=== PATIENT | male | born 1990 ===

== ENCOUNTER 2021-07-13 11:13 | Emergency (ER) | payer OTHER, SELFPAY ==
[2021-07-13 11:35] VITALS: BP 134/78; PULSE 79; RESP 18; TEMP 36.6; O2SAT 97; BMI 24.3
[2021-07-13] MEDS: Acetaminophen 325 MG TABLET 650 MG PO (11:44)
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
== END 2021-07-13 12:33 | disposition home or self-care (01) ==
PROVIDERS: Emergency Provider Emergency Medicine; PCP Internal Medicine
DX: S29.012A Strain of muscle and tendon of back wall of thorax, initial encounter (principal); S16.1XXA Strain of muscle, fascia and tendon at neck level, initial encounter; M54.2 Cervicalgia; V43.52XA Car driver injured in collision with other type car in traffic accident, initial encounter; Y93.9 Activity, unspecified; Y92.410 Unspecified street and highway as the place of occurrence of the external cause; Y99.9 Unspecified external cause status; Z79.899 Other long term (current) drug therapy
CPT/HCPCS: 99284

== ENCOUNTER 2024-04-10 16:25 | Outpatient (REF) | payer MEDICAID, SELFPAY ==
[2024-04-10 18:10] LABS: Alanine Aminotransferase 9 U/L (0-40); Albumin Level 3.9 g/dL (3.5-5.0); Alkaline Phosphatase 68 U/L (39-117); Aspartate Amino Transferase 15 U/L (5-37); Bilirubin Direct < 0.2 mg/dL (0.0-0.5); Bilirubin Total 0.2 mg/dL (0.0-1.0); Total Protein 7.5 g/dL (6.5-8.0)
[2024-04-11 07:29] LABS: HBS Num1 67.95 mIU/mL (0-7.99); HBc Num1 0.11 S/CO (0.00-0.79); HIV Num 1 0.07 S/CO (0.00-0.99); Hepatitis B Core Antibody Nonreactive (Nonreactive); ~HepC Num1 0.14 S/CO (0.00-0.79); ~Hepatitis B Surface Antibody REACTIVE (Nonreactive); ~Hepatitis C Antibody Nonreactive (Nonreactive)
[2024-04-11 07:30] LABS: HBsAGNum1 0.25 S/CO (0.00-0.99); HIV AB/AG Nonreactive (Nonreactive); Hepatitis B Surface Antigen Negative (Negative)
[2024-04-11 07:31] LABS: Hepatitis A Antibody IgG Nonreactive (Nonreactive); ~Hepatitis A Antibody IgG 0.33 S/CO (0.00-0.99)
[2024-04-11 12:38] LABS: RPR Rapid Plasma Reagin NON-REACTIVE (NON-REACTIVE)
== END 2024-04-10 16:26 | disposition home or self-care (01) ==
LOC: HO.HHCL 16:25
PROVIDERS: Visit Provider Emergency Medicine
DX: F11.20 Opioid dependence, uncomplicated (principal)
CPT/HCPCS: 36415; 80076; 86592; 86704; 86706; 86708; 86803; 87340; 87389

== ENCOUNTER 2024-06-16 18:01 | Inpatient (IN) | payer MEDICAID, OTHER, SELFPAY ==
[2024-06-16 19:08] VITALS: BP 106/65; PULSE 83; RESP 16; TEMP 36.9; O2SAT 95; BMI 23.2
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
--- NOTE | 2024-06-16 19:12 | ECG_ITS ---
Test Reason : MED CLEARANCE Blood Pressure : / mmHG Vent. Rate : 055 BPM Atrial Rate : 055 BPM P-R Int : 158 ms QRS Dur : 100 ms QT Int : 408 ms P-R-T Axes : 039 074 050 degrees QTc Int : 390 ms Sinus bradycardia with sinus arrhythmia Otherwise normal ECG When compared with ECG of 17-APR-2012 23:46, Vent. rate has decreased BY 54 BPM QT has shortened Referred By: Mary Resendiz Electronically Signed By:ROMA MARKS
--- NOTE | 2024-06-16 19:26 | PC.NURSE ---
client had heroin in pocket did forthcoming relinquish upon search.
[2024-06-16] MEDS: Nicotine 21 MG PATCH.TD24 TRANSDERMA (20:04)
[2024-06-16] MEDS: Albuterol Sulfate 90 MCG 8 GM INHALER 4 PUFF INHALE (20:05)
--- NOTE | 2024-06-16 20:41 | MHC.CARE ---
Manager Database Administration attempted to meet with patient-not clinically appropriate at this time due to under the influence of substances. Will need follow-up
[2024-06-16 21:02] LABS: Amphetamine Screen Urine Not Detected (Not Detect); Barbiturates, Urine Not Detected (Not Detect); Benzodiazepines Screen Urine POSITIVE (Not Detect); Buprenorphine Scr Not Detected (Not Detect); Cannabinoid Screen Urine POSITIVE (Not Detect); Cocaine Screen Urine POSITIVE (Not Detect); Fentanyl, urine POSITIVE (Not Detect); Methadone Screen, Urine Not Detected (Not Detect); Opiate Screen Urine POSITIVE (Not Detect); Oxycodone Screen Urine Not Detected (Not Detect); Phencyclidine Screen Urine Not Detected (Not Detect)
[2024-06-16 21:02] LABS: MANUAL DIFF FLAG NO
[2024-06-16 21:03] LABS: Basophils Percent Auto 0.5 % (0-2); Eosinophils Absolute Auto 0.5 X10*3/uL (0.0-0.4); Eosinophils Percent Auto 6.3 % (0-4); Hematocrit 37.9 % (42.0-52.0); Hemoglobin 13.4 g/dl (14.0-18.0); Imm Gran Abs Auto 0.01 X10*3/uL (0.00-0.03); Imm Gran Pct Auto 0.1 % (0.0-0.4); Lymphocytes Absolute Auto 2.2 X10*3/uL (1.2-4.9); Lymphocytes Percent Auto 27.2 % (20-40); Mean Corpuscular HGB Conc 35.4 g/dl (31.0-36.0); Mean Corpuscular Hemoglobin 32.4 pg (27.0-33.0); Mean Corpuscular Volume 91.8 fL (80.0-98.0); Mean Platelet Volume 9.8 fL (9.4-12.4); Monocytes Absolute Auto 0.6 X10*3/uL (0.1-1.2); Monocytes Percent Auto 7.4 % (2-11); Neutrophils Absolute Auto 4.6 x10*3/uL (2.0-8.3); Neutrophils Percent Auto 58.5 % (45-73); Platelet Count 214 X10*3/uL (160-400); Red Blood Count 4.13 X10*6/uL (4.60-5.80); Red Cell Distribution Width 13.5 % (11.0-16.0); White Blood Count 7.9 X10*3/uL (4.8-10.8)
[2024-06-16 21:26] LABS: Acetaminophen LAB < 3 mcg/mL (<30); Salicylate < 5.0 mg/dL (15-30)
[2024-06-16 21:27] LABS: Alanine Aminotransferase 9 U/L (0-40); Albumin Level 3.9 g/dL (3.5-5.0); Alkaline Phosphatase 63 U/L (39-117); Anion Gap 12 (12-20); Aspartate Amino Transferase 14 U/L (5-37); Bilirubin Direct < 0.2 mg/dL (0.0-0.5); Bilirubin Total 0.2 mg/dL (0.0-1.0); Blood Urea Nitrogen 14 mg/dL (9-16); Calcium 9.4 mg/dL (8.4-10.2); Carbon Dioxide 27 mmol/L (22-29); Chloride 105 mmol/L (96-108); Creatinine Clr Calc Pharmacy 92.4; Estimated Glomerular Filt Rate > 60; Ethanol < 10 mg/dL; Glucose Random 109 mg/dL (60-115); Magnesium 2.1 mg/dL (1.6-2.6); Potassium 4.2 mmol/L (3.3-5.1); Sodium 140 mmol/L (135-145); Total Protein 6.8 g/dL (6.5-8.0)
[2024-06-16 21:29] LABS: Valproate < 12.5 mcg/mL (50.0-100.0)
[2024-06-17 06:24] VITALS: RESP 16
--- NOTE | 2024-06-17 08:12 | PC.NURSE ---
Assumed care of patient at 0645, patient sitting at desk eating breakfast at this time, offers no complaints to this RN. Patient is calm and cooperative, help seeking. Reports SI without plan at this time. No apparent distress noted. Continue plan of care for CARE team dispo. This RN spoke with patient about home medications, patient reports taking depakote 500mg BID for epilepsy however he admits to taking the medication inconsistently which explains why his prescription is by 2 months. This was discussed with Dr. Lopez
[2024-06-17] MEDS: Divalproex Sodium 250 MG TABLET.DR PO ×2 (08:27→20:39)
[2024-06-17 08:34] VITALS: BP 101/73; PULSE 70; RESP 14; TEMP 36.4; O2SAT 98
[2024-06-17 11:15] VITALS: PULSE 74
[2024-06-17] MEDS: cloNIDine HCL 0.1 MG TABLET PO (11:35)
--- NOTE | 2024-06-17 13:50 | MHC.EDTECH ---
Patient am care done showered and linen change .
[2024-06-17] MEDS: LORazepam 1 MG TABLET 2 MG PO (14:15)
[2024-06-17 17:47] VITALS: BP 95/67; PULSE 54; RESP 16; TEMP 36.3; O2SAT 99
--- NOTE | 2024-06-17 19:03 | PC.NURSE ---
patient appears to remain at rest at present respirations are even and unlabored patient appears in no distress
[2024-06-17 23:20] VITALS: BMI 22.0
[2024-06-18] VITALS (8 sets, daily range): BP systolic 102–118; BP diastolic 70–78; PULSE 68–89; RESP 14–16; TEMP 36.6–36.9; O2SAT 98
[2024-06-18] MEDS: methADONE HCl 10 MG TABLET PO (01:22)
[2024-06-18] MEDS: LORazepam 1 MG TABLET 2 MG PO (01:23)
--- NOTE | 2024-06-18 01:33 | PC.ADMIT ---
Rogelio was admitted to M3 room 306-1 from [facility] on a CV for Depression and Suicidal ideation r/t ongoing substance abuse. Patient reports that he recently became homeless and is unable to see his daughter secondary to his substance abuse issues. He reports feeling depressed with suicidal ideation to overdose on heroin related to the afore mentioned concerns. Rogelio endorsed being part of a Suboxone clinic but stated that he doesn't take the Suboxone rather, the he sells it and then obtains Heroin. He stated that he uses 1.5 bundles of Heroin (intranasal) as well as an 1 pint of hard liquor, THC and Cocaine daily. Upon arrival to the unit the patient was noted to be in active opiate withdrawal and received 10 mg of Methadone, patient is on Ativan for ETOH withdrawal, received 2mg of Ativan and will be started on an Ativan taper. He is alert and oriented X's 4, future focused, displays help seeking behaviors, and is open to the experience.
[2024-06-18] MEDS: hydrOXYzine HCL 25 MG TABLET PO ×2 (02:32→22:38)
[2024-06-18] MEDS: traZODone HCL 50 MG TABLET PO (02:32)
[2024-06-18] MEDS: cloNIDine HCL 0.1 MG TABLET PO ×2 (03:43→22:38)
[2024-06-18] MEDS: LORazepam 1 MG TABLET PO ×5 (03:43→19:05)
[2024-06-18 07:48] LABS: Alanine Aminotransferase 13 U/L (0-40); Albumin Level 3.8 g/dL (3.5-5.0); Alkaline Phosphatase 47 U/L (39-117); Anion Gap 12 (12-20); Aspartate Amino Transferase 17 U/L (5-37); Bilirubin Total 0.6 mg/dL (0.0-1.0); Blood Urea Nitrogen 13 mg/dL (9-16); Calcium 9.3 mg/dL (8.4-10.2); Carbon Dioxide 24 mmol/L (22-29); Chloride 107 mmol/L (96-108); Cholesterol 175 mg/dL (<200); Creatinine Clr Calc Pharmacy 112.2; Estimated Glomerular Filt Rate > 60; Glucose Fasting 103 mg/dL (60-99); HDL Cholesterol 58 mg/dL (>40); LDL Cholesterol Calculated 87 mg/dL (<100); Potassium 3.7 mmol/L (3.3-5.1); Sodium 139 mmol/L (135-145); Total Protein 6.8 g/dL (6.5-8.0); Triglycerides 154 mg/dL (<150)
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
--- NOTE | 2024-06-18 11:08 | PHA.MEDREC ---
Addendum entered by Rhonda Quevedo RPh 06/18/24 12:21: Reviewed by [facility] Original Note: Pharmacy Consult ? Medication Reconciliation Pharmacy has completed the medication reconciliation. reviewed med rec done by nursing.
[2024-06-18] MEDS: methADONE HCl 20 MG/2 ML ORAL.CONC 10 MG PO (16:33)
[2024-06-18] MEDS: Divalproex Sodium 500 MG TABLET.DR 1000 MG PO (22:31)
[2024-06-19] VITALS: PULSE 76
[2024-06-19] MEDS: Acetaminophen 325 MG TABLET 650 MG PO ×2 (02:48→17:25)
[2024-06-19] MEDS: diazePAM 5 MG TABLET PO ×2 (02:49→20:51)
[2024-06-19 07:30] VITALS: BP 111/74; PULSE 85; RESP 16; TEMP 36.4; O2SAT 99
[2024-06-19 08:00] VITALS: PULSE 75
[2024-06-19] MEDS: methADONE HCl 20 MG/2 ML ORAL.CONC 30 MG PO (08:31)
[2024-06-19] MEDS: methADONE HCl 20 MG/2 ML ORAL.CONC 10 MG PO ×2 (10:35→17:24)
[2024-06-19] MEDS: Fluticasone/Vilanterol 100/25 BLST.W.DEV 1 PUFF INHALE (10:36)
[2024-06-19] MEDS: Dicyclomine HCl 10 MG CAPSULE PO ×2 (10:37→17:25)
[2024-06-19] MEDS: Ibuprofen 800 MG TABLET PO ×2 (10:37→20:49)
[2024-06-19] MEDS: hydrOXYzine HCL 25 MG TABLET PO ×2 (10:38→17:25)
--- NOTE | 2024-06-19 10:55 | HO.ADDICTPRO ---
Subjective Subjective Date of Service: 06/19/24 Reason For Visit: depression, SI Interim History: Patient admitted to unit with worsening depression and suicidal ideation Consult requested to address patients reported substance use When seen by this show card writer patient had received methadone 30mg. He was laying in bed, reporting chills, and body aches. Some improvement with methadone dose. Reports using approx 1.5 bundles of fentanyl daily Reports previously being engaged in treatment with [facility], but that was several months ago. RN called and verified that last dose was in January and was 40mg . During brief assessment, tearing of eyes noted. No diaphoresis noted. No restlessness. Review of Systems Constitutional: Reports as per HPI, Reports body ache(s), Reports chills and Reports malaise Mental Status Exam Mental Status Exam Level of Consciousness: Drowsy Patient Behavior: Appropriate Mood Description: Calm Diagnostics Vital Signs (24Hr): Vital Signs - 24 hr 06/18/24 16:28 06/18/24 20:00 06/18/24 22:38 Temperature 97.8 F Pulse Rate 89 76 Respiratory Rate 16 16 Blood Pressure 115/78 102/70 110/73 Pulse Oximetry 98 Oxygen Delivery Method Room Air 06/19/24 07:30 Temperature 97.6 F Pulse Rate 85 Respiratory Rate 16 Blood Pressure 111/74 Pulse Oximetry 99 Oxygen Delivery Method Room Air BMI result Body Mass Index 22.0 Labs 06/16/24 20:57 06/18/24 07:28 Labs: Laboratory Results - last 48 hr 06/18/24 07:28 Sodium 139 Potassium 3.7 Chloride 107 Carbon Dioxide 24 Anion Gap 12 BUN 13 Creatinine 0.78 Estim Creat Clear Calc 112.2 Estimated GFR > 60 Fasting Glucose 103 H Calcium 9.3 Total Bilirubin 0.6 AST 17 ALT 13 Alkaline Phosphatase 47 Total Protein 6.8 Albumin 3.8 Triglycerides 154 H Cholesterol 175 LDL Cholesterol, Calc 87 HDL Cholesterol 58 Medications Medications Current Medications Acetaminophen (Acetaminophen 325 Mg Tablet) 650 mg PO Q6H PRN PRN Reason: Headache/Pain Mild Scale (1-3) Last Admin: 06/19/24 02:48 Dose: 650 mg Al Hydroxide/Mg Hydroxide (Magnesium Hydrox/Alum Hydrox 30 Ml Oral.Susp) 30 ml PO Q6H PRN PRN Reason: Heartburn/Nausea Albuterol Sulfate (Albuterol Sulfate 90 Mcg 8 Gm Inhaler) 2 puff INHALE Q4H PRN PRN Reason: wheezing Clonidine HCl (Clonidine Hcl 0.1 Mg Tablet) 0.1 mg PO TID PRN; Protocol PRN Reason: opiate withdrawal Last Admin: 06/18/24 22:38 Dose: 0.1 mg Diazepam (Diazepam 5 Mg Tablet) 5 mg PO Q2H PRN PRN Reason: CIWA 8-11 Last Admin: 06/19/24 02:49 Dose: 5 mg Diazepam (Diazepam 5 Mg Tablet) 10 mg PO Q2H PRN PRN Reason: CIWA 12-15 Diazepam (Diazepam 5 Mg Tablet) 15 mg PO Q2H PRN PRN Reason: CIWA > 15; and call Dicyclomine HCl (Dicyclomine Hcl 10 Mg Capsule) 10 mg PO QIDACHS PRN PRN Reason: spasm Last Admin: 06/19/24 10:37 Dose: 10 mg Divalproex Sodium (Divalproex Sodium 500 Mg Tablet.Dr) 1,000 mg PO BEDTIME [facility] Last Admin: 06/18/24 22:31 Dose: 1,000 mg Fluticasone/Vilanterol (Fluticasone/Vilanterol 100/25 Blst.W.Dev) 1 puff INHALE RDAILY [facility] Last Admin: 06/19/24 10:36 Dose: 1 puff Hydroxyzine HCl (Hydroxyzine Hcl 25 Mg Tablet) 25 mg PO Q6H PRN PRN Reason: Anxiety Last Admin: 06/19/24 10:38 Dose: 25 mg Ibuprofen (Ibuprofen 800 Mg Tablet) 800 mg PO Q8H PRN PRN Reason: pain (pain scale 1-10) Last Admin: 06/19/24 10:37 Dose: 800 mg Loperamide HCl (Loperamide Hcl 2 Mg Capsule) 2 mg PO Q4H PRN PRN Reason: diarrhea Magnesium Hydroxide (Milk Of Magnesia 30 Ml Oral.Susp) 30 ml PO DAILY PRN PRN Reason: Constipation Methadone HCl (Methadone Hcl 20 Mg/2 Ml Oral.Conc) 30 mg PO DAILY [facility] Last Admin: 06/19/24 08:31 Dose: 30 mg Methadone HCl (Methadone Hcl 20 Mg/2 Ml Oral.Conc) 10 mg PO Q6H PRN PRN Reason: COWS 8 or greater Last Admin: 06/19/24 10:35 Dose: 10 mg Nicotine (Nicotine 21 Mg Patch.Td24) 21 mg TRANSDERMA DAILY PRN PRN Reason: Nicotine Cravings Nicotine Polacrilex (Nicotine Polacrilex 2 Mg Gum) 2 mg BUCCAL Q2H PRN PRN Reason: Nicotine Cravings Trazodone HCl (Trazodone Hcl 50 Mg Tablet) 50 mg PO BEDTIME MRX1 PRN PRN Reason: Insomnia Last Admin: 06/18/24 02:32 Dose: 50 mg Allergies Allergies Allergy/AdvReac Type Severity Reaction Status Date / Time No Known Allergies Allergy Verified 06/16/24 19:12 Assessment & Plan Assessment & Plan (1) Opioid use disorder: Status: Acute Code(s): F11.90 - Opioid use, unspecified, uncomplicated Assessment and Plan: at time of evaluation, attending had already seen and adjusted methadone dosing--please reconsult if needed methadone already reinitiated --30mg this AM +10mg PRN ordered and administered comfort meds silver recovery operator to follow up and complete AUDIT Total time managing care of this patient today __25__ minutes.
--- NOTE | 2024-06-19 11:21 | HO.PSYCHPN ---
Subjective Subjective Date of Service: 06/19/24 Reason For Visit: depression, SI Interim History: in bed, sleepy, in a while. does not rouse himself for interview despite request. per staff, not attending groups. alert and future-oriented. taking fluids but not eating. c/o opioid withdrawal. COWS 12. 19. 7 yesterday. CIWA 1, 1, 6. Mental Status Exam Mental Status Exam Narrative: sleeping in his bed on unit. rousable to repeated loud voice. declined interview. adequately dressed and groomed. not cooperative. no PMA/PMR. speech decr amount, loudness. nml rate, incr latency. thoughts linear and logical in minimal interaction. affect constricted, normo-intense, non-labile. mood not assessed. SI/HI/AVH not expressed. Diagnostics Vital Signs (24Hr): Vital Signs - 24 hr 06/18/24 16:28 06/18/24 20:00 06/18/24 22:38 Temperature 97.8 F Pulse Rate 89 76 Respiratory Rate 16 16 Blood Pressure 115/78 102/70 110/73 Pulse Oximetry 98 Oxygen Delivery Method Room Air 06/19/24 07:30 Temperature 97.6 F Pulse Rate 85 Respiratory Rate 16 Blood Pressure 111/74 Pulse Oximetry 99 Oxygen Delivery Method Room Air BMI result Body Mass Index 22.0 Labs 06/16/24 20:57 06/18/24 07:28 Labs: Laboratory Results - last 48 hr 06/18/24 07:28 Sodium 139 Potassium 3.7 Chloride 107 Carbon Dioxide 24 Anion Gap 12 BUN 13 Creatinine 0.78 Estim Creat Clear Calc 112.2 Estimated GFR > 60 Fasting Glucose 103 H Calcium 9.3 Total Bilirubin 0.6 AST 17 ALT 13 Alkaline Phosphatase 47 Total Protein 6.8 Albumin 3.8 Triglycerides 154 H Cholesterol 175 LDL Cholesterol, Calc 87 HDL Cholesterol 58 Medications Medications Current Medications Acetaminophen (Acetaminophen 325 Mg Tablet) 650 mg PO Q6H PRN PRN Reason: Headache/Pain Mild Scale (1-3) Last Admin: 06/19/24 02:48 Dose: 650 mg Al Hydroxide/Mg Hydroxide (Magnesium Hydrox/Alum Hydrox 30 Ml Oral.Susp) 30 ml PO Q6H PRN PRN Reason: Heartburn/Nausea Albuterol Sulfate (Albuterol Sulfate 90 Mcg 8 Gm Inhaler) 2 puff INHALE Q4H PRN PRN Reason: wheezing Clonidine HCl (Clonidine Hcl 0.1 Mg Tablet) 0.1 mg PO TID PRN; Protocol PRN Reason: opiate withdrawal Last Admin: 06/18/24 22:38 Dose: 0.1 mg Diazepam (Diazepam 5 Mg Tablet) 5 mg PO Q2H PRN PRN Reason: CIWA 8-11 Last Admin: 06/19/24 02:49 Dose: 5 mg Diazepam (Diazepam 5 Mg Tablet) 10 mg PO Q2H PRN PRN Reason: CIWA 12-15 Diazepam (Diazepam 5 Mg Tablet) 15 mg PO Q2H PRN PRN Reason: CIWA > 15; and call Dicyclomine HCl (Dicyclomine Hcl 10 Mg Capsule) 10 mg PO QIDACHS PRN PRN Reason: spasm Last Admin: 06/19/24 10:37 Dose: 10 mg Divalproex Sodium (Divalproex Sodium 500 Mg Tablet.Dr) 1,000 mg PO BEDTIME [facility] Last Admin: 06/18/24 22:31 Dose: 1,000 mg Fluticasone/Vilanterol (Fluticasone/Vilanterol 100/25 Blst.W.Dev) 1 puff INHALE RDAILY [facility] Last Admin: 06/19/24 10:36 Dose: 1 puff Hydroxyzine HCl (Hydroxyzine Hcl 25 Mg Tablet) 25 mg PO Q6H PRN PRN Reason: Anxiety Last Admin: 06/19/24 10:38 Dose: 25 mg Ibuprofen (Ibuprofen 800 Mg Tablet) 800 mg PO Q8H PRN PRN Reason: pain (pain scale 1-10) Last Admin: 06/19/24 10:37 Dose: 800 mg Loperamide HCl (Loperamide Hcl 2 Mg Capsule) 2 mg PO Q4H PRN PRN Reason: diarrhea Magnesium Hydroxide (Milk Of Magnesia 30 Ml Oral.Susp) 30 ml PO DAILY PRN PRN Reason: Constipation Methadone HCl (Methadone Hcl 20 Mg/2 Ml Oral.Conc) 10 mg PO Q6H PRN PRN Reason: COWS 8 or greater Last Admin: 06/19/24 10:35 Dose: 10 mg Nicotine (Nicotine 21 Mg Patch.Td24) 21 mg TRANSDERMA DAILY PRN PRN Reason: Nicotine Cravings Nicotine Polacrilex (Nicotine Polacrilex 2 Mg Gum) 2 mg BUCCAL Q2H PRN PRN Reason: Nicotine Cravings Trazodone HCl (Trazodone Hcl 50 Mg Tablet) 50 mg PO BEDTIME MRX1 PRN PRN Reason: Insomnia Last Admin: 06/18/24 02:32 Dose: 50 mg Allergies Allergies Allergy/AdvReac Type Severity Reaction Status Date / Time No Known Allergies Allergy Verified 06/16/24 19:12 Assessment & Plan Assessment & Plan (1) Suicidal ideation: Status: Acute Code(s): R45.851 - Suicidal ideations (2) Polysubstance (including opioids) dependence with physiol dependence: Status: Acute Code(s): F19.20 - Other psychoactive substance dependence, uncomplicated Plan 06/18: CIWA with valium for EtOH and question of benzo use, as well as reported Sz Hx. VPA 1000 mg QHS for Sz D/O Hx. comfort meds for opioid withdrawal. determine methadone dosing at clinic and reinstate. methadone 30 mg daily and per COWS for now. supportive care for cocaine withdrawal. 06/19: pt not in methadone program; DC scheduled methadone. otherwise continue current mgmt. attempt to engage when pt more wakeful and feeling better. Reason for continued inpatient stay Substantial Risk for: harm to self, inability to function and rapid decompensation Time Spent With Patient Time: Total time managing care of this patient today __25__ minutes.
--- NOTE | 2024-06-19 12:31 | MHC.CLN ---
NUTRITION CONSULT FOR REPORTED 15# WEIGHT LOSS. BMI=22, WITHIN NORMAL LIMITS. REVIEW OF WEIGHT HX SHOWS WEIGHT LOSS X 3 YEARS APPROX 14#. WEIGHT LOSS NOT SIGNIFICANT. PATIENT IS HOMELESS ADMITTED WITH ACTIVE SUBSTANCE ABUSE. PLEASE CONSULT RD IF PATIENT WITH POOR PO INTAKE X 3 DAYS. NO ADDITIONAL NUTRITION INTERVENTIONS AT THIS TIME.
[2024-06-19 16:00] VITALS: PULSE 85
[2024-06-19 17:20] VITALS: BP 121/77; PULSE 86
[2024-06-19] MEDS: cloNIDine HCL 0.1 MG TABLET PO ×2 (17:25→20:50)
[2024-06-19 20:00] VITALS: BP 101/62; PULSE 73; RESP 16; TEMP 36.4; O2SAT 97
[2024-06-19] MEDS: Divalproex Sodium 500 MG TABLET.DR 1000 MG PO (20:49)
[2024-06-19] MEDS: traZODone HCL 50 MG TABLET PO (20:50)
[2024-06-20] VITALS (7 sets, daily range): BP systolic 100–109; BP diastolic 56–65; PULSE 66–91; RESP 18; TEMP 36.7–36.9; O2SAT 98–100
[2024-06-20] MEDS: diazePAM 5 MG TABLET PO (08:40)
[2024-06-20] MEDS: hydrOXYzine HCL 25 MG TABLET PO ×2 (08:40→20:49)
[2024-06-20] MEDS: cloNIDine HCL 0.1 MG TABLET PO ×3 (08:41→22:19)
[2024-06-20] MEDS: Acetaminophen 325 MG TABLET 650 MG PO (08:41)
[2024-06-20] MEDS: Dicyclomine HCl 10 MG CAPSULE PO (08:41)
[2024-06-20] MEDS: methADONE HCl 20 MG/2 ML ORAL.CONC 50 MG PO (09:45)
[2024-06-20] MEDS: Fluticasone/Vilanterol 100/25 BLST.W.DEV 1 PUFF INHALE (09:46)
[2024-06-20] MEDS: Nicotine 21 MG PATCH.TD24 TRANSDERMA (12:33)
--- NOTE | 2024-06-20 14:45 | MHC.RECOVRN ---
Met with pt to follow up after receiving 50 mg methadone this morning. Pt laying in bed, asleep, wakes to voice, appears comfortable. Pt reports feeling weak, chills, no appetite. Pt interested in continuing methadone titration. Zully Mathew APRN, aware.
--- NOTE | 2024-06-20 15:18 | P.PNPSI_ITS ---
Subjective Subjective Date of Service: 06/20/24 Reason For Visit: depression, SI Interim History: sleepy, more awake today, however. comes to interview room to speak with MD. would like to continue methadone 50 and be referred to methadone clinic at discharge. agreeable to valium taper. mood getting a little better day by day. per staff, poor PO intake. scoring somewhat on CIWA (3, 9, 0, 2) and COWS (8, 9, 3). c/o aches, using PRNs. better PO intake eves. taking meds. slept 7 hours. Mental Status Exam Mental Status Exam Narrative: sleeping in his bed on unit. rousable to repeated loud voice. adequately dressed and groomed. cooperative. no PMA/PMR. speech decr amount, loudness. nml rate, latency. thoughts linear and logical. affect constricted, normo- intense, non-labile. mood a litle better. SI/HI/AVH. Diagnostics Vital Signs (24Hr): Vital Signs - 24 hr 06/19/24 17:20 06/19/24 20:00 06/20/24 07:52 Temperature 97.6 F 98.4 F Pulse Rate 86 73 85 Respiratory Rate 16 18 Blood Pressure 121/77 101/62 109/65 Pulse Oximetry 97 98 Oxygen Delivery Method Room Air Room Air 06/20/24 15:02 Temperature Pulse Rate 91 Respiratory Rate Blood Pressure 106/62 Pulse Oximetry 100 Oxygen Delivery Method Room Air BMI result Body Mass Index 22.0 Labs 06/16/24 20:57 06/18/24 07:28 Medications Medications Current Medications Acetaminophen (Acetaminophen 325 Mg Tablet) 650 mg PO Q6H PRN PRN Reason: Headache/Pain Mild Scale (1-3) Last Admin: 06/20/24 08:41 Dose: 650 mg Al Hydroxide/Mg Hydroxide (Magnesium Hydrox/Alum Hydrox 30 Ml Oral.Susp) 30 ml PO Q6H PRN PRN Reason: Heartburn/Nausea Albuterol Sulfate (Albuterol Sulfate 90 Mcg 8 Gm Inhaler) 2 puff INHALE Q4H PRN PRN Reason: wheezing Clonidine HCl (Clonidine Hcl 0.1 Mg Tablet) 0.1 mg PO TID PRN; Protocol PRN Reason: opiate withdrawal Last Admin: 06/20/24 15:04 Dose: 0.1 mg Diazepam (Diazepam 5 Mg Tablet) 5 mg PO DAILY [facility] Stop: 06/21/24 09:01 Dicyclomine HCl (Dicyclomine Hcl 10 Mg Capsule) 10 mg PO QIDACHS PRN PRN Reason: spasm Last Admin: 06/20/24 08:41 Dose: 10 mg Divalproex Sodium (Divalproex Sodium 500 Mg Tablet.Dr) 1,000 mg PO BEDTIME [facility] Last Admin: 06/19/24 20:49 Dose: 1,000 mg Fluticasone/Vilanterol (Fluticasone/Vilanterol 100/25 Blst.W.Dev) 1 puff INHALE RDAILY [facility] Last Admin: 06/20/24 09:46 Dose: 1 puff Hydroxyzine HCl (Hydroxyzine Hcl 25 Mg Tablet) 25 mg PO Q6H PRN PRN Reason: Anxiety Last Admin: 06/20/24 08:40 Dose: 25 mg Ibuprofen (Ibuprofen 800 Mg Tablet) 800 mg PO Q8H PRN PRN Reason: pain (pain scale 1-10) Last Admin: 06/19/24 20:49 Dose: 800 mg Loperamide HCl (Loperamide Hcl 2 Mg Capsule) 2 mg PO Q4H PRN PRN Reason: diarrhea Magnesium Hydroxide (Milk Of Magnesia 30 Ml Oral.Susp) 30 ml PO DAILY PRN PRN Reason: Constipation Methadone HCl (Methadone Hcl 20 Mg/2 Ml Oral.Conc) 50 mg PO DAILY [facility] Nicotine (Nicotine 21 Mg Patch.Td24) 21 mg TRANSDERMA DAILY PRN PRN Reason: Nicotine Cravings Last Admin: 06/20/24 12:33 Dose: 21 mg Nicotine Polacrilex (Nicotine Polacrilex 2 Mg Gum) 2 mg BUCCAL Q2H PRN PRN Reason: Nicotine Cravings Trazodone HCl (Trazodone Hcl 50 Mg Tablet) 50 mg PO BEDTIME MRX1 PRN PRN Reason: Insomnia Last Admin: 06/19/24 20:50 Dose: 50 mg Allergies Allergies Allergy/AdvReac Type Severity Reaction Status Date / Time No Known Allergies Allergy Verified 06/16/24 19:12 Assessment & Plan Assessment & Plan (1) Opioid use disorder: Status: Acute Code(s): F11.90 - Opioid use, unspecified, uncomplicated Assessment and Plan: * at time of evaluation, attending had already seen and adjusted methadone dosing--please reconsult if needed * methadone already reinitiated --30mg this AM +10mg PRN ordered and administered * comfort meds * salvage machine operator to follow up and complete AUDIT (2) Mood disorder: Status: Acute Code(s): F39 - Unspecified mood [affective] disorder Plan 06/18: CIWA with valium for EtOH and question of benzo use, as well as reported Sz Hx. VPA 1000 mg QHS for Sz D/O Hx. comfort meds for opioid withdrawal. determine methadone dosing at clinic and reinstate. methadone 30 mg daily and per COWS for now. supportive care for cocaine withdrawal. 06/19: pt not in methadone program; DC scheduled methadone. otherwise continue current mgmt. attempt to engage when pt more wakeful and feeling better. 06/20: start methadone 50 scheduled, wants program after discharge. [facility] no farhana, on VPA ER 500 BID only. DC SHEKHAR, give final dose valium tomorrow morning. PRN methadone for opioid withdrawal. Reason for continued inpatient stay Substantial Risk for: harm to self, inability to function and rapid decompensation Time Spent With Patient Time: Total time managing care of this patient today __35__ minutes.
--- NOTE | 2024-06-20 15:29 | PM.EVENT ---
Event Note Date of Service: 06/20/24 Event Note: Patient requesting methadone dose be decreased Received 50mg today (also received 50mg on 06/19) Plan: Hold methadone AM dose Provider will re-evaluate patient regarding ongoing plan Time Spent With Patient Time: Total time managing care of this patient today ____ minutes.
[2024-06-20] MEDS: Divalproex Sodium 500 MG TABLET.DR 1000 MG PO (20:49)
[2024-06-20] MEDS: traZODone HCL 50 MG TABLET PO ×2 (20:49→22:19)
[2024-06-21 06:13] LABS: Levetiracetam Keppra <2.0 mcg/mL (6.0-46.0)
[2024-06-21 07:42] VITALS: BP 98/56; PULSE 88; RESP 16; TEMP 36.6; O2SAT 100
[2024-06-21 08:00] VITALS: PULSE 88
[2024-06-21] MEDS: methADONE HCl 20 MG/2 ML ORAL.CONC 50 MG PO (08:15)
[2024-06-21] MEDS: diazePAM 5 MG TABLET PO (09:19)
[2024-06-21] MEDS: Fluticasone/Vilanterol 100/25 BLST.W.DEV 1 PUFF INHALE (09:20)
--- NOTE | 2024-06-21 12:41 | P.PNPSI_ITS ---
Subjective Subjective Date of Service: 06/21/24 Reason For Visit: depression, SI Interim History: calm, cooperative, loquacious, reflective. chooses to continue methadone 50 for now and address other aspects in his life and get himself to a stable and healthy place before trying to taper off of methadone again. discuss meds for depression, anxiety. reports trauma Hx, has been helped by clonidine. will add clonidine 0.2 mg at HS for nightmares and insomnia. will add zoloft 50 for dep/anx (pt was Rxed it in the past as well). referring for rehab. per staff, increased anxiety. more visible. pleasant. restless sleep. slept 8 hours. Mental Status Exam Mental Status Exam Narrative: up and about the unit. adequately dressed and groomed. cooperative. no PMA/PMR. speech incr amount, nml loudness. nml rate, decr latency. thoughts linear and logical. affect flexible, normo-intense, non-labile. mood depressed and anxious. no SI/HI/AVH expressed. Diagnostics Vital Signs (24Hr): Vital Signs - 24 hr 06/20/24 15:02 06/20/24 19:17 06/20/24 22:19 Temperature 98.1 F Pulse Rate 91 78 Respiratory Rate Blood Pressure 106/62 103/56 L 100/62 Pulse Oximetry 100 99 Oxygen Delivery Method Room Air Room Air 06/21/24 07:42 Temperature 97.9 F Pulse Rate 88 Respiratory Rate 16 Blood Pressure 98/56 L Pulse Oximetry 100 Oxygen Delivery Method Room Air BMI result Body Mass Index 22.0 Labs 06/16/24 20:57 06/18/24 07:28 Labs: Laboratory Results - last 48 hr 06/16/24 20:57 Levetiracetam <2.0 L Medications Medications Current Medications Acetaminophen (Acetaminophen 325 Mg Tablet) 650 mg PO Q6H PRN PRN Reason: Headache/Pain Mild Scale (1-3) Last Admin: 06/20/24 08:41 Dose: 650 mg Al Hydroxide/Mg Hydroxide (Magnesium Hydrox/Alum Hydrox 30 Ml Oral.Susp) 30 ml PO Q6H PRN PRN Reason: Heartburn/Nausea Albuterol Sulfate (Albuterol Sulfate 90 Mcg 8 Gm Inhaler) 2 puff INHALE Q4H PRN PRN Reason: wheezing Clonidine HCl (Clonidine Hcl 0.2 Mg Tablet) 0.2 mg PO BEDTIME AMADO; Protocol Divalproex Sodium (Divalproex Sodium 500 Mg Tablet.Dr) 1,000 mg PO BEDTIME [facility] Last Admin: 06/20/24 20:49 Dose: 1,000 mg Fluticasone/Vilanterol (Fluticasone/Vilanterol 100/25 Blst.W.Dev) 1 puff INHALE RDAILY [facility] Last Admin: 06/21/24 09:20 Dose: 1 puff Hydroxyzine HCl (Hydroxyzine Hcl 25 Mg Tablet) 25 mg PO Q6H PRN PRN Reason: Anxiety Last Admin: 06/20/24 20:49 Dose: 25 mg Ibuprofen (Ibuprofen 800 Mg Tablet) 800 mg PO Q8H PRN PRN Reason: pain (pain scale 1-10) Last Admin: 06/19/24 20:49 Dose: 800 mg Magnesium Hydroxide (Milk Of Magnesia 30 Ml Oral.Susp) 30 ml PO DAILY PRN PRN Reason: Constipation Methadone HCl (Methadone Hcl 20 Mg/2 Ml Oral.Conc) 50 mg PO DAILY [facility] Last Admin: 06/21/24 08:15 Dose: 50 mg Nicotine (Nicotine 21 Mg Patch.Td24) 21 mg TRANSDERMA DAILY PRN PRN Reason: Nicotine Cravings Last Admin: 06/20/24 12:33 Dose: 21 mg Nicotine Polacrilex (Nicotine Polacrilex 2 Mg Gum) 2 mg BUCCAL Q2H PRN PRN Reason: Nicotine Cravings Sertraline HCl (Sertraline Hcl 50 Mg Tablet) 50 mg PO DAILY [facility] Trazodone HCl (Trazodone Hcl 50 Mg Tablet) 50 mg PO BEDTIME MRX1 PRN PRN Reason: Insomnia Last Admin: 06/20/24 22:19 Dose: 50 mg Allergies Allergies Allergy/AdvReac Type Severity Reaction Status Date / Time No Known Allergies Allergy Verified 06/16/24 19:12 Assessment & Plan Assessment & Plan (1) Opioid use disorder: Status: Acute Code(s): F11.90 - Opioid use, unspecified, uncomplicated Assessment and Plan: * at time of evaluation, attending had already seen and adjusted methadone dosing--please reconsult if needed * methadone already reinitiated --30mg this AM +10mg PRN ordered and administered * comfort meds * rn recovery to follow up and complete AUDIT (2) Mood disorder: Status: Acute Code(s): F39 - Unspecified mood [affective] disorder Plan 06/18: CIWA with valium for EtOH and question of benzo use, as well as reported Sz Hx. VPA 1000 mg QHS for Sz D/O Hx. comfort meds for opioid withdrawal. determine methadone dosing at clinic and reinstate. methadone 30 mg daily and per COWS for now. supportive care for cocaine withdrawal. 06/19: pt not in methadone program; DC scheduled methadone. otherwise continue current mgmt. attempt to engage when pt more wakeful and feeling better. 06/20: start methadone 50 scheduled, wants program after discharge[facility] no keppra, on VPA ER 500 BID only. DC SHEKHAR, give final dose valium tomorrow morning. PRN methadone for opioid withdrawal. 06/21: scheduled methadone 50, no PRNS. COWS DCed. feeling well on present dose. start sertraline 50 for dep/anx, clonidine 0.2 QHS for nightmares/insomnia in PTSD. referral for rehab under way. Reason for continued inpatient stay Substantial Risk for: inability to function and rapid decompensation Time Spent With Patient Time: Total time managing care of this patient today _35___ minutes.
[2024-06-21] MEDS: Sertraline HCL 50 MG TABLET PO (12:52)
--- NOTE | 2024-06-21 15:19 | MHC.RECOVRN ---
AUDIT-C Brief Intervention Pt had positive screen for unhealthy alcohol use on admission, subsequently met with t/w to discuss alcohol use and recovery supports/options. Pt voices concern regarding alcohol use and is aware that drinking at unhealthy levels is known to increase risk of alcohol related health problems. Pt reports 1 pint of liquor daily for an unknown amount of time. Pt expresses how alcohol use has impacted health, including negative impact on overall mental health. Discussed risk reduction strategies including drinking below the recommended limit. Provided pt with written resources including information on inpatient and outpatient treatment, LAVERN, harm reduction, and recovery coaching. Pt plans to be placed in a [facility] program to continue TORI treatment. Pt provided with t/w contact information if questions or concerns arise. Denies other questions or concerns at this time.
[2024-06-21] MEDS: hydrOXYzine HCL 25 MG TABLET PO ×2 (15:48→21:27)
[2024-06-21 20:45] VITALS: BP 97/56; PULSE 73; RESP 16; TEMP 36.7; O2SAT 100
[2024-06-21 21:24] VITALS: BP 105/70; PULSE 78
[2024-06-21] MEDS: traZODone HCL 50 MG TABLET PO (21:27)
[2024-06-21] MEDS: cloNIDine HCL 0.2 MG TABLET PO (21:27)
[2024-06-22 07:00] VITALS: BMI 23.3
[2024-06-22 08:00] VITALS: BP 101/58; PULSE 66; RESP 16; TEMP 36.9; O2SAT 100
[2024-06-22] MEDS: methADONE HCl 20 MG/2 ML ORAL.CONC 50 MG PO (08:01)
[2024-06-22] MEDS: Sertraline HCL 50 MG TABLET PO (09:02)
[2024-06-22] MEDS: Fluticasone/Vilanterol 100/25 BLST.W.DEV 1 PUFF INHALE (09:02)
[2024-06-22 13:18] VITALS: BP 110/63; PULSE 74; RESP 16
[2024-06-22] MEDS: hydrOXYzine HCL 25 MG TABLET PO (13:22)
[2024-06-22] MEDS: Nicotine Polacrilex 2 MG GUM BUCCAL (13:26)
[2024-06-22] MEDS: QUEtiapine Fumarate 25 MG TABLET PO ×2 (14:12→20:56)
--- NOTE | 2024-06-22 14:12 | P.PNPSI_ITS ---
Subjective Subjective Date of Service: 06/22/24 Reason For Visit: depression, SI Interim History: insightful, realistic. would like to go to [facility] rather than [facility] so he can work and have freedom. doesn't believe he can be cooped up for a month. nightmares continue, agrees to increase HS clonidine to 0.3 mg. per staff, slept 8 hours. dep/anx 8. feeling overwhelmed by unit. Mental Status Exam Mental Status Exam Narrative: up and about the unit. adequately dressed and groomed. cooperative. no PMA/PMR. speech incr amount, nml loudness. nml rate, decr latency. thoughts linear and logical. affect flexible, normo-intense, non-labile. mood depressed and anxious. no SI/HI/AVH expressed. Diagnostics Vital Signs (24Hr): Vital Signs - 24 hr 06/21/24 20:45 06/21/24 21:24 06/22/24 08:00 Temperature 98.1 F 98.4 F Pulse Rate 73 78 66 Respiratory Rate 16 16 Blood Pressure 97/56 L 105/70 101/58 L Pulse Oximetry 100 100 Oxygen Delivery Method Room Air Room Air 06/22/24 13:18 Temperature Pulse Rate 74 Respiratory Rate 16 Blood Pressure 110/63 Pulse Oximetry Oxygen Delivery Method BMI result Body Mass Index 23.3 Labs 06/16/24 20:57 06/18/24 07:28 Labs: Laboratory Results - last 48 hr 06/16/24 20:57 Levetiracetam <2.0 L Medications Medications Current Medications Acetaminophen (Acetaminophen 325 Mg Tablet) 650 mg PO Q6H PRN PRN Reason: Headache/Pain Mild Scale (1-3) Last Admin: 06/20/24 08:41 Dose: 650 mg Al Hydroxide/Mg Hydroxide (Magnesium Hydrox/Alum Hydrox 30 Ml Oral.Susp) 30 ml PO Q6H PRN PRN Reason: Heartburn/Nausea Albuterol Sulfate (Albuterol Sulfate 90 Mcg 8 Gm Inhaler) 2 puff INHALE Q4H PRN PRN Reason: wheezing Clonidine HCl (Clonidine Hcl 0.1 Mg Tablet) 0.3 mg PO BEDTIME AMADO; Protocol Divalproex Sodium (Divalproex Sodium 500 Mg Tablet.Dr) 1,000 mg PO BEDTIME AMADO Last Admin: 06/21/24 21:28 Dose: Not Given Fluticasone/Vilanterol (Fluticasone/Vilanterol 100/25 Blst.W.Dev) 1 puff INHALE RDAILY [facility] Last Admin: 06/22/24 09:02 Dose: 1 puff Hydroxyzine HCl (Hydroxyzine Hcl 25 Mg Tablet) 25 mg PO Q6H PRN PRN Reason: Anxiety Last Admin: 06/22/24 13:22 Dose: 25 mg Ibuprofen (Ibuprofen 800 Mg Tablet) 800 mg PO Q8H PRN PRN Reason: pain (pain scale 1-10) Last Admin: 06/19/24 20:49 Dose: 800 mg Magnesium Hydroxide (Milk Of Magnesia 30 Ml Oral.Susp) 30 ml PO DAILY PRN PRN Reason: Constipation Methadone HCl (Methadone Hcl 20 Mg/2 Ml Oral.Conc) 50 mg PO DAILY [facility] Last Admin: 06/22/24 08:01 Dose: 50 mg Nicotine (Nicotine 21 Mg Patch.Td24) 21 mg TRANSDERMA DAILY PRN PRN Reason: Nicotine Cravings Last Admin: 06/20/24 12:33 Dose: 21 mg Nicotine Polacrilex (Nicotine Polacrilex 2 Mg Gum) 2 mg BUCCAL Q2H PRN PRN Reason: Nicotine Cravings Last Admin: 06/22/24 13:26 Dose: 2 mg Quetiapine Fumarate (Quetiapine Fumarate 25 Mg Tablet) 25 mg PO Q4H PRN PRN Reason: severe anxiety Sertraline HCl (Sertraline Hcl 50 Mg Tablet) 50 mg PO DAILY [facility] Last Admin: 06/22/24 09:02 Dose: 50 mg Trazodone HCl (Trazodone Hcl 50 Mg Tablet) 50 mg PO BEDTIME MRX1 PRN PRN Reason: Insomnia Last Admin: 06/21/24 21:27 Dose: 50 mg Allergies Allergies Allergy/AdvReac Type Severity Reaction Status Date / Time No Known Allergies Allergy Verified 06/16/24 19:12 Assessment & Plan Assessment & Plan (1) Opioid use disorder: Status: Acute Code(s): F11.90 - Opioid use, unspecified, uncomplicated Assessment and Plan: * at time of evaluation, attending had already seen and adjusted methadone dosing--please reconsult if needed * methadone already reinitiated --30mg this AM +10mg PRN ordered and administered * comfort meds * catalyst recovery operator to follow up and complete AUDIT (2) Mood disorder: Status: Acute Code(s): F39 - Unspecified mood [affective] disorder Plan 06/18: CIWA with valium for EtOH and question of benzo use, as well as reported Sz Hx. VPA 1000 mg QHS for Sz D/O Hx. comfort meds for opioid withdrawal. determine methadone dosing at clinic and reinstate. methadone 30 mg daily and per COWS for now. supportive care for cocaine withdrawal. 06/19: pt not in methadone program; DC scheduled methadone. otherwise continue current mgmt. attempt to engage when pt more wakeful and feeling better. 06/20: start methadone 50 scheduled, wants program after discharge. meds verified with [facility] pharmacy. no keppra, on VPA ER 500 BID only. DC CIEDENILSON, give final dose valium tomorrow morning. PRN methadone for opioid withdrawal. 06/21: scheduled methadone 50, no PRNS. COWS DCed. feeling well on present dose. start sertraline 50 for dep/anx, clonidine 0.2 QHS for nightmares/insomnia in PTSD. referral for rehab under way. 06/22: nightmares continue, increase HS clonidine to 0.3 mg. wants referrals to methadone clinic and [facility] (NOT rehab) at discharge. Reason for continued inpatient stay Substantial Risk for: inability to function and rapid decompensation Time Spent With Patient Time: Total time managing care of this patient today __25__ minutes.
[2024-06-22 20:00] VITALS: BP 114/73; PULSE 82; RESP 16; TEMP 37.1; O2SAT 98
[2024-06-22] MEDS: Ibuprofen 800 MG TABLET PO (20:56)
[2024-06-22] MEDS: Divalproex Sodium 500 MG TABLET.DR 1000 MG PO (20:56)
[2024-06-22] MEDS: cloNIDine HCL 0.1 MG TABLET 0.3 MG PO (20:56)
[2024-06-23 07:25] VITALS: BP 92/55; PULSE 64; RESP 12; TEMP 36.8; O2SAT 100
[2024-06-23] MEDS: methADONE HCl 20 MG/2 ML ORAL.CONC 50 MG PO (08:11)
[2024-06-23] MEDS: Fluticasone/Vilanterol 100/25 BLST.W.DEV 1 PUFF INHALE (08:31)
[2024-06-23] MEDS: Sertraline HCL 50 MG TABLET PO (08:31)
[2024-06-23] MEDS: methADONE HCl 20 MG/2 ML ORAL.CONC 5 MG PO (11:15)
--- NOTE | 2024-06-23 13:10 | HO.PSYCHPN ---
Subjective Subjective Date of Service: 06/23/24 Reason For Visit: depression, SI Interim History: slept better overnight. c/o some sweats and chills which he did not read at first as withdrawal Sx, but now he believes he is in some withdrawal from opioids and would like methadone dosing increased to 55 mg daily, which is agreed upon. otherwise feeling well, asking to discharge on wednesday. per staff, +anx/dep. up and out of his room more. triggered by nodding off peer. slept 8 hours. Mental Status Exam Mental Status Exam Narrative: up and about the unit. adequately dressed and groomed. cooperative. no PMA/PMR. speech incr amount, nml loudness. nml rate, decr latency. thoughts linear and logical. affect flexible, normo-intense, non-labile. mood improved. no SI/HI/AVH expressed. Diagnostics Vital Signs (24Hr): Vital Signs - 24 hr 06/22/24 13:18 06/22/24 20:00 06/23/24 07:25 Temperature 98.8 F 98.2 F Pulse Rate 74 82 64 Respiratory Rate 16 16 12 Blood Pressure 110/63 114/73 92/55 L Pulse Oximetry 98 100 Oxygen Delivery Method Room Air Room Air BMI result Body Mass Index 23.3 Labs 06/16/24 20:57 06/18/24 07:28 Medications Medications Current Medications Acetaminophen (Acetaminophen 325 Mg Tablet) 650 mg PO Q6H PRN PRN Reason: Headache/Pain Mild Scale (1-3) Last Admin: 06/20/24 08:41 Dose: 650 mg Al Hydroxide/Mg Hydroxide (Magnesium Hydrox/Alum Hydrox 30 Ml Oral.Susp) 30 ml PO Q6H PRN PRN Reason: Heartburn/Nausea Albuterol Sulfate (Albuterol Sulfate 90 Mcg 8 Gm Inhaler) 2 puff INHALE Q4H PRN PRN Reason: wheezing Clonidine HCl (Clonidine Hcl 0.1 Mg Tablet) 0.3 mg PO BEDTIME AMADO; Protocol Last Admin: 06/22/24 20:56 Dose: 0.3 mg Divalproex Sodium (Divalproex Sodium 500 Mg Tablet.Dr) 1,000 mg PO BEDTIME AMADO Last Admin: 06/22/24 20:56 Dose: 1,000 mg Fluticasone/Vilanterol (Fluticasone/Vilanterol 100/25 Blst.W.Dev) 1 puff INHALE RDAILY [facility] Last Admin: 06/23/24 08:31 Dose: 1 puff Hydroxyzine HCl (Hydroxyzine Hcl 25 Mg Tablet) 25 mg PO Q6H PRN PRN Reason: Anxiety Last Admin: 06/22/24 13:22 Dose: 25 mg Ibuprofen (Ibuprofen 800 Mg Tablet) 800 mg PO Q6H PRN PRN Reason: pain (pain scale 1-10) Magnesium Hydroxide (Milk Of Magnesia 30 Ml Oral.Susp) 30 ml PO DAILY PRN PRN Reason: Constipation Methadone HCl (Methadone Hcl 20 Mg/2 Ml Oral.Conc) 55 mg PO DAILY [facility] Nicotine (Nicotine 21 Mg Patch.Td24) 21 mg TRANSDERMA DAILY PRN PRN Reason: Nicotine Cravings Last Admin: 06/20/24 12:33 Dose: 21 mg Nicotine Polacrilex (Nicotine Polacrilex 2 Mg Gum) 2 mg BUCCAL Q2H PRN PRN Reason: Nicotine Cravings Last Admin: 06/22/24 13:26 Dose: 2 mg Quetiapine Fumarate (Quetiapine Fumarate 25 Mg Tablet) 25 mg PO Q4H PRN PRN Reason: severe anxiety Last Admin: 06/22/24 20:56 Dose: 25 mg Sertraline HCl (Sertraline Hcl 50 Mg Tablet) 50 mg PO DAILY [facility] Last Admin: 06/23/24 08:31 Dose: 50 mg Trazodone HCl (Trazodone Hcl 50 Mg Tablet) 50 mg PO BEDTIME MRX1 PRN PRN Reason: Insomnia Last Admin: 06/21/24 21:27 Dose: 50 mg Allergies Allergies Allergy/AdvReac Type Severity Reaction Status Date / Time No Known Allergies Allergy Verified 06/16/24 19:12 Assessment & Plan Assessment & Plan (1) Opioid use disorder: Status: Acute Code(s): F11.90 - Opioid use, unspecified, uncomplicated Assessment and Plan: at time of evaluation, attending had already seen and adjusted methadone dosing--please reconsult if needed methadone already reinitiated --30mg this AM +10mg PRN ordered and administered comfort meds schedule planning manager to follow up and complete AUDIT (2) Mood disorder: Status: Acute Code(s): F39 - Unspecified mood [affective] disorder Plan 06/18: CIWA with valium for EtOH and question of benzo use, as well as reported Sz Hx. VPA 1000 mg QHS for Sz D/O Hx. comfort meds for opioid withdrawal. determine methadone dosing at clinic and reinstate. methadone 30 mg daily and per COWS for now. supportive care for cocaine withdrawal. 06/19: pt not in methadone program; DC scheduled methadone. otherwise continue current mgmt. attempt to engage when pt more wakeful and feeling better. 06/20: start methadone 50 scheduled, wants program after discharge. meds verified with [facility] pharmacy. no keirmara, on VPA ER 500 BID only. GERHARD CORRIGAN, give final dose valium tomorrow morning. PRN methadone for opioid withdrawal. 06/21: scheduled methadone 50, no PRNS. COWS DCed. feeling well on present dose. start sertraline 50 for dep/anx, clonidine 0.2 QHS for nightmares/insomnia in PTSD. referral for rehab under way. 06/22: nightmares continue, increase HS clonidine to 0.3 mg. wants referrals to methadone clinic and [facility] (NOT rehab) at discharge. 06/23: slept well last night. c/o sweats, chills, believes he is in withdrawal. methadone dosing increased to 55 mg daily. planning for wednesday discharge. Reason for continued inpatient stay Substantial Risk for: inability to function and rapid decompensation Time Spent With Patient Time: Total time managing care of this patient today __25__ minutes.
[2024-06-23] MEDS: Acetaminophen 325 MG TABLET 650 MG PO (15:47)
[2024-06-23] MEDS: hydrOXYzine HCL 25 MG TABLET PO (15:52)
[2024-06-23] MEDS: Nicotine Polacrilex 2 MG GUM BUCCAL ×2 (15:52→18:35)
[2024-06-23] MEDS: QUEtiapine Fumarate 25 MG TABLET PO (18:38)
[2024-06-23 19:59] VITALS: BP 109/69
[2024-06-23] MEDS: cloNIDine HCL 0.1 MG TABLET 0.3 MG PO (19:59)
[2024-06-23 20:00] VITALS: BP 128/60; PULSE 60; RESP 17; TEMP 36.5; O2SAT 99
[2024-06-23] MEDS: Ibuprofen 800 MG TABLET PO (20:00)
[2024-06-23] MEDS: traZODone HCL 50 MG TABLET PO (20:00)
[2024-06-23] MEDS: Divalproex Sodium 500 MG TABLET.DR 1000 MG PO (20:00)
[2024-06-24 07:45] VITALS: BP 90/56; PULSE 73; RESP 14; TEMP 36.4; O2SAT 98
[2024-06-24] MEDS: methADONE HCl 20 MG/2 ML ORAL.CONC 55 MG PO (08:13)
--- NOTE | 2024-06-24 08:35 | HO.PSYCHPN ---
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- as example Medication Compliance: Yes Side effects from medications: No Attending Groups: Yes Review of Systems Acute medical concerns: No Medical Review of Systems: unchanged Mental Status Exam Mental Status Exam Patient Appearance: Well Grooomed and Appropriate Patient Orientation: Person, Place, Time and Situation Level of Consciousness: Awake and Appropriate Patient Behavior: Appropriate and Cooperative Mood Description: Calm and Anxious Affect Description: Appropriate Patient Cognition Impaired: No Ability to Follow Directions: Good Speech Pattern: Clear Hallucinations: None Delusions: Not Present Thought Content: positive for Intact and positive for Goal Oriented Judgement: Good Diagnostics Vital Signs (24Hr): Vital Signs - 24 hr 06/23/24 19:59 06/23/24 20:00 06/24/24 07:45 Temperature 97.7 F 97.6 F Pulse Rate 60 73 Respiratory Rate 17 14 Blood Pressure 109/69 128/60 90/56 L Pulse Oximetry 99 98 Oxygen Delivery Method Room Air Room Air BMI result Body Mass Index 23.3 Labs 06/16/24 20:57 06/18/24 07:28 Medications Medications Current Medications Acetaminophen (Acetaminophen 325 Mg Tablet) 650 mg PO Q6H PRN PRN Reason: Headache/Pain Mild Scale (1-3) Last Admin: 06/23/24 15:47 Dose: 650 mg Al Hydroxide/Mg Hydroxide (Magnesium Hydrox/Alum Hydrox 30 Ml Oral.Susp) 30 ml PO Q6H PRN PRN Reason: Heartburn/Nausea Albuterol Sulfate (Albuterol Sulfate 90 Mcg 8 Gm Inhaler) 2 puff INHALE Q4H PRN PRN Reason: wheezing Clonidine HCl (Clonidine Hcl 0.1 Mg Tablet) 0.3 mg PO BEDTIME AMADO; Protocol Last Admin: 06/23/24 19:59 Dose: 0.3 mg Divalproex Sodium (Divalproex Sodium 500 Mg Tablet.Dr) 1,000 mg PO BEDTIME AMADO Last Admin: 06/23/24 20:00 Dose: 1,000 mg Fluticasone/Vilanterol (Fluticasone/Vilanterol 100/25 Blst.W.Dev) 1 puff INHALE RDAILY [facility] Last Admin: 06/23/24 08:31 Dose: 1 puff Hydroxyzine HCl (Hydroxyzine Hcl 25 Mg Tablet) 25 mg PO Q6H PRN PRN Reason: Anxiety Last Admin: 06/23/24 15:52 Dose: 25 mg Ibuprofen (Ibuprofen 800 Mg Tablet) 800 mg PO Q6H PRN PRN Reason: pain (pain scale 1-10) Last Admin: 06/23/24 20:00 Dose: 800 mg Magnesium Hydroxide (Milk Of Magnesia 30 Ml Oral.Susp) 30 ml PO DAILY PRN PRN Reason: Constipation Methadone HCl (Methadone Hcl 20 Mg/2 Ml Oral.Conc) 55 mg PO DAILY [facility] Last Admin: 06/24/24 08:13 Dose: 55 mg Nicotine (Nicotine 21 Mg Patch.Td24) 21 mg TRANSDERMA DAILY PRN PRN Reason: Nicotine Cravings Last Admin: 06/20/24 12:33 Dose: 21 mg Nicotine Polacrilex (Nicotine Polacrilex 2 Mg Gum) 2 mg BUCCAL Q2H PRN PRN Reason: Nicotine Cravings Last Admin: 06/23/24 18:35 Dose: 2 mg Quetiapine Fumarate (Quetiapine Fumarate 25 Mg Tablet) 25 mg PO Q4H PRN PRN Reason: severe anxiety Last Admin: 06/23/24 18:38 Dose: 25 mg Sertraline HCl (Sertraline Hcl 50 Mg Tablet) 50 mg PO DAILY [facility] Last Admin: 06/23/24 08:31 Dose: 50 mg Trazodone HCl (Trazodone Hcl 50 Mg Tablet) 50 mg PO BEDTIME MRX1 PRN PRN Reason: Insomnia Last Admin: 06/23/24 20:00 Dose: 50 mg Allergies Allergies Allergy/AdvReac Type Severity Reaction Status Date / Time No Known Allergies Allergy Verified 06/16/24 19:12 Assessment & Plan Assessment & Plan (1) Opioid use disorder: Status: Acute Code(s): F11.90 - Opioid use, unspecified, uncomplicated Assessment and Plan: at time of evaluation, attending had already seen and adjusted methadone dosing--please reconsult if needed methadone already reinitiated --30mg this AM +10mg PRN ordered and administered comfort meds tafe lecturer to follow up and complete AUDIT (2) Mood disorder: Status: Acute Code(s): F39 - Unspecified mood [affective] disorder Plan 06/18: CIWA with valium for EtOH and question of benzo use, as well as reported Sz Hx. VPA 1000 mg QHS for Sz D/O Hx. comfort meds for opioid withdrawal. determine methadone dosing at clinic and reinstate. methadone 30 mg daily and per COWS for now. supportive care for cocaine withdrawal. 06/19: pt not in methadone program; DC scheduled methadone. otherwise continue current mgmt. attempt to engage when pt more wakeful and feeling better. 06/20: start methadone 50 scheduled, wants program after discharge. meds verified with [facility] pharmacy. no keppra, on VPA ER 500 BID only. DC SHEKHAR, give final dose valium tomorrow morning. PRN methadone for opioid withdrawal. 06/21: scheduled methadone 50, no PRNS. COWS DCed. feeling well on present dose. start sertraline 50 for dep/anx, clonidine 0.2 QHS for nightmares/insomnia in PTSD. referral for rehab under way. 06/22: nightmares continue, increase HS clonidine to 0.3 mg. wants referrals to methadone clinic and [facility] (NOT rehab) at discharge. 06/23: slept well last night. c/o sweats, chills, believes he is in withdrawal. methadone dosing increased to 55 mg daily. planning for wednesday discharge. 06/24 CTP no change future oriented Patient educated on: medication risk/benefits and other (out patient fu re antidep) Informed Consent: understands Reason for continued inpatient stay Substantial Risk for: rapid decompensation Time Spent With Patient Time: Total time managing care of this patient today ____ minutes.
[2024-06-24] MEDS: Fluticasone/Vilanterol 100/25 BLST.W.DEV 1 PUFF INHALE (09:02)
[2024-06-24] MEDS: Sertraline HCL 50 MG TABLET PO (09:02)
[2024-06-24] MEDS: Acetaminophen 325 MG TABLET 650 MG PO (09:38)
[2024-06-24] MEDS: hydrOXYzine HCL 25 MG TABLET PO (17:21)
[2024-06-24] MEDS: QUEtiapine Fumarate 25 MG TABLET PO (17:31)
[2024-06-24 21:00] VITALS: BP 104/60; PULSE 68; RESP 16; TEMP 36.4; O2SAT 99
[2024-06-24] MEDS: Divalproex Sodium 500 MG TABLET.DR 1000 MG PO (21:01)
[2024-06-24 21:02] VITALS: BP 104/60
[2024-06-24] MEDS: cloNIDine HCL 0.1 MG TABLET 0.3 MG PO (21:02)
[2024-06-24] MEDS: traZODone HCL 50 MG TABLET PO (21:02)
[2024-06-25 07:35] VITALS: BP 104/55; PULSE 66; RESP 14; TEMP 36.9; O2SAT 99
[2024-06-25] MEDS: methADONE HCl 20 MG/2 ML ORAL.CONC 55 MG PO (08:16)
[2024-06-25] MEDS: Fluticasone/Vilanterol 100/25 BLST.W.DEV 1 PUFF INHALE (08:56)
[2024-06-25] MEDS: Sertraline HCL 50 MG TABLET PO (08:57)
[2024-06-25] MEDS: Ibuprofen 800 MG TABLET PO (13:28)
[2024-06-25] MEDS: QUEtiapine Fumarate 25 MG TABLET PO (19:13)
[2024-06-25 20:00] VITALS: BP 125/84; PULSE 82; RESP 16; TEMP 36.9; O2SAT 99
--- NOTE | 2024-06-25 20:04 | HO.PSYCHPN ---
Subjective Subjective Date of Service: 06/25/24 Reason For Visit: depression, SI Subjective Notes: Conditional Voluntary Medical Problems Affecting Mental Status: No Interim History: 33 yo HM co hip pain, says been awhile- suggested fu with pcp and also to take ibuprofen anitinflamm for 5 days with meals tid- to see if inflamm decreases- not inpt psych problem. Reports again wants zoloft changed but needs to find out name of prior med he got at detox thinks his pcp knows- Denies current si. Future oriented. Medication Compliance: Yes Side effects from medications: No Attending Groups: Yes Review of Systems Acute medical concerns: No Medical Review of Systems: changed Review of Systems: co hip pain not new Mental Status Exam Mental Status Exam Patient Appearance: Well Grooomed and Appropriate Patient Orientation: Person, Place, Time and Situation Level of Consciousness: Awake and Appropriate Patient Behavior: Appropriate and Cooperative Mood Description: Calm and Anxious Affect Description: Appropriate Patient Cognition Impaired: No Ability to Follow Directions: Good Speech Pattern: Clear Hallucinations: None Delusions: Not Present Thought Content: positive for Intact and positive for Goal Oriented Judgement: Good Diagnostics Vital Signs (24Hr): Vital Signs - 24 hr 06/24/24 21:00 06/24/24 21:02 06/25/24 07:35 Temperature 97.6 F 98.5 F Pulse Rate 68 66 Respiratory Rate 16 14 Blood Pressure 104/60 104/60 104/55 L Pulse Oximetry 99 99 Oxygen Delivery Method Room Air Room Air BMI result Body Mass Index 23.3 Labs 06/16/24 20:57 06/18/24 07:28 Medications Medications Current Medications Acetaminophen (Acetaminophen 325 Mg Tablet) 650 mg PO Q6H PRN PRN Reason: Headache/Pain Mild Scale (1-3) Last Admin: 06/24/24 09:38 Dose: 650 mg Al Hydroxide/Mg Hydroxide (Magnesium Hydrox/Alum Hydrox 30 Ml Oral.Susp) 30 ml PO Q6H PRN PRN Reason: Heartburn/Nausea Albuterol Sulfate (Albuterol Sulfate 90 Mcg 8 Gm Inhaler) 2 puff INHALE Q4H PRN PRN Reason: wheezing Clonidine HCl (Clonidine Hcl 0.1 Mg Tablet) 0.3 mg PO BEDTIME AMADO; Protocol Last Admin: 06/24/24 21:02 Dose: 0.3 mg Divalproex Sodium (Divalproex Sodium 500 Mg Tablet.) 1,000 mg PO BEDTIME [facility] Last Admin: 06/24/24 21:01 Dose: 1,000 mg Fluticasone/Vilanterol (Fluticasone/Vilanterol 100/25 Blst.W.Dev) 1 puff INHALE RDAILY [facility] Last Admin: 06/25/24 08:56 Dose: 1 puff Hydroxyzine HCl (Hydroxyzine Hcl 25 Mg Tablet) 25 mg PO Q6H PRN PRN Reason: Anxiety Last Admin: 06/24/24 17:21 Dose: 25 mg Ibuprofen (Ibuprofen 800 Mg Tablet) 800 mg PO TIDWM [facility] Loperamide HCl (Loperamide Hcl 2 Mg Capsule) 2 mg PO Q6H PRN PRN Reason: loose stool Magnesium Hydroxide (Milk Of Magnesia 30 Ml Oral.Susp) 30 ml PO DAILY PRN PRN Reason: Constipation Methadone HCl (Methadone Hcl 20 Mg/2 Ml Oral.Conc) 55 mg PO DAILY@0800 [facility] Last Admin: 06/25/24 08:16 Dose: 55 mg Nicotine (Nicotine 21 Mg Patch.Td24) 21 mg TRANSDERMA DAILY PRN PRN Reason: Nicotine Cravings Last Admin: 06/20/24 12:33 Dose: 21 mg Nicotine Polacrilex (Nicotine Polacrilex 2 Mg Gum) 2 mg BUCCAL Q2H PRN PRN Reason: Nicotine Cravings Last Admin: 06/23/24 18:35 Dose: 2 mg Quetiapine Fumarate (Quetiapine Fumarate 25 Mg Tablet) 25 mg PO Q4H PRN PRN Reason: severe anxiety Last Admin: 06/25/24 19:13 Dose: 25 mg Sertraline HCl (Sertraline Hcl 50 Mg Tablet) 50 mg PO DAILY [facility] Last Admin: 06/25/24 08:57 Dose: 50 mg Trazodone HCl (Trazodone Hcl 50 Mg Tablet) 50 mg PO BEDTIME MRX1 PRN PRN Reason: Insomnia Last Admin: 06/24/24 21:02 Dose: 50 mg Allergies Allergies Allergy/AdvReac Type Severity Reaction Status Date / Time No Known Allergies Allergy Verified 06/16/24 19:12 Assessment & Plan Assessment & Plan (1) Opioid use disorder: Status: Acute Code(s): F11.90 - Opioid use, unspecified, uncomplicated Assessment and Plan: at time of evaluation, attending had already seen and adjusted methadone dosing--please reconsult if needed methadone already reinitiated --30mg this AM +10mg PRN ordered and administered comfort meds resource recovery engineer to follow up and complete AUDIT (2) Mood disorder: Status: Acute Code(s): F39 - Unspecified mood [affective] disorder Plan 06/18: CIWA with valium for EtOH and question of benzo use, as well as reported Sz Hx. VPA 1000 mg QHS for Sz D/O Hx. comfort meds for opioid withdrawal. determine methadone dosing at clinic and reinstate. methadone 30 mg daily and per COWS for now. supportive care for cocaine withdrawal. 06/19: pt not in methadone program; DC scheduled methadone. otherwise continue current mgmt. attempt to engage when pt more wakeful and feeling better. 06/20: start methadone 50 scheduled, wants program after discharge. meds verified with [facility] pharmacy. no keppra, on VPA ER 500 BID only. DC CIWA, give final dose valium tomorrow morning. PRN methadone for opioid withdrawal. 06/21: scheduled methadone 50, no PRNS. COWS DCed. feeling well on present dose. start sertraline 50 for dep/anx, clonidine 0.2 QHS for nightmares/insomnia in PTSD. referral for rehab under way. 06/22: nightmares continue, increase HS clonidine to 0.3 mg. wants referrals to methadone clinic and [facility] (NOT rehab) at discharge. 06/23: slept well last night. c/o sweats, chills, believes he is in withdrawal. methadone dosing increased to 55 mg daily. planning for wednesday discharge. 06/24 CTP no change future oriented... 06/25 pt discussing hip pain ( may have heard from peers re gabapentin) told him to see outpt provider and try anti-inflammotry consistently for short period- warned of risk of gi bleed with ssri - also wants to change ssri but not sure to what hopes to go [facility] at [facility] Patient educated on: medication risk/benefits and medical condition Informed Consent: understands Reason for continued inpatient stay Substantial Risk for: rapid decompensation Time Spent With Patient Time: Total time managing care of this patient today ____ minutes.
[2024-06-25] MEDS: Divalproex Sodium 500 MG TABLET.DR 1000 MG PO (20:22)
[2024-06-25 20:23] VITALS: BP 125/84
[2024-06-25] MEDS: cloNIDine HCL 0.1 MG TABLET 0.3 MG PO (20:23)
[2024-06-25] MEDS: traZODone HCL 50 MG TABLET PO (20:23)
[2024-06-26 07:50] VITALS: BP 100/61; PULSE 63; TEMP 36.9; O2SAT 100
[2024-06-26] MEDS: methADONE HCl 20 MG/2 ML ORAL.CONC 55 MG PO (08:07)
[2024-06-26] MEDS: Sertraline HCL 50 MG TABLET PO (09:12)
[2024-06-26] MEDS: Fluticasone/Vilanterol 100/25 BLST.W.DEV 1 PUFF INHALE (09:14)
[2024-06-26] MEDS: Ibuprofen 800 MG TABLET PO (09:27)
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
[2024-06-26] MEDS: Naloxone HCl Nasal TAKE HOME 4 MG SPRAY 8 MG NOSTRILALT (11:59)
== END 2024-06-26 12:00 | disposition home or self-care (01) | DRG 753 ==
LOC: HO.ED 21:36 → HO.PADLT16 06-17 19:06
PROVIDERS: Physician Assistant; Admitting Provider Psychiatry & Neurology Psychiatry; Emergency Provider Emergency Medicine; PCP Internal Medicine; Visit Provider Psychiatry & Neurology Psychiatry
DX: F39 Unspecified mood [affective] disorder (principal); R45.851 Suicidal ideations; R45.850 Homicidal ideations; F11.93 Opioid use, unspecified with withdrawal; G40.909 Epilepsy, unspecified, not intractable, without status epilepticus; F19.90 Other psychoactive substance use, unspecified, uncomplicated; J45.909 Unspecified asthma, uncomplicated; Z79.51 Long term (current) use of inhaled steroids; Z79.899 Other long term (current) drug therapy
CPT/HCPCS: 36415; 80048; 80053; 80061; 80076; 80143; 80164; 80177; 80179; 80307; 83735; 85025; 93005; 99285; S9485

== ENCOUNTER → 2024-06-17 18:42 | Outpatient (BNV) | payer MEDICAID, SELFPAY | PROVIDERS: Admitting Provider Psychiatry & Neurology Psychiatry; Emergency Provider Emergency Medicine; PCP Internal Medicine; Visit Provider Nurse Practitioner Psychiatric/Mental Health | DX: F11.90 Opioid use, unspecified, uncomplicated (principal) | CPT/HCPCS: 99231; 99499 ==

== ENCOUNTER → 2024-06-17 18:42 | Outpatient (BNV) | payer OTHER, SELFPAY | PROVIDERS: Admitting Provider Psychiatry & Neurology Psychiatry; Emergency Provider Emergency Medicine; PCP Internal Medicine; Visit Provider Psychiatry & Neurology Psychiatry | DX: F39 Unspecified mood [affective] disorder (principal); F11.90 Opioid use, unspecified, uncomplicated | CPT/HCPCS: 99231; 99232; 99233 ==

== ENCOUNTER 2024-11-09 18:47 | Inpatient (IN) | payer MEDICAID, OTHER, SELFPAY ==
--- NOTE | ~2024-11-09 | XR_ITS ---
EXAMINATION: XR HAND/WRIST, RIGHT CLINICAL INFORMATION: recent trauma to hand/wrist COMPARISON: None available. TECHNIQUE: Four views of the right hand and wrist. FINDINGS: Bone mineralization is normal. Joint spaces and alignment are preserved. No displaced fracture appreciated. XR/XR hand wrist RT IMPRESSION: No displaced fracture. Electronically signed by: Lizzy Ponce MD 11/13/2024 08:13 AM EST
--- NOTE | ~2024-11-09 | XR_ITS ---
EXAMINATION: XR HIP, LEFT CLINICAL INFORMATION: pain COMPARISON: None available. TECHNIQUE: Two views of the left hip. FINDINGS: No acute cortical disruption or malalignment. Subchondral cysts in the left femoral head/neck junction. No gross lytic or blastic lesions. No metallic or radiopaque foreign body. No subcutaneous emphysema. XR/XR hip LT min 2V IMPRESSION: No acute fracture or dislocation, left hip. Electronically signed by: Bandar Francois MD 11/16/2024 07:19 AM DENISE GORMAN
[2024-11-09 19:21] VITALS: BP 124/77; PULSE 97; RESP 20; TEMP 36.6; O2SAT 97; BMI 21.5
--- NOTE | 2024-11-09 19:22 | ED_ITS ---
HPI - Psych General Chief Complaint: Psychiatric Symptoms Stated Complaint: crisis eval Time Seen by Provider: 11/09/24 19:58 Source: patient Mode of arrival: ambulatory Limitations: no limitations History of Present Illness ED Provider: Ashley Ochoa PA-C HPI Narrative: Patient is a 34 year old assigned male at with a history of mood and opiate use disorders presenting to the emergency department today with suicidal ideation. Patient states that he has been going through a lot lately and lost his kids so he has been suicidal. Patient denies any dizziness, lightheadedness, abdominal pain, nausea, vomiting, fever, chills, blurry vision, double vision, loss of vision, chest pain, difficulty breathing, shortness of breath, back pain, night sweats, pain with urination, increased urinary frequency, increased urinary urgency, blood in his urine or stool, syncope or a near syncopal episode, recent trauma or falls, bowel incontinence, bladder incontinence, or any other complaints at this time. MD complaint: suicidal ideation and feels depressed Associated psychiatric symptoms: depression and suicidal ideation Related Data Home Medications ?Medication ?Instructions ?Recorded ?Confirmed albuterol sulfate 90 mcg/actuation 2 puff inhalation Q4H PRN wheezing 06/16/24 06/16/24 aerosol inhaler (Ventolin HFA) fluticasone 250 mcg-salmeterol 50 1 ea inhalation BID 06/16/24 06/16/24 mcg/dose blistr powdr for inhalation (Advair Diskus) Previous Rx's ?Medication ?Instructions ?Recorded clonidine HCl 0.3 mg tablet 0.3 mg PO BEDTIME 30 days #30 tabs 06/26/24 divalproex 500 mg tablet,delayed 1,000 mg (2 x 500 mg) PO BEDTIME 06/26/24 release 30 days #60 tabs methadone 10 mg/mL oral 55 mg (5.5 mL) PO DAILY@0800 #0 mL 06/26/24 concentrate (Methadose) sertraline 50 mg tablet 50 mg PO DAILY 30 days #30 tabs 06/26/24 trazodone 50 mg tablet 50 mg PO BEDTIME PRN Insomnia 30 06/26/24 days #30 tabs Allergies Allergy/AdvReac Type Severity Reaction Status Date / Time No Known Allergies Allergy Verified 11/09/24 19:22 Review of Systems 2 Constitutional: Constitutional: Reports no additional constitutional complaints, Denies chills, Denies fever(s) and Denies night sweats Eyes: Eyes: Reports no additional eye complaints, Denies blurry vision, Denies change in vision, Denies diplopia, Denies eye discharge, Denies loss of vision and Denies eye pain ENT: Denies dizziness Cardiovascular: Cardiovascular: Reports no additional cardiovascular complaints, Denies chest pain, Denies lightheadedness, Denies Loss of Consciousness and Denies dyspnea Respiratory: Respiratory: Reports no additional respiratory complaints and Denies dyspnea Gastrointestinal: Gastrointestinal: Reports no additional gastrointestinal complaints, Denies abdominal pain, Denies melena, Denies hematochezia, Denies change in bowel habits and Denies change in stool character Genitourinary: Genitourinary: Reports no additional male genitourinary complaints, Denies hematuria, Denies oliguria, Denies difficulty urinating, Denies dysuria, Denies urinary frequency, Denies urinary hesitancy, Denies urinary incontinence and Denies urinary urgency Musculoskeletal: Musculoskeletal: Reports no additional musculoskeletal complaints, Denies numbness and Denies tingling Neurologic: Denies dizziness, Denies loss of vision, Denies numbness and Denies tingling Psychiatric: Psychiatric: Reports no additional psychiatric complaints, Reports depression, Denies homicidal ideation and Reports suicidal ideation Endocrine: Endocrine: Reports no additional endocrine complaints Hematologic/Lymphatic: Hematologic/Lymphatic: Reports no additional hematologic/lymphatic complaints Allergic/Immunologic: Allergic/Immunologic: Reports no additional allergic/immunologic complaints PMFSH Past Medical History Attestation statement: The following information was validated with the patient. Source: old records reviewed and nursing notes reviewed Medical History Polysubstance (including opioids) dependence with physiol dependence Active substance abuse Epilepsy Asthma Social History Social History Household Members: None Housing: Homeless Do you presently have visiting nurse or other home services: No Alcohol intake: current Alcohol intake frequency: a few times a week Patient Tobacco Use Status: Never used Tobacco Substance Use Type: Crack/Cocaine, Marijuana and Opiates Do you have a plan to hurt others: No Plan service: No Sexual orientation: Straight/Heterosexual Physical Exam 2 Vital Signs: Vital Signs: Last Vital Signs Temp 97.9 F 11/09/24 19:21 Pulse 97 11/09/24 19:21 Resp 20 11/09/24 19:21 BP 124/77 11/09/24 19:21 Pulse Ox 97 11/09/24 19:21 O2 Del Method Room Air 11/09/24 19:21 BMI result Body Mass Index 21.5 Const: General: cooperative, no acute distress, alert and awake Nutritional Appearance: well nourished Orientation/consciousness: patient oriented x3 Limitations: no limitations HEENT: Head: Yes normal to inspection and Yes atraumatic Ears: hearing grossly normal bilaterally and external ears normal General nose exam: Normal external nose present, no nasal discharge noted and no epistaxis Face and sinus: Yes normal facial exam, No abrasion and No laceration Mouth: Normal oral and palatal mucosa present, no drooling and no muffled voice Eyes: General: appearance normal, both eyes and all related structures P eriorbital: periorbital findings normal Eyelids: Yes eyelids normal C onjunctivae: conjunctivae normal Pupils: Equal, round and reactive pupils present EOM: EOMs intact bilaterally Neck: Neck: Yes normal visual inspection, Yes full ROM and Yes no lymphadenopathy Chest: Chest palpation & inspection: normal inspection of the chest Resp: Effort & Inspection: normal respiratory effort and able to speak in complete sentences GI: Inspection: Yes normal to inspection Neuro: General: patient oriented x3, moves all extremities and CN's II-XI intact bilaterally Cranial nerves: Yes Equal, round and reactive pupils present Cognition (Neuro): normal cognition Extrem: General: Yes normal to inspection, Yes full ROM and Yes capillary refill normal Psych: Appearance: grossly normal Mental Status: mental status grossly normal Affect: normal affect Attitude: cooperative Thought process: N ormal thought process present Thought content: Normal thought content present Insight: Good insight present (Psych) Course Course Course Narrative: This is a rapid medical exam performed by Soila Simmons NP: Additional HPI, ROS, PE not included below will be deferred to primary provider. Patient is a 34- year old male with history of mood disorder, opioid use disorder presenting with complaint of depression, suicidal ideation. States he is currently experiencing homelessness and lost his kids, this is contributing to his depression. States he was walking across the bridge and thought about jumping off. Called [facility] and was told there was a bed for him there but he needed to come through the ED. Expressing that he wants help to be better for his 8-year-old son. Plan: med clearance, CARE eval Medical Decision Making Medical Decision Making [facility] Narrative: Patient is a 34 year old assigned male at with a history of mood and opiate use disorders presenting to the emergency department today with suicidal ideation. Patient's physical exam was unremarkable. Patient's blood work was unremarkable. I explained my physical exam findings as well as all test results to the patient. I answered all questions asked by the patient. Patient's disposition will be determined after CARE team evaluation. Differential Diagnosis Differential Diagnoses: The differential diagnosis associated with the presentation includes Suicidal ideation Depression Admission/Observation Consideration of admission/observation: Escalation of care including admission/observation considered Patient's disposition will be determined after CARE team evaluation. Lab Data [facility] Lab Attestation statement: I reviewed the patient's lab results. My interpretation of these results are in the [facility] Rationale portion of this note. 11/09/24 20:02 11/09/24 20:02 Discharge Plan Discharge Clinical Impression: Suicidal ideation, Depression Patient Disposition: Still a Patient Prescriptions: No Action fluticasone propion-salmeterol [Advair Diskus] 250-50 mcg/dose blister with device 1 ea inhalation BID albuterol sulfate [Ventolin HFA] 90 mcg/actuation HFA aerosol inhaler 2 puff inhalation Q4H PRN (Reason: wheezing) clonidine HCl 0.3 mg tablet 0.3 mg PO BEDTIME 30 Days Qty: 30 0RF divalproex 500 mg Tablet,Delayed Release (Dr/Ec) 1,000 mg PO BEDTIME 30 Days Qty: 60 0RF methadone [Methadose] 10 mg/mL Concentrate 55 mg PO DAILY@0800 Qty: 0 0RF Rx Instructions: Partial Fill upon patient request. sertraline 50 mg Tablet 50 mg PO DAILY 30 Days Qty: 30 0RF trazodone 50 mg Tablet 50 mg PO BEDTIME PRN (Reason: Insomnia) 30 Days Qty: 30 0RF Interventions: [place]-Suicide Risk Severity Scale Last Done: 11/09/24 19:24 Print Language: Maori
[2024-11-09 20:12] LABS: MANUAL DIFF FLAG NO
[2024-11-09 20:21] LABS: Basophils Absolute Auto 0.1 X10*3/uL (0.0-0.2); Basophils Percent Auto 0.5 % (0-2); Eosinophils Absolute Auto 0.3 X10*3/uL (0.0-0.4); Eosinophils Percent Auto 3.1 % (0-4); Hematocrit 42.3 % (42.0-52.0); Hemoglobin 14.6 g/dl (14.0-18.0); Imm Gran Abs Auto 0.03 X10*3/uL (0.00-0.03); Imm Gran Pct Auto 0.3 % (0.0-0.4); Lymphocytes Absolute Auto 3.4 X10*3/uL (1.2-4.9); Lymphocytes Percent Auto 35.6 % (20-40); Mean Corpuscular HGB Conc 34.5 g/dl (31.0-36.0); Mean Corpuscular Hemoglobin 32.5 pg (27.0-33.0); Mean Corpuscular Volume 94.2 fL (80.0-98.0); Mean Platelet Volume 10.1 fL (9.4-12.4); Monocytes Absolute Auto 0.8 X10*3/uL (0.1-1.2); Monocytes Percent Auto 8.2 % (2-11); Neutrophils Percent Auto 52.3 % (45-73); Platelet Count 251 X10*3/uL (160-400); Red Blood Count 4.49 X10*6/uL (4.60-5.80); White Blood Count 9.6 X10*3/uL (4.8-10.8)
[2024-11-09 20:23] LABS: Appearance Urine Clear; Color Urine Dark Yellow; Glucose Urine UA Negative (Negative); Leukocyte Esterase Urine Trace (Negative); Nitrite Urine Negative (Negative); Specific Gravity - Urine >= 1.030 (1.005-1.025); UMIC TRIGGER UACC YES; Urine Blood Negative (Negative); Urine Ketones Trace mg/dL (Negative); Urine Protein Trace mg/dL (Neg-Trace)
[2024-11-09 20:26] LABS: Bacteria Urine None Seen (None Seen); RBC Urine 0-2 /HPF (0-2); Squamous Epithelial Cell Urine 0-2 /HPF (0-2); WBC Urine 0-5 /HPF (0-5)
[2024-11-09 20:32] LABS: Amphetamine Screen Urine Not Detected (Not Detect); Barbiturates, Urine Not Detected (Not Detect); Benzodiazepines Screen Urine Not Detected (Not Detect); Buprenorphine Scr Not Detected (Not Detect); Cannabinoid Screen Urine POSITIVE (Not Detect); Cocaine Screen Urine POSITIVE (Not Detect); Fentanyl, urine POSITIVE (Not Detect); Methadone Screen, Urine Positive (Not Detect); Opiate Screen Urine Not Detected (Not Detect); Oxycodone Screen Urine Not Detected (Not Detect); Phencyclidine Screen Urine Not Detected (Not Detect)
[2024-11-09 20:33] LABS: Ethanol 66 mg/dL
[2024-11-09 20:34] LABS: Alanine Aminotransferase 12 U/L (0-40); Albumin Level 4.3 g/dL (3.5-5.0); Alkaline Phosphatase 64 U/L (39-117); Anion Gap 11 (12-20); Aspartate Amino Transferase 23 U/L (5-37); Bilirubin Total 0.2 mg/dL (0.0-1.0); Blood Urea Nitrogen 10 mg/dL (9-16); Calcium 9.4 mg/dL (8.4-10.2); Carbon Dioxide 29 mmol/L (22-29); Chloride 107 mmol/L (96-108); Creatinine Clr Calc Pharmacy 110.1; Estimated Glomerular Filt Rate > 60; Glucose Random 85 mg/dL (60-115); Potassium 3.8 mmol/L (3.3-5.1); Sodium 143 mmol/L (135-145); Total Protein 7.6 g/dL (6.5-8.0)
--- NOTE | 2024-11-09 20:41 | PC.NURSE ---
med rec completed - pt confirmed medications. He says he no longer takes trazodone but now takes mirtazepine instead. No longer taking clonidine. Confirms that he is still taking depakote.
--- NOTE | 2024-11-09 20:43 | PC.NURSE ---
methadone - pt states he takes 95mg daily. doses daily at [facility]
[2024-11-09 21:05] LABS: Influenza A PCR NEGATIVE (Negative); Influenza B PCR NEGATIVE (Negative); Resp Syncy Virus RNA Qual PCR NEGATIVE (Negative); SARS COV2 PCR INHOUSE NEGATIVE (Negative)
[2024-11-09] MEDS: Divalproex Sodium 500 MG TABLET.DR 1000 MG PO (22:30)
[2024-11-09 22:50] LABS: Valproate < 12.5 mcg/mL (50.0-100.0)
--- NOTE | 2024-11-09 23:08 | PC.NURSE ---
patient requests inhaler, notified charge
[2024-11-09] MEDS: Albuterol Sulfate 90 MCG 8 GM INHALER 2 PUFF INHALE (23:12)
--- NOTE | 2024-11-10 | ECG_ITS ---
Test Reason : check prolonged qtc Blood Pressure : */* mmHG Vent. Rate : 65 BPM Atrial Rate : 65 BPM P-R Int : 142 ms QRS Dur : 90 ms QT Int : 416 ms P-R-T Axes : 62 58 58 degrees QTcB Int : 432 ms Normal sinus rhythm with sinus arrhythmia Normal ECG When compared with ECG of 16-Jun-2024 21:14, No significant change was found Referred By: Ashley Ochoa Electronically Signed By: NIKKI MILLER
[2024-11-10] MEDS: hydrOXYzine HCL 50 MG TABLET PO ×2 (01:07→21:38)
[2024-11-10 06:14] VITALS: RESP 16
--- NOTE | 2024-11-10 07:35 | PC.NURSE ---
Assumed care of patient at 0645, patient appears to be in no apparent distress this am, up eating breakfast at this time, calm and cooperative, offering no complaints to this RN. Continue plan of care for IPLOC
--- NOTE | 2024-11-10 08:59 | HE.PHANOTE ---
METHADONE Pt last received 95mg on 11/09/24 @ 1108. Per JATIN Perkins, at [facility] ([phone])
[2024-11-10] MEDS: methADONE HCl 20 MG/2 ML ORAL.CONC 95 MG PO (09:48)
[2024-11-10] MEDS: Sertraline HCL 100 MG TABLET 200 MG PO (09:48)
[2024-11-10 12:05] VITALS: BP 128/62; PULSE 84; RESP 16; O2SAT 97
--- NOTE | 2024-11-10 13:26 | PC.NURSE ---
Pt comes to the nurses station to let this RN know that he feels like he is going through alcohol withdrawals. he previously stated that his alcohol intake is minimal but now admits that he drinks about a pint a day and is feeling anxious and unwell. CIWA score of 5. Pt is set to go upstairs to [facility], Dr. Johnson made aware via tiger text at [id number]
--- NOTE | 2024-11-10 13:53 | PHA.MEDREC ---
Addendum entered by Rhonda Quevedo RPh 11/10/24 14:06: Reviewed by [facility]. Original Note: Pharmacy Consult ? Medication Reconciliation Pharmacy has reviewed the medication reconciliation done by nursing.
[2024-11-10] MEDS: Thiamine HCL 100 MG TABLET PO (14:37)
[2024-11-10] MEDS: LORazepam 1 MG TABLET PO ×2 (14:38→21:46)
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
[2024-11-10 15:35] VITALS: BMI 22.0
[2024-11-10] MEDS: Nicotine 21 MG PATCH.TD24 TRANSDERMA (16:00)
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
[2024-11-10 20:00] VITALS: BP 110/60; PULSE 83; RESP 16; TEMP 36.2; O2SAT 97
[2024-11-10] MEDS: Divalproex Sodium 500 MG TABLET.DR 1000 MG PO (21:34)
[2024-11-10] MEDS: Mirtazapine 15 MG TABLET PO (21:38)
[2024-11-10] MEDS: Albuterol Sulfate 90 MCG 8 GM INHALER 2 PUFF INHALE (21:39)
[2024-11-10] MEDS: Acetaminophen 325 MG TABLET 650 MG PO (21:47)
[2024-11-10] MEDS: cloNIDine HCL 0.1 MG TABLET 0.05 MG PO (21:47)
--- NOTE | 2024-11-11 02:34 | PC.NURSE ---
no read/report on hand xray at this time
[2024-11-11 07:30] VITALS: BP 88/54; PULSE 68; RESP 16; TEMP 36.4; O2SAT 94
[2024-11-11 08:00] VITALS: BP 116/74
[2024-11-11] MEDS: Albuterol Sulfate 90 MCG 8 GM INHALER 2 PUFF INHALE (08:09)
[2024-11-11] MEDS: methADONE HCl 20 MG/2 ML ORAL.CONC 95 MG PO (08:10)
[2024-11-11] MEDS: Fluticasone/Vilanterol 100/25 BLST.W.DEV 1 PUFF INHALE (08:12)
[2024-11-11] MEDS: Sertraline HCL 100 MG TABLET 200 MG PO (08:12)
[2024-11-11] MEDS: Thiamine HCL 100 MG TABLET PO (08:12)
[2024-11-11] MEDS: Nicotine 21 MG PATCH.TD24 TRANSDERMA (08:12)
[2024-11-11 08:43] LABS: Estimated Average Glucose 105 mg/dL; Hemoglobin A1C 125.8413 umol/L; Hemoglobin A1c % 5.3 % (<6.0); Total Hemoglobin (HGBA1C) 3707.2799 umol/L
[2024-11-11 09:15] LABS: Cholesterol 134 mg/dL (<200); HDL Cholesterol 50 mg/dL (>40); LDL Cholesterol Calculated 65 mg/dL (<100); Triglycerides 98 mg/dL (<150)
[2024-11-11 09:29] LABS: Free T4 (Free Thyroxine) 0.96 ng/dL (0.71-1.85)
[2024-11-11 09:44] LABS: Folate 13.2 ng/mL (> or = 4.0); Vitamin B12 345 pg/mL (200-900)
[2024-11-11] MEDS: LORazepam 1 MG TABLET PO (12:11)
--- NOTE | 2024-11-11 16:07 | HO.PSYCHPN ---
Subjective Subjective Date of Service: 11/11/24 Reason For Visit: SI Subjective Notes: Conditional Voluntary Interim History: Pt reports nausea, sweating, abdominal cramps and loose stools. He also reports he has a seizure disorder but has not followed up with neurology due to his ongoing substance use. He reports he was on keppra 750mg po BID. he is also on depakote 1000mg po qhs. He reports feeling tired, wants treatment. No SI/HI. No overt psychosis or delusions. Review of Systems Constitutional: Reports no additional constitutional complaints, Denies chills, Denies fever(s) and Denies night sweats Eyes: Reports no additional eye complaints, Denies blurry vision, Denies change in vision, Denies diplopia, Denies eye discharge, Denies loss of vision and Denies eye pain Denies dizziness Cardiovascular: Reports no additional cardiovascular complaints, Denies chest pain, Denies lightheadedness, Denies Loss of Consciousness and Denies dyspnea Respiratory: Reports no additional respiratory complaints and Denies dyspnea Gastrointestinal: Reports no additional gastrointestinal complaints, Denies abdominal pain, Denies melena, Denies hematochezia, Denies change in bowel habits and Denies change in stool character Genitourinary: Reports no additional male genitourinary complaints, Denies hematuria, Denies oliguria, Denies difficulty urinating, Denies dysuria, Denies urinary frequency, Denies urinary hesitancy, Denies urinary incontinence and Denies urinary urgency Musculoskeletal: Reports no additional musculoskeletal complaints, Denies numbness and Denies tingling Denies dizziness, Denies loss of vision, Denies numbness and Denies tingling Psychiatric: Reports no additional psychiatric complaints, Reports depression, Denies homicidal ideation and Reports suicidal ideation Endocrine: Reports no additional endocrine complaints Hematologic/Lymphatic: Reports no additional hematologic/lymphatic complaints Allergic/Immunologic: Reports no additional allergic/immunologic complaints Mental Status Exam Mental Status Exam Narrative: Pt is alert and oriented; behavior is cooperative, friendly and calm; some shivering, which he attributes to alcohol withdrawal; dressed in casual attire; mood is described as OK; eye contact appropriate; Speech is normal rate, volume and not pressured; thought process is organized and goal directed; Thought content is on tx; denies SI/HI/VH/AH. MRE SI yesterday. Diagnostics Vital Signs (24Hr): Vital Signs - 24 hr 11/10/24 20:00 11/11/24 07:30 11/11/24 08:00 Temperature 97.1 F 97.6 F Pulse Rate 83 68 Respiratory Rate 16 16 Blood Pressure 110/60 88/54 L 116/74 Pulse Oximetry 97 94 Oxygen Delivery Method Room Air Room Air BMI result Body Mass Index 22.0 Labs 11/09/24 20:02 11/09/24 20:02 Labs: Laboratory Results - last 48 hr 11/09/24 11/09/24 11/11/24 20:02 22:30 08:01 WBC 9.6 RBC 4.49 L Hgb 14.6 Hct 42.3 MCV 94.2 MCH 32.5 MCHC 34.5 RDW 13.0 Plt Count 251 MPV 10.1 Immature Gran % (Auto) 0.3 Neut % (Auto) 52.3 Lymph % (Auto) 35.6 [place] % (Auto) 8.2 Eos % (Auto) 3.1 Baso % (Auto) 0.5 Lymph # (Auto) 3.4 [place] # (Auto) 0.8 Eos # (Auto) 0.3 Baso # (Auto) 0.1 Abs Immat Gran (auto) 0.03 Absolute Neuts (auto) 5.0 Absolute Nucleated RBC 0.000 Nucleated RBC % (auto) 0.0 Sodium 143 Potassium 3.8 Chloride 107 Carbon Dioxide 29 Anion Gap 11 L BUN 10 Creatinine 0.77 Estim Creat Clear Calc 110.1 Estimated GFR > 60 Random Glucose 85 Estimat Average Glucose 105 Hemoglobin A1c % 5.3 Calcium 9.4 Total Bilirubin 0.2 AST 23 ALT 12 Alkaline Phosphatase 64 Total Protein 7.6 Albumin 4.3 Triglycerides 98 Cholesterol 134 LDL Cholesterol, Calc 65 HDL Cholesterol 50 Vitamin B12 345 Folate 13.2 TSH 3.00 Free T4 0.96 Urine Color Dark Yellow Urine Appearance Clear Urine pH 6.0 Ur Specific [place] >= 1.030 H Urine Protein Trace Urine Glucose (UA) Negative Urine Ketones Trace Urine Blood Negative Urine Nitrite Negative Ur Leukocyte Esterase Trace H Urine RBC 0-2 Urine WBC 0-5 Ur Squamous Epith Cells 0-2 Urine Bacteria None Seen Hyaline Casts 3-5 Urine Opiates Screen Not Detected Ur Buprenorphine Scrn Not Detected Ur Oxycodone Screen Not Detected Urine Methadone Screen Positive H Urine Fentanyl Screen POSITIVE H Ur Barbiturates Screen Not Detected Valproic Acid < 12.5 L Ur Phencyclidine Scrn Not Detected Ur Amphetamines Screen Not Detected U Benzodiazepines Scrn Not Detected Urine Cocaine Screen POSITIVE H U Marijuana (THC) Screen POSITIVE H Ethyl Alcohol 66 Influenza Type A (PCR) NEGATIVE Influenza Type B (PCR) NEGATIVE RSV RNA Qual (PCR) NEGATIVE SARS-CoV-2 RNA (RT-PCR) NEGATIVE Medications Medications Current Medications Acetaminophen (Acetaminophen 325 Mg Tablet) 650 mg PO Q6H PRN PRN Reason: Headache/Pain Mild Scale (1-3) Last Admin: 11/10/24 21:47 Dose: 650 mg Al Hydroxide/Mg Hydroxide (Magnesium Hydrox/Alum Hydrox 30 Ml Oral.Susp) 30 ml PO Q6H PRN PRN Reason: Heartburn/Nausea Albuterol Sulfate (Albuterol Sulfate 90 Mcg 8 Gm Inhaler) 2 puff INHALE Q4H PRN PRN Reason: wheezing Last Admin: 11/11/24 08:09 Dose: 2 puff Clonidine HCl (Clonidine Hcl 0.1 Mg Tablet) 0.05 mg PO Q4H PRN; Protocol PRN Reason: opioid withdrawal Sx Last Admin: 11/10/24 21:47 Dose: 0.05 mg Divalproex Sodium (Divalproex Sodium 500 Mg Tablet.Dr) 1,000 mg PO BEDTIME AMADO Last Admin: 11/10/24 21:34 Dose: 1,000 mg Fluticasone/Vilanterol (Fluticasone/Vilanterol 100/25 Blst.W.Dev) 1 puff INHALE RDAILY [facility] Last Admin: 11/11/24 08:12 Dose: 1 puff Hydroxyzine HCl (Hydroxyzine Hcl 50 Mg Tablet) 50 mg PO TID PRN PRN Reason: anxiety Last Admin: 11/10/24 21:38 Dose: 50 mg Lorazepam (Lorazepam 1 Mg Tablet) 1 mg PO Q2H PRN PRN Reason: CIWA 8-11 Last Admin: 11/11/24 12:11 Dose: 1 mg Lorazepam (Lorazepam 1 Mg Tablet) 2 mg PO Q2H PRN PRN Reason: CIWA 12-15 Lorazepam (Lorazepam 1 Mg Tablet) 3 mg PO Q2H PRN PRN Reason: CIWA > 15, and call Magnesium Hydroxide (Milk Of Magnesia 30 Ml Oral.Susp) 30 ml PO DAILY PRN PRN Reason: Constipation Methadone HCl (Methadone Hcl 20 Mg/2 Ml Oral.Conc) 95 mg PO DAILY [facility] Last Admin: 11/11/24 08:10 Dose: 95 mg Mirtazapine (Mirtazapine 15 Mg Tablet) 15 mg PO BEDTIME [facility] Last Admin: 11/10/24 21:38 Dose: 15 mg Nicotine (Nicotine 21 Mg Patch.Td24) 21 mg TRANSDERMA DAILY [facility] Last Admin: 11/11/24 08:12 Dose: 21 mg Nicotine Polacrilex (Nicotine Polacrilex 2 Mg Gum) 4 mg BUCCAL Q2H PRN PRN Reason: Nicotine Cravings Sertraline HCl (Sertraline Hcl 100 Mg Tablet) 200 mg PO DAILY [facility] Last Admin: 11/11/24 08:12 Dose: 200 mg Thiamine HCl (Thiamine Hcl 100 Mg Tablet) 100 mg PO DAILY [facility] Last Admin: 11/11/24 08:12 Dose: 100 mg Trazodone HCl (Trazodone Hcl 50 Mg Tablet) 50 mg PO BEDTIME MRX1 PRN PRN Reason: Insomnia Allergies Allergies Allergy/AdvReac Type Severity Reaction Status Date / Time No Known Allergies Allergy Verified 11/09/24 19:22 Assessment & Plan Assessment & Plan (1) Mood disorder: Status: Acute Code(s): F39 - Unspecified mood [affective] disorder (2) Opioid use disorder: Status: Acute Code(s): F11.90 - Opioid use, unspecified, uncomplicated (3) Alcohol use disorder: Status: Acute Code(s): F10.90 - Alcohol use, unspecified, uncomplicated (4) Cocaine use disorder: Status: Acute Code(s): F14.10 - Cocaine abuse, uncomplicated (5) Homeless single person: Status: Acute Code(s): Z59.00 - Homelessness unspecified Plan 11/11 add loperamide for loose stools, pepcid for nausea, keppra 750mg po BID for seizures (needs to be connected with neurology on discharge). Reason for continued inpatient stay Substantial Risk for: inability to function Time Spent With Patient Time: Total time managing care of this patient today ____ minutes.
[2024-11-11] MEDS: LORazepam 1 MG TABLET 2 MG PO (17:09)
[2024-11-11] MEDS: Nicotine Polacrilex 2 MG GUM 4 MG BUCCAL (17:40)
[2024-11-11] MEDS: Baclofen 10 MG TABLET PO ×2 (17:50→20:26)
[2024-11-11] MEDS: Loperamide HCl 2 MG CAPSULE 4 MG PO (17:50)
[2024-11-11] MEDS: Famotidine 20 MG TABLET PO ×2 (17:50→20:26)
[2024-11-11] MEDS: levETIRAcetam 250 MG TABLET 750 MG PO ×2 (18:43→20:26)
[2024-11-11 20:21] VITALS: BP 112/69; PULSE 76; RESP 16; TEMP 36.8; O2SAT 97
[2024-11-11] MEDS: Divalproex Sodium 500 MG TABLET.DR 1000 MG PO (20:25)
[2024-11-11] MEDS: Cyproheptadine HCl 4 MG TABLET PO (20:25)
[2024-11-11] MEDS: Milk of Magnesia 30 ML ORAL.SUSP PO (20:38)
[2024-11-11] MEDS: traZODone HCL 50 MG TABLET PO (20:48)
[2024-11-12 08:00] VITALS: BP 100/65; PULSE 51; RESP 16; TEMP 36.4; O2SAT 99
[2024-11-12] MEDS: methADONE HCl 20 MG/2 ML ORAL.CONC 95 MG PO (08:24)
[2024-11-12] MEDS: Fluticasone/Vilanterol 100/25 BLST.W.DEV 1 PUFF INHALE (08:42)
[2024-11-12] MEDS: Sertraline HCL 100 MG TABLET 200 MG PO (08:43)
[2024-11-12] MEDS: Baclofen 10 MG TABLET PO ×2 (08:43→20:30)
[2024-11-12] MEDS: levETIRAcetam 250 MG TABLET 750 MG PO ×2 (08:43→20:30)
[2024-11-12] MEDS: Thiamine HCL 100 MG TABLET PO (08:43)
[2024-11-12] MEDS: Famotidine 20 MG TABLET PO ×2 (08:43→20:30)
[2024-11-12] MEDS: Nicotine 21 MG PATCH.TD24 TRANSDERMA (08:45)
[2024-11-12] MEDS: Albuterol Sulfate 90 MCG 8 GM INHALER 2 PUFF INHALE (08:49)
--- NOTE | 2024-11-12 08:50 | PC.NURSE ---
Nicotine patch not present. Patient stated he removed it after shower from site on the right abdomen.
--- NOTE | 2024-11-12 10:18 | MHC.RECOVRN ---
T/W met with pt. in 307 for addiction consult and AUDIT C. Pt was sleeping but easily aroused with voice. Pt did keep falling asleep during meeting so education was difficult. Pt reports he currently is receiving methadone 95mg/day from [facility] clinic. Pt reports this helps him with his opiate use but not with my cocoain use Pt reports prior to methadone he was using up to 5 bundles/day. He did not disclose cocaine use hx but did state that he did not know it was laced Pt also reports increased ETOH use over the last several months due to family stressors. He reports as of late he has been drinking 1pt/day. AUDIT-C Brief Intervention Pt had positive screen for unhealthy alcohol use on admission, subsequently met with t/w to discuss alcohol use and recovery supports/options. This gag writer met with patient to discuss current alcohol use and concerns related to increased risk of alcohol related problems.? Pt reports over the last few weeks he has been drinking approx 1 pt/day. Discussed how alcohol use has impacted health, including negative impact on family relationships Withdrawal History: Denies in r/t ETOH Treatment History: None reported in r/t ETOH Supports:?Pt feels most important supports have been taken from him. Discussed risk reduction strategies including drinking below the recommended limit. Provided pt with written resources including information on inpatient and outpatient treatment, [facility], harm reduction, and recovery coaching. Pt plans seek help for overall addiction. Not sure what that will look like yet. Due to pt's inability to stay awake during our meeting today, ACS will F/U with pt. over the next few days to provide further education/interventions/support. Pt provided with t/w contact information if questions or concerns arise. T/W reviewed harm reduction education in r/t cocaine use with pt. Denies other questions or concerns at this time.?
--- NOTE | 2024-11-12 10:23 | P.PNPSI_ITS ---
Subjective Subjective Date of Service: 11/12/24 Reason For Visit: SI Subjective Notes: Conditional Voluntary Interim History: Pt reports he had a good night sleep. He was still very somnolent at around 11am. He reports it has been several month with very poor sleep, he thinks he is catching up. He denies nausea, no muscle aches. Nighttime RN reported pt appeared somewhat confused, which was not his presentation earlier. At this time he presents somnolent but no overt confusion nor psychosis. continue to monitor. Review of Systems Constitutional: Reports no additional constitutional complaints, Denies chills, Denies fever(s) and Denies night sweats Eyes: Reports no additional eye complaints, Denies blurry vision, Denies change in vision, Denies diplopia, Denies eye discharge, Denies loss of vision and Denies eye pain Denies dizziness Cardiovascular: Reports no additional cardiovascular complaints, Denies chest pain, Denies lightheadedness, Denies Loss of Consciousness and Denies dyspnea Respiratory: Reports no additional respiratory complaints and Denies dyspnea Gastrointestinal: Reports no additional gastrointestinal complaints, Denies abdominal pain, Denies melena, Denies hematochezia, Denies change in bowel habits and Denies change in stool character Genitourinary: Reports no additional male genitourinary complaints, Denies hematuria, Denies oliguria, Denies difficulty urinating, Denies dysuria, Denies urinary frequency, Denies urinary hesitancy, Denies urinary incontinence and Denies urinary urgency Musculoskeletal: Reports no additional musculoskeletal complaints, Denies numbness and Denies tingling Denies dizziness, Denies loss of vision, Denies numbness and Denies tingling Psychiatric: Reports no additional psychiatric complaints, Reports depression, Denies homicidal ideation and Reports suicidal ideation Endocrine: Reports no additional endocrine complaints Hematologic/Lymphatic: Reports no additional hematologic/lymphatic complaints Allergic/Immunologic: Reports no additional allergic/immunologic complaints Mental Status Exam Mental Status Exam Narrative: Pt is alert and oriented; behavior is cooperative, friendly and calm; some shivering, which he attributes to alcohol withdrawal; dressed in casual attire; mood is described as OK; eye contact appropriate; Speech is normal rate, volume and not pressured; thought process is organized and goal directed; Thought content is on tx; denies SI/HI/VH/AH. MRE SI yesterday. Diagnostics Vital Signs (24Hr): Vital Signs - 24 hr 11/11/24 20:21 11/12/24 08:00 Temperature 98.2 F 97.5 F Pulse Rate 76 51 Respiratory Rate 16 16 Blood Pressure 112/69 100/65 Pulse Oximetry 97 99 Oxygen Delivery Method Room Air Room Air BMI result Body Mass Index 22.0 Labs 11/09/24 20:02 11/09/24 20:02 Labs: Laboratory Results - last 48 hr 11/11/24 08:01 Estimat Average Glucose 105 Hemoglobin A1c % 5.3 Triglycerides 98 Cholesterol 134 LDL Cholesterol, Calc 65 HDL Cholesterol 50 Vitamin B12 345 Folate 13.2 TSH 3.00 Free T4 0.96 Medications Medications Current Medications Acetaminophen (Acetaminophen 325 Mg Tablet) 650 mg PO Q6H PRN PRN Reason: Headache/Pain Mild Scale (1-3) Last Admin: 11/10/24 21:47 Dose: 650 mg Al Hydroxide/Mg Hydroxide (Magnesium Hydrox/Alum Hydrox 30 Ml Oral.Susp) 30 ml PO Q6H PRN PRN Reason: Heartburn/Nausea Albuterol Sulfate (Albuterol Sulfate 90 Mcg 8 Gm Inhaler) 2 puff INHALE Q4H PRN PRN Reason: wheezing Last Admin: 11/12/24 08:49 Dose: 2 puff Baclofen (Baclofen 10 Mg Tablet) 10 mg PO BID [facility] Last Admin: 11/12/24 08:43 Dose: 10 mg Clonidine HCl (Clonidine Hcl 0.1 Mg Tablet) 0.05 mg PO Q4H PRN; Protocol PRN Reason: opioid withdrawal Sx Last Admin: 11/10/24 21:47 Dose: 0.05 mg Cyproheptadine HCl (Cyproheptadine Hcl 4 Mg Tablet) 4 mg PO BEDTIME [facility] Last Admin: 11/11/24 20:25 Dose: 4 mg Divalproex Sodium (Divalproex Sodium 500 Mg Tablet.Dr) 1,000 mg PO BEDTIME [facility] Last Admin: 11/11/24 20:25 Dose: 1,000 mg Famotidine (Famotidine 20 Mg Tablet) 20 mg PO BID [facility] Last Admin: 11/12/24 08:43 Dose: 20 mg Fluticasone/Vilanterol (Fluticasone/Vilanterol 100/25 Blst.W.Dev) 1 puff INHALE RDAILY [facility] Last Admin: 11/12/24 08:42 Dose: 1 puff Hydroxyzine HCl (Hydroxyzine Hcl 50 Mg Tablet) 50 mg PO TID PRN PRN Reason: anxiety Last Admin: 11/10/24 21:38 Dose: 50 mg Levetiracetam (Levetiracetam 250 Mg Tablet) 750 mg PO BID [facility] Last Admin: 11/12/24 08:43 Dose: 750 mg Loperamide HCl (Loperamide Hcl 2 Mg Capsule) 2 mg PO Q4H PRN PRN Reason: Loose Stool Lorazepam (Lorazepam 1 Mg Tablet) 1 mg PO Q2H PRN PRN Reason: CIWA 8-11 Last Admin: 11/11/24 12:11 Dose: 1 mg Lorazepam (Lorazepam 1 Mg Tablet) 2 mg PO Q2H PRN PRN Reason: CIWA 12-15 Last Admin: 11/11/24 17:09 Dose: 2 mg Lorazepam (Lorazepam 1 Mg Tablet) 3 mg PO Q2H PRN PRN Reason: CIWA > 15, and call Magnesium Hydroxide (Milk Of Magnesia 30 Ml Oral.Susp) 30 ml PO DAILY PRN PRN Reason: Constipation Last Admin: 11/11/24 20:38 Dose: 30 ml Methadone HCl (Methadone Hcl 20 Mg/2 Ml Oral.Conc) 95 mg PO DAILY [facility] Last Admin: 11/12/24 08:24 Dose: 95 mg Nicotine (Nicotine 21 Mg Patch.Td24) 21 mg TRANSDERMA DAILY [facility] Last Admin: 11/12/24 08:45 Dose: 21 mg Nicotine Polacrilex (Nicotine Polacrilex 2 Mg Gum) 4 mg BUCCAL Q2H PRN PRN Reason: Nicotine Cravings Last Admin: 11/11/24 17:40 Dose: 4 mg Sertraline HCl (Sertraline Hcl 100 Mg Tablet) 200 mg PO DAILY [facility] Last Admin: 11/12/24 08:43 Dose: 200 mg Thiamine HCl (Thiamine Hcl 100 Mg Tablet) 100 mg PO DAILY [facility] Last Admin: 11/12/24 08:43 Dose: 100 mg Trazodone HCl (Trazodone Hcl 50 Mg Tablet) 50 mg PO BEDTIME MRX1 PRN PRN Reason: Insomnia Last Admin: 11/11/24 20:48 Dose: 50 mg Allergies Allergies Allergy/AdvReac Type Severity Reaction Status Date / Time No Known Allergies Allergy Verified 11/09/24 19:22 Assessment & Plan Assessment & Plan (1) Opioid use disorder: Status: Acute Code(s): F11.90 - Opioid use, unspecified, uncomplicated (2) Alcohol use disorder: Status: Acute Code(s): F10.90 - Alcohol use, unspecified, uncomplicated (3) Cocaine use disorder: Status: Acute Code(s): F14.10 - Cocaine abuse, uncomplicated (4) Homeless single person: Status: Acute Code(s): Z59.00 - Homelessness unspecified (5) Mood disorder: Status: Acute Code(s): F39 - Unspecified mood [affective] disorder Plan 11/11 pepcid for nausea, baclofen for muscleaches, loperamide for loose stools. kepra restarted 750mg po BID 11/12 continue tx. monitor confusion, and over sedation. Reason for continued inpatient stay Substantial Risk for: inability to function Time Spent With Patient Time: Total time managing care of this patient today ____ minutes.
[2024-11-12] MEDS: hydrOXYzine HCL 50 MG TABLET PO (17:59)
[2024-11-12] MEDS: Nicotine Polacrilex 2 MG GUM 4 MG BUCCAL (18:02)
[2024-11-12 19:46] VITALS: BP 109/60; PULSE 79; RESP 16; TEMP 36.8; O2SAT 99
[2024-11-12] MEDS: Divalproex Sodium 500 MG TABLET.DR 1000 MG PO (20:29)
[2024-11-12] MEDS: traZODone HCL 50 MG TABLET PO (20:41)
[2024-11-13] MEDS: hydrOXYzine HCL 50 MG TABLET PO ×2 (03:57→13:08)
[2024-11-13] MEDS: methADONE HCl 20 MG/2 ML ORAL.CONC 95 MG PO (08:21)
[2024-11-13] MEDS: Acetaminophen 325 MG TABLET 650 MG PO (08:41)
[2024-11-13] MEDS: Fluticasone/Vilanterol 100/25 BLST.W.DEV 1 PUFF INHALE (08:42)
[2024-11-13] MEDS: Sertraline HCL 100 MG TABLET 200 MG PO (08:42)
[2024-11-13] MEDS: Thiamine HCL 100 MG TABLET PO (08:42)
[2024-11-13] MEDS: Famotidine 20 MG TABLET PO ×2 (08:42→20:09)
[2024-11-13] MEDS: levETIRAcetam 250 MG TABLET 750 MG PO ×2 (08:42→20:08)
[2024-11-13] MEDS: Baclofen 10 MG TABLET PO ×2 (08:42→20:09)
[2024-11-13] MEDS: Nicotine 21 MG PATCH.TD24 TRANSDERMA (08:43)
--- NOTE | 2024-11-13 09:49 | MHC.RECOVRN ---
Met with pt to follow up and provide support. Pt laying in bed, asleep, wakes to voice. Pt reports he is doing better, able to eat a little bit more. Reports sleep is difficult, however, falls asleep during conversation. Pt reports he is just trying to rest. Encouraged pt to notify RN if ACS is needed. Pt denies questions or concerns at this time.
[2024-11-13 13:18] VITALS: BP 114/71; PULSE 86; RESP 18
[2024-11-13] MEDS: diazePAM 5 MG TABLET PO ×2 (13:30→20:09)
--- NOTE | 2024-11-13 16:00 | P.PNPSI_ITS ---
Subjective Subjective Date of Service: 11/13/24 Reason For Visit: SI Interim History: appears to be nodding off. c/o back pain, shakes, chills. believes he is in alcohol withdrawal. discussed how he might be in opioid withdrawal as well. interested in rehab. c/o feeling too sedated on trazodone, so DCed. asking to restart remeron, which was done. also expresses help from periactin, so that is ordered for pt as well. per staff, denies dep/anx. no SI/HI/AVH. vape pen found in room. sedated after visit from GF. c/o cold sweats, back pain, anxiety. asking for ativan - CIWA DCed yesterday. Mental Status Exam Mental Status Exam Narrative: Pt is nodding off and oriented; behavior is cooperative, friendly and calm; dressed in casual attire; mood is described as OK; eye contact appropriate; Speech is normal rate, volume and not pressured; thought process is organized and goal directed; Thought content is on tx; no SI/HI/AVH expressed. Diagnostics Vital Signs (24Hr): Vital Signs - 24 hr 11/12/24 19:46 11/13/24 13:18 Temperature 98.3 F Pulse Rate 79 86 Respiratory Rate 16 18 Blood Pressure 109/60 114/71 Pulse Oximetry 99 Oxygen Delivery Method Room Air BMI result Body Mass Index 22.0 Labs 11/09/24 20:02 11/09/24 20:02 Imaging Radiology Impressions: ITS Impressions Hand/Wrist X-Ray 11/10/24 15:45 IMPRESSION: No displaced fracture. Electronically signed by: Lizzy Ponce MD 11/13/2024 08:13 AM [facility] Medications Medications Current Medications Acetaminophen (Acetaminophen 325 Mg Tablet) 650 mg PO Q6H PRN PRN Reason: Headache/Pain Mild Scale (1-3) Last Admin: 11/13/24 08:41 Dose: 650 mg Al Hydroxide/Mg Hydroxide (Magnesium Hydrox/Alum Hydrox 30 Ml Oral.Susp) 30 ml PO Q6H PRN PRN Reason: Heartburn/Nausea Albuterol Sulfate (Albuterol Sulfate 90 Mcg 8 Gm Inhaler) 2 puff INHALE Q4H PRN PRN Reason: wheezing Last Admin: 11/12/24 08:49 Dose: 2 puff Baclofen (Baclofen 10 Mg Tablet) 10 mg PO BID [facility] Last Admin: 11/13/24 08:42 Dose: 10 mg Clonidine HCl (Clonidine Hcl 0.1 Mg Tablet) 0.05 mg PO Q4H PRN; Protocol PRN Reason: opioid withdrawal Sx Last Admin: 11/10/24 21:47 Dose: 0.05 mg Cyproheptadine HCl (Cyproheptadine Hcl 4 Mg Tablet) 4 mg PO BEDTIME PRN PRN Reason: insomnia Diazepam (Diazepam 5 Mg Tablet) 5 mg PO BID [facility] Stop: 11/14/24 09:01 Last Admin: 11/13/24 13:30 Dose: 5 mg Divalproex Sodium (Divalproex Sodium 500 Mg Tablet.Dr) 1,000 mg PO BEDTIME [facility] Last Admin: 11/12/24 20:29 Dose: 1,000 mg Famotidine (Famotidine 20 Mg Tablet) 20 mg PO BID [facility] Last Admin: 11/13/24 08:42 Dose: 20 mg Fluticasone/Vilanterol (Fluticasone/Vilanterol 100/25 Blst.W.Dev) 1 puff INHALE RDAILY [facility] Last Admin: 11/13/24 08:42 Dose: 1 puff Hydroxyzine HCl (Hydroxyzine Hcl 50 Mg Tablet) 50 mg PO TID PRN PRN Reason: anxiety Last Admin: 11/13/24 13:08 Dose: 50 mg Levetiracetam (Levetiracetam 250 Mg Tablet) 750 mg PO BID [facility] Last Admin: 11/13/24 08:42 Dose: 750 mg Loperamide HCl (Loperamide Hcl 2 Mg Capsule) 2 mg PO Q4H PRN PRN Reason: Loose Stool Magnesium Hydroxide (Milk Of Magnesia 30 Ml Oral.Susp) 30 ml PO DAILY PRN PRN Reason: Constipation Last Admin: 11/11/24 20:38 Dose: 30 ml Methadone HCl (Methadone Hcl 20 Mg/2 Ml Oral.Conc) 95 mg PO DAILY [facility] Last Admin: 11/13/24 08:21 Dose: 95 mg Mirtazapine (Mirtazapine 15 Mg Tablet) 15 mg PO BEDTIME [facility] Mirtazapine (Mirtazapine 15 Mg Tablet) 15 mg PO BEDTIME PRN PRN Reason: insomnia Nicotine (Nicotine 21 Mg Patch.Td24) 21 mg TRANSDERMA DAILY [facility] Last Admin: 11/13/24 08:43 Dose: 21 mg Nicotine Polacrilex (Nicotine Polacrilex 2 Mg Gum) 4 mg BUCCAL Q2H PRN PRN Reason: Nicotine Cravings Last Admin: 11/12/24 18:02 Dose: 4 mg Sertraline HCl (Sertraline Hcl 100 Mg Tablet) 200 mg PO DAILY [facility] Last Admin: 11/13/24 08:42 Dose: 200 mg Thiamine HCl (Thiamine Hcl 100 Mg Tablet) 100 mg PO DAILY [facility] Last Admin: 11/13/24 08:42 Dose: 100 mg Allergies Allergies Allergy/AdvReac Type Severity Reaction Status Date / Time No Known Allergies Allergy Verified 11/09/24 19:22 Assessment & Plan Assessment & Plan (1) Opioid use disorder: Status: Acute Code(s): F11.90 - Opioid use, unspecified, uncomplicated (2) Alcohol use disorder: Status: Acute Code(s): F10.90 - Alcohol use, unspecified, uncomplicated (3) Cocaine use disorder: Status: Acute Code(s): F14.10 - Cocaine abuse, uncomplicated (4) Homeless single person: Status: Acute Code(s): Z59.00 - Homelessness unspecified (5) Mood disorder: Status: Acute Code(s): F39 - Unspecified mood [affective] disorder Plan 11/11 pepcid for nausea, baclofen for muscleaches, loperamide for loose stools. kepra restarted 750mg po BID 11/12 continue tx. monitor confusion, and over sedation. 11/13: DC trazodone, pt complains he feels too sedated the morning after from it. restart remeron 15 with repeat. also add periactin PRN as pt had a dose the other night and found it helpful. c/o withdrawal Sx, valium 5 BID x 3 doses ordered. of note, pt hape vape pen in his room and was noted to be sedated after visit with GF. appeared to be nodding off today. supervised visits ordered. Reason for continued inpatient stay Substantial Risk for: inability to function and rapid decompensation Time Spent With Patient Time: Total time managing care of this patient today _25___ minutes.
[2024-11-13 19:50] VITALS: BP 107/76; PULSE 83; RESP 16; TEMP 36.9; O2SAT 98
[2024-11-13] MEDS: Milk of Magnesia 30 ML ORAL.SUSP PO (20:06)
[2024-11-13] MEDS: Mirtazapine 15 MG TABLET PO (20:08)
[2024-11-13] MEDS: Divalproex Sodium 500 MG TABLET.DR 1000 MG PO (20:09)
[2024-11-14 06:33] VITALS: BP 118/63
[2024-11-14] MEDS: cloNIDine HCL 0.1 MG TABLET 0.05 MG PO (06:33)
[2024-11-14] MEDS: Acetaminophen 325 MG TABLET 650 MG PO (06:34)
[2024-11-14] MEDS: hydrOXYzine HCL 50 MG TABLET PO ×2 (06:35→17:11)
[2024-11-14 08:00] VITALS: BP 105/55; PULSE 73; RESP 16; TEMP 36.5; O2SAT 97
[2024-11-14] MEDS: methADONE HCl 20 MG/2 ML ORAL.CONC 95 MG PO (08:14)
[2024-11-14] MEDS: Sertraline HCL 100 MG TABLET 200 MG PO (08:55)
[2024-11-14] MEDS: Famotidine 20 MG TABLET PO ×2 (08:56→20:19)
[2024-11-14] MEDS: levETIRAcetam 250 MG TABLET 750 MG PO ×2 (08:56→20:18)
[2024-11-14] MEDS: Baclofen 10 MG TABLET PO ×2 (08:56→20:19)
[2024-11-14] MEDS: diazePAM 5 MG TABLET PO ×2 (08:57→20:19)
[2024-11-14] MEDS: Thiamine HCL 100 MG TABLET PO (08:57)
[2024-11-14] MEDS: Nicotine 21 MG PATCH.TD24 TRANSDERMA (08:57)
[2024-11-14] MEDS: Fluticasone/Vilanterol 100/25 BLST.W.DEV 1 PUFF INHALE (09:06)
[2024-11-14] MEDS: Loperamide HCl 2 MG CAPSULE PO (15:45)
--- NOTE | 2024-11-14 17:24 | P.PNPSI_ITS ---
Subjective Subjective Date of Service: 11/14/24 Reason For Visit: SI Interim History: c/o panic attacks, withdrawal, insomnia. MD agrees to continue valium taper for another 24H and to increase HS remeron to 30 mg. pt also educated re availability of PRN sleep meds. per staff, taking meds. c/o cravings and urges to drink. had tylenol, atarax, clonidine PRNs this morning. c/o sleeping only 2 hours, but per staff appeared to have slept through the night. Mental Status Exam Mental Status Exam Narrative: more awake and alert today; behavior is cooperative, calm; dressed in casual attire; mood is described as anxious; eye contact appropriate; Speech is normal rate, volume and not pressured; thought process is organized and goal directed; Thought content is on potential seizure, panic attacks; no SI/HI/AVH expressed. Diagnostics Vital Signs (24Hr): Vital Signs - 24 hr 11/13/24 19:50 11/14/24 06:33 11/14/24 08:00 Temperature 98.5 F 97.7 F Pulse Rate 83 73 Respiratory Rate 16 16 Blood Pressure 107/76 118/63 105/55 L Pulse Oximetry 98 97 Oxygen Delivery Method Room Air Room Air BMI result Body Mass Index 22.0 Labs 11/09/24 20:02 11/09/24 20:02 Imaging Radiology Impressions: ITS Impressions Hand/Wrist X-Ray 11/10/24 15:45 IMPRESSION: No displaced fracture. Electronically signed by: Lizzy Ponce MD 11/13/2024 08:13 AM [facility] Medications Medications Current Medications Acetaminophen (Acetaminophen 325 Mg Tablet) 650 mg PO Q6H PRN PRN Reason: Headache/Pain Mild Scale (1-3) Last Admin: 11/14/24 06:34 Dose: 650 mg Al Hydroxide/Mg Hydroxide (Magnesium Hydrox/Alum Hydrox 30 Ml Oral.Susp) 30 ml PO Q6H PRN PRN Reason: Heartburn/Nausea Albuterol Sulfate (Albuterol Sulfate 90 Mcg 8 Gm Inhaler) 2 puff INHALE Q4H PRN PRN Reason: wheezing Last Admin: 11/12/24 08:49 Dose: 2 puff Baclofen (Baclofen 10 Mg Tablet) 10 mg PO BID [facility] Last Admin: 11/14/24 08:56 Dose: 10 mg Clonidine HCl (Clonidine Hcl 0.1 Mg Tablet) 0.05 mg PO Q4H PRN; Protocol PRN Reason: opioid withdrawal Sx Last Admin: 11/14/24 06:33 Dose: 0.05 mg Cyproheptadine HCl (Cyproheptadine Hcl 4 Mg Tablet) 4 mg PO BEDTIME PRN PRN Reason: insomnia Diazepam (Diazepam 5 Mg Tablet) 5 mg PO BID [facility] Stop: 11/15/24 09:01 Divalproex Sodium (Divalproex Sodium 500 Mg Tablet.Dr) 1,000 mg PO BEDTIME [facility] Last Admin: 11/13/24 20:09 Dose: 1,000 mg Famotidine (Famotidine 20 Mg Tablet) 20 mg PO BID [facility] Last Admin: 11/14/24 08:56 Dose: 20 mg Fluticasone/Vilanterol (Fluticasone/Vilanterol 100/25 Blst.W.Dev) 1 puff INHALE RDAILY [facility] Last Admin: 11/14/24 09:06 Dose: 1 puff Hydroxyzine HCl (Hydroxyzine Hcl 50 Mg Tablet) 50 mg PO TID PRN PRN Reason: anxiety Last Admin: 11/14/24 17:11 Dose: 50 mg Levetiracetam (Levetiracetam 250 Mg Tablet) 750 mg PO BID [facility] Last Admin: 11/14/24 08:56 Dose: 750 mg Loperamide HCl (Loperamide Hcl 2 Mg Capsule) 2 mg PO Q4H PRN PRN Reason: Loose Stool Last Admin: 11/14/24 15:45 Dose: 2 mg Magnesium Hydroxide (Milk Of Magnesia 30 Ml Oral.Susp) 30 ml PO DAILY PRN PRN Reason: Constipation Last Admin: 11/13/24 20:06 Dose: 30 ml Methadone HCl (Methadone Hcl 20 Mg/2 Ml Oral.Conc) 95 mg PO DAILY [facility] Last Admin: 11/14/24 08:14 Dose: 95 mg Mirtazapine (Mirtazapine 15 Mg Tablet) 15 mg PO BEDTIME PRN PRN Reason: insomnia Mirtazapine (Mirtazapine 30 Mg Tablet) 30 mg PO BEDTIME [facility] Nicotine (Nicotine 21 Mg Patch.Td24) 21 mg TRANSDERMA DAILY [facility] Last Admin: 11/14/24 08:57 Dose: 21 mg Nicotine Polacrilex (Nicotine Polacrilex 2 Mg Gum) 4 mg BUCCAL Q2H PRN PRN Reason: Nicotine Cravings Last Admin: 11/12/24 18:02 Dose: 4 mg Sertraline HCl (Sertraline Hcl 100 Mg Tablet) 200 mg PO DAILY [facility] Last Admin: 11/14/24 08:55 Dose: 200 mg Thiamine HCl (Thiamine Hcl 100 Mg Tablet) 100 mg PO DAILY [facility] Last Admin: 11/14/24 08:57 Dose: 100 mg Allergies Allergies Allergy/AdvReac Type Severity Reaction Status Date / Time No Known Allergies Allergy Verified 11/09/24 19:22 Assessment & Plan Assessment & Plan (1) Opioid use disorder: Status: Acute Code(s): F11.90 - Opioid use, unspecified, uncomplicated (2) Alcohol use disorder: Status: Acute Code(s): F10.90 - Alcohol use, unspecified, uncomplicated (3) Cocaine use disorder: Status: Acute Code(s): F14.10 - Cocaine abuse, uncomplicated (4) Homeless single person: Status: Acute Code(s): Z59.00 - Homelessness unspecified (5) Mood disorder: Status: Acute Code(s): F39 - Unspecified mood [affective] disorder Plan 11/11 pepcid for nausea, baclofen for muscleaches, loperamide for loose stools. kepra restarted 750mg po BID 11/12 continue tx. monitor confusion, and over sedation. 11/13: DC trazodone, pt complains he feels too sedated the morning after from it. restart remeron 15 with repeat. also add periactin PRN as pt had a dose the other night and found it helpful. c/o withdrawal Sx, valium 5 BID x 3 doses ordered. of note, pt hape vape pen in his room and was noted to be sedated after visit with GF. appeared to be nodding off today. supervised visits ordered. 11/14: c/o panic attacks, worried he's going to have a seizure, insomnia. educated re sleep PRNs. remeron increased to 30 QHS. valium taper extended 24H. otherwise continue current mgmt. Reason for continued inpatient stay Substantial Risk for: inability to function and rapid decompensation Time Spent With Patient Time: Total time managing care of this patient today __25__ minutes.
[2024-11-14 20:00] VITALS: BP 113/56; PULSE 69; RESP 16; TEMP 37.1; O2SAT 97
[2024-11-14] MEDS: Divalproex Sodium 500 MG TABLET.DR 1000 MG PO (20:18)
[2024-11-14] MEDS: Mirtazapine 30 MG TABLET PO (20:19)
[2024-11-15] MEDS: Mirtazapine 15 MG TABLET PO (00:26)
[2024-11-15] MEDS: Cyproheptadine HCl 4 MG TABLET PO ×2 (00:26→20:26)
[2024-11-15] MEDS: hydrOXYzine HCL 50 MG TABLET PO ×2 (00:27→16:16)
[2024-11-15 07:31] VITALS: BP 97/51; PULSE 77; RESP 14; TEMP 36.9; O2SAT 98
[2024-11-15] MEDS: methADONE HCl 20 MG/2 ML ORAL.CONC 95 MG PO (08:00)
[2024-11-15] MEDS: Fluticasone/Vilanterol 100/25 BLST.W.DEV 1 PUFF INHALE (08:32)
[2024-11-15] MEDS: Nicotine 21 MG PATCH.TD24 TRANSDERMA (08:32)
[2024-11-15] MEDS: Baclofen 10 MG TABLET PO ×2 (08:33→20:26)
[2024-11-15] MEDS: Thiamine HCL 100 MG TABLET PO (08:33)
[2024-11-15] MEDS: Famotidine 20 MG TABLET PO ×2 (08:33→20:26)
[2024-11-15] MEDS: levETIRAcetam 250 MG TABLET 750 MG PO ×2 (08:33→20:27)
[2024-11-15] MEDS: Sertraline HCL 100 MG TABLET 200 MG PO (08:33)
[2024-11-15] MEDS: diazePAM 5 MG TABLET PO (08:33)
[2024-11-15] MEDS: Loperamide HCl 2 MG CAPSULE PO (08:39)
[2024-11-15] MEDS: Throat Lozenge, Medicated LOZENGE 1 LOZENGE MUCOUS MEM ×3 (13:11→19:19)
[2024-11-15] MEDS: Acetaminophen 325 MG TABLET 650 MG PO (13:16)
[2024-11-15 13:33] LABS: COVID-19 Test Negative (Negative); IDNOW Serial# 58CA691E
--- NOTE | 2024-11-15 16:37 | HO.PSYCHPN ---
Subjective Subjective Date of Service: 11/15/24 Reason For Visit: SI Interim History: calm, cooperative. concerned about his Sx. still poor sleep, restless. worried about hip pain. agreeable to ibu, asking for xray. agreeable to increase remeron to 45 mg at HS and to schedule periactin. per staff, labile. taking meds. attending groups. slept 7 hours but was restless. Mental Status Exam Mental Status Exam Narrative: awake and alert; behavior is cooperative, calm; dressed in casual attire; mood is described as anxious; eye contact appropriate; Speech is normal rate, volume and not pressured; thought process is organized and goal directed; Thought content is on insomnia and hip pain; no SI/HI/AVH expressed. Diagnostics Vital Signs (24Hr): Vital Signs - 24 hr 11/14/24 20:00 11/15/24 07:31 Temperature 98.7 F 98.4 F Pulse Rate 69 77 Respiratory Rate 16 14 Blood Pressure 113/56 L 97/51 L Pulse Oximetry 97 98 Oxygen Delivery Method Room Air Room Air BMI result Body Mass Index 22.0 Labs 11/09/24 20:02 11/09/24 20:02 Labs: Laboratory Results - last 48 hr 11/15/24 13:05 COVID-19 (PATITO) Negative COVID-19 Clin Com See Note Imaging Radiology Impressions: ITS Impressions Hand/Wrist X-Ray 11/10/24 15:45 IMPRESSION: No displaced fracture. Electronically signed by: Lizzy Ponce MD 11/13/2024 08:13 AM [facility] Medications Medications Current Medications Acetaminophen (Acetaminophen 325 Mg Tablet) 650 mg PO Q6H PRN PRN Reason: Headache/Pain Mild Scale (1-3) Last Admin: 11/15/24 13:16 Dose: 650 mg Al Hydroxide/Mg Hydroxide (Magnesium Hydrox/Alum Hydrox 30 Ml Oral.Susp) 30 ml PO Q6H PRN PRN Reason: Heartburn/Nausea Albuterol Sulfate (Albuterol Sulfate 90 Mcg 8 Gm Inhaler) 2 puff INHALE Q4H PRN PRN Reason: wheezing Last Admin: 11/12/24 08:49 Dose: 2 puff Baclofen (Baclofen 10 Mg Tablet) 10 mg PO BID [facility] Last Admin: 11/15/24 08:33 Dose: 10 mg Benzocaine (Throat Lozenge, Medicated Lozenge) 1 lozenge MUCOUS MEM Q1H PRN PRN Reason: Sore Throat Last Admin: 11/15/24 16:14 Dose: 1 lozenge Clonidine HCl (Clonidine Hcl 0.1 Mg Tablet) 0.05 mg PO Q4H PRN; Protocol PRN Reason: opioid withdrawal Sx Last Admin: 11/14/24 06:33 Dose: 0.05 mg Cyproheptadine HCl (Cyproheptadine Hcl 4 Mg Tablet) 4 mg PO BEDTIME [facility] Divalproex Sodium (Divalproex Sodium 500 Mg Tablet.Dr) 1,000 mg PO BEDTIME [facility] Last Admin: 11/14/24 20:18 Dose: 1,000 mg Famotidine (Famotidine 20 Mg Tablet) 20 mg PO BID [facility] Last Admin: 11/15/24 08:33 Dose: 20 mg Fluticasone/Vilanterol (Fluticasone/Vilanterol 100/25 Blst.W.Dev) 1 puff INHALE RDAILY [facility] Last Admin: 11/15/24 08:32 Dose: 1 puff Hydroxyzine HCl (Hydroxyzine Hcl 50 Mg Tablet) 50 mg PO TID PRN PRN Reason: anxiety Last Admin: 11/15/24 16:16 Dose: 50 mg Ibuprofen (Ibuprofen 600 Mg Tablet) 600 mg PO Q6H PRN PRN Reason: hip pain Levetiracetam (Levetiracetam 250 Mg Tablet) 750 mg PO BID [facility] Last Admin: 11/15/24 08:33 Dose: 750 mg Loperamide HCl (Loperamide Hcl 2 Mg Capsule) 2 mg PO Q4H PRN PRN Reason: Loose Stool Last Admin: 11/15/24 08:39 Dose: 2 mg Magnesium Hydroxide (Milk Of Magnesia 30 Ml Oral.Susp) 30 ml PO DAILY PRN PRN Reason: Constipation Last Admin: 11/13/24 20:06 Dose: 30 ml Methadone HCl (Methadone Hcl 20 Mg/2 Ml Oral.Conc) 95 mg PO DAILY [facility] Last Admin: 11/15/24 08:00 Dose: 95 mg Mirtazapine (Mirtazapine 15 Mg Tablet) 45 mg PO BEDTIME [facility] Nicotine (Nicotine 21 Mg Patch.Td24) 21 mg TRANSDERMA DAILY [facility] Last Admin: 11/15/24 08:32 Dose: 21 mg Nicotine Polacrilex (Nicotine Polacrilex 2 Mg Gum) 4 mg BUCCAL Q2H PRN PRN Reason: Nicotine Cravings Last Admin: 11/12/24 18:02 Dose: 4 mg Sertraline HCl (Sertraline Hcl 100 Mg Tablet) 200 mg PO DAILY [facility] Last Admin: 11/15/24 08:33 Dose: 200 mg Thiamine HCl (Thiamine Hcl 100 Mg Tablet) 100 mg PO DAILY [facility] Last Admin: 11/15/24 08:33 Dose: 100 mg Allergies Allergies Allergy/AdvReac Type Severity Reaction Status Date / Time No Known Allergies Allergy Verified 11/09/24 19:22 Assessment & Plan Assessment & Plan (1) Opioid use disorder: Status: Acute Code(s): F11.90 - Opioid use, unspecified, uncomplicated (2) Alcohol use disorder: Status: Acute Code(s): F10.90 - Alcohol use, unspecified, uncomplicated (3) Cocaine use disorder: Status: Acute Code(s): F14.10 - Cocaine abuse, uncomplicated (4) Homeless single person: Status: Acute Code(s): Z59.00 - Homelessness unspecified (5) Mood disorder: Status: Acute Code(s): F39 - Unspecified mood [affective] disorder Plan 11/11 pepcid for nausea, baclofen for muscleaches, loperamide for loose stools. kepra restarted 750mg po BID 11/12 continue tx. monitor confusion, and over sedation. 11/13: DC trazodone, pt complains he feels too sedated the morning after from it. restart remeron 15 with repeat. also add periactin PRN as pt had a dose the other night and found it helpful. c/o withdrawal Sx, valium 5 BID x 3 doses ordered. of note, pt hape vape pen in his room and was noted to be sedated after visit with GF. appeared to be nodding off today. supervised visits ordered. 11/14: c/o panic attacks, worried he's going to have a seizure, insomnia. educated re sleep PRNs. remeron increased to 30 QHS. valium taper extended 24H. otherwise continue current mgmt. 11/15: concerned about sore throat, hip pain, insomnia. increase remeron to 45 mg QHS. schedule periactin. ibuprofen and hip xray for hip pain. otherwise continue current mgmt. Reason for continued inpatient stay Substantial Risk for: inability to function and rapid decompensation Time Spent With Patient Time: Total time managing care of this patient today __25__ minutes.
[2024-11-15 17:17] LABS: IDNOW Serial# 58CA691E; Strep A Nucleic Acid Negative (Negative)
--- NOTE | 2024-11-15 17:50 | PC.NURSE ---
At 1630 pt's SO arrived for visit. There is an order for supervised visits due to pt being found with contraband earlier in the week. Pt behaved as if this was not discussed with him prior to this time. Protocol for supervised visit s discussed with pt and , at his request, his significant other. They were informed that observer is required to have ability to visualize their hands during the visit. Pt was cooperative, SO was irritable but remained for her visit, arguing about the 30 minute limit and the supervision. Following the visit pt went to his room, slammed door, threw his mattress and was yelling pacing in room. You don't know what it's like to be locked up for a week without 30 fucking minutes alone with your girl , You don't know who you're messing with, I'm a yasmeenzy shira . This RN approached pt, invited him to talk, asked him how I could help, offered food, fluids, prn medication, alternate activity. He declined assistance. I exited the room and shortly after heard a loud noise - he had overturned his chair and thrown a cup. Again, he declined assist, denies intent to harm himself or others. I was informed on the next check that he had barricaded his door. I entered through the anti-barricade door and informed pt we would enter only q 15 min to do his check. Pt is currently eating dinner in his room.
[2024-11-15] MEDS: OLANZapine 5 MG TABLET PO (18:56)
[2024-11-15 20:00] VITALS: BP 110/72; PULSE 76; RESP 16; TEMP 36.5; O2SAT 99
[2024-11-15] MEDS: Mirtazapine 15 MG TABLET 45 MG PO (20:25)
[2024-11-15] MEDS: Divalproex Sodium 500 MG TABLET.DR 1000 MG PO (20:27)
[2024-11-16 07:00] VITALS: BMI 24.4
[2024-11-16 07:20] VITALS: BP 108/60; PULSE 68; RESP 14; TEMP 36.4; O2SAT 97
[2024-11-16] MEDS: methADONE HCl 20 MG/2 ML ORAL.CONC 95 MG PO (08:13)
[2024-11-16] MEDS: Baclofen 10 MG TABLET PO ×2 (08:43→20:00)
[2024-11-16] MEDS: Famotidine 20 MG TABLET PO ×2 (08:43→20:01)
[2024-11-16] MEDS: Sertraline HCL 100 MG TABLET 200 MG PO (08:43)
[2024-11-16] MEDS: Fluticasone/Vilanterol 100/25 BLST.W.DEV 1 PUFF INHALE (08:44)
[2024-11-16] MEDS: Thiamine HCL 100 MG TABLET PO (08:44)
[2024-11-16] MEDS: Nicotine 21 MG PATCH.TD24 TRANSDERMA (08:44)
[2024-11-16] MEDS: levETIRAcetam 250 MG TABLET 750 MG PO ×2 (08:44→19:59)
[2024-11-16] MEDS: Throat Lozenge, Medicated LOZENGE 1 LOZENGE MUCOUS MEM (11:57)
[2024-11-16] MEDS: Gabapentin 300 MG CAPSULE PO ×2 (15:10→20:00)
[2024-11-16] MEDS: Ibuprofen 600 MG TABLET PO (15:21)
[2024-11-16] MEDS: hydrOXYzine HCL 50 MG TABLET PO (15:22)
--- NOTE | 2024-11-16 15:50 | P.PNPSI_ITS ---
Subjective Subjective Date of Service: 11/16/24 Reason For Visit: SI Interim History: calm, cooperative. c/o poor appetite. slept reasonably well last night. c/o persistent hip pain, xray results reviewed. pt has had the pain for a year, will F/U with outpt providers. reports he continues to explore aftercare Tx options. asks for chava for pain, agrees to start 300 TID. per staff, angry affect. taking meds. upset re supervised visits, overturned chair in room and barricaded self in room briefly. asking about extending valium taper. intake at [facility] next wednesday. Mental Status Exam Mental Status Exam Narrative: awake and alert; behavior is cooperative, calm; dressed in casual attire; mood is described as anxious; eye contact appropriate; Speech is normal rate, volume and not pressured; thought process is organized and goal directed; Thought content is on hip pain; no SI/HI/AVH expressed. Diagnostics Vital Signs (24Hr): Vital Signs - 24 hr 11/15/24 20:00 11/16/24 07:20 Temperature 97.7 F 97.6 F Pulse Rate 76 68 Respiratory Rate 16 14 Blood Pressure 110/72 108/60 Pulse Oximetry 99 97 Oxygen Delivery Method Room Air Room Air BMI result Body Mass Index 24.4 Labs 11/09/24 20:02 11/09/24 20:02 Labs: Laboratory Results - last 48 hr 11/15/24 11/15/24 13:05 16:14 COVID-19 (PATITO) Negative COVID-19 Clin Com See Note S. pyogenes GrpA GABRIELE Negative Imaging Radiology Impressions: ITS Impressions Hand/Wrist X-Ray 11/10/24 15:45 IMPRESSION: No displaced fracture. Electronically signed by: Lizzy Ponce MD 11/13/2024 08:13 AM EST RP Hip X-Ray 11/15/24 19:55 IMPRESSION: No acute fracture or dislocation, left hip. Electronically signed by: Bandar Francois MD 11/16/2024 07:19 AM EST RP Medications Medications Current Medications Acetaminophen (Acetaminophen 325 Mg Tablet) 650 mg PO Q6H PRN PRN Reason: Headache/Pain Mild Scale (1-3) Last Admin: 11/15/24 13:16 Dose: 650 mg Al Hydroxide/Mg Hydroxide (Magnesium Hydrox/Alum Hydrox 30 Ml Oral.Susp) 30 ml PO Q6H PRN PRN Reason: Heartburn/Nausea Albuterol Sulfate (Albuterol Sulfate 90 Mcg 8 Gm Inhaler) 2 puff INHALE Q4H PRN PRN Reason: wheezing Last Admin: 11/12/24 08:49 Dose: 2 puff Baclofen (Baclofen 10 Mg Tablet) 10 mg PO BID [facility] Last Admin: 11/16/24 08:43 Dose: 10 mg Benzocaine (Throat Lozenge, Medicated Lozenge) 1 lozenge MUCOUS MEM Q1H PRN PRN Reason: Sore Throat Last Admin: 11/16/24 11:57 Dose: 1 lozenge Clonidine HCl (Clonidine Hcl 0.1 Mg Tablet) 0.05 mg PO Q4H PRN; Protocol PRN Reason: opioid withdrawal Sx Last Admin: 11/14/24 06:33 Dose: 0.05 mg Cyproheptadine HCl (Cyproheptadine Hcl 4 Mg Tablet) 4 mg PO BEDTIME [facility] Last Admin: 11/15/24 20:26 Dose: 4 mg Divalproex Sodium (Divalproex Sodium 500 Mg Tablet.Dr) 1,000 mg PO BEDTIME [facility] Last Admin: 11/15/24 20:27 Dose: 1,000 mg Famotidine (Famotidine 20 Mg Tablet) 20 mg PO BID [facility] Last Admin: 11/16/24 08:43 Dose: 20 mg Fluticasone/Vilanterol (Fluticasone/Vilanterol 100/25 Blst.W.Dev) 1 puff INHALE RDAILY [facility] Last Admin: 11/16/24 08:44 Dose: 1 puff Gabapentin (Gabapentin 300 Mg Capsule) 300 mg PO TID [facility] Last Admin: 11/16/24 15:10 Dose: 300 mg Hydroxyzine HCl (Hydroxyzine Hcl 50 Mg Tablet) 50 mg PO TID PRN PRN Reason: anxiety Last Admin: 11/16/24 15:22 Dose: 50 mg Ibuprofen (Ibuprofen 600 Mg Tablet) 600 mg PO Q6H PRN PRN Reason: hip pain Last Admin: 11/16/24 15:21 Dose: 600 mg Levetiracetam (Levetiracetam 250 Mg Tablet) 750 mg PO BID [facility] Last Admin: 11/16/24 08:44 Dose: 750 mg Loperamide HCl (Loperamide Hcl 2 Mg Capsule) 2 mg PO Q4H PRN PRN Reason: Loose Stool Last Admin: 11/15/24 08:39 Dose: 2 mg Magnesium Hydroxide (Milk Of Magnesia 30 Ml Oral.Susp) 30 ml PO DAILY PRN PRN Reason: Constipation Last Admin: 11/13/24 20:06 Dose: 30 ml Methadone HCl (Methadone Hcl 20 Mg/2 Ml Oral.Conc) 95 mg PO DAILY [facility] Last Admin: 11/16/24 08:13 Dose: 95 mg Mirtazapine (Mirtazapine 15 Mg Tablet) 45 mg PO BEDTIME [facility] Last Admin: 11/15/24 20:25 Dose: 45 mg Nicotine (Nicotine 21 Mg Patch.Td24) 21 mg TRANSDERMA DAILY [facility] Last Admin: 11/16/24 08:44 Dose: 21 mg Nicotine Polacrilex (Nicotine Polacrilex 2 Mg Gum) 4 mg BUCCAL Q2H PRN PRN Reason: Nicotine Cravings Last Admin: 11/12/24 18:02 Dose: 4 mg Olanzapine (Olanzapine 5 Mg Tablet) 5 mg PO Q4H PRN PRN Reason: agitation Last Admin: 11/15/24 18:56 Dose: 5 mg Sertraline HCl (Sertraline Hcl 100 Mg Tablet) 200 mg PO DAILY [facility] Last Admin: 11/16/24 08:43 Dose: 200 mg Thiamine HCl (Thiamine Hcl 100 Mg Tablet) 100 mg PO DAILY [facility] Last Admin: 11/16/24 08:44 Dose: 100 mg Allergies Allergies Allergy/AdvReac Type Severity Reaction Status Date / Time No Known Allergies Allergy Verified 11/09/24 19:22 Assessment & Plan Assessment & Plan (1) Opioid use disorder: Status: Acute Code(s): F11.90 - Opioid use, unspecified, uncomplicated (2) Alcohol use disorder: Status: Acute Code(s): F10.90 - Alcohol use, unspecified, uncomplicated (3) Cocaine use disorder: Status: Acute Code(s): F14.10 - Cocaine abuse, uncomplicated (4) Homeless single person: Status: Acute Code(s): Z59.00 - Homelessness unspecified (5) Mood disorder: Status: Acute Code(s): F39 - Unspecified mood [affective] disorder Plan 11/11 pepcid for nausea, baclofen for muscleaches, loperamide for loose stools. kepra restarted 750mg po BID 11/12 continue tx. monitor confusion, and over sedation. 11/13: DC trazodone, pt complains he feels too sedated the morning after from it. restart remeron 15 with repeat. also add periactin PRN as pt had a dose the other night and found it helpful. c/o withdrawal Sx, valium 5 BID x 3 doses ordered. of note, pt hape vape pen in his room and was noted to be sedated after visit with GF. appeared to be nodding off today. supervised visits ordered. 11/14: c/o panic attacks, worried he's going to have a seizure, insomnia. educated re sleep PRNs. remeron increased to 30 QHS. valium taper extended 24H. otherwise continue current mgmt. 11/15: concerned about sore throat, hip pain, insomnia. increase remeron to 45 mg QHS. schedule periactin. ibuprofen and hip xray for hip pain. otherwise continue current mgmt. 11/16: hip XR WNL. pt will F/U outpt re hip pain. asking for something for hip pain, specifically gabapentin. agrees to trial of 300 TID. pt c/o poor appetite, asking for ensure, which is also ordered. staff reporting sedation at times and excess energy at times; utox ordered. Reason for continued inpatient stay Substantial Risk for: inability to function and rapid decompensation Time Spent With Patient Time: Total time managing care of this patient today __35__ minutes.
[2024-11-16] MEDS: Mirtazapine 15 MG TABLET 45 MG PO (19:59)
[2024-11-16 20:00] VITALS: BP 109/68; PULSE 73; RESP 16; TEMP 36.9; O2SAT 98
[2024-11-16] MEDS: Divalproex Sodium 500 MG TABLET.DR 1000 MG PO (20:01)
[2024-11-16] MEDS: Cyproheptadine HCl 4 MG TABLET PO (20:01)
[2024-11-16] MEDS: Loperamide HCl 2 MG CAPSULE PO (20:08)
[2024-11-17] MEDS: OLANZapine 5 MG TABLET PO ×2 (02:26→11:44)
[2024-11-17] MEDS: hydrOXYzine HCL 50 MG TABLET PO (02:26)
[2024-11-17 07:32] VITALS: BP 101/58; PULSE 87; RESP 16; TEMP 36.9; O2SAT 97
[2024-11-17] MEDS: methADONE HCl 20 MG/2 ML ORAL.CONC 95 MG PO (08:30)
[2024-11-17] MEDS: Thiamine HCL 100 MG TABLET PO (08:56)
[2024-11-17] MEDS: levETIRAcetam 250 MG TABLET 750 MG PO ×2 (08:56→20:56)
[2024-11-17] MEDS: Gabapentin 300 MG CAPSULE PO ×3 (08:56→20:56)
[2024-11-17] MEDS: Baclofen 10 MG TABLET PO ×2 (08:56→20:56)
[2024-11-17] MEDS: Famotidine 20 MG TABLET PO ×2 (08:56→20:56)
[2024-11-17] MEDS: Sertraline HCL 100 MG TABLET 200 MG PO (08:57)
[2024-11-17] MEDS: Fluticasone/Vilanterol 100/25 BLST.W.DEV 1 PUFF INHALE (08:57)
[2024-11-17 12:34] LABS: Amphetamine Screen Urine Not Detected (Not Detect); Barbiturates, Urine Not Detected (Not Detect); Benzodiazepines Screen Urine POSITIVE (Not Detect); Buprenorphine Scr Not Detected (Not Detect); Cannabinoid Screen Urine Not Detected (Not Detect); Cocaine Screen Urine Not Detected (Not Detect); Fentanyl, urine Not Detected (Not Detect); Methadone Screen, Urine Positive (Not Detect); Opiate Screen Urine Not Detected (Not Detect); Oxycodone Screen Urine Not Detected (Not Detect); Phencyclidine Screen Urine Not Detected (Not Detect)
[2024-11-17 12:35] VITALS: BP 119/73; PULSE 73; RESP 14; TEMP 36.9; O2SAT 99
--- NOTE | 2024-11-17 13:57 | HO.PSYCHPN ---
Subjective Subjective Date of Service: 11/17/24 Reason For Visit: SI Interim History: hip pain improved. slept fairly well. [facility]. also interested in [facility]. could do IOP from [facility]. also interested in [facility], referral to which has been made. c/o severe anxiety late morning. per staff, dep 7 anx 8. no SI/HI. Mental Status Exam Mental Status Exam Narrative: awake and alert; behavior is cooperative, calm; dressed in casual attire; mood is described as anxious; eye contact appropriate; Speech is normal rate, volume and not pressured; thought process is organized and goal directed; Thought content is on dispo planning; no SI/HI/AVH expressed. Diagnostics Vital Signs (24Hr): Vital Signs - 24 hr 11/16/24 20:00 11/17/24 07:32 11/17/24 12:35 Temperature 98.4 F 98.5 F 98.5 F Pulse Rate 73 87 73 Respiratory Rate 16 16 14 Blood Pressure 109/68 101/58 L 119/73 Pulse Oximetry 98 97 99 Oxygen Delivery Method Room Air Room Air Room Air BMI result Body Mass Index 24.4 Labs 11/09/24 20:02 11/09/24 20:02 Labs: Laboratory Results - last 48 hr 11/15/24 11/17/24 16:14 12:14 Urine Opiates Screen Not Detected Ur Buprenorphine Scrn Not Detected Ur Oxycodone Screen Not Detected Urine Methadone Screen Positive H Urine Fentanyl Screen Not Detected Ur Barbiturates Screen Not Detected Ur Phencyclidine Scrn Not Detected Ur Amphetamines Screen Not Detected U Benzodiazepines Scrn POSITIVE H Urine Cocaine Screen Not Detected U Marijuana (THC) Screen Not Detected S. pyogenes GrpA GABRIELE Negative Imaging Radiology Impressions: ITS Impressions Hand/Wrist X-Ray 11/10/24 15:45 IMPRESSION: No displaced fracture. Electronically signed by: Lizzy Ponce MD 11/13/2024 08:13 AM EST RP Hip X-Ray 11/15/24 19:55 IMPRESSION: No acute fracture or dislocation, left hip. Electronically signed by: Bandar Francois MD 11/16/2024 07:19 AM EST RP Medications Medications Current Medications Acetaminophen (Acetaminophen 325 Mg Tablet) 650 mg PO Q6H PRN PRN Reason: Headache/Pain Mild Scale (1-3) Last Admin: 11/15/24 13:16 Dose: 650 mg Al Hydroxide/Mg Hydroxide (Magnesium Hydrox/Alum Hydrox 30 Ml Oral.Susp) 30 ml PO Q6H PRN PRN Reason: Heartburn/Nausea Albuterol Sulfate (Albuterol Sulfate 90 Mcg 8 Gm Inhaler) 2 puff INHALE Q4H PRN PRN Reason: wheezing Last Admin: 11/12/24 08:49 Dose: 2 puff Baclofen (Baclofen 10 Mg Tablet) 10 mg PO BID [facility] Last Admin: 11/17/24 08:56 Dose: 10 mg Benzocaine (Throat Lozenge, Medicated Lozenge) 1 lozenge MUCOUS MEM Q1H PRN PRN Reason: Sore Throat Last Admin: 11/16/24 11:57 Dose: 1 lozenge Clonidine HCl (Clonidine Hcl 0.1 Mg Tablet) 0.05 mg PO Q4H PRN; Protocol PRN Reason: opioid withdrawal Sx Last Admin: 11/14/24 06:33 Dose: 0.05 mg Cyproheptadine HCl (Cyproheptadine Hcl 4 Mg Tablet) 4 mg PO BEDTIME [facility] Last Admin: 11/16/24 20:01 Dose: 4 mg Divalproex Sodium (Divalproex Sodium 500 Mg Tablet.Dr) 1,000 mg PO BEDTIME [facility] Last Admin: 11/16/24 20:01 Dose: 1,000 mg Famotidine (Famotidine 20 Mg Tablet) 20 mg PO BID [facility] Last Admin: 11/17/24 08:56 Dose: 20 mg Fluticasone/Vilanterol (Fluticasone/Vilanterol 100/25 Blst.W.Dev) 1 puff INHALE RDAILY [facility] Last Admin: 11/17/24 08:57 Dose: 1 puff Gabapentin (Gabapentin 300 Mg Capsule) 300 mg PO TID [facility] Last Admin: 11/17/24 08:56 Dose: 300 mg Hydroxyzine HCl (Hydroxyzine Hcl 50 Mg Tablet) 50 mg PO TID PRN PRN Reason: anxiety Last Admin: 11/17/24 02:26 Dose: 50 mg Ibuprofen (Ibuprofen 600 Mg Tablet) 600 mg PO Q6H PRN PRN Reason: hip pain Last Admin: 11/16/24 15:21 Dose: 600 mg Levetiracetam (Levetiracetam 250 Mg Tablet) 750 mg PO BID [facility] Last Admin: 11/17/24 08:56 Dose: 750 mg Loperamide HCl (Loperamide Hcl 2 Mg Capsule) 2 mg PO Q4H PRN PRN Reason: Loose Stool Last Admin: 11/16/24 20:08 Dose: 2 mg Magnesium Hydroxide (Milk Of Magnesia 30 Ml Oral.Susp) 30 ml PO DAILY PRN PRN Reason: Constipation Last Admin: 11/13/24 20:06 Dose: 30 ml Methadone HCl (Methadone Hcl 20 Mg/2 Ml Oral.Conc) 95 mg PO DAILY [facility] Last Admin: 11/17/24 08:30 Dose: 95 mg Mirtazapine (Mirtazapine 15 Mg Tablet) 45 mg PO BEDTIME [facility] Last Admin: 11/16/24 19:59 Dose: 45 mg Nicotine (Nicotine 21 Mg Patch.Td24) 21 mg TRANSDERMA DAILY [facility] Last Admin: 11/17/24 09:44 Dose: Not Given Nicotine Polacrilex (Nicotine Polacrilex 2 Mg Gum) 4 mg BUCCAL Q2H PRN PRN Reason: Nicotine Cravings Last Admin: 11/12/24 18:02 Dose: 4 mg Quetiapine Fumarate (Quetiapine Fumarate 50 Mg Tablet) 50 mg PO Q4H PRN PRN Reason: anxiety/agitation Sertraline HCl (Sertraline Hcl 100 Mg Tablet) 200 mg PO DAILY [facility] Last Admin: 11/17/24 08:57 Dose: 200 mg Thiamine HCl (Thiamine Hcl 100 Mg Tablet) 100 mg PO DAILY [facility] Last Admin: 11/17/24 08:56 Dose: 100 mg Allergies Allergies Allergy/AdvReac Type Severity Reaction Status Date / Time No Known Allergies Allergy Verified 11/09/24 19:22 Assessment & Plan Assessment & Plan (1) Opioid use disorder: Status: Acute Code(s): F11.90 - Opioid use, unspecified, uncomplicated (2) Alcohol use disorder: Status: Acute Code(s): F10.90 - Alcohol use, unspecified, uncomplicated (3) Cocaine use disorder: Status: Acute Code(s): F14.10 - Cocaine abuse, uncomplicated (4) Homeless single person: Status: Acute Code(s): Z59.00 - Homelessness unspecified (5) Mood disorder: Status: Acute Code(s): F39 - Unspecified mood [affective] disorder Plan 11/11 pepcid for nausea, baclofen for muscleaches, loperamide for loose stools. kepra restarted 750mg po BID 11/12 continue tx. monitor confusion, and over sedation. 11/13: DC trazodone, pt complains he feels too sedated the morning after from it. restart remeron 15 with repeat. also add periactin PRN as pt had a dose the other night and found it helpful. c/o withdrawal Sx, valium 5 BID x 3 doses ordered. of note, pt hape vape pen in his room and was noted to be sedated after visit with GF. appeared to be nodding off today. supervised visits ordered. 11/14: c/o panic attacks, worried he's going to have a seizure, insomnia. educated re sleep PRNs. remeron increased to 30 QHS. valium taper extended 24H. otherwise continue current mgmt. 11/15: concerned about sore throat, hip pain, insomnia. increase remeron to 45 mg QHS. schedule periactin. ibuprofen and hip xray for hip pain. otherwise continue current mgmt. 11/16: hip XR WNL. pt will F/U outpt re hip pain. asking for something for hip pain, specifically gabapentin. agrees to trial of 300 TID. pt c/o poor appetite, asking for ensure, which is also ordered. staff reporting sedation at times and excess energy at times; utox ordered. 11/17: utox NEG. discuss dispo planning. seroquel 50 Q4H PRN severe anxiety/panic. [facility]. otherwise continue current mgmt. Reason for continued inpatient stay Substantial Risk for: inability to function and rapid decompensation Time Spent With Patient Time: Total time managing care of this patient today __35__ minutes.
[2024-11-17] MEDS: Ibuprofen 600 MG TABLET PO (14:15)
[2024-11-17 19:32] VITALS: BP 123/80; PULSE 70; TEMP 37.1; O2SAT 98
[2024-11-17] MEDS: Mirtazapine 15 MG TABLET 45 MG PO (20:56)
[2024-11-17] MEDS: Cyproheptadine HCl 4 MG TABLET PO (20:56)
[2024-11-17] MEDS: Divalproex Sodium 500 MG TABLET.DR 1000 MG PO (20:56)
[2024-11-18] MEDS: methADONE HCl 20 MG/2 ML ORAL.CONC 95 MG PO (08:01)
[2024-11-18] MEDS: Fluticasone/Vilanterol 100/25 BLST.W.DEV 1 PUFF INHALE (08:32)
[2024-11-18] MEDS: Baclofen 10 MG TABLET PO ×2 (08:33→20:33)
[2024-11-18] MEDS: Famotidine 20 MG TABLET PO ×2 (08:33→20:31)
[2024-11-18] MEDS: levETIRAcetam 250 MG TABLET 750 MG PO ×2 (08:33→20:31)
[2024-11-18] MEDS: Sertraline HCL 100 MG TABLET 200 MG PO (08:34)
[2024-11-18] MEDS: Gabapentin 300 MG CAPSULE PO ×3 (08:34→20:33)
[2024-11-18] MEDS: Thiamine HCL 100 MG TABLET PO (08:34)
--- NOTE | 2024-11-18 11:27 | HO.PSYCHPN ---
Subjective Subjective Date of Service: 11/18/24 Reason For Visit: SI Subjective Notes: Conditional Voluntary Interim History: The nursing staff reported the patient had been respectful and pleasant, paranoid but redirectable. The staff reported that last night the patient had nightmares. On interview the patient reported that she is feeling very tired and he had nightmares. I offer him prazosin and he was in agreement to do that. Compliant with treatment. Mental Status Exam Mental Status Exam Patient Appearance: Well Grooomed Patient Orientation: Person Level of Consciousness: Awake Patient Behavior: Guarded and Passive Mood Description: Calm Affect Description: Constricted Ability to Follow Directions: Good Speech Pattern: Clear Hallucinations: None Delusions: Paranoid Ideation and Ideas of Reference Thought Process: Distracted Thought Content: positive for Circumstantial Judgement: Fair Diagnostics Vital Signs (24Hr): Vital Signs - 24 hr 11/17/24 12:35 11/17/24 19:32 Temperature 98.5 F 98.7 F Pulse Rate 73 70 Respiratory Rate 14 Blood Pressure 119/73 123/80 Pulse Oximetry 99 98 Oxygen Delivery Method Room Air Room Air BMI result Body Mass Index 24.4 Labs 11/09/24 20:02 11/09/24 20:02 Labs: Laboratory Results - last 48 hr 11/17/24 12:14 Urine Opiates Screen Not Detected Ur Buprenorphine Scrn Not Detected Ur Oxycodone Screen Not Detected Urine Methadone Screen Positive H Urine Fentanyl Screen Not Detected Ur Barbiturates Screen Not Detected Ur Phencyclidine Scrn Not Detected Ur Amphetamines Screen Not Detected U Benzodiazepines Scrn POSITIVE H Urine Cocaine Screen Not Detected U Marijuana (THC) Screen Not Detected Imaging Radiology Impressions: ITS Impressions Hand/Wrist X-Ray 11/10/24 15:45 IMPRESSION: No displaced fracture. Electronically signed by: Lizzy Ponce MD 11/13/2024 08:13 AM EST RP Hip X-Ray 11/15/24 19:55 IMPRESSION: No acute fracture or dislocation, left hip. Electronically signed by: Bandar Francois MD 11/16/2024 07:19 AM EST RP Medications Medications Current Medications Acetaminophen (Acetaminophen 325 Mg Tablet) 650 mg PO Q6H PRN PRN Reason: Headache/Pain Mild Scale (1-3) Last Admin: 11/15/24 13:16 Dose: 650 mg Al Hydroxide/Mg Hydroxide (Magnesium Hydrox/Alum Hydrox 30 Ml Oral.Susp) 30 ml PO Q6H PRN PRN Reason: Heartburn/Nausea Albuterol Sulfate (Albuterol Sulfate 90 Mcg 8 Gm Inhaler) 2 puff INHALE Q4H PRN PRN Reason: wheezing Last Admin: 11/12/24 08:49 Dose: 2 puff Baclofen (Baclofen 10 Mg Tablet) 10 mg PO BID [facility] Last Admin: 11/18/24 08:33 Dose: 10 mg Benzocaine (Throat Lozenge, Medicated Lozenge) 1 lozenge MUCOUS MEM Q1H PRN PRN Reason: Sore Throat Last Admin: 11/16/24 11:57 Dose: 1 lozenge Clonidine HCl (Clonidine Hcl 0.1 Mg Tablet) 0.05 mg PO Q4H PRN; Protocol PRN Reason: opioid withdrawal Sx Last Admin: 11/14/24 06:33 Dose: 0.05 mg Cyproheptadine HCl (Cyproheptadine Hcl 4 Mg Tablet) 4 mg PO BEDTIME [facility] Last Admin: 11/17/24 20:56 Dose: 4 mg Divalproex Sodium (Divalproex Sodium 500 Mg Tablet.Dr) 1,000 mg PO BEDTIME [facility] Last Admin: 11/17/24 20:56 Dose: 1,000 mg Famotidine (Famotidine 20 Mg Tablet) 20 mg PO BID [facility] Last Admin: 11/18/24 08:33 Dose: 20 mg Fluticasone/Vilanterol (Fluticasone/Vilanterol 100/25 Blst.W.Dev) 1 puff INHALE RDAILY [facility] Last Admin: 11/18/24 08:32 Dose: 1 puff Gabapentin (Gabapentin 300 Mg Capsule) 300 mg PO TID [facility] Last Admin: 11/18/24 08:34 Dose: 300 mg Hydroxyzine HCl (Hydroxyzine Hcl 50 Mg Tablet) 50 mg PO TID PRN PRN Reason: anxiety Last Admin: 11/17/24 02:26 Dose: 50 mg Ibuprofen (Ibuprofen 600 Mg Tablet) 600 mg PO Q6H PRN PRN Reason: hip pain Last Admin: 11/17/24 14:15 Dose: 600 mg Levetiracetam (Levetiracetam 250 Mg Tablet) 750 mg PO BID [facility] Last Admin: 11/18/24 08:33 Dose: 750 mg Loperamide HCl (Loperamide Hcl 2 Mg Capsule) 2 mg PO Q4H PRN PRN Reason: Loose Stool Last Admin: 11/16/24 20:08 Dose: 2 mg Magnesium Hydroxide (Milk Of Magnesia 30 Ml Oral.Susp) 30 ml PO DAILY PRN PRN Reason: Constipation Last Admin: 11/13/24 20:06 Dose: 30 ml Methadone HCl (Methadone Hcl 20 Mg/2 Ml Oral.Conc) 95 mg PO DAILY [facility] Last Admin: 11/18/24 08:01 Dose: 95 mg Mirtazapine (Mirtazapine 15 Mg Tablet) 45 mg PO BEDTIME [facility] Last Admin: 11/17/24 20:56 Dose: 45 mg Nicotine (Nicotine 21 Mg Patch.Td24) 21 mg TRANSDERMA DAILY [facility] Last Admin: 11/18/24 08:33 Dose: Not Given Nicotine Polacrilex (Nicotine Polacrilex 2 Mg Gum) 4 mg BUCCAL Q2H PRN PRN Reason: Nicotine Cravings Last Admin: 11/12/24 18:02 Dose: 4 mg Quetiapine Fumarate (Quetiapine Fumarate 50 Mg Tablet) 50 mg PO Q4H PRN PRN Reason: anxiety/agitation Sertraline HCl (Sertraline Hcl 100 Mg Tablet) 200 mg PO DAILY [facility] Last Admin: 11/18/24 08:34 Dose: 200 mg Thiamine HCl (Thiamine Hcl 100 Mg Tablet) 100 mg PO DAILY [facility] Last Admin: 11/18/24 08:34 Dose: 100 mg Allergies Allergies Allergy/AdvReac Type Severity Reaction Status Date / Time No Known Allergies Allergy Verified 11/09/24 19:22 Assessment & Plan Assessment & Plan (1) Opioid use disorder: Status: Acute Code(s): F11.90 - Opioid use, unspecified, uncomplicated (2) Alcohol use disorder: Status: Acute Code(s): F10.90 - Alcohol use, unspecified, uncomplicated (3) Cocaine use disorder: Status: Acute Code(s): F14.10 - Cocaine abuse, uncomplicated (4) Homeless single person: Status: Acute Code(s): Z59.00 - Homelessness unspecified (5) Mood disorder: Status: Acute Code(s): F39 - Unspecified mood [affective] disorder Plan 11/11 pepcid for nausea, baclofen for muscleaches, loperamide for loose stools. kepra restarted 750mg po BID 11/12 continue tx. monitor confusion, and over sedation. 11/13: DC trazodone, pt complains he feels too sedated the morning after from it. restart remeron 15 with repeat. also add periactin PRN as pt had a dose the other night and found it helpful. c/o withdrawal Sx, valium 5 BID x 3 doses ordered. of note, pt hape vape pen in his room and was noted to be sedated after visit with GF. appeared to be nodding off today. supervised visits ordered. 11/14: c/o panic attacks, worried he's going to have a seizure, insomnia. educated re sleep PRNs. remeron increased to 30 QHS. valium taper extended 24H. otherwise continue current mgmt. 11/15: concerned about sore throat, hip pain, insomnia. increase remeron to 45 mg QHS. schedule periactin. ibuprofen and hip xray for hip pain. otherwise continue current mgmt. 11/16: hip XR WNL. pt will F/U outpt re hip pain. asking for something for hip pain, specifically gabapentin. MD agrees to trial of 300 TID. pt c/o poor appetite, asking for ensure, which is also ordered. staff reporting sedation at times and excess energy at times; utox ordered. 11/17: utox NEG. discuss dispo planning. seroquel 50 Q4H PRN severe anxiety/panic. considering staying [facility] and [facility]. otherwise continue current mgmt. 11/18 the patient complained of nightmares, we are adding prazosin 2 mg p.o. q.h.s. keep rest the same. Reason for continued inpatient stay Substantial Risk for: inability to function, rapid decompensation and med/psych decompensation Time Spent With Patient Time: Total time managing care of this patient today __20__ minutes.
[2024-11-18] MEDS: QUEtiapine Fumarate 50 MG TABLET PO ×2 (13:29→20:42)
[2024-11-18] MEDS: Nicotine 21 MG PATCH.TD24 TRANSDERMA (14:59)
[2024-11-18] MEDS: Acetaminophen 325 MG TABLET 650 MG PO (15:02)
[2024-11-18] MEDS: hydrOXYzine HCL 50 MG TABLET PO (15:02)
[2024-11-18] MEDS: OLANZapine ODT 10 MG TAB.RAPDIS TRANSLINGU (16:20)
[2024-11-18] MEDS: Nicotine Polacrilex 2 MG GUM 4 MG BUCCAL (18:56)
[2024-11-18 20:14] VITALS: BP 123/78; PULSE 79; RESP 16; TEMP 36.6; O2SAT 98
[2024-11-18] MEDS: Prazosin HCL 1 MG CAPSULE 2 MG PO (20:32)
[2024-11-18] MEDS: Cyproheptadine HCl 4 MG TABLET PO (20:32)
[2024-11-18] MEDS: Mirtazapine 15 MG TABLET 45 MG PO (20:33)
[2024-11-18] MEDS: Divalproex Sodium 500 MG TABLET.DR 1000 MG PO (20:33)
[2024-11-19] MEDS: QUEtiapine Fumarate 50 MG TABLET PO ×2 (06:07→21:49)
[2024-11-19 08:00] VITALS: BP 131/71; PULSE 98; RESP 16; TEMP 36.9; O2SAT 96
[2024-11-19] MEDS: methADONE HCl 20 MG/2 ML ORAL.CONC 95 MG PO (08:19)
[2024-11-19] MEDS: Fluticasone/Vilanterol 100/25 BLST.W.DEV 1 PUFF INHALE (08:55)
[2024-11-19] MEDS: Sertraline HCL 100 MG TABLET 200 MG PO (08:55)
[2024-11-19] MEDS: Baclofen 10 MG TABLET PO ×2 (08:55→20:19)
[2024-11-19] MEDS: Gabapentin 300 MG CAPSULE PO ×3 (08:55→20:20)
[2024-11-19] MEDS: Famotidine 20 MG TABLET PO ×2 (08:55→20:20)
[2024-11-19] MEDS: Thiamine HCL 100 MG TABLET PO (08:55)
[2024-11-19] MEDS: levETIRAcetam 250 MG TABLET 750 MG PO ×2 (08:55→20:18)
[2024-11-19] MEDS: Nicotine 14 MG PATCH.TD24 TRANSDERMA (11:45)
--- NOTE | 2024-11-19 13:06 | HO.PSYCHPN ---
Subjective Subjective Date of Service: 11/19/24 Reason For Visit: SI Subjective Notes: Conditional Voluntary Interim History: The nursing staff reported the patient had been anxious due to homelessness. He wants to go to a program. The staff reported the patient had been irritable times but redirectable, use Zydis p.r.n. with some efficacy. He slept 6 hours and reported that he did not have nightmares last night. On interview the patient reported that he did not have any nightmares last night but he had nightmares when he took a nap during the day, we are going to increase prazosin. Later on, he asked me to be discharged today but I did not have a discharge plan so I advised him to advocate for discharge tomorrow. Mental Status Exam Mental Status Exam Patient Appearance: Appropriate Patient Orientation: Person and Situation Level of Consciousness: Awake and Appropriate Patient Behavior: Guarded and Passive Mood Description: Withdrawn Affect Description: Constricted Patient Cognition Impaired: Yes Ability to Follow Directions: Good Speech Pattern: Clear Hallucinations: None Delusions: Ideas of Reference Thought Process: Distracted and Slowed Thinking Thought Content: positive for [place] and positive for Circumstantial Judgement: Fair Diagnostics Vital Signs (24Hr): Vital Signs - 24 hr 11/18/24 20:14 11/19/24 08:00 Temperature 97.9 F 98.4 F Pulse Rate 79 98 Respiratory Rate 16 16 Blood Pressure 123/78 131/71 Pulse Oximetry 98 96 Oxygen Delivery Method Room Air Room Air BMI result Body Mass Index 24.4 Labs 11/09/24 20:02 11/09/24 20:02 Imaging Radiology Impressions: ITS Impressions Hand/Wrist X-Ray 11/10/24 15:45 IMPRESSION: No displaced fracture. Electronically signed by: Lizzy Ponce MD 11/13/2024 08:13 AM EST RP Hip X-Ray 11/15/24 19:55 IMPRESSION: No acute fracture or dislocation, left hip. Electronically signed by: Bandar Francois MD 11/16/2024 07:19 AM EST RP Medications Medications Current Medications Acetaminophen (Acetaminophen 325 Mg Tablet) 650 mg PO Q6H PRN PRN Reason: Headache/Pain Mild Scale (1-3) Last Admin: 11/18/24 15:02 Dose: 650 mg Al Hydroxide/Mg Hydroxide (Magnesium Hydrox/Alum Hydrox 30 Ml Oral.Susp) 30 ml PO Q6H PRN PRN Reason: Heartburn/Nausea Albuterol Sulfate (Albuterol Sulfate 90 Mcg 8 Gm Inhaler) 2 puff INHALE Q4H PRN PRN Reason: wheezing Last Admin: 11/12/24 08:49 Dose: 2 puff Baclofen (Baclofen 10 Mg Tablet) 10 mg PO BID [facility] Last Admin: 11/19/24 08:55 Dose: 10 mg Benzocaine (Throat Lozenge, Medicated Lozenge) 1 lozenge MUCOUS MEM Q1H PRN PRN Reason: Sore Throat Last Admin: 11/16/24 11:57 Dose: 1 lozenge Clonidine HCl (Clonidine Hcl 0.1 Mg Tablet) 0.05 mg PO Q4H PRN; Protocol PRN Reason: opioid withdrawal Sx Last Admin: 11/14/24 06:33 Dose: 0.05 mg Cyproheptadine HCl (Cyproheptadine Hcl 4 Mg Tablet) 4 mg PO BEDTIME [facility] Last Admin: 11/18/24 20:32 Dose: 4 mg Divalproex Sodium (Divalproex Sodium 500 Mg Tablet.Dr) 1,000 mg PO BEDTIME [facility] Last Admin: 11/18/24 20:33 Dose: 1,000 mg Famotidine (Famotidine 20 Mg Tablet) 20 mg PO BID [facility] Last Admin: 11/19/24 08:55 Dose: 20 mg Fluticasone/Vilanterol (Fluticasone/Vilanterol 100/25 Blst.W.Dev) 1 puff INHALE RDAILY [facility] Last Admin: 11/19/24 08:55 Dose: 1 puff Gabapentin (Gabapentin 300 Mg Capsule) 300 mg PO TID [facility] Last Admin: 11/19/24 08:55 Dose: 300 mg Hydroxyzine HCl (Hydroxyzine Hcl 50 Mg Tablet) 50 mg PO TID PRN PRN Reason: anxiety Last Admin: 11/18/24 15:02 Dose: 50 mg Ibuprofen (Ibuprofen 600 Mg Tablet) 600 mg PO Q6H PRN PRN Reason: hip pain Last Admin: 11/17/24 14:15 Dose: 600 mg Levetiracetam (Levetiracetam 250 Mg Tablet) 750 mg PO BID [facility] Last Admin: 11/19/24 08:55 Dose: 750 mg Loperamide HCl (Loperamide Hcl 2 Mg Capsule) 2 mg PO Q4H PRN PRN Reason: Loose Stool Last Admin: 11/16/24 20:08 Dose: 2 mg Magnesium Hydroxide (Milk Of Magnesia 30 Ml Oral.Susp) 30 ml PO DAILY PRN PRN Reason: Constipation Last Admin: 11/13/24 20:06 Dose: 30 ml Methadone HCl (Methadone Hcl 20 Mg/2 Ml Oral.Conc) 95 mg PO DAILY [facility] Last Admin: 11/19/24 08:19 Dose: 95 mg Mirtazapine (Mirtazapine 15 Mg Tablet) 45 mg PO BEDTIME [facility] Last Admin: 11/18/24 20:33 Dose: 45 mg Nicotine (Nicotine 14 Mg Patch.Td24) 14 mg TRANSDERMA DAILY [facility] Nicotine Polacrilex (Nicotine Polacrilex 2 Mg Gum) 4 mg BUCCAL Q2H PRN PRN Reason: Nicotine Cravings Last Admin: 11/18/24 18:56 Dose: 4 mg Prazosin HCl (Prazosin Hcl 1 Mg Capsule) 2 mg PO BEDTIME [facility]; Protocol Last Admin: 11/18/24 20:32 Dose: 2 mg Quetiapine Fumarate (Quetiapine Fumarate 50 Mg Tablet) 50 mg PO Q4H PRN PRN Reason: anxiety/agitation Last Admin: 11/19/24 06:07 Dose: 50 mg Sertraline HCl (Sertraline Hcl 100 Mg Tablet) 200 mg PO DAILY [facility] Last Admin: 11/19/24 08:55 Dose: 200 mg Thiamine HCl (Thiamine Hcl 100 Mg Tablet) 100 mg PO DAILY [facility] Last Admin: 11/19/24 08:55 Dose: 100 mg Allergies Allergies Allergy/AdvReac Type Severity Reaction Status Date / Time No Known Allergies Allergy Verified 11/09/24 19:22 Assessment & Plan Assessment & Plan (1) Opioid use disorder: Status: Acute Code(s): F11.90 - Opioid use, unspecified, uncomplicated (2) Alcohol use disorder: Status: Acute Code(s): F10.90 - Alcohol use, unspecified, uncomplicated (3) Cocaine use disorder: Status: Acute Code(s): F14.10 - Cocaine abuse, uncomplicated (4) Homeless single person: Status: Acute Code(s): Z59.00 - Homelessness unspecified (5) Mood disorder: Status: Acute Code(s): F39 - Unspecified mood [affective] disorder Plan 11/11 pepcid for nausea, baclofen for muscleaches, loperamide for loose stools. kepra restarted 750mg po BID 11/12 continue tx. monitor confusion, and over sedation. 11/13: DC trazodone, pt complains he feels too sedated the morning after from it. restart remeron 15 with repeat. also add periactin PRN as pt had a dose the other night and found it helpful. c/o withdrawal Sx, valium 5 BID x 3 doses ordered. of note, pt hape vape pen in his room and was noted to be sedated after visit with GF. appeared to be nodding off today. supervised visits ordered. 11/14: c/o panic attacks, worried he's going to have a seizure, insomnia. educated re sleep PRNs. remeron increased to 30 QHS. valium taper extended 24H. otherwise continue current mgmt. 11/15: concerned about sore throat, hip pain, insomnia. increase remeron to 45 mg QHS. schedule periactin. ibuprofen and hip xray for hip pain. otherwise continue current mgmt. 11/16: hip XR WNL. pt will F/U outpt re hip pain. asking for something for hip pain, specifically gabapentin. agrees to trial of 300 TID. pt c/o poor appetite, asking for ensure, which is also ordered. staff reporting sedation at times and excess energy at times; utox ordered. 11/17: utox NEG. discuss dispo planning. seroquel 50 Q4H PRN severe anxiety/panic. considering staying [facility] and attending [facility]. otherwise continue current mgmt. 11/18 the patient complained of nightmares, we are adding prazosin 2 mg p.o. q.h.s. keep rest the same. 11/19 increase prazosin up to 5 mg p.o. q.h.s.. Reason for continued inpatient stay Substantial Risk for: inability to function, rapid decompensation and med/psych decompensation Time Spent With Patient Time: Total time managing care of this patient today __20__ minutes.
[2024-11-19] MEDS: Acetaminophen 325 MG TABLET 650 MG PO (17:58)
[2024-11-19] MEDS: Nicotine Polacrilex 2 MG GUM 4 MG BUCCAL (18:03)
[2024-11-19 20:00] VITALS: BP 134/77; PULSE 92; RESP 16; TEMP 36.9; O2SAT 97
[2024-11-19] MEDS: Mirtazapine 15 MG TABLET 45 MG PO (20:18)
[2024-11-19] MEDS: Divalproex Sodium 500 MG TABLET.DR 1000 MG PO (20:19)
[2024-11-19] MEDS: Cyproheptadine HCl 4 MG TABLET PO (20:20)
[2024-11-19] MEDS: Prazosin HCL 5 MG CAPSULE PO (20:20)
[2024-11-19] MEDS: Albuterol Sulfate 90 MCG 8 GM INHALER 2 PUFF INHALE (21:49)
[2024-11-20 07:45] VITALS: BP 109/61; PULSE 79; RESP 14; TEMP 36.4; O2SAT 96
[2024-11-20] MEDS: methADONE HCl 20 MG/2 ML ORAL.CONC 95 MG PO (08:22)
[2024-11-20] MEDS: Albuterol Sulfate 90 MCG 8 GM INHALER 2 PUFF INHALE ×2 (08:42→19:03)
[2024-11-20] MEDS: Sertraline HCL 100 MG TABLET 200 MG PO (08:43)
[2024-11-20] MEDS: levETIRAcetam 250 MG TABLET 750 MG PO ×2 (08:43→20:30)
[2024-11-20] MEDS: Baclofen 10 MG TABLET PO ×2 (08:43→20:31)
[2024-11-20] MEDS: Thiamine HCL 100 MG TABLET PO (08:43)
[2024-11-20] MEDS: Nicotine 14 MG PATCH.TD24 TRANSDERMA ×2 (08:43→17:48)
[2024-11-20] MEDS: Famotidine 20 MG TABLET PO ×2 (08:43→20:32)
[2024-11-20] MEDS: Gabapentin 300 MG CAPSULE PO ×3 (08:43→20:33)
[2024-11-20] MEDS: Fluticasone/Vilanterol 100/25 BLST.W.DEV 1 PUFF INHALE (08:45)
[2024-11-20] MEDS: Ondansetron ODT 8 MG TAB.RAPDIS TRANSLINGU (10:12)
--- NOTE | 2024-11-20 10:17 | P.PNPSI_ITS ---
Subjective Subjective Date of Service: 11/20/24 Reason For Visit: SI Subjective Notes: Conditional Voluntary Interim History: Active on unit, social with peers. medication compliant. pt reports feeling anxious today; pt stated, I'm just worried if I will get into respite or if I'll have to go to a residential after here . denies SI/HI/VH/AH. Pt reports he plans on following up with his outpatient providers. Medication Compliance: Yes Side effects from medications: No Attending Groups: Intermittent Review of Systems Constitutional: Reports as per HPI Eyes: Reports as per HPI Reports as per HPI Cardiovascular: Reports as per HPI Respiratory: Reports as per HPI Gastrointestinal: Reports as per HPI Genitourinary: Reports as per HPI Musculoskeletal: Reports as per HPI Skin/Breast: Reports as per HPI Reports as per HPI Psychiatric: Reports as per HPI Endocrine: Reports as per HPI Hematologic/Lymphatic: Reports as per HPI Allergic/Immunologic: Reports as per HPI Mental Status Exam Mental Status Exam Narrative: Pt is alert and oriented; behavior is cooperative and calm; dressed in casual attire; mood is described as anxious ; eye contact appropriate; Speech is normal rate, volume and not pressured; thought process is organized; Thought content is on tx; denies SI/HI/VH/AH. Diagnostics Vital Signs (24Hr): Vital Signs - 24 hr 11/19/24 20:00 11/20/24 07:45 Temperature 98.5 F 97.6 F Pulse Rate 92 79 Respiratory Rate 16 14 Blood Pressure 134/77 109/61 Pulse Oximetry 97 96 Oxygen Delivery Method Room Air Room Air BMI result Body Mass Index 24.4 Labs 11/09/24 20:02 11/09/24 20:02 Imaging Radiology Impressions: ITS Impressions Hand/Wrist X-Ray 11/10/24 15:45 IMPRESSION: No displaced fracture. Electronically signed by: Lizzy Ponce MD 11/13/2024 08:13 AM EST RP Hip X-Ray 11/15/24 19:55 IMPRESSION: No acute fracture or dislocation, left hip. Electronically signed by: Bandar Francois MD 11/16/2024 07:19 AM EST RP Medications Medications Current Medications Acetaminophen (Acetaminophen 325 Mg Tablet) 650 mg PO Q6H PRN PRN Reason: Headache/Pain Mild Scale (1-3) Last Admin: 11/19/24 17:58 Dose: 650 mg Al Hydroxide/Mg Hydroxide (Magnesium Hydrox/Alum Hydrox 30 Ml Oral.Susp) 30 ml PO Q6H PRN PRN Reason: Heartburn/Nausea Albuterol Sulfate (Albuterol Sulfate 90 Mcg 8 Gm Inhaler) 2 puff INHALE Q4H PRN PRN Reason: wheezing Last Admin: 11/20/24 08:42 Dose: 2 puff Baclofen (Baclofen 10 Mg Tablet) 10 mg PO BID [facility] Last Admin: 11/20/24 08:43 Dose: 10 mg Benzocaine (Throat Lozenge, Medicated Lozenge) 1 lozenge MUCOUS MEM Q1H PRN PRN Reason: Sore Throat Last Admin: 11/16/24 11:57 Dose: 1 lozenge Clonidine HCl (Clonidine Hcl 0.1 Mg Tablet) 0.05 mg PO Q4H PRN; Protocol PRN Reason: opioid withdrawal Sx Last Admin: 11/14/24 06:33 Dose: 0.05 mg Cyproheptadine HCl (Cyproheptadine Hcl 4 Mg Tablet) 4 mg PO BEDTIME [facility] Last Admin: 11/19/24 20:20 Dose: 4 mg Divalproex Sodium (Divalproex Sodium 500 Mg Tablet.Dr) 1,000 mg PO BEDTIME [facility] Last Admin: 11/19/24 20:19 Dose: 1,000 mg Famotidine (Famotidine 20 Mg Tablet) 20 mg PO BID [facility] Last Admin: 11/20/24 08:43 Dose: 20 mg Fluticasone/Vilanterol (Fluticasone/Vilanterol 100/25 Blst.W.Dev) 1 puff INHALE RDAILY [facility] Last Admin: 11/20/24 08:45 Dose: 1 puff Gabapentin (Gabapentin 300 Mg Capsule) 300 mg PO TID [facility] Last Admin: 11/20/24 08:43 Dose: 300 mg Hydroxyzine HCl (Hydroxyzine Hcl 50 Mg Tablet) 50 mg PO TID PRN PRN Reason: anxiety Last Admin: 11/18/24 15:02 Dose: 50 mg Ibuprofen (Ibuprofen 600 Mg Tablet) 600 mg PO Q6H PRN PRN Reason: hip pain Last Admin: 11/17/24 14:15 Dose: 600 mg Levetiracetam (Levetiracetam 250 Mg Tablet) 750 mg PO BID [facility] Last Admin: 11/20/24 08:43 Dose: 750 mg Loperamide HCl (Loperamide Hcl 2 Mg Capsule) 2 mg PO Q4H PRN PRN Reason: Loose Stool Last Admin: 11/16/24 20:08 Dose: 2 mg Magnesium Hydroxide (Milk Of Magnesia 30 Ml Oral.Susp) 30 ml PO DAILY PRN PRN Reason: Constipation Last Admin: 11/13/24 20:06 Dose: 30 ml Methadone HCl (Methadone Hcl 20 Mg/2 Ml Oral.Conc) 95 mg PO DAILY [facility] Last Admin: 11/20/24 08:22 Dose: 95 mg Mirtazapine (Mirtazapine 15 Mg Tablet) 45 mg PO BEDTIME [facility] Last Admin: 11/19/24 20:18 Dose: 45 mg Nicotine (Nicotine 14 Mg Patch.Td24) 14 mg TRANSDERMA DAILY [facility] Last Admin: 11/20/24 08:43 Dose: 14 mg Nicotine Polacrilex (Nicotine Polacrilex 2 Mg Gum) 4 mg BUCCAL Q2H PRN PRN Reason: Nicotine Cravings Last Admin: 11/19/24 18:03 Dose: 4 mg Olanzapine (Olanzapine Odt 10 Mg Tab.Rapdis) 10 mg TRANSLINGU BID PRN PRN Reason: Agitation Ondansetron HCl (Ondansetron Odt 8 Mg Tab.Rapdis) 8 mg TRANSLINGU Q12H PRN PRN Reason: Nausea and Vomiting Last Admin: 11/20/24 10:12 Dose: 8 mg Prazosin HCl (Prazosin Hcl 5 Mg Capsule) 5 mg PO BEDTIME [facility]; Protocol Last Admin: 11/19/24 20:20 Dose: 5 mg Quetiapine Fumarate (Quetiapine Fumarate 50 Mg Tablet) 50 mg PO Q4H PRN PRN Reason: anxiety/agitation Last Admin: 11/19/24 21:49 Dose: 50 mg Sertraline HCl (Sertraline Hcl 100 Mg Tablet) 200 mg PO DAILY [facility] Last Admin: 11/20/24 08:43 Dose: 200 mg Thiamine HCl (Thiamine Hcl 100 Mg Tablet) 100 mg PO DAILY [facility] Last Admin: 11/20/24 08:43 Dose: 100 mg Allergies Allergies Allergy/AdvReac Type Severity Reaction Status Date / Time No Known Allergies Allergy Verified 11/09/24 19:22 Assessment & Plan Assessment & Plan (1) Mood disorder: Status: Acute Code(s): F39 - Unspecified mood [affective] disorder (2) Opioid use disorder: Status: Acute Code(s): F11.90 - Opioid use, unspecified, uncomplicated (3) Alcohol use disorder: Status: Acute Code(s): F10.90 - Alcohol use, unspecified, uncomplicated (4) Cocaine use disorder: Status: Acute Code(s): F14.10 - Cocaine abuse, uncomplicated (5) Homeless single person: Status: Acute Code(s): Z59.00 - Homelessness unspecified Plan 11/11 pepcid for nausea, baclofen for muscleaches, loperamide for loose stools. kepra restarted 750mg po BID 11/12 continue tx. monitor confusion, and over sedation. 11/13: DC trazodone, pt complains he feels too sedated the morning after from it. restart remeron 15 with repeat. also add periactin PRN as pt had a dose the other night and found it helpful. c/o withdrawal Sx, valium 5 BID x 3 doses ordered. of note, pt hape vape pen in his room and was noted to be sedated after visit with GF. appeared to be nodding off today. supervised visits ordered. 11/14: c/o panic attacks, worried he's going to have a seizure, insomnia. educated re sleep PRNs. remeron increased to 30 QHS. valium taper extended 24H. otherwise continue current mgmt. 11/15: concerned about sore throat, hip pain, insomnia. increase remeron to 45 mg QHS. schedule periactin. ibuprofen and hip xray for hip pain. otherwise continue current mgmt. 11/16: hip XR WNL. pt will F/U outpt re hip pain. asking for something for hip pain, specifically gabapentin. agrees to trial of 300 TID. pt c/o poor appetite, asking for ensure, which is also ordered. staff reporting sedation at times and excess energy at times; utox ordered. 11/17: utox NEG. discuss dispo planning. seroquel 50 Q4H PRN severe anxiety/panic. considering staying [facility] and attending [facility]. otherwise continue current mgmt. 11/18 the patient complained of nightmares, we are adding prazosin 2 mg p.o. q.h.s. keep rest the same. 11/19 increase prazosin up to 5 mg p.o. q.h.s.. 11/20: Active on unit, social with peers. medication compliant. pt reports feeling anxious today; pt stated, I'm just worried if I will get into respite or if I'll have to go to a residential after here . denies SI/HI/VH/AH. Pt reports he plans on following up with his outpatient providers. depakote level to be drawn today. plan for dc tomorrow;pt aware. Patient educated on: diagnosis, medication risk/benefits and therapeutic strategies Reason for continued inpatient stay Substantial Risk for: stable for discharge Time Spent With Patient Time: Total time managing care of this patient today _20___ minutes.
[2024-11-20] MEDS: Ibuprofen 600 MG TABLET PO (12:40)
[2024-11-20 15:54] LABS: Ammonia 43 umol/L (13-55)
[2024-11-20] MEDS: OLANZapine ODT 10 MG TAB.RAPDIS TRANSLINGU (16:01)
[2024-11-20 16:13] LABS: Valproate 30.1 mcg/mL (50.0-100.0)
[2024-11-20 16:46] LABS: Alanine Aminotransferase 157 U/L (0-40); Albumin Level 3.8 g/dL (3.5-5.0); Aspartate Amino Transferase 148 U/L (5-37); Bilirubin Direct < 0.2 mg/dL (0.0-0.5); Bilirubin Total 0.1 mg/dL (0.0-1.0); Total Protein 7.2 g/dL (6.5-8.0)
[2024-11-20 17:21] LABS: Alkaline Phosphatase 73 U/L (39-117)
[2024-11-20] MEDS: QUEtiapine Fumarate 50 MG TABLET PO ×2 (17:48→20:32)
[2024-11-20] MEDS: Nicotine Polacrilex 2 MG GUM 4 MG BUCCAL (17:48)
[2024-11-20 20:00] VITALS: BP 115/63; PULSE 100; RESP 16; TEMP 36.4; O2SAT 95
[2024-11-20] MEDS: Divalproex Sodium 500 MG TABLET.DR 1000 MG PO (20:30)
[2024-11-20] MEDS: Prazosin HCL 5 MG CAPSULE PO (20:31)
[2024-11-20] MEDS: Cyproheptadine HCl 4 MG TABLET PO (20:31)
[2024-11-20] MEDS: Mirtazapine 15 MG TABLET 45 MG PO (20:32)
[2024-11-21] MEDS: Albuterol Sulfate 90 MCG 8 GM INHALER 2 PUFF INHALE (05:26)
[2024-11-21] MEDS: QUEtiapine Fumarate 50 MG TABLET PO (05:29)
[2024-11-21 07:47] VITALS: BP 118/56; PULSE 99; RESP 16; TEMP 36.4; O2SAT 97
[2024-11-21] MEDS: methADONE HCl 20 MG/2 ML ORAL.CONC 95 MG PO (08:10)
[2024-11-21] MEDS: levETIRAcetam 250 MG TABLET 750 MG PO (08:37)
[2024-11-21] MEDS: Thiamine HCL 100 MG TABLET PO (08:38)
[2024-11-21] MEDS: Sertraline HCL 100 MG TABLET 200 MG PO (08:38)
[2024-11-21] MEDS: Famotidine 20 MG TABLET PO (08:38)
[2024-11-21] MEDS: Baclofen 10 MG TABLET PO (08:38)
[2024-11-21] MEDS: Nicotine 14 MG PATCH.TD24 TRANSDERMA (08:38)
[2024-11-21] MEDS: Gabapentin 300 MG CAPSULE PO (08:38)
[2024-11-21] MEDS: Naloxone HCl Nasal TAKE HOME 4 MG SPRAY 8 MG NOSTRILALT (08:44)
--- NOTE | 2024-11-21 10:04 | P.DS_ITS ---
DS: Providers Provider Date of Service: 11/21/24 Date of admission: 11/10/24 11:46 Date of discharge: 11/21/24 Primary care physician: Alejandra Gardner MD Attending physician on admission: Enmanuel Johnson Consults: 11/10/24 15:28 Addiction Medicine Routine Consulting Provider: Addiction Covering Reason for consultation: polysub - etoh, crack, MJ, fentanyl - on methadone Attending physician on discharge: Seth Francis Discharging clinician: Nettie Osorio DS: Diagnosis Discharge Diagnosis (1) Mood disorder: Status: Acute (2) Opioid use disorder: Status: Acute (3) Alcohol use disorder: Status: Acute (4) Cocaine use disorder: Status: Acute (5) Homeless single person: Status: Acute DS: Medications Discharge Medications Home Medications: Home Medications ?Medication ?Instructions ?Recorded ?Confirmed albuterol sulfate 90 mcg/actuation 2 puff inhalation Q4H PRN wheezing 06/16/24 11/09/24 aerosol inhaler (Ventolin HFA) fluticasone 250 mcg-salmeterol 50 1 ea inhalation BID 06/16/24 11/09/24 mcg/dose blistr powdr for inhalation (Advair Diskus) hydroxyzine HCl 50 mg tablet 50 mg PO TID PRN anxiety 11/09/24 11/09/24 mirtazapine 15 mg tablet 15 mg PO BEDTIME 11/09/24 11/09/24 sertraline 100 mg tablet 200 mg PO DAILY depressive disorder 11/09/24 11/10/24 methadone 10 mg/mL oral 95 mg PO DAILY 11/10/24 11/10/24 concentrate (Methadone Intensol) Previous Rx's ?Medication ?Instructions ?Recorded divalproex 500 mg tablet,delayed 1,000 mg (2 x 500 mg) PO BEDTIME 06/26/24 release 30 days #60 tabs Mental Status Exam Mental Status Exam Narrative: Pt is alert and oriented; behavior is cooperative and calm; dressed in casual attire; mood is described as good ; eye contact appropriate; Speech is normal rate, volume and not pressured; thought process is organized; Thought content is on tx; denies SI/HI/VH/AH. Data Data Completed and Pending Completed studies during hospitalization [Text1]: 11/15/24 11/15/24 11/17/24 13:05 16:14 12:14 Total Bilirubin Direct Bilirubin AST ALT Alkaline Phosphatase Ammonia Total Protein Albumin Urine Opiates Screen Not Detected Ur Buprenorphine Scrn Not Detected Ur Oxycodone Screen Not Detected Urine Methadone Screen Positive H Urine Fentanyl Screen Not Detected Ur Barbiturates Screen Not Detected Valproic Acid Ur Phencyclidine Scrn Not Detected Ur Amphetamines Screen Not Detected U Benzodiazepines Scrn POSITIVE H Urine Cocaine Screen Not Detected U Marijuana (THC) Screen Not Detected COVID-19 (PATITO) Negative COVID-19 Clin Com See Note S. pyogenes GrpA GABRIELE Negative 11/20/24 15:32 Total Bilirubin 0.1 Direct Bilirubin < 0.2 AST 148 H ALT 157 H Alkaline Phosphatase 73 Ammonia 43 Total Protein 7.2 Albumin 3.8 Urine Opiates Screen Ur Buprenorphine Scrn Ur Oxycodone Screen Urine Methadone Screen Urine Fentanyl Screen Ur Barbiturates Screen Valproic Acid 30.1 L Ur Phencyclidine Scrn Ur Amphetamines Screen U Benzodiazepines Scrn Urine Cocaine Screen U Marijuana (THC) Screen COVID-19 (PATITO) COVID-19 Clin Com S. pyogenes GrpA GABRIELE Imaging Diagnostic Imaging Impressions Hand/Wrist X-Ray 11/10/24 15:45 IMPRESSION: No displaced fracture. Electronically signed by: Lizzy Ponce MD 11/13/2024 08:13 AM EST RP Hip X-Ray 11/15/24 19:55 IMPRESSION: No acute fracture or dislocation, left hip. Electronically signed by: Bandar Francois MD 11/16/2024 07:19 AM EST RP DS: Summary Hospital Course Hospital Course: per CARE team geraldine pt presented to ED with SI with plan to jump from a bridge. c/o increased depression and SI due to separation from his son and son's mother over the past week (although elsewhere it is reported that son's mother has a restraining order against pt from 2 months ago). also reporting increase substance use - utox POS for methadone, fentanyl, cocaine, cannabis. BAL 66. reports he is unsheltered homeless at present. on interview with , the above information is reiterated. pt c/o alcohol withdrawal Sx, shivering some. given ativan per [facility] protocol by RN during interview. meds reviewed, pt indicates he would like to be on current regimen. ativan per [facility] protocol reviewed. most recent SI yesterday. no other complaints or requests for the moment. ativan per [facility] protocol for alcohol withdrawal. cocaine had fentanyl in it; clonidine PRN Sx opioid withdrawal. continue methadone 95 mg daily. restart/continue VPA 1000 mg QHS. continue remeron and zoloft. pepcid for nausea, baclofen for muscleaches, loperamide for loose stools. kepra restarted 750mg po BID DC trazodone, pt complains he feels too sedated the morning after from it. restart remeron 15 with repeat. also add periactin PRN as pt had a dose the other night and found it helpful. c/o withdrawal Sx, valium 5 BID x 3 doses ordered. of note, pt hape vape pen in his room and was noted to be sedated after visit with GF. appeared to be nodding off today. supervised visits ord ered. c/o panic attacks, worried he's going to have a seizure, insomnia. educated re sleep PRNs. remeron increased to 30 QHS. valium taper extended 24H. otherwise continue current mgmt. concerned about sore throat, hip pain, insomnia. increase remeron to 45 mg QHS. schedule periactin. ibuprofen and hip xray for hip pain. otherwise continue current mgmt. hip XR WNL. pt will F/U outpt re hip pain. asking for something for hip pain, specifically gabapentin. agrees to trial of 300 TID. pt c/o poor appetite, asking for ensure, which is also ordered. staff reporting sedation at times and excess energy at times; utox ordered. utox NEG. discuss dispo planning. seroquel 50 Q4H PRN severe anxiety/panic. considering staying [facility] and attending [facility]. otherwise continue current mgmt. the patient complained of nightmares, we are adding prazosin 2 mg p.o. q.h.s. keep rest the same. increase prazosin up to 5 mg p.o. q.h.s.. Active on unit, social with peers. medication compliant. pt reports feeling anxious today; pt stated, I'm just worried if I will get into respite or if I'll have to go to a half-way after here . denies SI/HI/VH/AH. Pt reports he plans on following up with his outpatient providers. depakote level to be drawn today. plan for dc tomorrow;pt aware. Social with peers. He reports feeling good ; plans on following up with outpatient providers. denies SI/HI/VH/AH. Pt was unable to obtain respite bed; plans on either going to a half-way or staying with his father. Status at Discharge Cognitive/behavioral status at discharge: Patient has insight and demonstrates good judgment in terms of wanting to pursue treatment. Patient has a safety plan that includes presenting to the closest ER or calling 911 if feeling unsafe. Functional status at discharge: independent ambulation Overall status at discharge: patient is back to baseline Time Spent with Patient Time attestation: Total time managing care of this patient today _20___ minutes. Time spent: Less than 30 minutes Discharge Plan Discharge Anticipated Discharge Date/Time: 11/21/24 11:00 Patient Disposition: Home, Self-Care Discharge Diagnosis: Mood d/o, alcohol use d/o, opioid use d/o, cocaine use d/o Referrals: Intensive Outpatient Program (IOP) [Other] - 11/22/24 11:00 am (IN PERSON INTAKE APPOINTMENT) Amy Alaniz (Therapy) [Other] - 11/24/24 11:00 am (IN OFFICE APPOINTMENT) Sushila Abraham (Psychiatry) [Other] - 11/23/24 1:30 pm (TELEHEALTH APPOINTMENT) Alejandra Gardner MD [Primary Care Provider] - 11/23/24 2:45 pm (11-27-24 Your follow up appt has been scheduled with Dr. Carl on 11-23-24 @ 2:45pm.) Discharge Medications: New cyproheptadine 4 mg Tablet 4 mg PO BEDTIME 30 Days Qty: 30 0RF baclofen 10 mg Tablet 10 mg PO BID 30 Days Qty: 60 0RF prazosin 5 mg Capsule 5 mg PO BEDTIME 30 Days Qty: 30 0RF Protocol: Hold for SBP< HOLD for SBP < : 90 divalproex 500 mg Tablet,Delayed Release (Dr/Ec) 1,000 mg PO BEDTIME 30 Days Qty: 60 0RF gabapentin 300 mg Capsule 300 mg PO TID 30 Days Qty: 90 0RF famotidine 20 mg Tablet 20 mg PO BID 30 Days Qty: 60 0RF mirtazapine 45 mg tablet 45 mg PO BEDTIME 30 Days Qty: 30 0RF levetiracetam 750 mg tablet 750 mg PO BID 30 Days Qty: 60 0RF quetiapine 50 mg Tablet 50 mg PO BID PRN (Reason: anxiety/agitation) 30 Days Qty: 60 0RF Continued fluticasone propion-salmeterol [Advair Diskus] 250-50 mcg/dose blister with device 1 ea inhalation BID albuterol sulfate [Ventolin HFA] 90 mcg/actuation HFA aerosol inhaler 2 puff inhalation Q4H PRN (Reason: wheezing) methadone [Methadone Intensol] 10 mg/mL Concentrate 95 mg PO DAILY sertraline 100 mg tablet 200 mg PO DAILY 30 Days Qty: 60 0RF hydroxyzine HCl 50 mg tablet 50 mg PO TID PRN (Reason: anxiety) 30 Days Qty: 90 0RF Discontinued divalproex 500 mg Tablet,Delayed Release (Dr/Ec) 1,000 mg PO BEDTIME 30 Days Qty: 60 0RF mirtazapine 15 mg tablet 15 mg PO BEDTIME Discharge Orders: Discharge Order (Routine); Ordered 11/21/24 Ordered By: Nettie Osorio Diet: Regular diet Activity on Discharge: As tolerated Stand Alone Forms: Patient Portal Discharge page, Community Support Print Language: Turkmen Care Plan Goals: Maintain mood and safe behaviors Take medications as prescribed Continue to pursue sobriety Practice coping skills Continue with outpatient providers and reach out to them as needed Health Concerns: Mood stability and behaviors Sobriety Plan of Treatment: Follow up with your PCP, psychiatric provider and other outpatient providers regarding above concerns Take medications as prescribed Assessment: Patient has insight and demonstrates good judgment in terms of wanting to pursue treatment. Patient has a safety plan that includes presenting to the closest ER or calling 911 if feeling unsafe. Discharge Date/Time: 11/21/24 11:54
[2024-11-21] MEDS: Nicotine Polacrilex 2 MG GUM 4 MG BUCCAL (10:15)
== END 2024-11-21 11:54 | disposition home or self-care (01) | DRG 753 ==
LOC: HO.ED 21:12 → HO.PADLT16 11-10 13:36
PROVIDERS: Physician Assistant Medical; Registered Nurse Emergency; Admitting Provider Psychiatry & Neurology Psychiatry; Emergency Provider Emergency Medicine; PCP Family Medicine; Responsible Provider Registered Nurse; Visit Provider Psychiatry & Neurology Psychiatry
DX: F39 Unspecified mood [affective] disorder (principal); R45.851 Suicidal ideations; F10.939 Alcohol use, unspecified with withdrawal, unspecified; F19.20 Other psychoactive substance dependence, uncomplicated; F14.10 Cocaine abuse, uncomplicated; F11.20 Opioid dependence, uncomplicated; F17.210 Nicotine dependence, cigarettes, uncomplicated; Z71.6 Tobacco abuse counseling; Z20.822 Contact with and (suspected) exposure to COVID-19; Z59.02 Unsheltered homelessness; Z79.899 Other long term (current) drug therapy
CPT/HCPCS: 0241U; 36415; 73110; 73130; 73502; 80053; 80061; 80076; 80164; 80307; 81001; 82140; 82607; 82746; 83036; 84439; 84443; 85025; 87635; 87651; 93005; 99285; S9485

== ENCOUNTER → 2024-11-10 09:34 | Outpatient (BNV) | payer MEDICAID, SELFPAY | PROVIDERS: Admitting Provider Psychiatry & Neurology Psychiatry; Emergency Provider Emergency Medicine; PCP Family Medicine; Visit Provider Internal Medicine | DX: R45.851 Suicidal ideations (principal) | CPT/HCPCS: 93010 ==

== ENCOUNTER 2024-11-10 11:46 | Outpatient (BNV) | payer MEDICAID, SELFPAY | END 2024-11-15 19:55 | PROVIDERS: Admitting Provider Psychiatry & Neurology Psychiatry; Emergency Provider Emergency Medicine; PCP Family Medicine; Visit Provider Radiology Diagnostic Radiology | DX: M25.552 Pain in left hip (principal) | CPT/HCPCS: 73502 ==

== ENCOUNTER → 2024-11-10 11:46 | Outpatient (BNV) | payer OTHER, SELFPAY | PROVIDERS: Admitting Provider Psychiatry & Neurology Psychiatry; Emergency Provider Emergency Medicine; PCP Family Medicine; Visit Provider Psychiatry & Neurology Psychiatry | DX: F14.10 Cocaine abuse, uncomplicated (principal); F11.90 Opioid use, unspecified, uncomplicated; F10.90 Alcohol use, unspecified, uncomplicated; Z59.00 Homelessness unspecified; F39 Unspecified mood [affective] disorder | CPT/HCPCS: 99233 ==

== ENCOUNTER 2024-11-25 19:09 | Emergency (ER) | payer MEDICAID, SELFPAY ==
[2024-11-25 19:12] VITALS: BP 114/79; PULSE 102; RESP 14; TEMP 36.8; O2SAT 98; BMI 25.0
--- NOTE | 2024-11-25 19:13 | ED_ITS ---
HPI - Psych General Chief Complaint: Psychiatric Symptoms Stated Complaint: crisis Time Seen by Provider: 11/25/24 21:22 Related Data Home Medications ?Medication ?Instructions ?Recorded ?Confirmed albuterol sulfate 90 mcg/actuation 2 puff inhalation Q4H PRN wheezing 06/16/24 11/25/24 aerosol inhaler (Ventolin HFA) fluticasone 250 mcg-salmeterol 50 1 ea inhalation BID 06/16/24 11/25/24 mcg/dose blistr powdr for inhalation (Advair Diskus) methadone 10 mg/mL oral 95 mg PO DAILY 11/10/24 11/10/24 concentrate (Methadone Intensol) sertraline 100 mg tablet 200 mg PO QAM depressive disorder 11/25/24 11/25/24 Previous Rx's ?Medication ?Instructions ?Recorded baclofen 10 mg tablet 10 mg PO BID 30 days #60 tabs 11/21/24 cyproheptadine 4 mg tablet 4 mg PO BEDTIME 30 days #30 tabs 11/21/24 divalproex 500 mg tablet,delayed 1,000 mg (2 x 500 mg) PO BEDTIME 11/21/24 release 30 days #60 tabs famotidine 20 mg tablet 20 mg PO BID 30 days #60 tabs 11/21/24 gabapentin 300 mg capsule 300 mg PO TID 30 days #90 caps 11/21/24 hydroxyzine HCl 50 mg tablet 50 mg PO TID PRN anxiety 30 days 11/21/24 #90 tabs levetiracetam 750 mg tablet 750 mg PO BID 30 days #60 tabs 11/21/24 mirtazapine 45 mg tablet 45 mg PO BEDTIME 30 days #30 tabs 11/21/24 prazosin 5 mg capsule 5 mg PO BEDTIME 30 days #30 caps 11/21/24 quetiapine 50 mg tablet 50 mg PO BID PRN anxiety/agitation 11/21/24 30 days #60 tabs Allergies Allergy/AdvReac Type Severity Reaction Status Date / Time No Known Allergies Allergy Verified 11/25/24 19:18 [facility] Past Medical History Medical History Seizure disorder Polysubstance (including opioids) dependence with physiol dependence Active substance abuse Epilepsy Asthma Social History Social History Household Members: None Housing: Homeless Do you presently have visiting nurse or other home services: No Alcohol intake: current Alcohol intake frequency: a few times a week Comment: does not like to wear yellow socks. wears his own. Patient Tobacco Use Status: Current everyday Tobacco user Tobacco use type: Cigarette Cigarettes Per Day: 10 Second Hand Smoke Exposure: No Substance Use Type: Crack/Cocaine and Marijuana Advance Directives: No Advance Directives Information Provided: No Do you have a plan to hurt others: No Plan service: No Sexual orientation: Straight/Heterosexual Physical Exam 2 Vital Signs: Vital Signs: Last Vital Signs Temp 98.2 F 11/25/24 19:12 Pulse 102 H 11/25/24 19:12 Resp 14 11/25/24 19:12 BP 114/79 11/25/24 19:12 Pulse Ox 98 11/25/24 19:12 O2 Del Method Room Air 11/25/24 19:12 BMI result Body Mass Index 25.0 Course Course Course Narrative: This is a Rapid Medical Examination (RME) performed by Loretta Garcia PA-C in triage. Full HPI, ROS, assessment and treatment plan per primary provider in the Main ED. 34 yo male, currently experiencing homelessness, hx of mood and opiate use disorders here for eval of SI w/ plan to cut himself. his father found him w/ a knife in his hand today. hx of suicide attempts. last attempted to jump off bridge 2 wks ago. reports increased stressors w/ losing his children. also endorsing HI - does not which to disclose who he wants to harm. endorses AH, states he hears people talking about him. Denies AH/TH. Plan: medical clearance, care team eval Medical Decision Making Medical Decision Making [facility] Narrative: My interpretation of labs: No abnormality in patient's hematology and chemistry, urinalysis negative, U tox positive for methadone cocaine, ETOH 31 Differential Diagnosis Differential Diagnoses: The differential diagnosis associated with the presentation includes (Anxiety, depression, polysubstance abuse) Admission/Observation Consideration of admission/observation: Escalation of care including admission/observation considered Lab Data 11/25/24 20:13 11/25/24 20:13 Labs: Lab Results 11/25/24 11/25/24 Range/Units 19:40 20:13 WBC 6.6 (4.8-10.8) X10*3/uL RBC 4.07 L (4.60-5.80) X10*6/uL Hgb 13.4 L (14.0-18.0) g/dl Hct 38.9 L (42.0-52.0) % MCV 95.6 (80.0-98.0) fL MCH 32.9 (27.0-33.0) pg MCHC 34.4 (31.0-36.0) g/dl RDW 14.0 (11.0-16.0) % Plt Count 275 (160-400) X10*3/uL MPV 10.0 (9.4-12.4) fL Absolute Nucleated RBC 0.000 (0.0-0.012) X10*3/uL Nucleated RBC % (auto) 0.0 (0.0-0.2) /100WBC Sodium 140 (135-145) mmol/L Potassium 3.9 (3.3-5.1) mmol/L Chloride 107 (96-108) mmol/L Carbon Dioxide 27 (22-29) mmol/L Anion Gap 10 L (12-20) BUN 15 (9-16) mg/dL Creatinine 0.71 (0.5-1.4) mg/dL Estim Creat Clear Calc 125.1 Estimated GFR > 60 Random Glucose 115 (60-115) mg/dL Calcium 8.8 D (8.4-10.2) mg/dL Total Bilirubin 0.2 (0.0-1.0) mg/dL AST 41 H (5-37) U/L ALT 105 H (0-40) U/L Alkaline Phosphatase 76 (39-117) U/L Total Protein 7.6 (6.5-8.0) g/dL Albumin 4.1 (3.5-5.0) g/dL Urine Color Yellow Urine Appearance Clear Urine pH 6.0 (5.0-9.0) Ur Specific Bradley 1.025 (1.005-1.025) Urine Protein Negative (Neg-Trace) mg/dL Urine Glucose (UA) Negative (Negative) mg/dL Urine Ketones Negative (Negative) mg/dL Urine Blood Negative (Negative) Urine Nitrite Negative (Negative) Ur Leukocyte Esterase Negative (Negative) Urine Opiates Screen Not Detected (Not Detect) Ur Buprenorphine Scrn Not Detected (Not Detect) ng/mL Ur Oxycodone Screen Not Detected (Not Detect) ng/mL Urine Methadone Screen Positive H (Not Detect) ng/mL Urine Fentanyl Screen Not Detected (Not Detect) Ur Barbiturates Screen Not Detected (Not Detect) Valproic Acid < 12.5 L (50.0-100.0) mcg/mL Ur Phencyclidine Scrn Not Detected (Not Detect) Ur Amphetamines Screen Not Detected (Not Detect) U Benzodiazepines Scrn Not Detected (Not Detect) Urine Cocaine Screen POSITIVE H (Not Detect) U Marijuana (THC) Screen Not Detected (Not Detect) Ethyl Alcohol 31 mg/dL Discharge Plan Discharge Clinical Impression: Suicidal ideation, Polysubstance abuse Patient Disposition: Still a Patient Prescriptions: No Action sertraline 100 mg tablet 200 mg PO QAM fluticasone propion-salmeterol [Advair Diskus] 250-50 mcg/dose blister with device 1 ea inhalation BID albuterol sulfate [Ventolin HFA] 90 mcg/actuation HFA aerosol inhaler 2 puff inhalation Q4H PRN (Reason: wheezing) methadone [Methadone Intensol] 10 mg/mL Concentrate 95 mg PO DAILY cyproheptadine 4 mg Tablet 4 mg PO BEDTIME 30 Days Qty: 30 0RF baclofen 10 mg Tablet 10 mg PO BID 30 Days Qty: 60 0RF prazosin 5 mg Capsule 5 mg PO BEDTIME 30 Days Qty: 30 0RF Protocol: Hold for SBP< HOLD for SBP < : 90 divalproex 500 mg Tablet,Delayed Release (Dr/Ec) 1,000 mg PO BEDTIME 30 Days Qty: 60 0RF gabapentin 300 mg Capsule 300 mg PO TID 30 Days Qty: 90 0RF famotidine 20 mg Tablet 20 mg PO BID 30 Days Qty: 60 0RF mirtazapine 45 mg tablet 45 mg PO BEDTIME 30 Days Qty: 30 0RF levetiracetam 750 mg tablet 750 mg PO BID 30 Days Qty: 60 0RF quetiapine 50 mg Tablet 50 mg PO BID PRN (Reason: anxiety/agitation) 30 Days Qty: 60 0RF hydroxyzine HCl 50 mg tablet 50 mg PO TID PRN (Reason: anxiety) 30 Days Qty: 90 0RF Interventions: Dixon-Suicide Risk Severity Scale Last Done: 11/25/24 19:19 Print Language: Kosovan
[2024-11-25 19:47] LABS: Appearance Urine Clear; Color Urine Yellow; Glucose Urine UA Negative (Negative); Leukocyte Esterase Urine Negative (Negative); Nitrite Urine Negative (Negative); Specific Gravity - Urine 1.025 (1.005-1.025); Urine Blood Negative (Negative); Urine Ketones Negative (Negative); Urine Protein Negative (Neg-Trace)
--- OUTSIDE RECORDS SUMMARY | 2024-11-25 19:47 | XMS_ITS | Encounter Summary ---
Author Organization [employer] Address [address] [place] [address] [address] [place] [address] Care Team Providers Care Through Freight Engineer Name Role Phone Alejandra Gardner MD Primary Care Provider [phone] Archana Gordon Unavailable Unavailable Alicia Wright RN Unavailable [phone] Reason for Visit * Reason Comments Care Coordination Outreach Encounter Details Date Type Department Care Team (Latest Contact Info) Description 11/14/2024 Patient Outreach [facility] [address] [place] [address] Alejandra Gardner MD [address] [place] [address] Care Coordination (Outreach) Social History Tobacco Use Types Packs/Day Years Used Date Smoking Tobacco: Every Day Cigarettes Passive Smoke Exposure: Never Smokeless Tobacco: Never Alcohol Use Standard Drinks/Week Comments Never 0 (1 standard drink = 0.6 oz pur e alcohol) Depression Answer Date Recorded Patient Health Questionnaire-9 Score 21 04/06/2024 Patient Health Questionnaire-9 Score 21 04/06/2024 Last PHQ-9: Questionnaire Data Not on file 0 04/06/2024 Housing Stability Answer Date Recorded What is your housing situation today? I do not have housing (Staying with others, in a hotel, in a mcc, living outside on the street, on a beach, in a car, or in a park 05/17/[address] you li ve. Do you have problems with any of the following? None of the above 05/17/2024 Food Insecurity Answer Date Recorded Within the past 12 months, y ou worried that your food would run out before you got money to buy more: Never True 08/30/2023 Within the past 12 months,th e food you bought just didn't last and you didn't have enough money to get more: Never True Transportation Answer Date Recorded In the past 12 months, has l ack of transportation kept you from medical appts, meetings, work or from getting things needed for daily living? No 08/30/2023 Utilities Answer Date Recorded In the past 12 months, has t he electric, gas, oil or water company threatened to shut off services in your home? Yes 05/17/2024 Depression Answer Date Recorded Patient Health Questionnaire-2 Score 6 04/06/2024 Internet Access Answer Date Recorded Internet Access Q1 Yes 07/03/2024 Internet Access Q2 Not on file 07/03/2024 Sex and Gender Information Value Date Recorded Sex Assigned at Male 08/31/2022 10:26 AM EDT Legal Sex Male 10:26 AM EDT Gender Identity Male 07/15/2023 1:09 PM EDT Sexual Orientation Straight 07/15/2023 1: 09 PM EDT documented as of this encounter Progress Notes * Kaylee Solorio - 11/14/2024 1:29 PM EST CHW , placed outbound call to patient in regards to offer services. CHW introducing herself from [facility] CM Department with CHW's name, department and direct contact number [phone] call back. Will re-attempt to contact within 5 days. and address not confirmed. documented in this encounter Plan of Treatment Not on file documented as of this encounter Visit Diagnoses Not on filedocumented in this encounter Additional Health Concerns Assessment Noted Time PHQ-9 Depression Total Score: 21 024 8:50 AM EDT documented as of this encounter Care Teams Through Freight Engineer Relationship Specialty Start Date End Date Alejandra Gardner MD [address] [place] [address] PCP - General Family Medicine 07/15/23 Archana Gordon Community Health Worker 05/17/24 Alicia Wright RN [address] [place] [id number] Animal Ride Attendant 05/17/24 documented as of this encounter
--- OUTSIDE RECORDS SUMMARY | 2024-11-25 19:47 | XMS_ITS | Encounter Summary ---
Author Organization [employer] Address [address] [place] [address] [address] [place] [address] Care Team Providers Care Recycle Driver Name Role Phone Alejandra Gardner MD Primary Care Provider [phone] Archana Gordon Unavailable Unavailable Alicia Wrihgt RN Unavailable [phone] Reason for Visit * Reason Onset Date Comments Hospital Follow-up 11/17/2024 Encounter Details Date Type Department Care Team (Late st Contact Info) Description 11/17/2024 Telephone [facility] [address] [place] [address] Alejandra Gardner MD [address] [place], [place] [id number] Hospital Follow-up Social History Tobacco Use Types Packs/Day Years [...] with others, in a hotel, in a custodial, living outside on the street, on a [...] PM EDT documented as of this encounter Miscellaneous Notes * Telephone Encounter - Patricia Morris - 11/17/2024 8:20 AM EST Tc from pt requesting a HDF appt. Hospital: [facility] Date of admission: 11/10 Discharge date: 11/21 Diagnosed: Alcohol disorders, Opiate disorders *Send message to [facility] Clinical Care Coordinators documented in this encounter Plan of Treatment Not on file documented as of this encounter Visit Diagnoses Not on filedocumented in this encounter Additional Health Concerns Assessment Noted Time PHQ-9 Depression Total Score: 21 024 8:50 AM EDT documented as of this encounter Care Teams Recycle Driver Relationship Specialty Start Date End Date Alejandra Gardner MD [address] [place] [address] PCP - General Family Medicine 07/15/23 Archana Gordon Community Health Worker 05/17/24 Alicia Wright RN [address] [place] [id number] Cosmetology Instructor 05/17/24 documented as of this encounter
--- OUTSIDE RECORDS SUMMARY | 2024-11-25 19:47 | XMS_ITS | Encounter Summary ---
Author Organization [employer] Address [address] [place] [address] 7[address] [place] [address] Care Team Providers Care Mechanics Supervisor Name Role Phone Alejandra Gardner MD Primary Care Provider [phone] Archana Gordon Unavailable Unavailable Alicia Wright RN Unavailable [phone] Encounter Details Date Type Department Care Team (Late st Contact Info) Description 11/09/2024 Orders Only GENERIC EXTERNAL DATA DEPARTMENT Provider, Generic External Data Social History Tobacco Use Types Packs/Day Years [...] with others, in a hotel, in a long term, living outside on the street, on a [...] PM EDT documented as of this encounter Plan of Treatment Not on file documented as of this encounter Procedures Procedure Name Priority Date/Time Associated Diagnosis Comments XR HIP 2 OR 3 VIEWS LEFT Routine 11/15/2024 7:55 PM EST XR HAND WRIST RT Routine 11/10/2024 3:45 PM EST VALPROIC ACID Routine 11/09/2024 10:30 PM EST ETHANOL Routine 11/09/2024 8:02 PM EST URINALYSIS, COMPLETE, WITH REFLEX TO CULTURE Routine 11/09/2024 8:02 PM EST SARS COV2/INFLUENZA A/B AND RSV RNA QL NAAT Routine 11/09/2024 8:02 PM EST DRUG MONITOR, PANEL 1, SCREEN, URINE Routine 11/09/2024 8:02 PM EST CBC WITH AUTO DIFFERENTIAL Routine 11/09/2024 8:02 PM EST COMPREHENSIVE METABOLIC PANEL Routine 11/09/2024 8:02 PM EST documented in this encounter Results * XR Hip 2 or 3 Views Left (11/15/2024 7:55 PM EST) Anatomical Region Laterality Modality Lower Extremities, Hip Left Radiograp hic Imaging 11/15/2024 7:55 PM EST Narrative 11/16/2024 7:22 AM EST ? [facility] ?[address] ?[place] [address] ?XRay Report ? Signed ? Patient: Montero,Rogelio ?MR#: [id number] ?? 6 ? : 1990 ?Acct:[id number] ? Age/Sex: 34 / M ?ADM Date: 11/10/24 ? Loc: [id number].[id number] ?307-1 ? Attending Dr: Enmanuel Johnson MD ? Ordering Physician: Enmanuel Johnson MD ?? Date of Service: 11/15/24 ?? Procedure(s): XR hip LT min 2V ?? Accession Number(s): [id number] ? cc: Enmanuel Johnson MD; Alejandra Gardner MD ? EXAMINATION: ?? XR HIP, LEFT ? CLINICAL INFORMATION: ?? pain ? COMPARISON: ?? None available. ? TECHNIQUE: ?? Two views of the left hip. ? FINDINGS: ?? No acute cortical disruption or malalignment. ?? Subchondral cysts in the left femoral head/neck junction. ?? No gross lytic or blastic lesions. No metallic or radiopaque foreign ?? body. No subcutaneous emphysema. ? XR/XR hip LT min 2V ?? IMPRESSION: ?? No acute fracture or dislocation, left hip. ? Electronically signed by: ??Bandar Francois MD ??11/16/2024 07:19 AM ?? EST RP ? Dictated By: ?Bandar Olmos MD ? Signed By: ?<Electronically signed by Bandar Mcneil MD in OV> ? 11/16/24 0719 ? DD/ 54 ? TD/TT: 11/15/242001 ? Assembling Inspector: ? Procedure Note Sergio Caldwell - 11/16/[address] [address] XRay Report Signed Patient: Rogelio MonteroMR#: [id number] 6 : 1990Acct:[id number] Age/Sex: 34 / MADM Date: 11/10/24 Loc: [id number].PADLT16 307-[address]: Enmanuel Johnson MD Ordering Physician: Enmanuel Johnson MD Date of Service: 11/15/24 Procedure(s): XR hip LT min 2V Accession Number(s): [id number] cc: Enmanuel Johnson MD; Alejandra Gardner MD EXAMINATION: XR HIP, LEFT CLINICAL INFORMATION: pain COMPARISON: None available. TECHNIQUE: Two views of the left hip. FINDINGS: No acute cortical disruption or malalignment. Subchondral cysts in the left femoral head/neck junction. No gross lytic or blastic lesions. No metallic or radiopaque foreign body. No subcutaneous emphysema. XR/XR hip LT min 2V IMPRESSION: No acute fracture or dislocation, left hip. Electronically signed by: Bandar Francois MD 11/16/2024 07:19 AM EST RP Dictated By: Bandar Olmos MD Signed By: <Electronically signed by Bandar Mcneil MDin OV> 11/16/24 0719 DD/ 54 TD/TT: 11/15/242001 Assembling Inspector: [facility] External Provider IMG XR PROCEDURES Edited Result - Final * XR HAND WRIST RT (11/10/2024 3:45 PM EST) Anatomical Region Laterality Modality Abdomen Radiographic Lucille ging 11/10/2024 3:45 PM EST Narrative 11/13/2024 8:16 AM EST ? [facility] ?[address] ?[place] [address] ?XRay Report ? Signed ? Patient: Montero,Rogelio ?MR#: [id number] ?? 6 ? : 1990 ?Acct:[id number] ? Age/Sex: 34 / M ?ADM Date: 01/10/25 ? Loc: HO.PADLT16 ?307-1 ? Attending Dr: Enmanuel Johnson MD ? Ordering Physician: Enmanuel Johnson MD ?? Date of Service: 11/10/24 ?? Procedure(s): XR hand wrist RT ?? Accession Number(s): [id number] ? cc: Enmanuel Johnson MD; Alejandra Gardner MD ? EXAMINATION: ?? XR HAND/WRIST, RIGHT ? CLINICAL INFORMATION: ?? recent trauma to hand/wrist ? COMPARISON: ?? None available. ? TECHNIQUE: ?? Four views of the right hand and wrist. ? FINDINGS: ?? Bone mineralization is normal. Joint spaces and alignment are ?? preserved. No displaced fracture appreciated. ? XR/XR hand wrist RT ?? IMPRESSION: ?? No displaced fracture. ? Electronically signed by: ??Lizzy Ponce MD ??11/13/2024 08:13 AM EST ?? RP ? Dictated By: ?Lizzy Ponce MD ? Signed By: ?<Electronically signed by Lizzy Ponce MD in OV> ? 11/13/24 0813 ? DD/ 1545 ? TD/TT: 11/10/24 1550 ? Assembling Inspector: ? Procedure Note Donkimter, Image - 11/13/2024 [place] [address] XRay Report Signed Patient: Rogelio MonteroMR#: [id number] 6 : 1990Acct:[id number] Age/Sex: 34 / MADM Date: 11/10/24 Loc: HO.PADLT16 307-[address]: Enmanuel Johnson MD Ordering Physician: Enmanuel Johnson MD Date of Service: 11/10/24 Procedure(s): XR hand wrist RT Accession Number(s): [id number] cc: Enmanuel Johnson MD; Alejandra Gardner MD EXAMINATION: XR HAND/WRIST, RIGHT CLINICAL INFORMATION: recent trauma to hand/wrist COMPARISON: None available. TECHNIQUE: Four views of the right hand and wrist. FINDINGS: Bone mineralization is normal. Joint spaces and alignment are preserved. No displaced fracture appreciated. XR/XR hand wrist RT IMPRESSION: No displaced fracture. Electronically signed by: Lizzy Ponce MD 11/13/2024 08:13 AM EST Dictated By: Lizzy Ponce MD Signed By: <Electronically signed by Lizzy Ponce MD in OV> 11/13/24 0813 DD/ 1545 TD/TT: 11/10/24 1550 Assembling Inspector: [facility] External Provider IMG XR PROCEDURES Edited Result - Final * (ABNORMAL) Valproic Acid Total (11/09/2024 10:30 PM EST) Valproate <12.5(L) 50.0 - 100.0 mcg/mL [facility] 11/09/2024 10:3 0 PM EST 11/09/2024 10:35 PM EST Generic External Data Provider LAB BLOOD ORDERAB LES Final Result Performing Organization Address City/[facility]/ZIP Co de Phone Number [facility] [address] [place] [phone] * SARS-CoV-2 RNA, Influenza A/B, and RSV RNA, Ql NAAT (11/09/2024 8:02 PM EST) Pathologist [facility] Influenza A PCR NEGATIVE Negative [facility] Influenza B PCR NEGATIVE Negative [facility] Resp Syncy Virus RNA Qual PCR NEGATIVE Negative [facility] SARS COV2 PCR NEGATIVE Negative [facility] Comment:All test results mus t be correlated with clinical findings.Negative results do not preclude SARS-CoV2, influenza Avirus, influenza B virus and/or RSV infectionand should not be used as the sole basis for treatment orother patient management decisions. Negative results must becombined with clinical observations, patient history, andepidemiological information.This test has not been evaluated for monitoring treatment ofinfection.This test has been authorized by the FDA under an EmergencyUse Authorization (EUA) for use by authorized laboratories.Testing performed on the [employer] GeneXpert utilizingreal-time RT-PCR.All SARS CoV2 and positive influenza A/B results arereported to [facility]. 11/09/2024 8:02 PM EST 11/09/2024 8:10 PM EST Generic External Data Provider LAB MICROBIOLOGY - GENERAL ORDERABLES Final Result [facility] [address] [place] [address] [phone] * (ABNORMAL) Comprehensive Metabolic Panel (11/09/2024 8:02 PM EST) Sodium 143 135 - 145 mmol/L [facility] Potassium 3.8 3.3 - 5.1 mmol/L [facility] Chloride 107 96 - 108 mmol/L [facility] Carbon Dioxide 29 22 - 29 mmol/L [facility] Anion Gap 11(L) 12 - 20 [facility] Urea Nitrogen (BUN) 10 9 - 16 mg/dL [facility] Creatinine, Serum 0.77 0.5 - 1.4 mg/dL [facility] Creatinine Clr Calc Pharmacy 110.1 [facility] Comment:eGFR (calculated fro m the MDRD study equation) and eCrCl(calculated from the Cockcroft-Gault equation) are based ondifferent parameters and may not yield comparable results.If eCrCl result is absurd, please check patient'sheight/weight. Estimated Glomerular Filt Rate >60 [facility] Comment:Chronic Kidney Disea se: Estimated GFR < 60 mL/min/1.56d8Guqkhq Kidney Disease: Estimated GFR < 15 mL/min/1.73m2 Glucose 85 60 - 115 mg/dL [facility] Calcium 9.4 8.4 - 10.2 mg/dL [facility] Bilirubin, Total 0.2 0.0 - 1.0 mg/dL [facility] Aspartate Amino Transferase 23 5 - 37 U/L [facility] Alanine Aminotransferase 12 0 - 40 U/L [facility] Total Protein 7.6 6.5 - 8.0 g/dL [facility] Albumin Level 4.3 3.5 - 5.0 g/dL [facility] Alkaline Phosphatase 64 39 - 117 U/L [facility] 11/09/2024 8:02 PM EST 11/09/2024 8:10 PM EST us Generic External Data Provider LAB BLOOD ORDERAB LES Final Result Performing Organization Address City/[facility]/ZIP Co de Phone Number [facility] [address] [place] [address] [phone] * Ethanol (11/09/2024 8:02 PM EST) ETHANOL (MG/DL) IN SER/PLAS 66 mg/dL [facility] Comment:Serum/plasma ethanol results are to be used formedical/treatment purposes only. 11/09/2024 8:02 PM EST 11/09/2024 8:10 PM EST us Generic External Data Provider LAB BLOOD ORDERAB LES Final Result Performing Organization Address [facility] Co de Phone Number [facility] [address] [place] [address] [phone] * (ABNORMAL) Drug Monitoring, Panel 1, Screen, Urine (11/09/2024 8:02 PM EST) [facility] Opiate Screen Urine Not Detected Not Detect [facility] Comment:Opiate cut-off is 30 0 ng/mL.Positive results are unconfirmed and should not be used fornon-medical purposes. Barbiturates, Urine Not Detected Not Detect [facility] Comment:Barbiturate cut-off is 200 ng/mL.Positive results are unconfirmed and should not be used fornon-medical purposes. Phencyclidine Screen Urine Not Detected Not Detect [facility] Comment:Phencyclidine cut-of f is 25 ng/mL.Positive results are unconfirmed and should not be used fornon-medical purposes. Amphetamine Screen Urine Not Detected Not Detect [facility] Comment:Amphetamine cut-off is 1000 ng/mL.Positive results are unconfirmed and should not be used fornon-medical purposes. Benzodiazepines Screen Urine Not Detected Not Detect [facility] Comment:Benzodiazepine cut-o ff is 200 ng/mL.Positive results are unconfirmed and should not be used fornon-medical purposes. Cocaine Screen Urine POSITIVE(A) Not Detect [facility] Comment:Cocaine cut-off is 3 00 ng/mL.Positive results are unconfirmed and should not be used fornon-medical purposes. Cannabinoid Screen Urine POSITIVE(A) Not Detect [facility] Comment:Cannabinoid cut-off is 50 ng/mL.Positive results are unconfirmed and should not be used fornon-medical purposes. Methadone Screen, Urine Positive(A) Not Detect ng/mL [facility] Comment:Methadone cut-off is 300 ng/mL.Positive results are unconfirmed and should not be used fornon-medical purposes. FENTANYL URINE POSITIVE(A) Not Detect [facility] Comment:Fentanyl cut-off is 1 ng/mL.Positive results are unconfirmed and should not be used fornon-medical purposes. Oxycodone Urine Screen Not Detected Not Detect ng/mL [facility] Comment:Oxycodone cut-off is 100 ng/mL.Positive results are unconfirmed and should not be used fornon-medical purposes. Buprenorphine Screen Not Detected Not Detect ng/mL [facility] Comment:Buprenorphine cut-of f is 5 ng/mL.Positive results are unconfirmed and should not be used fornon-medical purposes. 11/09/2024 8:02 PM EST 11/09/2024 8:10 PM EST us Generic External Data Provider LAB URINE ORDERAB LES Final Result [facility] [address] [place] [phone] * (ABNORMAL) Urinalysis, Complete, with Reflex to Culture (11/09/2024 8:02 PM EST) Color Urine Dark Yellow [facility] Appearance Urine Clear [facility] PH 6.0 5.0 - 9.0 [facility] Glucose Urine UA Negative Negative mg/dL [facility] Urine Blood Negative Negative [facility] Specific [place] - Urine >=1.030(H) 1.005 - 1.025 [facility] Urine Protein Trace Neg-Trace mg/dL [facility] Urine Ketones Trace Negative mg/dL [facility] Nitrite Urine Negative Negative [facility] Leukocyte Esterase Urine Trace(A) Negative [facility] RBC Urine 0-2 0 - 2 /HPF [facility] Urine WBC 0-5 0 - 5 /HPF [facility] Urine Squamous Epithelial Cell 0-2 0 - 2 /HPF [facility] Urine Bacteria None Seen None Seen [facility] Hyaline Casts, Urine 3-5 0 - 2 /LPF [facility] 11/09/2024 8:02 PM EST 11/09/2024 8:10 PM EST Narrative [facility] - 11/09/2024 8:29 PM EST Urine, Clean Catch us Generic External Data Provider LAB URINE ORDERAB LES Final Result [facility] [address] [place] [address] [phone] * (ABNORMAL) CBC auto differential (11/09/2024 8:02 PM EST) White Blood Count 9.6 4.8 - 10.8 X10*3/uL [facility] Red Blood Count 4.49(L) 4.60 - 5.80 X10*6/uL [facility] Hemoglobin 14.6 14.0 - 18.0 g/dl [facility] Hematocrit 42.3 42.0 - 52.0 % [facility] Mean Corpuscular Volume 94.2 80.0 - 98.0 fL [facility] Mean Corpuscular Hemoglobin 32.5 27.0 - 33.0 pg [facility] Mean Corpuscular HGB Conc 34.5 31.0 - 36.0 g/dl [facility] Red Cell Distribution Width 13.0 11.0 - 16.0 % [facility] Platelet Count 251 160 - 400 X10*3/uL [facility] Mean Platelet Volume 10.1 9.4 - 12.4 fL [facility] Neutrophils Percent Auto 52.3 45 - 73 % [facility] Imm Gran Pct Auto 0.3 0.0 - 0.4 % [facility] Lymphocytes Percent Auto 35.6 20 - 40 % [facility] Monocytes Percent Auto 8.2 2 - 11 % [facility] Eosinophils Percent Auto 3.1 0 - 4 % [facility] Basophils Percent Auto 0.5 0 - 2 % [facility] NRBC Pct Auto 0.0 0.0 - 0.2 /100WBC [facility] Neutrophils Absolute Auto 5.0 2.0 - 8.3 x10*3/uL [facility] Imm Gran Abs Auto 0.03 0.00 - 0.03 X10*3/uL [facility] Lymphocytes Absolute Auto 3.4 1.2 - 4.9 X10*3/uL [facility] Monocytes Absolute Auto 0.8 0.1 - 1.2 X10*3/uL [facility] Eosinophils Absolute Auto 0.3 0.0 - 0.4 X10*3/uL [facility] Basophils Absolute Auto 0.1 0.0 - 0.2 X10*3/uL [facility] NRBC Abs Auto 0.000 0.0 - 0.012 X10*3/uL [facility] 11/09/2024 8:02 PM EST 11/09/2024 8:10 PM EST us Generic External Data Provider LAB BLOOD ORDERAB LES Final Result Performing Organization Address City/State/[facility] Co de Phone Number [facility] [address] [place] [phone] documented in this encounter Visit Diagnoses Not on filedocumented in this encounter Additional Health Concerns Assessment Noted Time PHQ-9 Depression Total Score: 21 024 8:50 AM EDT documented as of this encounter Care Teams Mechanics Supervisor Relationship Specialty Start Date End Date Alejandra Gardner MD [address] [place] [phone] PCP - General Family Medicine 07/15/23 Archana Gordon Community Health Worker 05/17/24 Alicia Wright RN [address] [place] [phone] Multimedia Services Manager 05/17/24 documented as of this encounter
--- OUTSIDE RECORDS SUMMARY | 2024-11-25 19:47 | XMS_ITS | Encounter Summary ---
Author Organization [employer] Address [address] [place] [address] 7t [place] [address] Care Team Providers Care Clay Digger Name Role Phone Alejandra Gardner MD Primary Care Provider [phone] Archana Gordon Unavailable Unavailable Alicia Wright RN Unavailable [phone] Reason for Visit * Reason Comments Transition Of Care (Tcm) HDF- Unschedule d Laxmi will relay message to Jackie to return call. Encounter Details Date Type Department Care Team ([facility] Contact Info) Description 11/17/2024 Patient Outreach [facility] [address] [place] [address] Alejandra Gardner MD [address] [place] [address] Transition Of Care (Tcm) (HDF- Unscheduled Laxmi will relay message to Jackie to return call. ) Social History Tobacco Use Types Packs/Day Years [...] with others, in a hotel, in a half-way, living outside on the street, on a [...] as of this encounter Progress Notes * Mary Kay - 11/17/2024 9:19 AM EST SABINA Boyd received an inbacket from Patricia ARAUJO that Jackie from [facility] was requesting a HDF appt. Patient admitted on 11/10/24 and will be discharged on 11/21/2024 with DX Alcohol disorders, Opiate disorders however per Laxmi, Jackie is not available at the moment and patient does not have a discharge date yet. [facility] will relay message to Jackie to return call to [phone] which is the direct hospital line. documented in this encounter Plan of Treatment Not on file documented as of this encounter Visit Diagnoses Not on filedocumented in this encounter Additional Health Concerns Assessment Noted Time PHQ-9 Depression Total Score: 21 024 8:50 AM EDT documented as of this encounter Care Teams Clay Digger Relationship Specialty Start Date End Date Alejandra Gardner MD [address] [place] [address] PCP - General Family Medicine 07/15/23 Archana Gordon Community Health Worker 05/17/24 Alicia Wright RN [address] [place] [phone] Family Medicine Physician 05/17/24 documented as of this encounter
--- OUTSIDE RECORDS SUMMARY | 2024-11-25 19:47 | XMS_ITS | Encounter Summary ---
Author Organization [employer] Address [address] [place] [address] 7[address] [place] [address] Care Team Providers Care Spinning Machine Tender Name Role Phone Alejandra Gardner MD Primary Care Provider [phone] Archana Gordon Unavailable Unavailable Alicia Wright RN Unavailable [phone] Reason for Visit * Reason Comments Transition Of Care (Tcm) HDF- scheduled and SDOH screening unable to complete. Encounter Details Date Type Department Care Team ([facility] Contact Info) Description 11/17/2024 Telephone [facility] [address] [place] [address] Alejandra Gardner MD [address] [place] [address] Transition Of Care (Tcm) (HDF- scheduled and SDOH screening unable to complete. ) Social History Tobacco Use Types Packs/Day [...] as of this encounter Miscellaneous Notes * Significant Event - Mary Kay - 11/17/2024 9:57 AM EST 11/17/24 0956 Hospital Discharges and Admission for [facility] Type of Visit Hospital Admission Date of Admission/Visit 11/10/24 Date of Discharge 11/21/24 [facility] Diagnosis Alcohol use disorder, Opioid disorder and Mood disorder Disposition Admitted Follow-Up Actions Follow-Up Needed Provider appointment Follow-Up Outcome Spoke to Caregiver;Booked Appointment Initial Contact Date 11/17/24 Received incoming call from the Direct Hospital Line. HUGO Spoke with Jackie from [facility]. Patient has been scheduled for an HDF appointment on 11/23/2024 at 2:45PM with Dr. Carl. HUGO requested discharge summaries to be faxed to the Care Management Department at [phone]. CC will follow up on discharge summary following patient's discharge. Insurance verified prior to scheduling. documented in this encounter Plan of Treatment Not on file documented as of this encounter Visit Diagnoses Not on filedocumented in this encounter Additional Health Concerns Assessment Noted Time PHQ-9 Depression Total Score: 21 024 8:50 AM EDT documented as of this encounter Care Teams Spinning Machine Tender Relationship Specialty Start Date End Date Alejandra Gardner MD [address] [place] [address] PCP - General Family Medicine 07/15/23 Archana Gordon Community Health Worker 05/17/24 Alicia Wright RN [address] [place] [phone] Service Coordinator 05/17/24 documented as of this encounter
--- OUTSIDE RECORDS SUMMARY | 2024-11-25 19:47 | XMS_ITS | Encounter Summary ---
Author Organization [employer] Address [address] [place] [address] [address] [place] [address] Care Team Providers Care Slate Worker Name Role Phone Alejandra Gardner MD Primary Care Provider [phone] Archana Gordon Unavailable Unavailable Alicia Wright RN Unavailable [phone] Reason for Visit * Reason Comments Care Coordination Outreach Encounter Details Date Type Department Care Team (Latest Contact Info) Description 11/21/2024 Patient Outreach [facility] [address] [place] [address] Alejandra Gardner MD [address] [place] [address] Care Coordination (Outreach) Social History Tobacco Use [...] with others, in a hotel, in a alf, living outside on the street, on a [...] encounter Progress Notes * Kaylee Solorio - 11/21/2024 1:12 PM EST CHW Kaylee Solorio , placed outbound call to patient in regards to offer services. CHW introducing herself from [facility] CM Department with CHW's name, department and direct contact [phone] requesting call back. Will re-attempt to contact within 5 days. and address not confirmed. documented in this encounter Plan of Treatment Not on file documented as of this encounter Visit Diagnoses Not on filedocumented in this encounter Additional Health Concerns Assessment Noted Time PHQ-9 Depression Total Score: 21 024 8:50 AM EDT documented as of this encounter Care Teams Slate Worker Relationship Specialty Start Date End Date Alejandra Gardner MD [address] [place] [address] PCP - General Family Medicine 07/15/23 Archana Gordon Community Health Worker 05/17/24 Alicia Wright RN [address] [place] [address] Commercial Estimator 05/17/24 documented as of this encounter
--- OUTSIDE RECORDS SUMMARY | 2024-11-25 19:47 | XMS_ITS | Encounter Summary ---
Author Organization [employer] Address [address] [place] [address] 7 [place] [address] Care Team Providers Care Advertising Clerk Name Role Phone Alejandra Gardner MD Primary Care Provider [phone] Archana Gordon Unavailable Unavailable Alicia Wright RN Unavailable [phone] Reason for Visit * Reason Onset Date Comments No Show 11/09/2024 Encounter Details Date Type Department Care Team ([facility] Contact Info) Description 11/09/2024 Telephone [facility] [address] [place] [address] Alejandra Gardner MD 505 [place] [address] No Show Social History Tobacco Use Types Packs/Day Years [...] with others, in a hotel, in a usp, living outside on the street, on a [...] encounter Miscellaneous Notes * Telephone Encounter - Bennie Busch - 11/09/2024 1:39 PM EST 11/09/24 no show documented in this encounter Plan of Treatment Not on file documented as of this encounter Visit Diagnoses Not on filedocumented in this encounter Additional Health Concerns Assessment Noted Time PHQ-9 Depression Total Score: 21 024 8:50 AM EDT documented as of this encounter Care Teams Advertising Clerk Relationship Specialty Start Date End Date Alejandra Gardner MD [address] [place] [address] PCP - General Family Medicine 07/15/23 Archana Gordon Community Health Worker 05/17/24 Alicia Wright RN 505 [place] [address] Truck Unloader 05/17/24 documented as of this encounter
--- OUTSIDE RECORDS SUMMARY | 2024-11-25 19:47 | XMS_ITS | Encounter Summary ---
Author Organization [employer] Address [address] [facility] 7t [place] [address] Care Team Providers Care Basic Combatant Swimmer Name Role Phone Alejandra Gardner MD Primary Care Provider Archana Gordon Unavailable Unavailable Alicia Wright RN Unavailable [phone] Reason for Visit * Reason Onset Date Comments Med Refill 11/08/2024 Encounter Details Date Type Department Care Team ([facility] st Contact Info) Description 11/08/2024 Telephone [facility] [address] [place] [address] Makayla Preston, DOC Med Refill Social History Tobacco Use Types Packs/Day Years [...] with others, in a hotel, in a residential, living outside on the street, on a [...] encounter Miscellaneous Notes * Telephone Encounter - Makayla Preston RN - 11/09/2024 10:44 AM EST Notified patient of prescription sent to pharmacy via My Chart messaging. Pt to follow up PRN. * Telephone Encounter - Alejandra Gardner MD - 11/08/2024 9:55 AM EST This was rx'ed by psych, I sent for refill but he needs to contact psych next time. * Telephone Encounter - Makayla Preston RN - 11/08/2024 9:45 AM EST Pt states he does not have any refills on his divalproex 500 mg and is requesting refills. Pt states he would alos like to schedule a routine appointment with provider. Will send to provider and schedule appt. documented in this encounter Plan of Treatment Not on file documented as of this encounter Visit Diagnoses Not on filedocumented in this encounter Additional Health Concerns Assessment Noted Time PHQ-9 Depression Total Score: 21 024 8:50 AM EDT documented as of this encounter Care Teams Basic Combatant Swimmer Relationship Specialty Start Date End Date Alejandra Gardner MD [address] [place] [address] PCP - General Family Medicine 07/15/23 Archana Gordon Community Health Worker 05/17/24 Alicia Wright RN [address] [place] [address] Raisin Separator Operator 05/17/24 documented as of this encounter
--- OUTSIDE RECORDS SUMMARY | 2024-11-25 19:47 | XMS_ITS | Encounter Summary ---
Author Organization [employer] Address [address] [place] [address] 7 [place] [address] Care Team Providers Care Propulsion Engineer Name Role Phone Alejandra Gardner MD Primary Care Provider [phone] Archana Gordon Unavailable Unavailable Alicia Wright RN Unavailable [phone] Encounter Details Date Type Department Care Team ([facility] st Contact Info) Description 11/23/2024 2:45 PM EST Office Visit [facility] [address] [place] [address] Melissa Carl MD [address] [place] [address] Seizures (CMS/HCC) (Primary Dx); Moderate persistent asthma without complication; Severe episode of recurrent major depressive disorder, without psychotic features (CMS/HCC); Substance abuse (CMS/HCC); Poor appetite Social History Tobacco Use Types Packs/Day Years [...] with others, in a hotel, in a snf, living outside on the street, on a [...] PM EDT documented as of this encounter Last Filed Vital Signs Vital Sign Reading Time Taken Comments Blood Pressure 118/69 11/23/2024 2:53 PM EST Pulse 116 11/23/2024 2:53 PM EST Temperature 36.8 ??C (98.3 ??F) 11/23/2024 2:53 PM ES T Respiratory Rate 20 11/23/2024 2:53 PM EST Oxygen Saturation 97% 11/23/2024 2:53 PM EST Inhaled Oxygen Concentration - - Weight 69.9 kg (154 lb) 11/23/2024 2:53 PM EST Height 165.1 cm (5' 5 ) 11/23/2024 2:53 PM EST Body Mass Index 25.63 11/23/2024 2:53 PM EST documented in this encounter Progress Notes * Melissa Carl MD - 11/23/2024 2:45 PM EST Subjective Patient ID: Rogelio Montero is a 34 y.o. male who presents for No chief complaint on file.. HPI Here for hospital discharge follow-up. 34-year-old male patient with history of substance use disorder was admitted on November 10 for suicidal ideation, because of recent separation from his son and son's mother. He wanted to jump from a bridge. Discharge on November 21, 2024. Placed on CIWA protocol. U tox positive for methadone, fentanyl, cocaine, cannabis. Yes restarted on levetiracetam. Mirtazapine was increased due to history of insomnia. Also startedon famotidine for nausea. He was complaining of hip pain during hospitalization and was started on gabapentin Patient improved and was discharged to a snf. It was recommended an intensive outpatient program that started on November 22, 2024 at [facility]. Patient was evaluated by his psychiatrist Agustina dominguez today at [facility] at [facility]. He has a therapist and will see her tomorrow. Needs a refill on levetiracetam and gabapentin. Denies suicidal ideation today. Patient Active Problem List Diagnosis Seizures ([facility]) Severe episode of recurrent major depressive disorder, without psychotic features ([facility]) History of homicidal ideation Moderate persistent asthma without complication Substance abuse ([facility]) Tobacco abuse Vision abnormalities JOHN (generalized anxiety disorder) Current Outpatient Medications on File Prior to Visit Medication Sig Dispense Refill baclofen (Lioresal) 10 MG tablet Take 1 tablet by mouth 2 times daily. cloNIDine (Catapres) 0.2 MG tablet Take 1 tablet (0.2 mg) by mouth Once per day. 30 tablet 11 cyproheptadine (Periactin) 4 MG tablet Take 1 tablet by mouth at bedtime. divalproex (Depakote) 500 MG EC tablet Take 2 tablets (1,000 mg) by mouth at bedtime. 180 tablet 2 famotidine (Pepcid) 20 MG tablet Take 1 tablet by mouth 2 times daily. hydrOXYzine HCl (Atarax) 50 MG tablet Take 1 tablet by mouth every 8 (eight) hours if needed for anxiety. levETIRAcetam (Keppra) 750 MG tablet Take 1 tablet by mouth 2 times daily. mirtazapine (Remeron) 45 MG tablet Take 45 mg by mouth at bedtime. naloxone (Narcan) 4 mg/0.1 mL nasal spray Administer 1 spray (4 mg) into affected nostril(s) if needed for opioid reversal. 2 each 1 nicotine (Nicoderm CQ) 14 MG/24HR patch Place 1 patch on the skin 1 (one) time each day at the sametime. 42 patch 0 nicotine (Nicoderm CQ) 7 MG/24HR patch Place 1 patch on the skin 1 (one) time each day at the same time. 14 patch 0 nicotine (Nicoderm, Step 1) 21 MG/24HR patch Place 1 patch on the skin 1 (one) time each day at thesame time. prazosin (Minipress) 5 MG capsule Take 1 capsule by mouth at bedtime. QUEtiapine (SEROquel) 50 MG tablet Take 50 mg by mouth if needed in the morning and at bedtime (anxiety/agitation). sertraline (Zoloft) 100 MG tablet Take 2 tablets by mouth Once per day. Ventolin HFA 108 (90 Base) MCG/ACT inhaler INHALE 2 PUFFS BY MOUTH EVERY 4 HOURS NEEDED FOR WHEEZING 18 g 1 [DISCONTINUED] albuterol (2.5 MG/3ML) 0.083% nebulizer solution Take 3 mL by nebulization 1 (one) time for 1 dose. 3 mL 11 [DISCONTINUED] Fluticasone-Salmeterol (Advair Diskus) 250-50 MCG/ACT aerosol powder Inhale 1 puff 2times daily. 60 each 5 [DISCONTINUED] gabapentin (Neurontin) 300 MG capsule Take 1 capsule by mouth 3 times daily. [DISCONTINUED] hydrOXYzine pamoate (Vistaril) 50 MG capsule Take 1 capsule (50 mg) by mouth every 6(six) hours if needed for itching for up to 10 days. 30 capsule 0 [DISCONTINUED] mirtazapine (Remeron SolTab) 15 MG disintegrating tablet Take 1 tablet (15 mg) by mouth at bedtime. 30 tablet 0 [DISCONTINUED] mirtazapine (Remeron) 15 MG tablet TAKE 1 TABLET BY MOUTH EVERY NIGHT AT BEDTIME 30 tablet 0 [DISCONTINUED] sertraline (Zoloft) 100 MG tablet Take 1 tablet (100 mg) by mouth Once per day. 30 tablet 11 No current facility-administered medications on file prior to visit. No Known Allergies Review of Systems Constitutional: Negative for appetite change, chills and diaphoresis. Eyes: Negative for photophobia, pain and redness. Respiratory: Negative for cough, choking and chest tightness. Genitourinary: Negative for flank pain, frequency and genital sores. Musculoskeletal: Negative for gait problem and joint swelling. Objective BP 118/69 (BP Location: Left arm, Patient Position: Sitting, BP Cuff Size: Adult) Pulse (!) 116 Temp 98.3 ??F (36.8 ??C) (Oral) Resp 20 Ht 5' 5 (1.651 m) Wt 154 lb (69.9 kg) SpO2 97% BMI 25.63 kg/m?? Physical Exam Constitutional: General: He is not in acute distress. Appearance: Normal appearance. He is not ill-appearing, toxic-appearing or diaphoretic. Cardiovascular: Rate and Rhythm: Normal rate. Pulmonary: Effort: Pulmonary effort is normal. Neurological: General: No focal deficit present. Mental Status: He is alert. Psychiatric: Mood and Affect: Mood normal. Assessment/Plan Diagnosis Plan 1. Seizures (CMS/HCC) levETIRAcetam (Keppra) 750 MG tablet ECG 12 lead Comprehensive Metabolic Panel Comprehensive Metabolic Panel 2. Moderate persistent asthma without complication albuterol (2.5 MG/3ML) 0.083% nebulizer solution Fluticasone-Salmeterol (Advair Diskus) 250-50 MCG/ACT aerosol powder ECG 12 lead Comprehensive Metabolic Panel Comprehensive Metabolic Panel The requested refills were sent to patient's pharmacy 3. Severe episode of recurrent major depressive disorder, without psychotic features (CMS/HCC) Continue with psychiatric care Call crisis as needed 4. Substance abuse ([facility]) ECG 12 lead Patient has a recovery room rn Advised to continue following up with his substance abuse program 5. Poor appetite Comprehensive Metabolic Panel Comprehensive Metabolic Panel Nutritional Supplements (Ensure Active High Protein) liquid Ensure prescribed as requested. documented in this encounter Plan of Treatment Pending Results Name Type Priority Associated Diagnoses Date /Time ECG 12 lead ECG Routine Moderate persistent asthma without complication Seizures (CMS/HCC) Substance abuse (CMS/HCC) 11/23/2024 4:47 PM EST Scheduled Orders Name Type Priority Associated Diagnoses Orde r Schedule Comprehensive Metabolic Panel Lab Routine Moderate persistent asthma without complication Seizures (CMS/HCC) Poor appetite Expected: 11/23/2024 (Approximate), Expires: 11/23/2025 documented as of this encounter Visit Diagnoses Diagnosis Seizures (CMS/HCC)- Primary Other convulsions Moderate persistent asthma without complication Severe episode of recurrent major depressive disorder, without psychotic features (CMS/HCC) Substance abuse (CMS/HCC) Other, mixed, or unspecified nondependent drug abuse, unspecified Poor appetite Anorexia documented in this encounter Additional Health Concerns Assessment Noted Time PHQ-9 Depression Total Score: 21 024 8:50 AM EDT documented as of this encounter Care Teams Propulsion Engineer Relationship Specialty Start Date End Date Alejandra Gardner MD [address] [place] [address] PCP - General Family Medicine 07/15/23 Archana Gordon Community Health Worker 05/17/24 Alicia Wright RN [address] [place] [address] Squirrel Man 05/17/24 documented as of this encounter
--- OUTSIDE RECORDS SUMMARY | 2024-11-25 19:47 | XMS_ITS | Encounter Summary ---
Author Organization [employer] Address [address] [place] [address] 7 [place] [address] Care Team Providers Care Range Scientist Name Role Phone Alejandra Gardner MD Primary Care Provider [phone] Archana Gordon Unavailable Unavailable Alicia Wright RN Unavailable [phone] Reason for Visit * Reason Comments Care Coordination Outreach Encounter Details Date Type Department Care Team (Latest Contact Info) Description 11/14/2024 Patient Outreach [facility] [address] [place] [address] Alejandra Gardner MD [address] [place] [address] Care Coordination (Outreach) Social History Tobacco Use [...] Progress Notes * Kaylee Solorio - 11/14/2024 1:41 PM EST CHW Kaylee Solorio placed outbound call to [facility] for discharge coordination as patient was admitted on 11/10/24. CHW was connect to patient's [employer]rier Ivanna, there no plan of discharge at the moment. CHW to follow up within the next 2 days. documented in this encounter Plan of Treatment Not on file documented as of this encounter Visit Diagnoses Not on filedocumented in this encounter Additional Health Concerns Assessment Noted Time PHQ-9 Depression Total Score: 21 024 8:50 AM EDT documented as of this encounter Care Teams Range Scientist Relationship Specialty Start Date End Date Alejandra Gardner MD [address] [place] [address] PCP - General Family Medicine 07/15/23 Archana Gordon Community Health Worker 05/17/24 Alicia Wright RN [address] [facility] [place] [address] Edger Feeder 05/17/24 documented as of this encounter
--- OUTSIDE RECORDS SUMMARY | 2024-11-25 19:48 | XMS_ITS | Encounter Summary ---
Author Organization [employer] Address [address] [place] [address] 7 [place] [address] Care Team Providers Care Tombstone Erector Name Role Phone Alejandra Gardner MD Primary Care Provider [phone] Archana Gordon Unavailable Unavailable Alicia Wright RN Unavailable [phone] Reason for Visit * Reason Onset Date Comments PT1 07/21/2024 Encounter Details Date Type Department Care Team (Late st Contact Info) Description 07/21/[address] [facility] MED[facility] [address] [place] [address] Alejandra Gardner MD [address] [place] [address] PT1 Social History Tobacco Use Types Packs/Day Years [...] with others, in a hotel, in a prison, living outside on the street, on a [...] encounter Miscellaneous Notes * Telephone Encounter - Abraham Plaza - 07/21/2024 12:38 PM EDT Patient calling requesting PT1 Home Address verified: Y/N: Yes Provider name or facility name: [facility] Facility Address: [address] [place] [address] Escort needed: Y/N: Yes Do you have a wheelchair: Y/N: No Visits: All Future appt's documented in this encounter Plan of Treatment Not on file documented as of this encounter Visit Diagnoses Not on filedocumented in this encounter Additional Health Concerns Assessment Noted Time PHQ-9 Depression Total Score: 21 024 8:50 AM EDT documented as of this encounter Care Teams Tombstone Erector Relationship Specialty Start Date End Date Alejandra Gardner MD [address] [place] [address] PCP - General Family Medicine 07/15/23 Archana Gordon Community Health Worker 05/17/24 Alicia Wright RN [address] [place] [address] Orchestra Director 05/17/24 documented as of this encounter
--- OUTSIDE RECORDS SUMMARY | 2024-11-25 19:48 | XMS_ITS | Encounter Summary ---
Author Organization [employer] Address [address] [place] [address] 7 [place] [address] Care Team Providers Care Ear Mold Laboratory Technician Name Role Phone Alejandra Gardner MD Primary Care Provider Archana Gordon Unavailable Unavailable Alicia Wright RN Unavailable [phone] Reason for Visit * Reason Onset Date Comments Hospital Follow-up 07/21/2024 Encounter Details Date Type Department Care Team (Late st Contact Info) Description 07/21/2024 Telephone [facility] MED[facility] [address] [place] [address] Alejandra Gardner MD [address] [place], [place] [id number] Hospital Follow-up Social History Tobacco Use Types [...] with others, in a hotel, in a care home, living outside on the street, on a [...] Telephone Encounter - Abraham Plaza - 07/21/2024 12:35 PM EDT Quinton Mercado, What times work best for you? Morning or afternoon? Please feel free to message back through [employer] or call us at [phone] with any questions. Thanks, Yessica ROACH Tc from pt returning call to r/s F appt, pt informs afternoon is best documented in this encounter Plan of Treatment Not on file documented as of this encounter Visit Diagnoses Not on filedocumented in this encounter Additional Health Concerns Assessment Noted Time PHQ-9 Depression Total Score: 21 024 8:50 AM EDT documented as of this encounter Care Teams Ear Mold Laboratory Technician Relationship Specialty Start Date End Date Alejandra Gardner MD [address] [place] [address] PCP - General Family Medicine 07/15/23 Archana Gordon Community Health Worker 05/17/24 Alicia Wright RN [address] [place] [id number] Recovery Coach 05/17/24 documented as of this encounter
--- OUTSIDE RECORDS SUMMARY | 2024-11-25 19:48 | XMS_ITS | Encounter Summary ---
Author Organization [employer] Address [address] [place] [address] 7t [place] [address] Care Team Providers Care Flosser Name Role Phone Alejandra Gardner MD Primary Care Provider [phone] Archana Gordon Unavailable Unavailable Alicia Wright RN Unavailable [phone] Reason for Visit * Reason Onset Date Comments New PAtient Appt 06/03/2023 Encounter Details Date Type Department Care Team (Late st Contact Info) Description 06/03/2023 Telephone [facility] MEDICINE [address] [place] [address] Alejandra Gardner MD [address] [place] [address] New PAtient Appt Social History Tobacco Use Types Packs/Day Years Used Date Smoking Tobacco: Never Assessed Sex and Gender Information Value Date Recorded Sex Assigned at Male 08/31/2022 10:26 AM EDT Legal Sex Male 10:26 AM EDT Gender Identity Male 07/15/2023 1:09 PM EDT Sexual Orientation Straight 07/15/2023 1: 09 PM EDT documented as of this encounter Miscellaneous Notes * Telephone Encounter - Abraham Plaza - 06/03/2023 1:00 PM EDT PAR Abraham Quiroz called pt to Offer FISH BIN TENDER appt. Pt demographics and insurance information were verified. Pt reports the following medical conditions: Seizures and Asthma. Pt is currently taking medication: Ventolin and Medication for the Seizures (advised to please medications to appt.) Pt given NPappt with Dr. Alejandra Gardner on 07/15/2023 @ 1:00 pm. Pt will be sent appt reminder card and medical release form and agrees to complete and to return to medical records prior to FISH BIN TENDER appt. documented in this encounter Plan of Treatment Not on file documented as of this encounter Visit Diagnoses Not on filedocumented in this encounter Care Teams Flosser Relationship Specialty Start Date End Date Alejandra Gardner MD [address] [place] [address] PCP - General Family Medicine 07/15/23 Archana Gordon Community Health Worker 05/17/24 Alicia Wright RN [address] [place] [address] Chief Maintenance Supervisor 05/17/24 documented as of this encounter
--- OUTSIDE RECORDS SUMMARY | 2024-11-25 19:48 | XMS_ITS | Clinical Summary ---
Author Organization [employer] Address [address] [place] [address] [address] [place] [address] Care Team Providers Care Environmental Conflict Manager Name Role Phone Alejandra Gardner MD Primary Care Provider Archana Gordon Unavailable Unavailable Alicia Wright RN Unavailable [phone] Allergies No known active allergies Medications * This document contains information received from the source organization and may not represent a complete record from that organization. naloxone (Narcan) 4 mg/0.1 mL nasal spray Administer 1 spray (4 mg) into affected nostril(s) if needed for opioid reversal. 2 each 1 023 Active nicotine (Nicoderm, Step 1) 21 MG/24HR patch Place 1 patch on the skin 1 (one) time each day at the same time. Active nicotine (Nicoderm CQ) 14 MG/24HR patch Place 1 patch on the skin 1 (one) time each day at the same time. 42 patch 024 Active nicotine (Nicoderm CQ) 7 MG/24HR patch Place 1 patch on the skin 1 (one) time each day at the same time. 14 patch 024 Active cloNIDine (Catapres) 0.2 MG tabletIndications :Severe episode of recurrent major depressive disorder, without psychotic features (CMS/HCC) Take 1 tablet (0.2 mg) by mouth Once per day. 30 tablet 11 024 2024 Active Ventolin HFA 108 (90 Base) MCG/ACT inhalerIndication s:Moderate persistent asthma without complication INHALE 2 PUFFS BY MOUTH EVERY 4 HOURS NEEDED FOR WHEEZING 18 g 1 12/04/2 024 Active divalproex (Depakote) 500 MG EC tablet Take 2 tablets (1,000 mg) by mouth at bedtime. 180 tablet 2 Active hydrOXYzine HCl (Atarax) 50 MG tablet Take 1 tablet by mouth every 8 (eight) hours if needed for anxiety. Active mirtazapine (Remeron) 45 MG tablet Take 45 mg by mouth at bedtime. Active sertraline (Zoloft) 100 MG tablet Take 2 tablets by mouth Once per day. Active cyproheptadine (Periactin) 4 MG tablet Take 1 tablet by mouth at bedtime. Active baclofen (Lioresal) 10 MG tablet Take 1 tablet by mouth 2 times daily. Active prazosin (Minipress) 5 MG capsule Take 1 capsule by mouth at bedtime. Active famotidine (Pepcid) 20 MG tablet Take 1 tablet by mouth 2 times daily. Active QUEtiapine (SEROquel) 50 MG tablet Take 50 mg by mouth if needed in the morning and at bedtime (anxiety/agitat ion). Active albuterol (2.5 MG/3ML) 0.083% nebulizer solutionIndicatio ns:Moderate persistent asthma without complication Take 3 mL by nebulization 1 (one) time for 1 dose. 3 mL Active Fluticasone-Salme terol (Advair Diskus) 250-50 MCG/ACT aerosol powderIndications :Moderate persistent asthma without complication Inhale 1 puff 2 times daily. 60 each 5 Active gabapentin (Neurontin) 300 MG capsule Take 1 capsule (300 mg) by mouth 3 times daily. 90 capsule 3 Active levETIRAcetam (Keppra) 750 MG tabletIndications :Seizures (CMS/HCC) Take 1 tablet (750 mg) by mouth 2 times daily. 60 tablet Active Nutritional Supplements (Ensure Active High Protein) liquidIndications :Poor appetite 1 can 2 times a day 12757 mL Active divalproex (Depakote) 500 MG EC tablet Take 2 tablets by mouth at bedtime. 2024 Discontinued(R eorder (will not trigger notification to Pharmacy)) Fluticasone-Salme terol (Advair Diskus) 250-50 MCG/ACT aerosol powderIndications :Moderate persistent asthma without complication Inhale 1 puff 2 times daily. 60 each 5 2024 Discontinued(R eorder (will not trigger notification to Pharmacy)) albuterol (2.5 MG/3ML) 0.083% nebulizer solutionIndicatio ns:Moderate persistent asthma without complication Take 3 mL by nebulization 1 (one) time for 1 dose. 3 mL 2024 Discontinued(R eorder (will not trigger notification to Pharmacy)) sertraline (Zoloft) 100 MG tabletIndications :Severe episode of recurrent major depressive disorder, without psychotic features (CMS/HCC) Take 1 tablet (100 mg) by mouth Once per day. 30 tablet 2024 Discontinued(M ed list cleanup (will not trigger notification to Pharmacy)) hydrOXYzine pamoate (Vistaril) 50 MG capsuleIndication s:Severe episode of recurrent major depressive disorder, without psychotic features (CMS/HCC) Take 1 capsule (50 mg) by mouth every 6 (six) hours if needed for itching for up to 10 days. 30 capsule 2024 Discontinued(M ed list cleanup (will not trigger notification to Pharmacy)) mirtazapine (Remeron SolTab) 15 MG disintegrating tabletIndications :Severe episode of recurrent major depressive disorder, without psychotic features (CMS/HCC) Take 1 tablet (15 mg) by mouth at bedtime. 30 tablet 2024 Discontinued(M ed list cleanup (will not trigger notification to Pharmacy)) mirtazapine (Remeron) 15 MG tablet TAKE 1 TABLET BY MOUTH EVERY NIGHT AT BEDTIME 30 tablet 2024 Discontinued(M ed list cleanup (will not trigger notification to Pharmacy)) gabapentin (Neurontin) 300 MG capsule Take 1 capsule by mouth 3 times daily. 2024 Discontinued(R eorder (will not trigger notification to Pharmacy)) levETIRAcetam (Keppra) 750 MG tablet Take 1 tablet by mouth 2 times daily. 2024 Discontinued(R eorder (will not trigger notification to Pharmacy)) Active Problems Problem Noted Date Diagnosed Date JOHN (generalized anxiety disorder) 04/06/2024 Vision abnormalities 11/24/2023 Seizures 07/15/2023 Overview (07/15/2023): Follows with Dr Ramirez at [facility] Assessment & Plan (07/16/2023 8:11 AM EDT): Patient unable to provide dosing of depakote or keppra, not completely seizure free, questionable compliance. Reports has not seen neurology in a long while, was following with Dr. Ramirez. Will send labs and patient to call/send message through [facility] with meds and dosing. Severe episode of recurrent major depressive disorder, without psychotic features 07/15/2023 Overview (07/15/2023): Inpatient admit for homicidal ideation and auditory hallucinations. Assessment & Plan (04/06/2024 9:51 AM EDT): PROGRESS NOTE: ID: Rogelio is a 33 y.o. White straight-identified cis-malewith previous documented hx of Depression, Substance Use Disorder, Hx of HI and tobacco abuse. MH services including OP Psychotherapy psychopharmacology who presents for Substance Use Disorder, Depression, and Anxiety. Renting a room, currently unemployed due to disability. During [facility]BH Consult Rogelio presenting with depressed mood, loss of interests/pleasure , changes in sleep difficulty falling asleep and difficulty staying asleep , change in appetite or weight reduce appetite, psychomotor agitation, trouble concentrating, thoughts of worthlessness or guilt, fatigue/loss of energy, excessive worry/anxiety, difficulty controlling worry, restless/keyed up/On edge, easily fatigued, difficulty concentrating/Mind going blank , irritability, muscle tension, and sleep disturbance difficulty falling asleep and difficulty staying asleep , and unsuccessful attempt/s to cut down/stop use, cravings and urges to use, recurrent use resulting in failure to fulfill major obligations at work/home/school , continued use, even when it causes interpersonal problems, giving up/reducing important social, occupational, or recreational activities because of use, tolerance , withdrawal sxs , in regard to Opioids, Stimulants , and Tobacco; for a period of 18+ mo, for all symptoms in the context of family issues, financial concern, illness or family illness, employment concern, relationship issues, and active addiction. Rogelio presented with low mood, he is currently sick. He verbalized Hx of trauma in both childhood and adulthood. Substance use started at his teen years with cocaine, then it developed to opioids. He has been sober for 3 weeks, recently finished detox program. Rogelio is interested in getting in to a sober house. We discussed coping mechanism to address acute sxs and [employer] services, who he agreed. I provide him with Eugenie Montero who will be able to support him in his goal to get in to a sober house. Rogelio was receptive and agreeable to services and referrals. PLAN: New/Additional Services needed Off-site services for Behavioral Health Integration Plan Internal Follow up with [facility] External OP therapy referral and OP psychiatry Referral Patient Self Plan Patient to utilize skills provided in intervention , [facility] as [facility], Comply with medication , Patient to engage in OP therapy , and Patient to [facility] to [facility] Assessment & Plan (07/26/2023 5:03 PM EDT): Assessment: Patient with depression (depressed mood, anhedonia, sleep disturbance, low motivation, poor appetite, feelings of guilt, difficulty concentrating, and restlessness), a history of trauma exposure, and anger issues (history of violent ideation, irritability, and physical fights). Symptoms are in the context of bio-psychosocial stressors of lack of OP care and a history of trauma in childhood. Patient will benefit from OP therapy and psychiatry. At this time Rogelio Montero meets criteria for Visit Diagnoses: Problem List Items Addressed This Visit Other Moderate episode of recurrent major depressive disorder (CMS/HCC) Patient ready to address current needs Yes Strengths- Rogelio has insight around his symptoms and is involved in his yazdanism PLAN: 1. Follow up with [facility]: Recommended for follow-up: As needed 2. Patient goal is to engage in OP therapy and psychiatry 3. Behavioral Recommendations a. Explore additional coping mechanisms b. OP therapy c. Medication management with psychiatry Assessment & Plan (07/16/2023 8:15 AM EDT): Patient reports hx of depression on and off, reports mothers as one of the culprits, reports she also had a hx of mood disorder NOS, denies every been diagnosed with bipolar disorder. Did have behavioral health see patient and start discussion and will benefit from psychiatric input to assist with elucidating diagnosis (ddx unipolar vs bipolar depression) . Will need to administer mood disorder, if positive and considering pharmacotherapy will consider SGA. Moderate persistent asthma without complication 06/02/2018 Assessment & Plan (07/16/2023 8:12 AM EDT): Patient has been w/o controlled med for a while, in past needed Advair, will send ICS-LABA and f/up within 1 month. Needs ACT questionnaire filled out next visit. Patient had flu shot given. History of homicidal ideation 05/05/2018 Tobacco abuse 05/05/2018 Substance abuse 09/09/2017 Overview (07/15/2023): H/o detox 04/2018; alcohol, cocaine, heroin and benzo's Encounters Date Type Department Care Team Description 11/23/2024 2:45 PM EST Office Visit [facility] [address] [place] [address] Melissa Carl MD Seizures ([facility]) (Primary Dx); Moderate persistent asthma without complication; Severe episode of recurrent major depressive disorder, without psychotic features ([facility]); Substance abuse ([facility]); Poor appetite 11/23/2024 Travel 11/21/2024 Patient Outreach [facility] [address] [place] [address] Alejandra Gardner MD Care Coordination (Outreach) 11/17/[address] [facility] [address] [place] [address] Alejandra Gardner MD Transition Of Care (Tcm) (HDF- scheduled and SDOH screening unable to complete. ) 11/17/2024 Patient Outreach [facility] [address] [place] [address] Alejandra Gardner MD Transition Of Care (Tcm) (HDF- Unscheduled Laxmi will relay message to Jackie to return call. ) 11/17/2024 Telephone [facility] [address] [place] [address] Alejandra Gardner MD Hospital Follow-up 11/14/2024 Patient Outreach [facility] [address] [place] [address] Alejandra Gardner MD Care Coordination (Outreach) 11/14/2024 Patient Outreach [facility] [address] [place] [address] Alejandra Gardner MD Care Coordination (Outreach) 11/09/2024 Orders Only GENERIC EXTERNAL DATA DEPARTMENT Provider, Generic External Data 11/09/[address] [facility] [address] [place] [address] Alejnadra Gardner MD No Show 11/08/[address] [facility] [address] [place] [address] Makayla Preston, DOC Med Refill 10/03/[address] [facility] [address] [place] [address] Alejandra Gardner MD Moderate persistent asthma without complication 10/03/[address] [facility] [address] [place], [place] [phone] Melissa Carl MD from Last 3 Months Immunizations Name Administration Dates Next Due Influenza injectable quadriv alent preservative free 07/15/2023,08/04/2020 Influenza, IIV3, injectable 08/21/2011 Marissa SARS-CoV-2 Vaccination 04/11/2021 Moderna Covid-19 Vaccine 12+ 01/13/2022 Pfizer Covid-19 Vaccine 12+ 09/26/2021,,02/11/2021 Td (adult), 5 Lf tetanus tox oid, preservative free, adsorbed 03/05/2015 Tdap 03/02/2024,07/15/2023 Family History Medical History Relation Name Comments substance abuse Mother Relation Name Status Comments Mother Social History Tobacco Use Types Packs/Day Years Used Date Smoking Tobacco: Every Day Cigarettes Passive Smoke Exposure: Never Smokeless Tobacco: Never Tobacco Cessation:Ready to Q uit: Not Asked; Counseling Given: Not Answered Alcohol Use Standard Drinks/Week Comments Never 0 [...] with others, in a hotel, in a intermediate, living outside on the street, on a [...] Orientation Straight 07/15/2023 1: 09 PM EDT Last Filed Vital Signs Vital Sign Reading [...] Mass Index 25.63 11/23/2024 2:53 PM EST Plan of Treatment Health Maintenance Due Date Last Done Comments Dental Prophylaxis 1988 Lipid Panel 1988 Pneumococcal Vaccine: Pediatrics (0 to 5 Years) and At-Risk Patients (6 to 64 Years) (1 of 2 - PCV) 1994 Family Planning (PISQ) 2003 Hepatitis A Vaccines (1 of 2 - Risk 2-dose series) 2007 Hepatitis B Vaccines (1 of 3 - 19+ 3-dose series) 2007 Dental Oral Exam 02/08/2015 08/09/2014 Dental X-Ray: Bitewings 08/10/2015 08/09/2014 Dental X-Ray: Full Mouth 09/14/2017 09/13/2014, 07/2014 COVID-19 Vaccine ( season) 2024 01/13/2022, 09/26/2021, 04/11/2021, Additional history exists Influenza Vaccine (#1) 2024 , 08/04/2020, 08/21/2011 Depression Monitoring (PHQ-9) 10/06/2024 04/06/2024, 04/06/2024 Alcohol/Substance Use Screening 04/06/2025 04/06/2024 Depression Screening 04/06/2025 04/06/2024, 04/06/20 24 SDOH Screening 05/17/2025 05/17/2024 Tobacco Screening 11/23/2025 11/23/2024 DTaP/Tdap/Td Vaccines (3 - Td or Tdap) 03/02/2034 03/02/2024, 07/15/2023, 03/05/2015 Zoster Vaccines (1 of 2) 2038 RSV Patients and Patients Aged 60 years or older (1 - 1-dose 75+ series) 2063 HIV Screening Completed 04/10/2024 Hepatitis C Screening Completed 04/10/2024 HIB Vaccines Aged Out No longer eligi ble based on patient's age to complete this topic HPV Vaccines Aged Out No longer eligi ble based on patient's age to complete this topic IPV Vaccines Aged Out No longer eligi ble based on patient's age to complete this topic Meningococcal Vaccine Aged Out No leann marnie eligible based on patient's age to complete this topic RSV under 20 months Aged Out No longe r eligible based on patient's age to complete this topic Rotavirus Vaccines Aged Out No longer eligible based on patient's age to complete this topic Procedures Procedure Name Priority Date/Time Associated Diagnosis Comments XR HIP 2 OR 3 VIEWS LEFT Routine 11/15/2024 7:55 PM EST XR HAND WRIST RT Routine 11/10/2024 3:45 PM EST VALPROIC ACID Routine 11/09/2024 10:30 PM EST COMPREHENSIVE METABOLIC PANEL Routine 11/09/2024 8:02 PM EST ETHANOL Routine 11/09/2024 8:02 PM EST DRUG MONITOR, PANEL 1, SCREEN, URINE Routine 11/09/2024 8:02 PM EST URINALYSIS, COMPLETE, WITH REFLEX TO CULTURE Routine 11/09/2024 8:02 PM EST CBC WITH AUTO DIFFERENTIAL Routine 11/09/2024 8:02 PM EST SARS COV2/INFLUENZA A/B AND RSV RNA QL NAAT Routine 11/09/2024 8:02 PM EST HEPATITIS C AB W/REFL TO HCV RNA, QN, PCR Routine 04/10/2024 4:26 PM EDT Opioid type dependence, continuous (CMS/HCC) HIV 1/2 ANTIGEN/ANTIBODY, FOURTH GENERATION W/RFL Routine 04/10/2024 4:26 PM EDT Opioid type dependence, continuous (CMS/HCC) PANORAMIC RADIOGRAPHIC IMAGE Routine 09/13/2014 12:00 AM EST DIAGNOSTIC - DIAGNOSTIC IMAGING - INTRAORAL - COMPREHENSIVE SERIES OF RADIOGRAPHIC IMAGES Routine 08/09/2014 12:00 AM EDT COMPREHENSIVE ORAL EVALUATION - NEW OR ESTABLISHED PATIENT Routine 08/09/2014 12:00 AM EDT from Last 3 Months or Most Recently Relevant to Health Maintenance Results * XR Hip 2 or 3 Views Left (11/15/2024 7:55 PM EST) Anatomical Region Laterality Modality Lower Extremities, Hip Left Radiograp hic Imaging 11/15/2024 7:55 PM EST Narrative 11/16/2024 7:22 AM EST ? [facility] ?[address] ?[place] [address] ?XRay Report ? Signed ? Patient: Rogelio Montero ?MR#: [id number] ?? 6 ? : 1990 ?Acct:[id number] ? Age/Sex: 34 / M ?ADM Date: 11/10/24 ? Loc: [id number].[id number] ?307-1 ? Attending Dr: Enmanuel Johnson MD ? Ordering Physician: Enmanuel Johnson MD ?? Date of Service: 11/15/24 ?? Procedure(s): XR hip LT min 2V ?? Accession Number(s): [id number] ? cc: Enmanuel Johnson MD; Alejandra Gardner [...] MD ? Signed By: ?<Electronically signed by Bnadar Mcneil MD in OV> ? 11/16/24 0719 ? DD/ 54 ? TD/TT: 11/15/242001 ? Certified Dietary Manager: ? Procedure Note Donotuseinterpreter, Image - 11/16/[address] [address] XRay Report Signed Patient: Rogelio MonteroMR#: [id number] 6 : 1990Acct:[id number] Age/Sex: 34 / MADM Date: 11/10/24 Loc: HO.[id number] 307-[address]: Enmanuel Johnson MD Ordering Physician: Enmanuel Johnson MD Date of Service: 11/15/24 Procedure(s): XR hip LT min 2V Accession Number(s): [id number] cc: Enmanuel Johnson MD; Alejandra Gardner MD [...] Bandar Francois MD 11/16/2024 07:19 AM EST Dictated By: Bandar Olmos MD Signed By: <Electronically signed by Bandar Mcneil MDin OV> 11/16/24 0719 DD/ 54 TD/TT: 11/15/242001 Certified Dietary Manager: [facility] External Provider IMG XR PROCEDURES Edited Result - Final * XR HAND WRIST RT (11/10/2024 3:45 PM EST) Anatomical Region Laterality Modality Abdomen Radiographic Lucille ging 11/10/2024 3:45 PM EST Narrative 11/13/2024 8:16 AM EST ? [facility] ?[address] ?[place] [address] ?XRay Report ? Signed ? Patient: Montero,Rogelio ?MR#: [id number] ?? 6 ? : 1990 ?Acct:[id number] ? Age/Sex: 34 / M ?ADM Date: 11/10/24 ? Loc: HO.[id number] ?307-1 ? Attending Dr: Enmanuel Johnson MD ? Ordering Physician: Enmanuel Johnson MD ?? Date of Service: 11/10/24 ?? Procedure(s): XR hand wrist RT ?? Accession Number(s): [id number] ? cc: Enmanuel Johnson MD; Alejandra Gardner [...] DD/ 1545 ? TD/TT: 11/10/24 1550 ? Certified Dietary Manager: ? Procedure Note Paulette, Sergio - 11/13/[address] [address] XRay Report Signed Patient: Radha Montero#: [id number] 6 : 1990Acct:[id number] Age/Sex: 34 / MADM Date: 11/10/24 Loc: [id number].[id number] 307-[address]: Enmanuel Johnson MD Ordering Physician: Enmanuel Johnson MD Date of Service: 11/10/24 Procedure(s): XR hand wrist RT Accession Number(s): [id number] cc: Enmanuel Johnson MD; Alejandra Gardner MD [...] 11/13/24 0813 DD/ 1545 TD/TT: 11/10/24 1550 Certified Dietary Manager: [facility] External Provider IMG XR PROCEDURES Edited Result - Final * (ABNORMAL) Valproic Acid Total (11/09/2024 10:30 PM EST) Pathologist [facility] Valproate <12.5(L) 50.0 - 100.0 mcg/mL [facility] 11/09/2024 10:3 0 PM EST 11/09/2024 10:35 PM EST Generic External Data Provider LAB BLOOD ORDERAB LES Final Result Performing Organization Address [facility] Co de Phone Number [facility] [address] [place] [phone] * Ethanol (11/09/2024 8:02 PM EST) ETHANOL (MG/DL) IN SER/PLAS 66 mg/dL [facility] Comment:Serum/plasma ethanol results are to be used formedical/treatment purposes only. 11/09/2024 8:02 PM EST 11/09/2024 8:10 PM EST Generic External Data Provider LAB BLOOD ORDERAB LES Final Result Performing Organization Address [facility] Co de Phone Number [facility] [address] [place] [phone] * (ABNORMAL) Urinalysis, Complete, with Reflex to Culture (11/09/2024 8:02 PM EST) Color Urine Dark Yellow [facility] Appearance Urine Clear [facility] PH 6.0 5.0 - 9.0 [facility] Glucose Urine UA Negative Negative mg/dL [facility] Urine Blood Negative Negative [facility] Specific Steele - Urine >=1.030(H) 1.005 - 1.025 [facility] Urine Protein Trace Neg-Trace mg/dL [facility] Urine Ketones Trace Negative mg/dL [facility] Nitrite Urine Negative Negative [facility] Leukocyte Esterase Urine Trace(A) Negative [facility] RBC Urine 0-2 0 - 2 /HPF [facility] Urine WBC 0-5 0 - 5 /HPF [facility] Urine Squamous Epithelial Cell 0-2 0 - 2 /HPF [facility] Urine Bacteria None Seen None Seen [facility] Hyaline Casts, Urine 3-5 0 - 2 /LPF [facility] 11/09/2024 8:02 PM EST 11/09/2024 8:10 PM EST Narrative [facility] - 11/09/2024 8:29 PM EST Urine, Clean Catch us Generic External Data Provider LAB URINE ORDERAB LES Final Result [facility] [address] [place] [phone] * SARS-CoV-2 RNA, Influenza A/B, and RSV RNA, Ql NAAT (11/09/2024 8:02 PM EST) Influenza A PCR NEGATIVE Negative [facility] Influenza B PCR NEGATIVE Negative [facility] Resp Syncy Virus RNA Qual PCR NEGATIVE Negative [facility] SARS COV2 PCR NEGATIVE Negative [facility] Comment:All test results mus t [...] use by authorized laboratories.Testing performed on the ACE GeneXpert utilizingreal-time RT-PCR.All SARS CoV2 and positive influenza A/B results arereported to [facility]. 11/09/2024 8:02 PM EST 11/09/2024 8:10 PM EST us Generic External Data Provider LAB MICROBIOLOGY - GENERAL ORDERABLES Final Result [facility] [address] [place] [phone] * (ABNORMAL) Drug Monitoring, Panel 1, Screen, Urine (11/09/2024 8:02 PM EST) Opiate Screen Urine Not Detected Not Detect [facility] Comment:Opiate cut-off is 30 0 ng/mL.Positive results are unconfirmed and should not be used fornon-medical purposes. Barbiturates, Urine Not Detected Not Detect [facility] Comment:Barbiturate cut-off is 200 ng/mL.Positive results are unconfirmed and should not be used fornon-medical purposes. Phencyclidine Screen Urine Not Detected Not Detect [facility] Comment:Phencyclidine cut-of f is 25 ng/mL.Positive results are unconfirmed and should not be used fornon-medical purposes. Amphetamine Screen Urine Not Detected Not Detect [facility] Comment:Amphetamine cut-off is 1000 ng/mL.Positive results are unconfirmed and should not be used fornon-medical purposes. Benzodiazepines Screen Urine Not Detected Not Detect [facility] Comment:Benzodiazepine cut-o ff is 200 ng/mL.Positive results are unconfirmed and should not be used fornon-medical purposes. Cocaine Screen Urine POSITIVE(A) Not Detect [facility] Comment:Cocaine cut-off is 3 00 ng/mL.Positive results are unconfirmed and should not be used fornon-medical purposes. Cannabinoid Screen Urine POSITIVE(A) Not Detect [facility] Comment:Cannabinoid cut-off is 50 ng/mL.Positive results are unconfirmed and should not be used fornon-medical purposes. Methadone Screen, Urine Positive(A) Not Detect ng/mL [facility] Comment:Methadone cut-off is 300 ng/mL.Positive results are unconfirmed and should not be used fornon-medical purposes. FENTANYL URINE POSITIVE(A) Not Detect [facility] Comment:Fentanyl cut-off is 1 ng/mL.Positive results are unconfirmed and should not be used fornon-medical purposes. Oxycodone Urine Screen Not Detected Not Detect ng/mL [facility] Comment:Oxycodone cut-off is 100 ng/mL.Positive results are unconfirmed and should not be used fornon-medical purposes. Buprenorphine Screen Not Detected Not Detect ng/mL [facility] Comment:Buprenorphine cut-of f is 5 ng/mL.Positive results are unconfirmed and should not be used fornon-medical purposes. 11/09/2024 8:02 PM EST 11/09/2024 8:10 PM EST us Generic External Data Provider LAB URINE ORDERAB LES Final Result [facility] [address] [place] [phone] * (ABNORMAL) CBC auto differential (11/09/2024 8:02 PM EST) White Blood Count 9.6 4.8 - 10.8 X10*3/uL [facility] Red Blood Count 4.49(L) 4.60 - 5.80 X10*6/uL [facility] Hemoglobin 14.6 14.0 - 18.0 g/dl [facility] Hematocrit 42.3 42.0 - 52.0 % [facility] Mean Corpuscular Volume 94.2 80.0 - 98.0 fL [facility] Mean Corpuscular Hemoglobin 32.5 27.0 - 33.0 pg [facility] Mean Corpuscular HGB Conc 34.5 31.0 - 36.0 g/dl [facility] Red Cell Distribution Width 13.0 11.0 - 16.0 % [facility] Platelet Count 251 160 - 400 X10*3/uL [facility] Mean Platelet Volume 10.1 9.4 - 12.4 fL [facility] Neutrophils Percent Auto 52.3 45 - 73 % [facility] Imm Gran Pct Auto 0.3 0.0 - 0.4 % [facility] Lymphocytes Percent Auto 35.6 20 - 40 % [facility] Monocytes Percent Auto 8.2 2 - 11 % [facility] Eosinophils Percent Auto 3.1 0 - 4 % [facility] Basophils Percent Auto 0.5 0 - 2 % [facility] NRBC Pct Auto 0.0 0.0 - 0.2 /100WBC [facility] Neutrophils Absolute Auto 5.0 2.0 - 8.3 x10*3/uL [facility] Imm Gran Abs Auto 0.03 0.00 - 0.03 X10*3/uL [facility] Lymphocytes Absolute Auto 3.4 1.2 - 4.9 X10*3/uL [facility] Monocytes Absolute Auto 0.8 0.1 - 1.2 X10*3/uL [facility] Eosinophils Absolute Auto 0.3 0.0 - 0.4 X10*3/uL [facility] Basophils Absolute Auto 0.1 0.0 - 0.2 X10*3/uL [facility] NRBC Abs Auto 0.000 0.0 - 0.012 X10*3/uL [facility] 11/09/2024 8:02 PM EST 11/09/2024 8:10 PM EST us Generic External Data Provider LAB BLOOD ORDERAB LES Final Result [facility] [address] [place] [phone] * (ABNORMAL) Comprehensive Metabolic Panel (11/09/2024 8:02 PM EST) Sodium 143 135 - 145 mmol/L [facility] Potassium 3.8 3.3 - 5.1 mmol/L [facility] Chloride 107 96 - 108 mmol/L [facility] Carbon Dioxide 29 22 - 29 mmol/L [facility] Anion Gap 11(L) 12 - 20 [facility] Urea Nitrogen (BUN) 10 9 - 16 mg/dL [facility] Creatinine, Serum 0.77 0.5 - 1.4 mg/dL [facility] Creatinine Clr Calc Pharmacy 110.1 [facility] Comment:eGFR (calculated fro m the MDRD study equation) and eCrCl(calculated from the Cockcroft-Gault equation) are based ondifferent parameters and may not yield comparable results.If eCrCl result is absurd, please check patient'sheight/weight. Estimated Glomerular Filt Rate >60 [facility] Comment:Chronic Kidney Disea se: Estimated GFR < 60 mL/min/1.80j7Ppfadm Kidney Disease: Estimated GFR < 15 mL/min/1.73m2 Glucose 85 60 - 115 mg/dL [facility] Calcium 9.4 8.4 - 10.2 mg/dL [facility] Bilirubin, Total 0.2 0.0 - 1.0 mg/dL [facility] Aspartate Amino Transferase 23 5 - 37 U/L [facility] Alanine Aminotransferase 12 0 - 40 U/L [facility] Total Protein 7.6 6.5 - 8.0 g/dL [facility] Albumin Level 4.3 3.5 - 5.0 g/dL [facility] Alkaline Phosphatase 64 39 - 117 U/L [facility] 11/09/2024 8:02 PM EST 11/09/2024 8:10 PM EST us Generic External Data Provider LAB BLOOD ORDERAB LES Final Result Performing Organization Address [facility] Co de Phone Number [facility] [address] [place] [phone] * Hepatitis C Antibody with Reflex to HCV, RNA, Quantitative, Real-Time PCR (04/10/2024 4:26 PM EDT) Hepatitis C Antibody Nonreactive Nonreactive [facility] Comment:Antibodies to HCV no t detected; does not exclude early acuteHCV infection. Blood Venous blood specimen / Unknown 04/10/2024 4:26 PM EDT 04/10/2024 5:18 PM EDT us Enmanuel Billy MD LAB BLOOD ORDERABLES Final Resul t Performing Organization Address [facility] Co de Phone Number [facility] [address] [place] [phone] * HIV-1/2 Antigen and Antibodies, Fourth Generation, with Reflexes (04/10/2024 4:26 PM EDT) HIV AB/AG Nonreactive Nonreactive [facility] Comment:HIV-1 p24 Ag and/or HIV-1/HIV-2 Ab not detected.A test result that is nonreactive does not exclude thepossibility of exposure to or infection with HIV-1 and/orHIV-2. Nonreactive results in this assay for individualswith prior exposure to HIV-1 and/or HIV-2 may be due toantigen and antibody levels that are below the limit ofdetection of this assay.The [employer] HIV Ag/Ab Combo assay result andsupplemental assay results should be interpreted inconjunction with the patient's clinical presentation,history and other laboratory results. If the results areinconsistent with clinical evidence, additional testing issuggested to confirm the result. Blood Venous blood specimen / Unknown 04/10/2024 4:26 PM EDT 04/10/2024 5:18 PM EDT us Enmanuel Billy MD LAB BLOOD ORDERABLES Final Resul t [facility] [address] [place] [phone] from Last 3 Months or Most Recently Relevant to Health Maintenance Insurance [place] [facility] MEDICAID STAND ADULT Care Teams Environmental Conflict Manager Relationship Specialty Start Date End Date Alejandra Gardner MD [address] [place] [phone] PCP - General Family Medicine 07/15/23 Archana Gordon Community Health Worker 05/17/24 Alicia Wright RN [address] [place] [phone] Environmental Geologist 05/17/24
--- OUTSIDE RECORDS SUMMARY | 2024-11-25 19:48 | XMS_ITS | Encounter Summary ---
Author Organization [employer] Address [address] [place] [address] [address] [place] [address] Care Team Providers Care Health And Fitness Professor Name Role Phone Alejandra Gardner MD Primary Care Provider [phone] Archana Grodon Unavailable Unavailable Alicia Wright RN Unavailable [phone] Encounter Details Date Type Department Care Team (Latest Contact Info) Description 11/23/2024 Travel Social History Tobacco Use Types Packs/Day Years [...] with others, in a hotel, in a nursing home, living outside on the street, on [...] documented as of this encounter Care Teams Health And Fitness Professor Relationship Specialty Start Date End Date Alejandra Gardner MD [address] [place] [phone] PCP - General Family Medicine 07/15/23 Archana Gordon Community Health Worker 05/17/24 Alicia Wright RN [address] [place] [address] Cath Lab Manager 05/17/24 documented as of this encounter
[2024-11-25 20:04] LABS: Amphetamine Screen Urine Not Detected (Not Detect); Barbiturates, Urine Not Detected (Not Detect); Benzodiazepines Screen Urine Not Detected (Not Detect); Buprenorphine Scr Not Detected (Not Detect); Cannabinoid Screen Urine Not Detected (Not Detect); Cocaine Screen Urine POSITIVE (Not Detect); Fentanyl, urine Not Detected (Not Detect); Methadone Screen, Urine Positive (Not Detect); Opiate Screen Urine Not Detected (Not Detect); Oxycodone Screen Urine Not Detected (Not Detect); Phencyclidine Screen Urine Not Detected (Not Detect)
[2024-11-25 20:19] LABS: Hematocrit 38.9 % (42.0-52.0); Hemoglobin 13.4 g/dl (14.0-18.0); Mean Corpuscular HGB Conc 34.4 g/dl (31.0-36.0); Mean Corpuscular Hemoglobin 32.9 pg (27.0-33.0); Mean Corpuscular Volume 95.6 fL (80.0-98.0); Platelet Count 275 X10*3/uL (160-400); Red Blood Count 4.07 X10*6/uL (4.60-5.80); White Blood Count 6.6 X10*3/uL (4.8-10.8)
[2024-11-25 20:32] LABS: Valproate < 12.5 mcg/mL (50.0-100.0)
[2024-11-25 20:33] LABS: Alanine Aminotransferase 105 U/L (0-40); Albumin Level 4.1 g/dL (3.5-5.0); Alkaline Phosphatase 76 U/L (39-117); Anion Gap 10 (12-20); Aspartate Amino Transferase 41 U/L (5-37); Bilirubin Total 0.2 mg/dL (0.0-1.0); Blood Urea Nitrogen 15 mg/dL (9-16); Calcium 8.8 mg/dL (8.4-10.2); Carbon Dioxide 27 mmol/L (22-29); Chloride 107 mmol/L (96-108); Creatinine Clr Calc Pharmacy 125.1; Estimated Glomerular Filt Rate > 60; Ethanol 31 mg/dL; Glucose Random 115 mg/dL (60-115); Potassium 3.9 mmol/L (3.3-5.1); Sodium 140 mmol/L (135-145); Total Protein 7.6 g/dL (6.5-8.0)
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
[2024-11-26 03:04] VITALS: BP 111/79; PULSE 97; RESP 17; TEMP 36.9; O2SAT 97
[2024-11-26] MEDS: LORazepam 1 MG TABLET 2 MG PO (03:12)
--- NOTE | 2024-11-26 07:46 | PC.NURSE ---
Assumed care of patient at 0645, patient appears to be sleeping, respirations even and unlabored, no apparent distress is noted at this time. Continue plan of care for CARE team geraldine
--- NOTE | 2024-11-26 08:59 | PC.NURSE ---
methadone verified with [facility]: Dose: 11/24/24 @ 0830 95 mg Person providing info: DOC Hanks
--- NOTE | 2024-11-26 09:20 | HE.PHANOTE ---
re methadone pharmacy received patients methadone verification form, rn confirmed patient to be on 95 mg methadone with KEESHA lauren, last dose 11/24/24 @4049
--- NOTE | 2024-11-26 09:47 | PHA.MEDREC ---
Pharmacy Consult ? Medication Reconciliation Reviewed med rec done by nursing; matches claim history. Nurse reported RX bottle
[2024-11-26] MEDS: methADONE HCl 20 MG/2 ML ORAL.CONC 95 MG PO (10:10)
[2024-11-26] MEDS: Fluticasone/Vilanterol 100/25 BLST.W.DEV 1 PUFF INHALE (10:17)
[2024-11-26] MEDS: QUEtiapine Fumarate 50 MG TABLET PO (14:24)
[2024-11-26] MEDS: Gabapentin 300 MG CAPSULE PO ×2 (14:25→20:47)
[2024-11-26] MEDS: Sertraline HCL 100 MG TABLET 200 MG PO (14:25)
--- NOTE | 2024-11-26 14:38 | MHC.CARE ---
Patient evaluated by the CARE Team disposition inpatient dual diagnosis treatment. Provider, Dr. Joshua updated.
[2024-11-26 14:49] VITALS: BP 106/65; PULSE 87; RESP 14; TEMP 36.8; O2SAT 98
[2024-11-26] MEDS: levETIRAcetam 250 MG TABLET 750 MG PO ×2 (16:14→20:57)
[2024-11-26] MEDS: Baclofen 10 MG TABLET PO ×2 (16:14→20:47)
[2024-11-26] MEDS: LORazepam 1 MG TABLET PO ×2 (17:02→22:07)
[2024-11-26 19:01] VITALS: BP 104/63; PULSE 72; RESP 18; TEMP 36.7; O2SAT 96
[2024-11-26] MEDS: Mirtazapine 15 MG TABLET 45 MG PO (20:46)
[2024-11-26] MEDS: Famotidine 20 MG TABLET PO (20:46)
[2024-11-26] MEDS: Divalproex Sodium 500 MG TABLET.DR 1000 MG PO (20:47)
[2024-11-26] MEDS: Cyproheptadine HCl 4 MG TABLET PO (20:57)
[2024-11-26 20:58] VITALS: BP 104/63
[2024-11-26] MEDS: Prazosin HCL 5 MG CAPSULE PO (20:58)
--- NOTE | 2024-11-26 23:38 | PC.NURSE ---
Took over care from Prosper Ponce, pt resting at this time.
[2024-11-27] MEDS: hydrOXYzine HCL 50 MG TABLET PO (05:28)
[2024-11-27 05:30] VITALS: BP 106/66; PULSE 89; RESP 18; TEMP 36.6; O2SAT 97
--- NOTE | 2024-11-27 05:30 | PC.NURSE ---
pt verbalizes increase in anxiety/unable to sleep. prn medication utilized. effectiveness pending.
--- NOTE | 2024-11-27 08:02 | ECG_ITS ---
Test Reason : prolonged qtc Blood Pressure : */* mmHG Vent. Rate : 86 BPM Atrial Rate : 86 BPM P-R Int : 144 ms QRS Dur : 88 ms QT Int : 386 ms P-R-T Axes : 56 37 43 degrees QTcB Int : 461 ms Normal sinus rhythm Normal ECG When compared with ECG of 10-Nov-2024 09:34, No significant change was found Referred By: Vladimir Fields Electronically Signed By: NIKKI MILLER
[2024-11-27] MEDS: Famotidine 20 MG TABLET PO (08:56)
[2024-11-27] MEDS: Gabapentin 300 MG CAPSULE PO (08:56)
[2024-11-27] MEDS: Sertraline HCL 100 MG TABLET 200 MG PO (08:56)
[2024-11-27] MEDS: methADONE HCl 20 MG/2 ML ORAL.CONC 95 MG PO (08:57)
[2024-11-27] MEDS: levETIRAcetam 250 MG TABLET 750 MG PO (09:22)
[2024-11-27] MEDS: Baclofen 10 MG TABLET PO (09:22)
[2024-11-27] MEDS: LORazepam 1 MG TABLET PO (09:28)
[2024-11-27] MEDS: Fluticasone/Vilanterol 100/25 BLST.W.DEV 1 PUFF INHALE (09:33)
--- NOTE | 2024-11-27 09:41 | MHC.CARE ---
Patient has been accepted to [facility] @[address] [facility] [address], ETA 1pm. F32.9 Depressive D/o Unspecified F14.20 Cocaine Use D/o F10.20 Alcohol Use D/o Accepting is Dr Nixon. Transport being booked.
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
--- NOTE | 2024-11-27 11:16 | MHC.CARE ---
Pt became agitated and yelling at nursing staff and t/w. T/w notified Dr. Joshua that Pt is refusing placement that was recommenced by the CARE Team. ED Psychiatric Uma Gross NP is aware. Plan for Pt to be discharged due to refusal of placement.
--- NOTE | 2024-11-27 11:17 | PC.NURSE ---
Patient is very upset about going to [facility], does not want to go even though he has never been there before. care team has spoken multiple times to him. discharge paperwork printed and now sitting in a corner in his room trying to wrap a blanket around his head and throat. security present again and speaking to him.
[2024-11-27 13:07] VITALS: BP 110/60; PULSE 88; RESP 16; TEMP 36.8; O2SAT 98
== END 2024-11-27 13:08 | disposition home or self-care (01) ==
PROVIDERS: Emergency Medicine; Emergency Provider Emergency Medicine Emergency Medical Services; PCP Family Medicine
DX: F19.10 Other psychoactive substance abuse, uncomplicated (principal); R45.851 Suicidal ideations; F39 Unspecified mood [affective] disorder; J45.909 Unspecified asthma, uncomplicated; F14.10 Cocaine abuse, uncomplicated; F11.20 Opioid dependence, uncomplicated; F17.210 Nicotine dependence, cigarettes, uncomplicated; Z79.899 Other long term (current) drug therapy
CPT/HCPCS: 36415; 80053; 80164; 80307; 81003; 85027; 93005; 99285; S9485

== ENCOUNTER → 2024-11-27 08:02 | Outpatient (BNV) | payer MEDICAID, SELFPAY | PROVIDERS: Emergency Provider Emergency Medicine Emergency Medical Services; PCP Family Medicine; Visit Provider Internal Medicine | DX: R45.851 Suicidal ideations (principal) | CPT/HCPCS: 93010 ==

== ENCOUNTER 2024-11-28 11:19 | Emergency (ER) | payer MEDICAID, SELFPAY ==
--- NOTE | 2024-11-28 | ECG_ITS ---
Test Reason : PROLONGED QTC Blood Pressure : */* mmHG Vent. Rate : 77 BPM Atrial Rate : 77 BPM P-R Int : 156 ms QRS Dur : 90 ms QT Int : 392 ms P-R-T Axes : 60 45 43 degrees QTcB Int : 443 ms Normal sinus rhythm Normal ECG When compared with ECG of 27-Nov-2024 08:12, No significant change was found Referred By: Antonia Gamboa Electronically Signed By: NIKKI MILLER
[2024-11-28 11:30] VITALS: BP 111/72; PULSE 115; RESP 18; TEMP 36.6; O2SAT 96; BMI 26.9
--- NOTE | 2024-11-28 11:36 | ED.PSYCH ---
HPI - Psych General Chief Complaint: Psychiatric Symptoms Stated Complaint: Told to return - SI? Time Seen by Provider: 11/28/24 11:48 Related Data Home Medications ?Medication ?Instructions ?Recorded ?Confirmed albuterol sulfate 90 mcg/actuation 2 puff inhalation Q4H PRN wheezing 06/16/24 11/25/24 aerosol inhaler (Ventolin HFA) fluticasone 250 mcg-salmeterol 50 1 ea inhalation BID 06/16/24 11/25/24 mcg/dose blistr powdr for inhalation (Advair Diskus) methadone 10 mg/mL oral 95 mg PO DAILY 11/10/24 11/26/24 concentrate (Methadone Intensol) sertraline 100 mg tablet 200 mg PO QAM depressive disorder 11/25/24 11/28/24 Previous Rx's ?Medication ?Instructions ?Recorded baclofen 10 mg tablet 10 mg PO BID 30 days #60 tabs 11/21/24 cyproheptadine 4 mg tablet 4 mg PO BEDTIME 30 days #30 tabs 11/21/24 divalproex 500 mg tablet,delayed 1,000 mg (2 x 500 mg) PO BEDTIME 11/21/24 release 30 days #60 tabs famotidine 20 mg tablet 20 mg PO BID 30 days #60 tabs 11/21/24 gabapentin 300 mg capsule 300 mg PO TID 30 days #90 caps 11/21/24 hydroxyzine HCl 50 mg tablet 50 mg PO TID PRN anxiety 30 days 11/21/24 #90 tabs levetiracetam 750 mg tablet 750 mg PO BID 30 days #60 tabs 11/21/24 mirtazapine 45 mg tablet 45 mg PO BEDTIME 30 days #30 tabs 11/21/24 prazosin 5 mg capsule 5 mg PO BEDTIME 30 days #30 caps 11/21/24 quetiapine 50 mg tablet 50 mg PO BID PRN anxiety/agitation 11/21/24 30 days #60 tabs Allergies Allergy/AdvReac Type Severity Reaction Status Date / Time No Known Allergies Allergy Verified 11/28/24 11:35 PMFSH Past Medical History Medical History Seizure disorder Polysubstance (including opioids) dependence with physiol dependence Active substance abuse Epilepsy Asthma Social History Social History Household Members: None Housing: Homeless Do you presently have visiting nurse or other home services: No Unable to assess alcohol history related to: Refusing to respond Alcohol intake: current Alcohol intake frequency: 3 or more drinks per day Alcohol type: hard liquor Comment: does not like to wear yellow socks. wears his own. Patient Tobacco Use Status: Current everyday Tobacco user Tobacco use type: Cigarette Cigarettes Per Day: 10 Smoked in Last 30 Days: Yes Second Hand Smoke Exposure: No Use of substances other than those prescribed or required for medical reasons: Yes Substance Use Type: Crack/Cocaine Substance Use Frequency: Occasionally Last Used Substance: Just Prior to Admission Advance Directives: No Advance Directives Information Provided: Yes Do you have a plan to hurt others: No Plan service: No Sexual orientation: Straight/Heterosexual Physical Exam Vital Signs: Vital Signs: Last Vital Signs Temp 97.8 F 11/28/24 16:00 Pulse 115 H 11/28/24 16:00 Resp 18 11/28/24 16:00 BP 111/72 11/28/24 16:00 Pulse Ox 96 11/28/24 16:00 O2 Del Method Room Air 11/28/24 16:00 BMI result Body Mass Index 26.9 Course Course Course Narrative: This is an RME: Additional HPI, ROS, PE not included below will be deferred to primary provider. RME assessment and note performed by: Lydia Ferguson PA-C This is a 43-idil-mha-male presenting to the ER with complaints of increased depression and SI, with vague plan to jump off bridge. No HI. Was here recently for SI. Plan: Labs, care team, further ER eval needed Medical Decision Making Medical Decision Making MDM Narrative: Positive suicidal ideation. Lab Data 11/28/24 14:18 11/28/24 14:18 Labs: Lab Results 11/28/24 11/28/24 Range/Units 12:35 14:18 WBC 8.9 (4.8-10.8) X10*3/uL RBC 4.20 L (4.60-5.80) X10*6/uL Hgb 13.6 L (14.0-18.0) g/dl Hct 39.2 L (42.0-52.0) % MCV 93.3 (80.0-98.0) fL MCH 32.4 (27.0-33.0) pg MCHC 34.7 (31.0-36.0) g/dl RDW 13.9 (11.0-16.0) % Plt Count 313 (160-400) X10*3/uL MPV 9.8 (9.4-12.4) fL Immature Gran % (Auto) 0.3 (0.0-0.4) % Neut % (Auto) 67.3 (45-73) % Lymph % (Auto) 23.4 (20-40) % [place] % (Auto) 7.4 (2-11) % Eos % (Auto) 1.0 (0-4) % Baso % (Auto) 0.6 (0-2) % Lymph # (Auto) 2.1 (1.2-4.9) X10*3/uL [place] # (Auto) 0.7 (0.1-1.2) X10*3/uL Eos # (Auto) 0.1 (0.0-0.4) X10*3/uL Baso # (Auto) 0.1 (0.0-0.2) X10*3/uL Abs Immat Gran (auto) 0.03 (0.00-0.03) X10*3/uL Absolute Neuts (auto) 6.0 (2.0-8.3) x10*3/uL Absolute Nucleated RBC 0.000 (0.0-0.012) X10*3/uL Nucleated RBC % (auto) 0.0 (0.0-0.2) /100WBC Sodium 139 (135-145) mmol/L Potassium 4.3 (3.3-5.1) mmol/L Chloride 105 (96-108) mmol/L Carbon Dioxide 26 (22-29) mmol/L Anion Gap 12 (12-20) BUN 18 H (9-16) mg/dL Creatinine 0.85 (0.5-1.4) mg/dL Estim Creat Clear Calc 108.7 Estimated GFR > 60 Random Glucose 133 H (60-115) mg/dL Calcium 9.7 D (8.4-10.2) mg/dL Total Bilirubin 0.4 (0.0-1.0) mg/dL Direct Bilirubin 0.1 (0.0-0.5) mg/dL AST 29 (5-37) U/L ALT 56 H (0-40) U/L Alkaline Phosphatase 69 (39-117) U/L Total Protein 7.8 (6.5-8.0) g/dL Albumin 4.2 (3.5-5.0) g/dL Urine Color Yellow Urine Appearance Clear Urine pH 6.0 (5.0-9.0) Ur Specific [place] 1.025 (1.005-1.025) Urine Protein Negative (Neg-Trace) mg/dL Urine Glucose (UA) Negative (Negative) mg/dL Urine Ketones Negative (Negative) mg/dL Urine Blood Negative (Negative) Urine Nitrite Negative (Negative) Ur Leukocyte Esterase Negative (Negative) Urine Opiates Screen Not Detected (Not Detect) Ur Buprenorphine Scrn Not Detected (Not Detect) ng/mL Ur Oxycodone Screen Not Detected (Not Detect) ng/mL Urine Methadone Screen Positive H (Not Detect) ng/mL Urine Fentanyl Screen Not Detected (Not Detect) Ur Barbiturates Screen Not Detected (Not Detect) Ur Phencyclidine Scrn Not Detected (Not Detect) Ur Amphetamines Screen Not Detected (Not Detect) U Benzodiazepines Scrn Not Detected (Not Detect) Urine Cocaine Screen POSITIVE H (Not Detect) U Marijuana (THC) Screen Not Detected (Not Detect) Ethyl Alcohol < 10 mg/dL Discharge Plan Discharge Clinical Impression: Suicidal ideation Patient Disposition: Still a Patient Prescriptions: No Action sertraline 100 mg tablet 200 mg PO QAM fluticasone propion-salmeterol [Advair Diskus] 250-50 mcg/dose blister with device 1 ea inhalation BID Rx Instructions: pt reports has 2 on him and intermitently uses that why hasn't filled at pharmacy recently. albuterol sulfate [Ventolin HFA] 90 mcg/actuation HFA aerosol inhaler 2 puff inhalation Q4H PRN (Reason: wheezing) Rx Instructions: pt reports has 2 on him and intermitently uses that why hasn't filled at pharmacy recently. methadone [Methadone Intensol] 10 mg/mL Concentrate 95 mg PO DAILY Patient Comments: [facility] . cyproheptadine 4 mg Tablet 4 mg PO BEDTIME 30 Days Qty: 30 0RF baclofen 10 mg Tablet 10 mg PO BID 30 Days Qty: 60 0RF prazosin 5 mg Capsule 5 mg PO BEDTIME 30 Days Qty: 30 0RF Protocol: Hold for SBP< HOLD for SBP < : 90 divalproex 500 mg Tablet,Delayed Release (Dr/Ec) 1,000 mg PO BEDTIME 30 Days Qty: 60 0RF gabapentin 300 mg Capsule 300 mg PO TID 30 Days Qty: 90 0RF famotidine 20 mg Tablet 20 mg PO BID 30 Days Qty: 60 0RF mirtazapine 45 mg tablet 45 mg PO BEDTIME 30 Days Qty: 30 0RF levetiracetam 750 mg tablet 750 mg PO BID 30 Days Qty: 60 0RF quetiapine 50 mg Tablet 50 mg PO BID PRN (Reason: anxiety/agitation) 30 Days Qty: 60 0RF hydroxyzine HCl 50 mg tablet 50 mg PO TID PRN (Reason: anxiety) 30 Days Qty: 90 0RF Interventions: [place]-Suicide Risk Severity Scale Last Done: 11/28/24 14:00 Print Language: Citizen [place]
--- NOTE | 2024-11-28 12:00 | ED_ITS ---
HPI - Psych General Chief Complaint: Psychiatric Symptoms Stated Complaint: Told to return - SI? Time Seen by Provider: 11/28/24 11:48 History of Present Illness HPI Narrative: Patient is 34-year-old male presents today with having suicidal thoughts. Patient was DC yesterday. Denies any drugs or alcohol. Claims he does not have a home. Denies he has any guns. Threatened to jump off the bridge. Patient denies any homicidal ideation. Related Data Home Medications ?Medication ?Instructions ?Recorded ?Confirmed albuterol sulfate 90 mcg/actuation 2 puff inhalation Q4H PRN wheezing 06/16/24 11/25/24 aerosol inhaler (Ventolin HFA) fluticasone 250 mcg-salmeterol 50 1 ea inhalation BID 06/16/24 11/25/24 mcg/dose blistr powdr for inhalation (Advair Diskus) methadone 10 mg/mL oral 95 mg PO DAILY 11/10/24 11/26/24 concentrate (Methadone Intensol) sertraline 100 mg tablet 200 mg PO QAM depressive disorder 11/25/24 11/25/24 Previous Rx's ?Medication ?Instructions ?Recorded baclofen 10 mg tablet 10 mg PO BID 30 days #60 tabs 11/21/24 cyproheptadine 4 mg tablet 4 mg PO BEDTIME 30 days #30 tabs 11/21/24 divalproex 500 mg tablet,delayed 1,000 mg (2 x 500 mg) PO BEDTIME 11/21/24 release 30 days #60 tabs famotidine 20 mg tablet 20 mg PO BID 30 days #60 tabs 11/21/24 gabapentin 300 mg capsule 300 mg PO TID 30 days #90 caps 11/21/24 hydroxyzine HCl 50 mg tablet 50 mg PO TID PRN anxiety 30 days 11/21/24 #90 tabs levetiracetam 750 mg tablet 750 mg PO BID 30 days #60 tabs 11/21/24 mirtazapine 45 mg tablet 45 mg PO BEDTIME 30 days #30 tabs 11/21/24 prazosin 5 mg capsule 5 mg PO BEDTIME 30 days #30 caps 11/21/24 quetiapine 50 mg tablet 50 mg PO BID PRN anxiety/agitation 11/21/24 30 days #60 tabs Allergies Allergy/AdvReac Type Severity Reaction Status Date / Time No Known Allergies Allergy Verified 11/28/24 11:35 Review of Systems 2 Review of Systems: Positive SI Yes all other systems are reviewed and are negative [facility] Past Medical History Attestation statement: The following information was validated with the patient. Medical History Seizure disorder Polysubstance (including opioids) dependence with physiol dependence Active substance abuse Epilepsy Asthma Social History Social History Household Members: None Housing: Homeless Do you presently have visiting nurse or other home services: No Unable to assess alcohol history related to: Refusing to respond Alcohol intake: current Alcohol intake frequency: 3 or more drinks per day Alcohol type: hard liquor Comment: does not like to wear yellow socks. wears his own. Patient Tobacco Use Status: Current everyday Tobacco user Tobacco use type: Cigarette Cigarettes Per Day: 10 Smoked in Last 30 Days: Yes Second Hand Smoke Exposure: No Use of substances other than those prescribed or required for medical reasons: Yes Substance Use Type: Crack/Cocaine Substance Use Frequency: Occasionally Last Used Substance: Just Prior to Admission Advance Directives: No Advance Directives Information Provided: Yes Do you have a plan to hurt others: No Plan service: No Sexual orientation: Straight/Heterosexual Physical Exam 2 Vital Signs: Vital Signs: Last Vital Signs Temp 97.8 F 11/28/24 16:00 Pulse 115 H 11/28/24 16:00 Resp 18 11/28/24 16:00 BP 111/72 11/28/24 16:00 Pulse Ox 96 11/28/24 16:00 O2 Del Method Room Air 11/28/24 16:00 BMI result Body Mass Index 26.9 Appearance: Alert. Oriented X3. No acute distress. Eyes: Pupils equal, round and reactive to light. ENT: Pharynx normal. Neck: Normal inspection. Neck supple. No lymph nodes noted. No crepitus CVS: Normal heart rate and rhythm. Pulses normal. Normal S1 and S2 Respiratory: No respiratory distress. Breath sounds normal. No Wheezing. No rales Abdomen: Soft and nontender. No rigidity. No distention. good BS x4 Skin: Skin warm and dry. Normal skin color. Normal skin turgor. Extremities: No lower extremity edema. Neurovascular intact to all extremities. No Lacerations. No Rash Neuro: Oriented X 3. No motor deficit. No sensory deficit. Moving all extermities. No slurred speech. Cranial nerves intact Medical Decision Making Medical Decision Making [facility] Narrative: Well-appearing no acute distress. Neurologically intact. Will get crisis to evaluate patient for his suicidal ideation Patient has seen previously. Now have suicidal thoughts again. Denies any alcohol denies any other recreational drugs has no gun in the house. Will be evaluated Differential Diagnosis Differential Diagnoses: The differential diagnosis associated with the presentation includes Depression Admission/Observation Consideration of admission/observation: Escalation of care including admission/observation considered Consult Healthcare Provider Management of the patient was discussed with: Nuclear Equipment Design Engineer (Care team) Lab Data [facility] Lab Attestation statement: I reviewed the patient's lab results. 11/28/24 14:18 11/28/24 14:18 Labs: Lab Results 11/28/24 11/28/24 Range/Units 12:35 14:18 WBC 8.9 (4.8-10.8) X10*3/uL RBC 4.20 L (4.60-5.80) X10*6/uL Hgb 13.6 L (14.0-18.0) g/dl Hct 39.2 L (42.0-52.0) % MCV 93.3 (80.0-98.0) fL MCH 32.4 (27.0-33.0) pg MCHC 34.7 (31.0-36.0) g/dl RDW 13.9 (11.0-16.0) % Plt Count 313 (160-400) X10*3/uL MPV 9.8 (9.4-12.4) fL Immature Gran % (Auto) 0.3 (0.0-0.4) % Neut % (Auto) 67.3 (45-73) % Lymph % (Auto) 23.4 (20-40) % [place] % (Auto) 7.4 (2-11) % Eos % (Auto) 1.0 (0-4) % Baso % (Auto) 0.6 (0-2) % Lymph # (Auto) 2.1 (1.2-4.9) X10*3/uL [place] # (Auto) 0.7 (0.1-1.2) X10*3/uL Eos # (Auto) 0.1 (0.0-0.4) X10*3/uL Baso # (Auto) 0.1 (0.0-0.2) X10*3/uL Abs Immat Gran (auto) 0.03 (0.00-0.03) X10*3/uL Absolute Neuts (auto) 6.0 (2.0-8.3) x10*3/uL Absolute Nucleated RBC 0.000 (0.0-0.012) X10*3/uL Nucleated RBC % (auto) 0.0 (0.0-0.2) /100WBC Sodium 139 (135-145) mmol/L Potassium 4.3 (3.3-5.1) mmol/L Chloride 105 (96-108) mmol/L Carbon Dioxide 26 (22-29) mmol/L Anion Gap 12 (12-20) BUN 18 H (9-16) mg/dL Creatinine 0.85 (0.5-1.4) mg/dL Estim Creat Clear Calc 108.7 Estimated GFR > 60 Random Glucose 133 H (60-115) mg/dL Calcium 9.7 D (8.4-10.2) mg/dL Total Bilirubin 0.4 (0.0-1.0) mg/dL Direct Bilirubin 0.1 (0.0-0.5) mg/dL AST 29 (5-37) U/L ALT 56 H (0-40) U/L Alkaline Phosphatase 69 (39-117) U/L Total Protein 7.8 (6.5-8.0) g/dL Albumin 4.2 (3.5-5.0) g/dL Urine Color Yellow Urine Appearance Clear Urine pH 6.0 (5.0-9.0) Ur Specific [place] 1.025 (1.005-1.025) Urine Protein Negative (Neg-Trace) mg/dL Urine Glucose (UA) Negative (Negative) mg/dL Urine Ketones Negative (Negative) mg/dL Urine Blood Negative (Negative) Urine Nitrite Negative (Negative) Ur Leukocyte Esterase Negative (Negative) Urine Opiates Screen Not Detected (Not Detect) Ur Buprenorphine Scrn Not Detected (Not Detect) ng/mL Ur Oxycodone Screen Not Detected (Not Detect) ng/mL Urine Methadone Screen Positive H (Not Detect) ng/mL Urine Fentanyl Screen Not Detected (Not Detect) Ur Barbiturates Screen Not Detected (Not Detect) Ur Phencyclidine Scrn Not Detected (Not Detect) Ur Amphetamines Screen Not Detected (Not Detect) U Benzodiazepines Scrn Not Detected (Not Detect) Urine Cocaine Screen POSITIVE H (Not Detect) U Marijuana (THC) Screen Not Detected (Not Detect) Ethyl Alcohol < 10 mg/dL Independent Historian Clinical information obtained from an independent historian. History obtained from or confirmed by: EMS Social Determinants Patient?s care significantly limited by Social Determinants of Health including: Alcoholism and drug addiction in family and Problems related to primary support group Discharge Plan Discharge Clinical Impression: Suicidal ideation Patient Disposition: Still a Patient Prescriptions: No Action sertraline 100 mg tablet 200 mg PO QAM fluticasone propion-salmeterol [Advair Diskus] 250-50 mcg/dose blister with device 1 ea inhalation BID albuterol sulfate [Ventolin HFA] 90 mcg/actuation HFA aerosol inhaler 2 puff inhalation Q4H PRN (Reason: wheezing) methadone [Methadone Intensol] 10 mg/mL Concentrate 95 mg PO DAILY cyproheptadine 4 mg Tablet 4 mg PO BEDTIME 30 Days Qty: 30 0RF baclofen 10 mg Tablet 10 mg PO BID 30 Days Qty: 60 0RF prazosin 5 mg Capsule 5 mg PO BEDTIME 30 Days Qty: 30 0RF Protocol: Hold for SBP< HOLD for SBP < : 90 divalproex 500 mg Tablet,Delayed Release (Dr/Ec) 1,000 mg PO BEDTIME 30 Days Qty: 60 0RF gabapentin 300 mg Capsule 300 mg PO TID 30 Days Qty: 90 0RF famotidine 20 mg Tablet 20 mg PO BID 30 Days Qty: 60 0RF mirtazapine 45 mg tablet 45 mg PO BEDTIME 30 Days Qty: 30 0RF levetiracetam 750 mg tablet 750 mg PO BID 30 Days Qty: 60 0RF quetiapine 50 mg Tablet 50 mg PO BID PRN (Reason: anxiety/agitation) 30 Days Qty: 60 0RF hydroxyzine HCl 50 mg tablet 50 mg PO TID PRN (Reason: anxiety) 30 Days Qty: 90 0RF Interventions: [place]-Suicide Risk Severity Scale Last Done: 11/28/24 14:00 Print Language: Sinhala
[2024-11-28 12:43] LABS: Appearance Urine Clear; Color Urine Yellow; Glucose Urine UA Negative (Negative); Leukocyte Esterase Urine Negative (Negative); Nitrite Urine Negative (Negative); Specific Gravity - Urine 1.025 (1.005-1.025); Urine Blood Negative (Negative); Urine Ketones Negative (Negative); Urine Protein Negative (Neg-Trace)
[2024-11-28 13:07] LABS: Amphetamine Screen Urine Not Detected (Not Detect); Barbiturates, Urine Not Detected (Not Detect); Benzodiazepines Screen Urine Not Detected (Not Detect); Buprenorphine Scr Not Detected (Not Detect); Cannabinoid Screen Urine Not Detected (Not Detect); Cocaine Screen Urine POSITIVE (Not Detect); Fentanyl, urine Not Detected (Not Detect); Methadone Screen, Urine Positive (Not Detect); Opiate Screen Urine Not Detected (Not Detect); Oxycodone Screen Urine Not Detected (Not Detect); Phencyclidine Screen Urine Not Detected (Not Detect)
[2024-11-28 14:00] VITALS: BP 111/72; PULSE 115; RESP 18; TEMP 36.6; O2SAT 96
[2024-11-28 14:29] LABS: MANUAL DIFF FLAG NO
[2024-11-28 14:32] LABS: Basophils Absolute Auto 0.1 X10*3/uL (0.0-0.2); Basophils Percent Auto 0.6 % (0-2); Eosinophils Absolute Auto 0.1 X10*3/uL (0.0-0.4); Hematocrit 39.2 % (42.0-52.0); Hemoglobin 13.6 g/dl (14.0-18.0); Imm Gran Abs Auto 0.03 X10*3/uL (0.00-0.03); Imm Gran Pct Auto 0.3 % (0.0-0.4); Lymphocytes Absolute Auto 2.1 X10*3/uL (1.2-4.9); Lymphocytes Percent Auto 23.4 % (20-40); Mean Corpuscular HGB Conc 34.7 g/dl (31.0-36.0); Mean Corpuscular Hemoglobin 32.4 pg (27.0-33.0); Mean Corpuscular Volume 93.3 fL (80.0-98.0); Mean Platelet Volume 9.8 fL (9.4-12.4); Monocytes Absolute Auto 0.7 X10*3/uL (0.1-1.2); Monocytes Percent Auto 7.4 % (2-11); Neutrophils Percent Auto 67.3 % (45-73); Platelet Count 313 X10*3/uL (160-400); Red Cell Distribution Width 13.9 % (11.0-16.0); White Blood Count 8.9 X10*3/uL (4.8-10.8)
--- OUTSIDE RECORDS SUMMARY | 2024-11-28 14:39 | XMS_ITS | Encounter Summary ---
Author Organization [employer] Address [address] [place] [address] Care Team Providers Care History Faculty Member Name Role Phone Alejandra Gardner MD Primary Care Provider [phone] Archana Gordon Unavailable Unavailable Alicia Wright RN Unavailable [phone] Reason for Visit * Reason Onset Date Comments Med Refill 11/08/2024 Encounter Details Date Type Department Care Team ([facility] st Contact Info) Description 11/08/2024 Telephone [facility] MED & PEDS [address] [place] [address] Makayla Preston, DOC Med Refill Social History [...] documented as of this encounter Care Teams History Faculty Member Relationship Specialty Start Date End Date Alejandra Gardner MD [address] [place] [address] PCP - General Family Medicine 07/15/23 Archana Gordon Community Health Worker 05/17/24 Alicia Wright RN [address] [place] [id number] Life Skills Specialist 05/17/24 documented as of this encounter
--- OUTSIDE RECORDS SUMMARY | 2024-11-28 14:39 | XMS_ITS | Encounter Summary ---
Author Organization [employer] Address [address] [place] [address] 7 [place] [address] Care Team Providers Care Assortment Planner Name Role Phone Alejandra Gardner MD Primary Care Provider [phone] Archana Gordon Unavailable Unavailable Alicia Wright RN Unavailable [phone] Reason for Visit * Reason Onset Date Comments Hospital Follow-up 11/17/2024 Encounter Details Date Type Department Care Team (Late st Contact Info) Description 11/17/2024 Telephone [facility] [address] [place] [address] Alejandra Gardner MD [address] [place], [place] [id number] Hospital Follow-up Social History Tobacco Use Types [...] with others, in a hotel, in a assisted, living outside on the street, on a [...] from pt requesting a HDF appt. [place] [facility] Date of admission: 11/10 Discharge date: 11/21 Diagnosed: Alcohol disorders, Opiate disorders *Send message to [place] Clinical Care Coordinators documented in this encounter Plan of Treatment Not on file documented as of this encounter Visit Diagnoses Not on filedocumented in this encounter Additional Health Concerns Assessment Noted Time PHQ-9 Depression Total Score: 21 024 8:50 AM EDT documented as of this encounter Care Teams Assortment Planner Relationship Specialty Start Date End Date Alejandra Gardner MD [address] [place] [address] PCP - General Family Medicine 07/15/23 Archana Gordon Community Health Worker 05/17/24 Alicia Wright RN [address] [place] [id number] Claims Collector 05/17/24 documented as of this encounter
--- OUTSIDE RECORDS SUMMARY | 2024-11-28 14:39 | XMS_ITS | Encounter Summary ---
Author Organization [employer] Address [address] [place] [address] [address] [place] [address] Care Team Providers Care Lawyer Probate Name Role Phone Alejandra Gardner MD Primary Care Provider [phone] Archana Gordon Unavailable Unavailable Alicia Wright RN Unavailable [phone] Reason for Visit * Reason Comments Transition Of Care (Tcm) HDF- scheduled and SDOH screening unable to complete. Encounter Details Date Type Department Care Team ([facility] Contact Info) Description 11/17/[address] [facility] CHC MED & PEDS [address] [place] [address] Alejandra Gardner MD [address] [place] [address] Transition Of Care (Tcm) (HDF- scheduled and [...] of Admission/Visit 11/10/24 Date of Discharge 11/21/24 [facility] Diagnosis Alcohol use disorder, Opioid disorder and Mood disorder Disposition Admitted Follow-Up Actions Follow-Up Needed Provider appointment Follow-Up Outcome Spoke to Caregiver;Booked Appointment Initial Contact Date 11/17/24 Received incoming call from the [facility]. HU[facility] [place] [facility] Patient has been scheduled for an HDF appointment on 11/23/2024 at 2:45PM with Dr. Carl. HUGO requested discharge summaries to be faxed to the Care Management Department at [phone]. CC will follow up on discharge summary following patient's discharge. Insurance verified prior to scheduling. documented in this encounter Plan of Treatment Not on file documented as of this encounter Visit Diagnoses Not on filedocumented in this encounter Additional Health Concerns Assessment Noted Time PHQ-9 Depression Total Score: 21 024 8:50 AM EDT documented as of this encounter Care Teams Lawyer Probate Relationship Specialty Start Date End Date Alejandra Gardner MD [address] [place] [address] PCP - General Family Medicine 07/15/23 Archana Gordon Community Health Worker 05/17/24 Alicia Wright RN [address] [place] [id number] Vacuum Filter Operator 05/17/24 documented as of this encounter
--- OUTSIDE RECORDS SUMMARY | 2024-11-28 14:39 | XMS_ITS | Encounter Summary ---
Author Organization [employer] Address [address] [place] [address] [address] [place] [address] Care Team Providers Care Arts Administrator Name Role Phone Alejandra Gardner MD Primary Care Provider [phone] Archana Gordon Unavailable Unavailable Alicia Wright RN Unavailable Reason for Visit * Reason Onset Date Comments No Show 11/09/2024 Encounter Details Date Type Department Care Team ([facility] Contact Info) Description 11/09/2024 Telephone [facility] CHC MED & PEDS [address] [place] [address] Alejandra Gardner MD [address] [place] [address] No Show Social History Tobacco Use Types [...] documented as of this encounter Care Teams Arts Administrator Relationship Specialty Start Date End Date Alejandra Gardner MD [address] [place] [address] PCP - General Family Medicine 07/15/23 Archana Gordon Community Health Worker 05/17/24 Alicia Wright RN [address] [place] [address] Collar Pointer 05/17/24 documented as of this encounter
--- OUTSIDE RECORDS SUMMARY | 2024-11-28 14:39 | XMS_ITS | Encounter Summary ---
Author Organization [employer] Address [address] [place] [address] [address] [place] [address] Care Team Providers Care Supervisor Production Name Role Phone Alejandra Gardner MD Primary Care Provider [phone] Archana Gordon Unavailable Unavailable Alicia Wright RN Unavailable Reason for Visit * Reason Onset Date Comments Appointment Request 07/06/2024 Encounter Details Date Type Department Care Team ([facility] Contact Info) Description 07/06/2024 Telephone [facility] CHC MED & PEDS [address] [place] [address] Alejandra Gardner MD [address] [place] [address] Appointment Request Social History Tobacco Use Types Packs/Day Years [...] with others, in a hotel, in a skilled nursing, living outside on the street, on a [...] encounter Miscellaneous Notes * Telephone Encounter - Annemarie Saha - 07/06/2024 1:43 PM EDT Tc from pt requesting to r/s today no show HDF appt . documented in this encounter Plan of Treatment Not on file documented as of this encounter Visit Diagnoses Not on filedocumented in this encounter Additional Health Concerns Assessment Noted Time PHQ-9 Depression Total Score: 21 024 8:50 AM EDT documented as of this encounter Care Teams Supervisor Production Relationship Specialty Start Date End Date Alejandra Gardner MD [address] [place] [address] PCP - General Family Medicine 07/15/23 Archana Gordon Community Health Worker 05/17/24 Alicia Wright RN [address] [place] [address] Photocopy Operator 05/17/24 documented as of this encounter
--- OUTSIDE RECORDS SUMMARY | 2024-11-28 14:39 | XMS_ITS | Encounter Summary ---
Author Organization [employer] Address [address] [place] [address] 7 [place] [address] Care Team Providers Care Director Of Exhibit Development Name Role Phone Alejandra Gardner MD Primary Care Provider [phone] Archana Gordon Unavailable Unavailable Alicia Wright RN Unavailable [phone] Reason for Visit * Reason Comments Care Coordination Outreach Encounter Details Date Type Department Care Team (Latest Contact Info) Description 11/14/2024 Patient Outreach [facility] CHC MED & PEDS [address] [place] [address] Alejandra Gardner MD [address] [place] [address] Care Coordination (Outreach) Social History Tobacco Use [...] to offer services. CHW introducing herself from [facility] CM Department with CHW's name, department and direct contact number [phone] requesting call back. Will re-attempt to contact within 5 days. and address not confirmed. documented in this encounter Plan of Treatment Not on file documented as of this encounter Visit Diagnoses Not on filedocumented in this encounter Additional Health Concerns Assessment Noted Time PHQ-9 Depression Total Score: 21 024 8:50 AM EDT documented as of this encounter Care Teams Director Of Exhibit Development Relationship Specialty Start Date End Date Alejandra Gardner MD [address] [place] [address] PCP - General Family Medicine 07/15/23 Archana Gordon Community Health Worker 05/17/24 Alicia Wright RN [address] [place] [id number] Heel Seat Flap Stapler 05/17/24 documented as of this encounter
--- OUTSIDE RECORDS SUMMARY | 2024-11-28 14:39 | XMS_ITS | Encounter Summary ---
Author Organization [employer] Address [address] [place] [address] 7 [place] [address] Care Team Providers Care Drafting Clerk Name Role Phone Alejandra Gardner MD Primary Care Provider [phone] Archana Gordon Unavailable Unavailable Alicia Wright RN Unavailable [phone] Reason for Visit * Reason Comments Care Coordination Outreach Encounter Details Date Type Department Care Team (Latest Contact Info) Description 11/21/2024 Patient Outreach [facility] CHC MED & PEDS [address] [place] [address] Alejandra Gardner MD [address] [place] [address] Care Coordination (Outreach) Social History Tobacco Use [...] to offer services. CHW introducing herself from [facility] CM Department with CHW's name, department and direct contact [phone] requesting call back. Will re-attempt to contact within 5 days. and address not confirmed. documented in this encounter Plan of Treatment Not on file documented as of this encounter Visit Diagnoses Not on filedocumented in this encounter Additional Health Concerns Assessment Noted Time PHQ-9 Depression Total Score: 21 024 8:50 AM EDT documented as of this encounter Care Teams Drafting Clerk Relationship Specialty Start Date End Date Alejandra Gardner MD [address] [place] [address] PCP - General Family Medicine 07/15/23 Archana Gordon Community Health Worker 05/17/24 Alicia Wright RN [address] [place] [address] Supply Person 05/17/24 documented as of this encounter
--- OUTSIDE RECORDS SUMMARY | 2024-11-28 14:39 | XMS_ITS | Encounter Summary ---
Author Organization [employer] Address [address] [place] [address] 7 [place] [address] Care Team Providers Care Technical Services Consultant Name Role Phone Alejandra Gardner MD Primary Care Provider [phone] Archana Gordon Unavailable Unavailable Alicia Wright RN Unavailable [phone] Encounter Details Date Type Department Care Team ([facility] st Contact Info) Description 11/23/2024 2:45 PM EST Office Visit [facility] CHC MED & PEDS [address] [place] [address] Melissa Carl MD [address] [place] [address] Seizures (CMS/HCC) (Primary Dx); Moderate persistent asthma [...] with others, in a hotel, in a detention, living outside on the street, on a [...] Patient improved and was discharged to a detention. It was recommended an intensive outpatient program that started on November 22, 2024 at [facility]. Patient was evaluated by his psychiatrist Agustina dominguez today at [facility] at [facility]. He has a therapist and will see her tomorrow. Needs a refill on levetiracetam and gabapentin. Denies suicidal ideation today. Patient Active Problem List Diagnosis Seizures ([facility]) Severe episode of recurrent major depressive disorder, without psychotic features ([facility]) History of homicidal ideation Moderate persistent asthma without complication Substance abuse ([facility]) Tobacco abuse Vision abnormalities JOHN [...] Call crisis as needed 4. Substance abuse (CMS/HCC) ECG 12 lead Patient has a asset recovery specialist Advised to continue following up with his substance abuse program 5. Poor appetite Comprehensive Metabolic Panel Comprehensive Metabolic Panel Nutritional Supplements (Ensure Active High Protein) liquid Ensure prescribed as requested. documented in this encounter Plan of Treatment Scheduled Orders Name Type Priority Associated Diagnoses Orde r Schedule Comprehensive Metabolic Panel Lab Routine Moderate persistent asthma without complication Seizures (CMS/HCC) Poor appetite Expected: 11/23/2024 (Approximate), Expires: 11/23/2025 documented as of this encounter Procedures Procedure Name Priority Date/Time Associated Diagnosis Comments ECG 12-LEAD Routine 11/27/2024 7:58 PM EST Moderate persistent asthma without complication Seizures (CMS/HCC) Substance abuse (CMS/HCC) documented in this encounter Results * ECG 12 lead (11/27/2024 7:58 PM EST) Melissa Harmon MD - 11/27/2024 7:58 PM EST Rate 98 bpm. ??[place] XIII degrees. ??Sinus rhythm. ??QT/Qtc 400/489 ms. ??No sign of left atrial enlargement or right atrial enlargement. ??No sign of hypertrophy. ??Borderline EKG. us Melissa Carl MD ECG ORDERABLES Final Resul t documented in this encounter Visit Diagnoses Diagnosis Seizures (CMS/HCC)- [...] documented as of this encounter Care Teams Technical Services Consultant Relationship Specialty Start Date End Date Alejandra Gardner MD [address] [place] [address] PCP - General Family Medicine 07/15/23 Archana Gordon Community Health Worker 05/17/24 Alicia Wright RN [address] [place] [address] Unattended Ground Sensor Specialist 05/17/24 documented as of this encounter
--- OUTSIDE RECORDS SUMMARY | 2024-11-28 14:39 | XMS_ITS | Encounter Summary ---
Author Organization [employer] Address [address] [place] [address] [address] [place] [address] Care Team Providers Care Liner Worker Name Role Phone Alejandra Gardner MD Primary Care Provider [phone] Archana Gordon Unavailable Unavailable Alicia Wright RN Unavailable [phone] Reason for Visit * Reason Comments Transition Of Care (Tcm) HDF- Unschedule d Laxmi will relay message to Jackie to return call. Encounter Details Date Type Department Care Team ([facility] Contact Info) Description 11/17/2024 Patient Outreach [facility] MED & PEDS [address] [place] [address] Alejandra Gardner MD [address] [place] [address] Transition Of Care (Tcm) (HDF- Unscheduled Laxmi [...] with others, in a hotel, in a chcf, living outside on the street, on a [...] inbacket from Patricia ARAUJO that Jackie from [facility] was requesting a HDF appt. Patient admitted on 11/10/24 and will be discharged on 11/21/2024 with DX Alcohol disorders, Opiate disorders however per Laxmi, Jackie is not available at the moment and patient does not have a discharge date yet. [facility] will relay message to Jackie to return call to [phone] which is the direct hospital line. documented in this encounter Plan of Treatment Not on file documented as of this encounter Visit Diagnoses Not on filedocumented in this encounter Additional Health Concerns Assessment Noted Time PHQ-9 Depression Total Score: 21 024 8:50 AM EDT documented as of this encounter Care Teams Liner Worker Relationship Specialty Start Date End Date Alejandra Gardner MD [address] [place] [address] PCP - General Family Medicine 07/15/23 Archana Gordon Community Health Worker 05/17/24 Alicia Wright RN [address] [place] [phone] Dope Maintenance Worker 05/17/24 documented as of this encounter
--- OUTSIDE RECORDS SUMMARY | 2024-11-28 14:39 | XMS_ITS | Encounter Summary ---
Author Organization [employer] Address [address] [place] [address] 7 [place] [address] Care Team Providers Care Outside Machinist Name Role Phone Alejandra Gardner MD Primary Care Provider [phone] Archana Gordon Unavailable Unavailable Alicia Wright RN Unavailable [phone] Reason for Visit * Reason Comments Care Coordination Outreach Encounter Details Date Type Department Care Team (Latest Contact Info) Description 11/14/2024 Patient Outreach [facility] CHC MED & PEDS [address] [place] [address] Alejandra Gardner MD [address] [place] [address] Care Coordination (Outreach) Social History Tobacco Use [...] with others, in a hotel, in a group home, living outside on the street, on [...] CHW Kaylee Solorio placed outbound call to [facility] for discharge coordination as patient was admitted on 11/10/24. CHW was connect to patient's Organ Tuner Ivanna, there no plan of discharge at the moment. CHW to follow up within the next 2 days. documented in this encounter Plan of Treatment Not on file documented as of this encounter Visit Diagnoses Not on filedocumented in this encounter Additional Health Concerns Assessment Noted Time PHQ-9 Depression Total Score: 21 024 8:50 AM EDT documented as of this encounter Care Teams Outside Machinist Relationship Specialty Start Date End Date Alejandra Gardner MD [address] [place] [address] PCP - General Family Medicine 07/15/23 Archana Gordon Community Health Worker 05/17/24 Alicia Wright RN 505 [facility] [place] [address] Satellite Dish Technician 05/17/24 documented as of this encounter
--- OUTSIDE RECORDS SUMMARY | 2024-11-28 14:39 | XMS_ITS | Encounter Summary ---
Author Organization [employer] Address [address] [place] [address] 7 [place] [address] Care Team Providers Care Bobbin Presser Name Role Phone Alejandra Gardner MD Primary Care Provider [phone] Archana Gordon Unavailable Unavailable Alicia Wright RN Unavailable [phone] Reason for Visit * Reason Comments Care Coordination Outreach Encounter Details Date Type Department Care Team (Latest Contact Info) Description 11/28/2024 Patient Outreach [facility] CHC MED & PEDS [address] [place] [address] Alejandra Gardner MD [address] [place] [address] Care Coordination (Outreach) Social History Tobacco Use [...] with others, in a hotel, in a fpc, living outside on the street, on a [...] encounter Progress Notes * Kaylee Solorio - 11/28/2024 9:22 AM EST CHW Kaylee Solorio , placed outbound call to patient in regards to offer services. CHW introducing herself from [facility] CM Department with CHW's name, department and direct contact [phone] requesting call back. Will re-attempt to contact within 5 days. and address not confirmed. documented in this encounter Plan of Treatment Not on file documented as of this encounter Visit Diagnoses Not on filedocumented in this encounter Additional Health Concerns Assessment Noted Time PHQ-9 Depression Total Score: 21 024 8:50 AM EDT documented as of this encounter Care Teams Bobbin Presser Relationship Specialty Start Date End Date Alejandra Gardner MD [address] [place] [address] PCP - General Family Medicine 07/15/23 Archana Gordon Community Health Worker 05/17/24 Alicia Wright RN [address] [place] [address] Supervisor Marble 05/17/24 documented as of this encounter
--- OUTSIDE RECORDS SUMMARY | 2024-11-28 14:40 | XMS_ITS | Clinical Summary ---
Author Organization [facility] Address [address] [place] [address] [address] [place] [address] Care Team Providers Care Division Merchandise Manager Name Role Phone Alejandra Gardner MD Primary Care Provider [phone] Archana Gordon Unavailable Unavailable Alicia Wright RN Unavailable [phone] Allergies No known active allergies Medications [...] appetite 1 can 2 times a day 79715 mL Active divalproex (Depakote) 500 MG EC [...] Overview (07/15/2023): Follows with Dr Ramirez at [facility] Assessment & Plan (07/16/2023 8:11 AM EDT): Patient unable to provide dosing of depakote or keppra, not completely seizure free, questionable compliance. Reports has not seen neurology in a long while, was following with Dr. Ramirez. Will send labs and patient to call/send message through [employer] with meds and dosing. Severe episode of [...] coping mechanism to address acute sxs and [facility] services, who he agreed. I provide him with Eugenie Montero who will be able to support him in his goal to get in to a sober house. Rogelio was receptive and agreeable to services and referrals. PLAN: New/Additional Services needed Off-site services for Behavioral Health Integration Plan Internal Follow up with [facility] External OP therapy referral and OP psychiatry Referral Patient Self Plan Patient to utilize skills provided in intervention , [facility], Comply with medication , Patient to engage in OP therapy , and Patient to reach out to [facility] as needed Assessment & Plan (07/26/2023 5:03 [...] his symptoms and is involved in his orthodox PLAN: 1. Follow up with [facility]: Recommended for follow-up: As needed 2. Patient [...] 04/2018; alcohol, cocaine, heroin and benzo's Encounters * This document contains information received from the source organization and may not represent a complete record from that organization. Date Type Department Care Team Description 11/28/2024 Patient Outreach [facility] [address] [place] [address] Alejandra Gardner MD Care Coordination (Outreach) 11/23/2024 2:45 PM EST Office Visit [facility] [address] [place] [address] Melissa Carl MD Seizures ([facility]/HCC) (Primary Dx); Moderate persistent asthma without complication; Severe episode of recurrent major depressive disorder, without psychotic features (CMS/[facility]); Substance abuse ([facility]); Poor appetite 11/23/2024 Travel 11/21/2024 Patient Outreach [facility] [address] [place] [address] Alejandra Gardner MD Care Coordination (Outreach) 11/17/2024 Telephone [facility] [address] [place] [address] Alejandra Gardner MD Transition Of Care (Tcm) (HDF- scheduled and SDOH screening unable to complete. ) 11/17/2024 Patient Outreach [facility] [address] [place] [address] Alejandra Gardner MD Transition Of Care (Tcm) (HDF- Unscheduled Laxmi will relay message to Jackie to return call. ) 11/17/2024 Telephone [facility] [address] [place] [address] Alejandra Gardner MD Hospital Follow-up 11/14/2024 Patient Outreach [facility] [address] [place] [address] Alejandra Gardner MD Care Coordination (Outreach) 11/14/2024 Patient Outreach [facility] [address] [place] [address] Alejandra Gardner MD Care Coordination (Outreach) 11/09/2024 Orders Only GENERIC EXTERNAL DATA DEPARTMENT Provider, Generic External Data 11/09/2024 Telephone [facility] [address] [place] [address] Alejandra Gardner MD No Show 11/08/2024 Telephone [facility] [address] [place] [address] Makayla Preston, DOC Med Refill 10/03/2024 Refill [facility] [address] [place] [address] Alejandra Gardner MD Moderate persistent asthma without complication 10/03/2024 Refill [facility] [address] [place] [address] Melissa Carl MD from Last 3 Months [...] with others, in a [place], in [place], living outside on the street, on a [...] topic Meningococcal Vaccine Aged Out No leann marine eligible based on patient's age to complete this topic RSV under 20 months Aged Out No longe r eligible based on patient's age to complete this topic Rotavirus Vaccines Aged Out No longer eligible based on patient's age to complete this topic Procedures Procedure Name Priority Date/Time Associated Diagnosis Comments CBC WITH AUTO DIFFERENTIAL Routine 11/28/2024 2:18 PM EST DRUG MONITOR, PANEL 1, SCREEN, URINE Routine 11/28/2024 12:35 PM EST URINALYSIS WITH REFLEX MICROSCOPIC Routine 11/28/2024 12:35 PM EST ECG 12-LEAD Routine 11/27/2024 7:58 PM EST Moderate persistent asthma without complication Seizures (CMS/HCC) Substance abuse (CMS/HCC) ETHANOL Routine 11/25/2024 8:13 PM EST COMPREHENSIVE METABOLIC PANEL Routine 11/25/2024 8:13 PM EST VALPROIC ACID Routine 11/25/2024 8:13 PM EST CBC Routine 11/25/2024 8:13 PM EST DRUG MONITOR, PANEL 1, SCREEN, URINE Routine 11/25/2024 7:40 PM EST URINALYSIS WITH REFLEX MICROSCOPIC Routine 11/25/2024 7:40 PM EST XR HIP 2 OR 3 VIEWS LEFT [...] Recently Relevant to Health Maintenance Results * (ABNORMAL) CBC auto differential (11/28/2024 2:18 PM EST) Only the most recent of2 resultswithin the time period is included. White Blood Count 8.9 4.8 - 10.8 X10*3/uL [facility] Red Blood Count 4.20(L) 4.60 - 5.80 X10*6/uL [facility] Hemoglobin 13.6(L) 14.0 - 18.0 g/dl [facility] Hematocrit 39.2(L) 42.0 - 52.0 % [facility] Mean Corpuscular Volume 93.3 80.0 - 98.0 fL [facility] Mean Corpuscular Hemoglobin 32.4 27.0 - 33.0 pg [facility] Mean Corpuscular HGB Conc 34.7 31.0 - 36.0 g/dl [facility] Red Cell Distribution Width 13.9 11.0 - 16.0 % [facility] Platelet Count 313 160 - 400 X10*3/uL [facility] Mean Platelet Volume 9.8 9.4 - 12.4 fL [facility] Neutrophils Percent Auto 67.3 45 - 73 % [facility] Imm Gran Pct Auto 0.3 0.0 - 0.4 % [facility] Lymphocytes Percent Auto 23.4 20 - 40 % [facility] Monocytes Percent Auto 7.4 2 - 11 % [facility] Eosinophils Percent Auto 1.0 0 - 4 % [facility] Basophils Percent Auto 0.6 0 - 2 % [facility] NRBC Pct Auto 0.0 0.0 - 0.2 /100WBC [facility] Neutrophils Absolute Auto 6.0 2.0 - 8.3 x10*3/uL [facility] Imm Gran Abs Auto 0.03 0.00 - 0.03 X10*3/uL [facility] Lymphocytes Absolute Auto 2.1 1.2 - 4.9 X10*3/uL [facility] Monocytes Absolute Auto 0.7 0.1 - 1.2 X10*3/uL [facility] Eosinophils Absolute Auto 0.1 0.0 - 0.4 X10*3/uL [facility] Basophils Absolute Auto 0.1 0.0 - 0.2 X10*3/uL [facility] NRBC Abs Auto 0.000 0.0 - 0.012 X10*3/uL [facility] 11/28/2024 2:18 PM EST 11/28/2024 2:28 PM EST us Generic External Data Provider LAB BLOOD ORDERAB LES Final Result [facility] [address] [place] [address] [phone] * (ABNORMAL) Drug Monitoring, Panel 1, Screen, Urine (11/28/2024 12:35 PM EST) Only the most recent of3 resultswithin the time period is included. Opiate Screen Urine Not Detected Not Detect [facility] Comment:Opiate cut-off is 30 0 ng/mL.Positive results are unconfirmed and should not be used fornon-medical purposes. Barbiturates, Urine Not Detected Not Detect [facility] Comment:Barbiturate cut-off is 200 ng/mL.Positive results are unconfirmed and should not be used fornon-medical purposes. Phencyclidine Screen Urine Not Detected Not Detect [facility] Comment:Phencyclidine cut-of f is 25 ng/mL.Positive results are unconfirmed and should not be used fornon-medical purposes. Amphetamine Screen Urine Not Detected Not Detect [facility] Comment:Amphetamine cut-off is 1000 ng/mL.Positive results are unconfirmed and should not be used fornon-medical purposes. Benzodiazepines Screen Urine Not Detected Not Detect [facility] Comment:Benzodiazepine cut-o ff is 200 ng/mL.Positive results are unconfirmed and should not be used fornon-medical purposes. Cocaine Screen Urine POSITIVE(A) Not Detect [facility] Comment:Cocaine cut-off is 3 00 ng/mL.Positive results are unconfirmed and should not be used fornon-medical purposes. Cannabinoid Screen Urine Not Detected Not Detect [facility] Comment:Cannabinoid cut-off is 50 ng/mL.Positive results are unconfirmed and should not be used fornon-medical purposes. Methadone Screen, Urine Positive(A) Not Detect ng/mL [facility] Comment:Methadone cut-off is 300 ng/mL.Positive results are unconfirmed and should not be used fornon-medical purposes. FENTANYL URINE Not Detected Not Detect [facility] Comment:Fentanyl cut-off is 1 ng/mL.Positive results are unconfirmed and should not be used fornon-medical purposes. Oxycodone Urine Screen Not Detected Not Detect ng/mL [facility] Comment:Oxycodone cut-off is 100 ng/mL.Positive results are unconfirmed and should not be used fornon-medical purposes. Buprenorphine Screen Not Detected Not Detect ng/mL [facility] Comment:Buprenorphine cut-of f is 5 ng/mL.Positive results are unconfirmed and should not be used fornon-medical purposes. 11/28/2024 12:3 5 PM EST 11/28/2024 12:38 PM EST us Generic External Data Provider LAB URINE ORDERAB LES Final Result Performing Organization Address City/State/[facility] Co de Phone Number [facility] [address] [place] [phone] * Urinalysis w/reflex microscopic (11/28/2024 12:35 PM EST) Only the most recent of2 resultswithin the time period is included. Color Urine Yellow [facility] Appearance Urine Clear [facility] PH 6.0 5.0 - 9.0 [facility] Glucose Urine UA Negative Negative mg/dL [facility] Urine Blood Negative Negative [facility] Specific [place] - Urine 1.025 1.005 - 1.025 [facility] Urine Protein Negative Neg-Trace mg/dL [facility] Urine Ketones Negative Negative mg/dL [facility] Nitrite Urine Negative Negative [facility] Leukocyte Esterase Urine Negative Negative [facility] 11/28/2024 12:3 5 PM EST 11/28/2024 12:38 PM EST Narrative [facility] - 11/28/2024 12:44 PM EST [id number], Clean Catch us Generic External Data Provider LAB URINE ORDERAB LES Final Result Performing Organization Address [facility] Co de Phone Number [facility] [address] [place] [phone] * ECG 12 lead (11/27/2024 7:58 PM EST) Narrative Melissa Carl MD - 11/27/2024 7:58 PM EST Rate 98 bpm. ??[place] XIII degrees. ??Sinus rhythm. ??QT/Qtc 400/489 ms. ??No sign of left atrial enlargement or right atrial enlargement. ??No sign of hypertrophy. ??Borderline EKG. us Melissa Carl MD ECG ORDERABLES Final Resul t * Ethanol (11/25/2024 8:13 PM EST) Only the most recent of2 resultswithin the time period is included. Pathologist [facility] ETHANOL (MG/DL) IN SER/PLAS 31 mg/dL [facility] Comment:Serum/plasma ethanol results are to be used formedical/treatment purposes only. 11/25/2024 8:13 PM EST 11/25/2024 8:16 PM EST us Generic External Data Provider LAB BLOOD ORDERAB LES Final Result Performing Organization Address [facility]/ZIP Co de Phone Number [facility] [address] [place] [address] [phone] * (ABNORMAL) CBC (11/25/2024 8:13 PM EST) Pathologist [facility] White Blood Count 6.6 4.8 - 10.8 X10*3/uL [facility] Red Blood Count 4.07(L) 4.60 - 5.80 X10*6/uL [facility] Hemoglobin 13.4(L) 14.0 - 18.0 g/dl [facility] Hematocrit 38.9(L) 42.0 - 52.0 % [facility] Mean Corpuscular Volume 95.6 80.0 - 98.0 fL [facility] Mean Corpuscular Hemoglobin 32.9 27.0 - 33.0 pg [facility] Mean Corpuscular HGB Conc 34.4 31.0 - 36.0 g/dl [facility] Red Cell Distribution Width 14.0 11.0 - 16.0 % [facility] Platelet Count 275 160 - 400 X10*3/uL [facility] Mean Platelet Volume 10.0 9.4 - 12.4 fL [facility] NRBC Pct Auto 0.0 0.0 - 0.2 /100WBC [facility] NRBC Abs Auto 0.000 0.0 - 0.012 X10*3/uL [facility] 11/25/2024 8:13 PM EST 11/25/2024 8:16 PM EST us Generic External Data Provider LAB BLOOD ORDERAB LES Final Result Performing Organization Address [facility] Co de Phone Number [facility] [address] [place] [phone] * (ABNORMAL) Valproic Acid Total (11/25/2024 8:13 PM EST) Only the most recent of2 resultswithin the time period is included. Valproate <12.5(L) 50.0 - 100.0 mcg/mL [facility] 11/25/2024 8:13 PM EST 11/25/2024 8:16 PM EST us Generic External Data Provider LAB BLOOD ORDERAB LES Final Result Performing Organization Address City/[facility] Co de Phone Number [facility] [address] [place] [phone] * (ABNORMAL) Comprehensive Metabolic Panel (11/25/2024 8:13 PM EST) Only the most recent of2 resultswithin the time period is included. Sodium 140 135 - 145 mmol/L [facility] Potassium 3.9 3.3 - 5.1 mmol/L [facility] Chloride 107 96 - 108 mmol/L [facility] Carbon Dioxide 27 22 - 29 mmol/L [facility] Anion Gap 10(L) 12 - 20 [facility] Urea Nitrogen (BUN) 15 9 - 16 mg/dL [facility] Creatinine, Serum 0.71 0.5 - 1.4 mg/dL [facility] Creatinine Clr Calc Pharmacy 125.1 [facility] Comment:eGFR (calculated fro m the MDRD study equation) and eCrCl(calculated from the Cockcroft-Gault equation) are based ondifferent parameters and may not yield comparable results.If eCrCl result is absurd, please check patient'sheight/weight. Estimated Glomerular Filt Rate >60 [facility] Comment:Chronic Kidney Disea se: Estimated GFR < 60 mL/min/1.33d6Svtfbs Kidney Disease: Estimated GFR < 15 mL/min/1.73m2 Glucose 115 60 - 115 mg/dL [facility] Calcium 8.8 8.4 - 10.2 mg/dL [facility] Bilirubin, Total 0.2 0.0 - 1.0 mg/dL [facility] Aspartate Amino Transferase 41(H) 5 - 37 U/L [facility] Alanine Aminotransferase 105(H) 0 - 40 U/L [facility] Total Protein 7.6 6.5 - 8.0 g/dL [facility] Albumin Level 4.1 3.5 - 5.0 g/dL [facility] Alkaline Phosphatase 76 39 - 117 U/L [facility] 11/25/2024 8:13 PM EST 11/25/2024 8:16 PM EST us Generic External Data Provider LAB BLOOD ORDERAB LES Final Result [facility] [address] [place] [phone] * XR Hip 2 or 3 Views Left (11/15/2024 7:55 PM EST) Anatomical Region Laterality Modality Lower Extremities, Hip Left Radiograp hic Imaging 11/15/2024 7:55 PM EST Narrative 11/16/2024 7:22 AM EST ? [facility] ?[address] ?[place] [address] ?XRay Report ? Signed ? Patient: Montero,Rogelio ?MR#: [id number] ?? 6 ? : 1990 ?Acct:[id number] ? Age/Sex: 34 / M ?ADM Date: 11/10/24 ? Loc: HO.[id number] ?307-1 ? Attending Dr: Enmanuel Johnson MD ? Ordering Physician: Enmanuel Johnson MD ?? Date of Service: 11/15/24 ?? Procedure(s): XR hip LT min 2V ?? Accession Number(s): [id number] ? cc: Enmanuel Johnson MD; Alejandra Gardner [...] ? DD/ 54 ? TD/TT: 11/15/242001 ? Community Relations Representative: ? Procedure Note Paulette, Image - 11/16/[address] [address] XRay Report Signed Patient: Rogelio MonteroMR#: [id number] 6 : 1990Acct:[id number] Age/Sex: 34 / MADM Date: 11/10/24 Loc: .[id number] 307-[address]: Enmanuel Johnson MD Ordering Physician: Enmanuel Johnson MD Date of Service: 11/15/24 Procedure(s): XR hip LT min 2V Accession Number(s): [id number] cc: Enmanuel Johnson MD; Alejandra Gardner MD [...] OV> 11/16/24 0719 DD/ 54 TD/TT: 11/15/242001 Community Relations Representative: [facility] External Provider IMG XR PROCEDURES Edited Result - Final * XR HAND WRIST RT (11/10/2024 3:45 PM EST) Anatomical Region Laterality Modality Abdomen Radiographic Lucille ging 11/10/2024 3:45 PM EST Narrative 11/13/2024 8:16 AM EST ? [facility] ?[address] ?[place] [address] ?XRay Report ? Signed ? Patient: Montero,Rogelio ?MR#: [id number] ?? 6 ? : 1990 ?Acct:[id number] ? Age/Sex: 34 / M ?ADM Date: 01/10/25 ? Loc: HO.[id number] ?307-1 ? Attending Dr: Enmanuel Johnson MD ? Ordering Physician: Enmanuel Johnson MD ?? Date of Service: 11/10/24 ?? Procedure(s): XR hand wrist RT ?? Accession Number(s): [id number] ? cc: Enmanuel Johnson MD; Alejandra Gardner [...] ??Lizzy Ponce MD ??11/13/2024 08:13 AM EST ? Dictated By: ?Lizzy Ponce MD ? Signed By: ?<Electronically signed by Lizzy Ponce MD in OV> ? 11/13/24 0813 ? DD/ 1545 ? TD/TT: 11/10/24 1550 ? Community Relations Representative: ? Procedure Note Donsiddharthadanxinter, Image - 11/13/[address] [address] XRay Report Signed Patient: Radha Montero#: [id number] 6 : 1990Acct:[id number] Age/Sex: 34 / MADM Date: 11/10/24 Loc: HO.PADLT16 307-[address]: Enmanuel Johnson MD Ordering Physician: Enmanuel Johnson MD Date of Service: 11/10/24 Procedure(s): XR hand wrist RT Accession Number(s): [id number] cc: Enmanuel Johnson MD; Alejandra Gardner MD EXAMINATION: XR HAND/WRIST, RIGHT CLINICAL INFORMATION: recent trauma to hand/wrist COMPARISON: None available. TECHNIQUE: Four views of the right hand and wrist. FINDINGS: Bone mineralization is normal. Joint spaces and alignment are preserved. No displaced fracture appreciated. XR/XR hand wrist RT IMPRESSION: No displaced fracture. Electronically signed by: Lizzy Ponce MD 11/13/2024 08:13 AM EST RP Dictated By: Lizzy Ponce MD Signed By: <Electronically signed by Lizzy Ponce MD in OV> 11/13/24 0813 DD/ 1545 TD/TT: 11/10/24 1550 Community Relations Representative: [facility] External Provider IMG XR PROCEDURES Edited Result - Final * (ABNORMAL) Urinalysis, Complete, with Reflex to Culture (11/09/2024 8:02 PM EST) Color Urine Dark Yellow [facility] Appearance Urine Clear [facility] PH 6.0 5.0 - 9.0 [facility] Glucose Urine UA Negative Negative mg/dL [facility] Urine Blood Negative Negative [facility] Specific [place] - Urine >=1.030(H) 1.005 - 1.025 [facility] Urine Protein Trace Neg-Trace mg/dL [facility] Urine Ketones Trace Negative mg/dL [facility] Nitrite Urine Negative Negative [facility] Leukocyte Esterase Urine Trace(A) Negative [facility] RBC Urine 0-2 0 - 2 /HPF [facility] Urine WBC 0-5 0 - 5 /HPF [facility] Urine Squamous Epithelial Cell 0-2 0 - 2 /HPF [facility] Urine Bacteria None Seen None Seen [facility] Hyaline Casts, Urine 3-5 0 - 2 /LPF [facility] 11/09/2024 8:02 PM EST 11/09/2024 8:10 PM EST Narrative [facility] - 11/09/2024 8:29 PM EST Urine, Clean Catch Generic External Data Provider LAB URINE ORDERAB LES Final Result [facility] [address] [place] [phone] * SARS-CoV-2 RNA, Influenza A/B, and RSV RNA, Ql NAAT (11/09/2024 8:02 PM EST) Influenza A PCR NEGATIVE Negative [facility] Influenza B PCR NEGATIVE Negative [facility] Resp Syncy Virus RNA Qual PCR NEGATIVE Negative [facility] SARS COV2 PCR NEGATIVE Negative [facility] Comment:All test results mus t be [...] use by authorized laboratories.Testing performed on the [employer] GeneXpert utilizingreal-time RT-PCR.All SARS CoV2 and positive influenza A/B results arereported to [facility]. 11/09/2024 8:02 PM EST 11/09/2024 8:10 PM EST Generic External Data Provider LAB MICROBIOLOGY - GENERAL ORDERABLES Final Result Performing Organization Address [facility] Co de Phone Number [facility] [address] [place] [phone] * Hepatitis C Antibody with Reflex to HCV, RNA, Quantitative, Real-Time PCR (04/10/2024 4:26 PM EDT) Hepatitis C Antibody Nonreactive Nonreactive [facility] Comment:Antibodies to HCV no t detected; does not exclude early acuteHCV infection. Blood Venous blood specimen / Unknown 04/10/2024 4:26 PM EDT 04/10/2024 5:18 PM EDT Enmanuel Billy MD LAB BLOOD ORDERABLES Final Resul t Performing Organization Address City/[facility]/ZIP Co de Phone Number [facility] [address] [place] [phone] * HIV-1/2 Antigen and Antibodies, Fourth Generation, with Reflexes (04/10/2024 4:26 PM EDT) HIV AB/AG Nonreactive Nonreactive [facility] Comment:HIV-1 p24 Ag and/or HIV-1/HIV-2 Ab not detected.A test result that is nonreactive does not exclude thepossibility of exposure to or infection with HIV-1 and/orHIV-2. Nonreactive results in this assay for individualswith prior exposure to HIV-1 and/or HIV-2 may be due toantigen and antibody levels that are below the limit ofdetection of this assay.The Marfeel HIV Ag/Ab Combo assay result andsupplemental assay results should be interpreted inconjunction with the patient's clinical presentation,history and other laboratory results. If the results areinconsistent with clinical evidence, additional testing issuggested to confirm the result. Blood Venous blood specimen / Unknown 04/10/2024 4:26 PM EDT 04/10/2024 5:18 PM EDT us Enmanuel Billy MD LAB BLOOD ORDERABLES Final Resul t [facility] [address] [place] [phone] from Last 3 Months or Most Recently Relevant to Health Maintenance [facility] [place] Care Teams Division Merchandise Manager Relationship Specialty Start Date End Date Alejandra Gardner MD [address] [place] [phone] PCP - General Family Medicine 07/15/23 Archana Gordon Community Health Worker 05/17/24 Alicia Wright RN [address] [place] [address] [employer] Operator 05/17/24
--- OUTSIDE RECORDS SUMMARY | 2024-11-28 14:40 | XMS_ITS | Encounter Summary ---
Author Organization [employer] Address [address] [place] [address] [address] [place] [address] Care Team Providers Care Polygraph Examiner Name Role Phone Alejandra Gardner MD Primary Care Provider [phone] Archana Gordon Unavailable Unavailable Alicia Wright RN Unavailable [phone] Encounter Details Date Type Department Care [...] documented as of this encounter Care Teams Polygraph Examiner Relationship Specialty Start Date End Date Alejandra Gardner MD [address] [place] [phone] PCP - General Family Medicine 07/15/23 Archana Gordon Community Health Worker 05/17/24 Alicia Wright RN [address] [place] [address] Developmental Services Worker 05/17/24 documented as of this encounter
--- OUTSIDE RECORDS SUMMARY | 2024-11-28 14:40 | XMS_ITS | Encounter Summary ---
Author Organization [employer] Address [address] [place] [address] [address] [place] [address] Care Team Providers Care Wellness Coach Name Role Phone Alejandra Gardner MD Primary Care Provider [phone] Archana Gordon Unavailable Unavailable Alicia Wright RN Unavailable [phone] Reason for Visit * Reason Onset Date Comments PT1 07/21/2024 Encounter Details Date Type Department Care Team (Late st Contact Info) Description 07/21/2024 Telephone [facility] [address] [place] [address] Alejandra Gardner MD [address] [place], [place] [phone] PT1 Social History Tobacco Use Types Packs/Day [...] with others, in a hotel, in a penitentiary, living outside on the street, on a [...] Y/N: Yes Provider name or facility name: [facility] Facility Address: [address] [place] [address] Escort needed: Y/N: Yes Do you have a wheelchair: Y/N: No Visits: All Future appt's documented in this encounter Plan of Treatment Not on file documented as of this encounter Visit Diagnoses Not on filedocumented in this encounter Additional Health Concerns Assessment Noted Time PHQ-9 Depression Total Score: 21 024 8:50 AM EDT documented as of this encounter Care Teams Wellness Coach Relationship Specialty Start Date End Date Alejandra Gardner MD [address] [place] [address] PCP - General Family Medicine 07/15/23 Archana Gordon Community Health Worker 05/17/24 Alicia Wright RN [address] [place] [phone] Imagery Analyst 05/17/24 documented as of this encounter
--- OUTSIDE RECORDS SUMMARY | 2024-11-28 14:40 | XMS_ITS | Encounter Summary ---
Author Organization [employer] Address [address] [place] [address] [address] [place] [address] Care Team Providers Care Skin Grader Name Role Phone Alejandra Gardnre MD Primary Care Provider [phone] Archana Gordon Unavailable Unavailable Alicia Wright RN Unavailable [phone] Encounter Details Date Type Department Care [...] with others, in a hotel, in a fdc, living outside on the street, on a [...] REFLEX MICROSCOPIC Routine 11/28/2024 12:35 PM EST ETHANOL Routine 11/25/2024 8:13 PM EST CBC Routine 11/25/2024 8:13 PM EST VALPROIC ACID Routine 11/25/2024 8:13 PM EST COMPREHENSIVE METABOLIC PANEL Routine 11/25/2024 8:13 PM EST DRUG MONITOR, [...] EST documented in this encounter Results * (ABNORMAL) CBC auto differential (11/28/2024 2:18 PM EST) White Blood Count 8.9 4.8 - 10.8 X10*3/uL [facility] Red Blood Count 4.20(L) 4.60 - 5.80 X10*6/uL [facility] Hemoglobin 13.6(L) 14.0 - 18.0 g/dl [facility] Hematocrit 39.2(L) 42.0 - 52.0 % [facility] Mean Corpuscular Volume 93.3 80.0 - 98.0 fL [facility] Mean Corpuscular Hemoglobin 32.4 27.0 - 33.0 pg [facility] Mean Corpuscular HGB Conc 34.7 31.0 - 36.0 g/dl [facility] Red Cell Distribution Width 13.9 11.0 - 16.0 % [facility] Platelet Count 313 160 - 400 X10*3/uL [facility] Mean Platelet Volume 9.8 9.4 - 12.4 fL [facility] Neutrophils Percent Auto 67.3 45 - 73 % [facility] Imm Gran Pct Auto 0.3 0.0 - 0.4 % [facility] Lymphocytes Percent Auto 23.4 20 - 40 % [facility] Monocytes Percent Auto 7.4 2 - 11 % [facility] Eosinophils Percent Auto 1.0 0 - 4 % [facility] Basophils Percent Auto 0.6 0 - 2 % [facility] NRBC Pct Auto 0.0 0.0 - 0.2 /100WBC [facility] Neutrophils Absolute Auto 6.0 2.0 - 8.3 x10*3/uL [facility] Imm Gran Abs Auto 0.03 0.00 - 0.03 X10*3/uL [facility] Lymphocytes Absolute Auto 2.1 1.2 - 4.9 X10*3/uL [facility] Monocytes Absolute Auto 0.7 0.1 - 1.2 X10*3/uL [facility] Eosinophils Absolute Auto 0.1 0.0 - 0.4 X10*3/uL [facility] Basophils Absolute Auto 0.1 0.0 - 0.2 X10*3/uL [facility] NRBC Abs Auto 0.000 0.0 - 0.012 X10*3/uL [facility] 11/28/2024 2:18 PM EST 11/28/2024 2:28 PM EST us Generic External Data Provider LAB BLOOD ORDERAB LES Final Result [facility] [address] [place] [phone] * (ABNORMAL) Drug Monitoring, Panel 1, Screen, Urine (11/28/2024 12:35 PM EST) Opiate Screen Urine Not Detected Not Detect [facility] Comment:Opiate cut-off is 30 0 ng/mL.Positive results are unconfirmed and should not be used fornon-medical purposes. Barbiturates, Urine Not Detected Not Detect [facility] Comment:Barbiturate cut-off is 200 ng/mL.Positive results are unconfirmed and should not be used fornon-medical purposes. Phencyclidine Screen Urine Not Detected Not Detect [facility] Comment:Phencyclidine cut-of f is 25 ng/mL.Positive results are unconfirmed and should not be used fornon-medical purposes. Amphetamine Screen Urine Not Detected Not Detect [facility] Comment:Amphetamine cut-off is 1000 ng/mL.Positive results are unconfirmed and should not be used fornon-medical purposes. Benzodiazepines Screen Urine Not Detected Not Detect [facility] Comment:Benzodiazepine cut-o ff is 200 ng/mL.Positive results are unconfirmed and should not be used fornon-medical purposes. Cocaine Screen Urine POSITIVE(A) Not Detect [facility] Comment:Cocaine cut-off is 3 00 ng/mL.Positive results are unconfirmed and should not be used fornon-medical purposes. Cannabinoid Screen Urine Not Detected Not Detect [facility] Comment:Cannabinoid cut-off is 50 ng/mL.Positive results are unconfirmed and should not be used fornon-medical purposes. Methadone Screen, Urine Positive(A) Not Detect ng/mL [facility] Comment:Methadone cut-off is 300 ng/mL.Positive results are unconfirmed and should not be used fornon-medical purposes. FENTANYL URINE Not Detected Not Detect [facility] Comment:Fentanyl cut-off is 1 ng/mL.Positive results are unconfirmed and should not be used fornon-medical purposes. Oxycodone Urine Screen Not Detected Not Detect ng/mL [facility] Comment:Oxycodone cut-off is 100 ng/mL.Positive results are unconfirmed and should not be used fornon-medical purposes. Buprenorphine Screen Not Detected Not Detect ng/mL [facility] Comment:Buprenorphine cut-of f is 5 ng/mL.Positive results are unconfirmed and should not be used fornon-medical purposes. 11/28/2024 12:3 5 PM EST 11/28/2024 12:38 PM EST us Generic External Data Provider LAB URINE ORDERAB LES Final Result [facility] [address] [place] [address] [phone] * Urinalysis w/reflex microscopic (11/28/2024 12:35 PM EST) [facility] Color Urine Yellow [facility] Appearance Urine Clear [facility] PH 6.0 5.0 - 9.0 [facility] Glucose Urine UA Negative Negative mg/dL [facility] Urine Blood Negative Negative [facility] Specific [place] - Urine 1.025 1.005 - 1.025 [facility] Urine Protein Negative Neg-Trace mg/dL [facility] Urine Ketones Negative Negative mg/dL [facility] Nitrite Urine Negative Negative [facility] Leukocyte Esterase Urine Negative Negative [facility] 11/28/2024 12:3 5 PM EST 11/28/2024 12:38 PM EST Narrative [facility] - 11/28/2024 12:44 PM EST [id number], Clean Catch us Generic External Data Provider LAB URINE ORDERAB LES Final Result Performing Organization Address City/[facility]/ZIP Co de Phone Number [facility] [address] [place] [phone] * Ethanol (11/25/2024 8:13 PM EST) [facility] ETHANOL (MG/DL) IN SER/PLAS 31 mg/dL [facility] Comment:Serum/plasma ethanol results are to be used formedical/treatment purposes only. 11/25/2024 8:13 PM EST 11/25/2024 8:16 PM EST us Generic External Data Provider LAB BLOOD ORDERAB LES Final Result Performing Organization Address City/[facility]/ZIP Co de Phone Number [facility] [address] [place] [phone] * (ABNORMAL) Comprehensive Metabolic Panel (11/25/2024 8:13 PM EST) Sodium 140 135 - 145 mmol/L [facility] Potassium 3.9 3.3 - 5.1 mmol/L [facility] Chloride 107 96 - 108 mmol/L [facility] Carbon Dioxide 27 22 - 29 mmol/L [facility] Anion Gap 10(L) 12 - 20 [facility] Urea Nitrogen (BUN) 15 9 - 16 mg/dL [facility] Creatinine, Serum 0.71 0.5 - 1.4 mg/dL [facility] Creatinine Clr Calc Pharmacy 125.1 [facility] Comment:eGFR (calculated fro m the MDRD study equation) and eCrCl(calculated from the Cockcroft-Gault equation) are based ondifferent parameters and may not yield comparable results.If eCrCl result is absurd, please check patient'sheight/weight. Estimated Glomerular Filt Rate >60 [facility] Comment:Chronic Kidney Disea se: Estimated GFR < 60 mL/min/[id number] Kidney Disease: Estimated GFR < 15 mL/min/1.73m2 Glucose 115 60 - 115 mg/dL [facility] Calcium 8.8 8.4 - 10.2 mg/dL [facility] Bilirubin, Total 0.2 0.0 - 1.0 mg/dL [facility] Aspartate Amino Transferase 41(H) 5 - 37 U/L [facility] Alanine Aminotransferase 105(H) 0 - 40 U/L [facility] Total Protein 7.6 6.5 - 8.0 g/dL [facility] Albumin Level 4.1 3.5 - 5.0 g/dL [facility] Alkaline Phosphatase 76 39 - 117 U/L [facility] 11/25/2024 8:13 PM EST 11/25/2024 8:16 PM EST us Generic External Data Provider LAB BLOOD ORDERAB LES Final Result [facility] [address] [place] [address] [phone] * (ABNORMAL) Valproic Acid Total (11/25/2024 8:13 PM EST) Valproate <12.5(L) 50.0 - 100.0 mcg/mL [facility] 11/25/2024 8:13 PM EST 11/25/2024 8:16 PM EST us Generic External Data Provider LAB BLOOD ORDERAB LES Final Result Performing Organization Address City/State/[facility] Co de Phone Number [facility] [address] [place] [phone] * (ABNORMAL) CBC (11/25/2024 8:13 PM EST) Pathologist [facility] White Blood Count 6.6 4.8 - 10.8 X10*3/uL [facility] Red Blood Count 4.07(L) 4.60 - 5.80 X10*6/uL [facility] Hemoglobin 13.4(L) 14.0 - 18.0 g/dl [facility] Hematocrit 38.9(L) 42.0 - 52.0 % [facility] Mean Corpuscular Volume 95.6 80.0 - 98.0 fL [facility] Mean Corpuscular Hemoglobin 32.9 27.0 - 33.0 pg [facility] Mean Corpuscular HGB Conc 34.4 31.0 - 36.0 g/dl [facility] Red Cell Distribution Width 14.0 11.0 - 16.0 % [facility] Platelet Count 275 160 - 400 X10*3/uL [facility] Mean Platelet Volume 10.0 9.4 - 12.4 fL [facility] NRBC Pct Auto 0.0 0.0 - 0.2 /100WBC [facility] NRBC Abs Auto 0.000 0.0 - 0.012 X10*3/uL [facility] 11/25/2024 8:13 PM EST 11/25/2024 8:16 PM EST us Generic External Data Provider LAB BLOOD ORDERAB LES Final Result [facility] [address] [place] [phone] [phone] * (ABNORMAL) Drug Monitoring, Panel 1, Screen, Urine (11/25/2024 7:40 PM EST) Opiate Screen Urine Not Detected Not Detect [facility] Comment:Opiate cut-off is 30 0 ng/mL.Positive results are unconfirmed and should not be used fornon-medical purposes. Barbiturates, Urine Not Detected Not Detect [facility] Comment:Barbiturate cut-off is 200 ng/mL.Positive results are unconfirmed and should not be used fornon-medical purposes. Phencyclidine Screen Urine Not Detected Not Detect [facility] Comment:Phencyclidine cut-of f is 25 ng/mL.Positive results are unconfirmed and should not be used fornon-medical purposes. Amphetamine Screen Urine Not Detected Not Detect [facility] Comment:Amphetamine cut-off is 1000 ng/mL.Positive results are unconfirmed and should not be used fornon-medical purposes. Benzodiazepines Screen Urine Not Detected Not Detect [facility] Comment:Benzodiazepine cut-o ff is 200 ng/mL.Positive results are unconfirmed and should not be used fornon-medical purposes. Cocaine Screen Urine POSITIVE(A) Not Detect [facility] Comment:Cocaine cut-off is 3 00 ng/mL.Positive results are unconfirmed and should not be used fornon-medical purposes. Cannabinoid Screen Urine Not Detected Not Detect [facility] Comment:Cannabinoid cut-off is 50 ng/mL.Positive results are unconfirmed and should not be used fornon-medical purposes. Methadone Screen, Urine Positive(A) Not Detect ng/mL [facility] Comment:Methadone cut-off is 300 ng/mL.Positive results are unconfirmed and should not be used fornon-medical purposes. FENTANYL URINE Not Detected Not Detect [facility] Comment:Fentanyl cut-off is 1 ng/mL.Positive results are unconfirmed and should not be used fornon-medical purposes. Oxycodone Urine Screen Not Detected Not Detect ng/mL [facility] Comment:Oxycodone cut-off is 100 ng/mL.Positive results are unconfirmed and should not be used fornon-medical purposes. Buprenorphine Screen Not Detected Not Detect ng/mL [facility] Comment:Buprenorphine cut-of f is 5 ng/mL.Positive results are unconfirmed and should not be used fornon-medical purposes. 11/25/2024 7:40 PM EST 11/25/2024 7:52 PM EST Generic External Data Provider LAB URINE ORDERAB LES Final Result Performing Organization Address [facility]/ZIP Co de Phone Number [facility] [address] [place] [phone] * Urinalysis w/reflex microscopic (11/25/2024 7:40 PM EST) Color Urine Yellow [facility] Appearance Urine Clear [facility] PH 6.0 5.0 - 9.0 [facility] Glucose Urine UA Negative Negative mg/dL [facility] Urine Blood Negative Negative [facility] Specific [place] - Urine 1.025 1.005 - 1.025 [facility] Urine Protein Negative Neg-Trace mg/dL [facility] Urine Ketones Negative Negative mg/dL [facility] Nitrite Urine Negative Negative [facility] Leukocyte Esterase Urine Negative Negative [facility] 11/25/2024 7:40 PM EST 11/25/2024 7:43 PM EST Narrative [facility] - 11/25/2024 7:47 PM EST [id number], Clean Catch Generic External Data Provider LAB URINE ORDERAB LES Final Result Performing Organization Address [facility]/ZIP Co de Phone Number [facility] [address] [place] [phone] * XR Hip 2 or 3 Views Left (11/15/2024 7:55 PM EST) Anatomical Region Laterality Modality Lower Extremities, Hip Left Radiograp hic Imaging 11/15/2024 7:55 PM EST Narrative 11/16/2024 7:22 AM EST ? [facility] ?[address] ?[place] [address] ?XRay Report ? Signed ? Patient: Montero,Rogelio ?MR#: [id number] ?? 6 ? : 1990 ?Acct:[id number] ? Age/Sex: 34 / M ?ADM Date: 11/10/24 ? Loc: [id number].[id number] ?307-1 ? Attending Dr: Enmanuel Johnson MD ? Ordering Physician: Enmanuel Johnson MD ?? Date of Service: 11/15/24 ?? Procedure(s): XR hip LT min 2V ?? Accession Number(s): [id number] ? cc: Enmanuel Johnson MD; Alejandra Gardner [...] ? DD/ 54 ? TD/TT: 11/15/242001 ? Power System Engineer: ? Procedure Note Sergio Caldwell - 11/16/[address] [address] XRay Report Signed Patient: Radha Montero#: [id number] 6 : 1990Acct:[id number] Age/Sex: 34 / MADM Date: 11/10/24 Loc: [id number] 307-[address]: Enmanuel Johnson MD Ordering Physician: Enmanuel Johnson MD Date of Service: 11/15/24 Procedure(s): XR hip LT min 2V Accession Number(s): [id number] cc: Enmanuel Johnson MD; Alejandra Gardner MD [...] OV> 11/16/24 0719 DD/ 54 TD/TT: 11/15/242001 Power System Engineer: [facility] External Provider IMG XR PROCEDURES Edited Result - Final * XR HAND WRIST RT (11/10/2024 3:45 PM EST) Anatomical Region Laterality Modality Abdomen Radiographic Lucille ging 11/10/2024 3:45 PM EST Narrative 11/13/2024 8:16 AM EST ? [facility] ?[address] ?[place] [address] ?XRay Report ? Signed ? Patient: Montero,Rogelio ?MR#: [id number] ?? 6 ? : 1990 ?Acct:[id number] ? Age/Sex: 34 / M ?ADM Date: 01/10/25 ? Loc: [id number].[id number] ?307-1 ? Attending Dr: Enmanuel Johnson MD ? Ordering Physician: Enmanuel Johnson MD ?? Date of Service: 11/10/24 ?? Procedure(s): XR hand wrist RT ?? Accession Number(s): [id number] ? cc: Enmanuel Johnson MD; Alejandra Gardner [...] DD/ 1545 ? TD/TT: 11/10/24 1550 ? Power System Engineer: ? Procedure Note Donkimter, Image - 11/13/2024 [place] [address] XRay Report Signed Patient: Rogelio MonteroMR#: [id number] 6 : 1990Acct:[id number] Age/Sex: 34 / MADM Date: 11/10/24 Loc: [id number].[id number] 307-[address]: Enmanuel Johnson MD Ordering Physician: Enmanuel Johnson MD Date of Service: 11/10/24 Procedure(s): XR hand wrist RT Accession Number(s): [id number] cc: Enmanuel Johnson MD; Alejandra Gardner MD [...] signed by Lizzy Ponce MD in OV> 11/13/2413 DD/ 1545 TD/TT: 11/10/24 1550 Power System Engineer: [facility] External Provider IMG XR PROCEDURES Edited Result - Final * (ABNORMAL) Valproic Acid Total (11/09/2024 10:30 PM EST) Valproate <12.5(L) 50.0 - 100.0 mcg/mL [facility] 11/09/2024 10:3 0 PM EST 11/09/2024 10:35 PM EST Generic External Data Provider LAB BLOOD ORDERAB LES Final Result [facility] [address] [place] [phone] * SARS-CoV-2 RNA, Influenza A/B, and RSV RNA, Ql NAAT (11/09/2024 8:02 PM EST) Pathologist [facility] Influenza A PCR NEGATIVE Negative [facility] Influenza B PCR NEGATIVE Negative [facility] Resp Syncy Virus RNA Qual PCR NEGATIVE Negative [facility] SARS COV2 PCR NEGATIVE Negative [facility] Comment:All test results mus t be [...] use by authorized laboratories.Testing performed on the [employer] GeneXpert utilizingreal-time RT-PCR.All SARS CoV2 and positive influenza A/B results arereported to [facility]. 11/09/2024 8:02 PM EST 11/09/2024 8:10 PM EST Generic External Data Provider LAB MICROBIOLOGY - GENERAL ORDERABLES Final Result [facility] [address] [place] [address] [phone] * (ABNORMAL) Comprehensive Metabolic Panel (11/09/2024 8:02 PM EST) Sodium 143 135 - 145 mmol/L [facility] Potassium 3.8 3.3 - 5.1 mmol/L [facility] Chloride 107 96 - 108 mmol/L [facility] Carbon Dioxide 29 22 - 29 mmol/L [facility] Anion Gap 11(L) 12 - 20 [facility] Urea Nitrogen (BUN) 10 9 - 16 mg/dL [facility] Creatinine, Serum 0.77 0.5 - 1.4 mg/dL [facility] Creatinine Clr Calc Pharmacy 110.1 [facility] Comment:eGFR (calculated fro m the MDRD study equation) and eCrCl(calculated from the Cockcroft-Gault equation) are based ondifferent parameters and may not yield comparable results.If eCrCl result is absurd, please check patient'sheight/weight. Estimated Glomerular Filt Rate >60 [facility] Comment:Chronic Kidney Disea se: Estimated GFR < 60 mL/min/[id number] Kidney Disease: Estimated GFR < 15 mL/min/1.73m2 Glucose 85 60 - 115 mg/dL [facility] Calcium 9.4 8.4 - 10.2 mg/dL [facility] Bilirubin, Total 0.2 0.0 - 1.0 mg/dL [facility] Aspartate Amino Transferase 23 5 - 37 U/L [facility] Alanine Aminotransferase 12 0 - 40 U/L [facility] Total Protein 7.6 6.5 - 8.0 g/dL [facility] Albumin Level 4.3 3.5 - 5.0 g/dL [facility] Alkaline Phosphatase 64 39 - 117 U/L [facility] 11/09/2024 8:02 PM EST 11/09/2024 8:10 PM EST us Generic External Data Provider LAB BLOOD ORDERAB LES Final Result Performing Organization Address City/[facility]/ZIP Co de Phone Number [facility] [address] [place] [phone] [phone] * Ethanol (11/09/2024 8:02 PM EST) ETHANOL (MG/DL) IN SER/PLAS 66 mg/dL [facility] Comment:Serum/plasma ethanol results are to be used formedical/treatment purposes only. 11/09/2024 8:02 PM EST 11/09/2024 8:10 PM EST us Generic External Data Provider LAB BLOOD ORDERAB LES Final Result Performing Organization Address [facility] Co de Phone Number [facility] [address] [place] [address] [phone] * (ABNORMAL) Drug Monitoring, Panel 1, Screen, Urine (11/09/2024 8:02 PM EST) Pathologist [facility] Opiate Screen Urine Not Detected Not Detect [facility] Comment:Opiate cut-off is 30 0 ng/mL.Positive results are unconfirmed and should not be used fornon-medical purposes. Barbiturates, Urine Not Detected Not Detect [facility] Comment:Barbiturate cut-off is 200 ng/mL.Positive results are unconfirmed and should not be used fornon-medical purposes. Phencyclidine Screen Urine Not Detected Not Detect [facility] Comment:Phencyclidine cut-of f is 25 ng/mL.Positive results are unconfirmed and should not be used fornon-medical purposes. Amphetamine Screen Urine Not Detected Not Detect [facility] Comment:Amphetamine cut-off is 1000 ng/mL.Positive results are unconfirmed and should not be used fornon-medical purposes. Benzodiazepines Screen Urine Not Detected Not Detect [facility] Comment:Benzodiazepine cut-o ff is 200 ng/mL.Positive results are unconfirmed and should not be used fornon-medical purposes. Cocaine Screen Urine POSITIVE(A) Not Detect [facility] Comment:Cocaine cut-off is 3 00 ng/mL.Positive results are unconfirmed and should not be used fornon-medical purposes. Cannabinoid Screen Urine POSITIVE(A) Not Detect [facility] Comment:Cannabinoid cut-off is 50 ng/mL.Positive results are unconfirmed and should not be used fornon-medical purposes. Methadone Screen, Urine Positive(A) Not Detect ng/mL [facility] Comment:Methadone cut-off is 300 ng/mL.Positive results are unconfirmed and should not be used fornon-medical purposes. FENTANYL URINE POSITIVE(A) Not Detect [facility] Comment:Fentanyl cut-off is 1 ng/mL.Positive results are unconfirmed and should not be used fornon-medical purposes. Oxycodone Urine Screen Not Detected Not Detect ng/mL [facility] Comment:Oxycodone cut-off is 100 ng/mL.Positive results are unconfirmed and should not be used fornon-medical purposes. Buprenorphine Screen Not Detected Not Detect ng/mL [facility] Comment:Buprenorphine cut-of f is 5 ng/mL.Positive results are unconfirmed and should not be used fornon-medical purposes. 11/09/2024 8:02 PM EST 11/09/2024 8:10 PM EST us Generic External Data Provider LAB URINE ORDERAB LES Final Result [facility] [address] [place] [phone] * (ABNORMAL) Urinalysis, Complete, with Reflex to Culture (11/09/2024 8:02 PM EST) Color Urine Dark Yellow [facility] Appearance Urine Clear [facility] PH 6.0 5.0 - 9.0 [facility] Glucose Urine UA Negative Negative mg/dL [facility] Urine Blood Negative Negative [facility] Specific [place] - Urine >=1.030(H) 1.005 - 1.025 [facility] Urine Protein Trace Neg-Trace mg/dL [facility] Urine Ketones Trace Negative mg/dL [facility] Nitrite Urine Negative Negative [facility] Leukocyte Esterase Urine Trace(A) Negative [facility] RBC Urine 0-2 0 - 2 /HPF [facility] Urine WBC 0-5 0 - 5 /HPF [facility] Urine Squamous Epithelial Cell 0-2 0 - 2 /HPF [facility] Urine Bacteria None Seen None Seen [facility] Hyaline Casts, Urine 3-5 0 - 2 /LPF [facility] 11/09/2024 8:02 PM EST 11/09/2024 8:10 PM EST Narrative [facility] - 11/09/2024 8:29 PM EST Urine, Clean Catch us Generic External Data Provider LAB URINE ORDERAB LES Final Result [facility] [address] [place] [phone] * (ABNORMAL) CBC auto differential (11/09/2024 8:02 PM EST) White Blood Count 9.6 4.8 - 10.8 X10*3/uL [facility] Red Blood Count 4.49(L) 4.60 - 5.80 X10*6/uL [facility] Hemoglobin 14.6 14.0 - 18.0 g/dl [facility] Hematocrit 42.3 42.0 - 52.0 % [facility] Mean Corpuscular Volume 94.2 80.0 - 98.0 fL [facility] Mean Corpuscular Hemoglobin 32.5 27.0 - 33.0 pg [facility] Mean Corpuscular HGB Conc 34.5 31.0 - 36.0 g/dl [facility] Red Cell Distribution Width 13.0 11.0 - 16.0 % [facility] Platelet Count 251 160 - 400 X10*3/uL [facility] Mean Platelet Volume 10.1 9.4 - 12.4 fL [facility] Neutrophils Percent Auto 52.3 45 - 73 % [facility] Imm Gran Pct Auto 0.3 0.0 - 0.4 % [facility] Lymphocytes Percent Auto 35.6 20 - 40 % [facility] Monocytes Percent Auto 8.2 2 - 11 % [facility] Eosinophils Percent Auto 3.1 0 - 4 % [facility] Basophils Percent Auto 0.5 0 - 2 % [facility] NRBC Pct Auto 0.0 0.0 - 0.2 /100WBC [facility] Neutrophils Absolute Auto 5.0 2.0 - 8.3 x10*3/uL [facility] Imm Gran Abs Auto 0.03 0.00 - 0.03 X10*3/uL [facility] Lymphocytes Absolute Auto 3.4 1.2 - 4.9 X10*3/uL [facility] Monocytes Absolute Auto 0.8 0.1 - 1.2 X10*3/uL [facility] Eosinophils Absolute Auto 0.3 0.0 - 0.4 X10*3/uL [facility] Basophils Absolute Auto 0.1 0.0 - 0.2 X10*3/uL [facility] NRBC Abs Auto 0.000 0.0 - 0.012 X10*3/uL [facility] 11/09/2024 8:02 PM EST 11/09/2024 8:10 PM EST us Generic External Data Provider LAB BLOOD ORDERAB LES Final Result Performing Organization Address City/State/[facility] Co de Phone Number [facility] [address] [place] [phone] documented in this encounter Visit Diagnoses Not on filedocumented in this encounter Additional Health Concerns Assessment Noted Time PHQ-9 Depression Total Score: 21 024 8:50 AM EDT documented as of this encounter Care Teams Skin Grader Relationship Specialty Start Date End Date Alejandra Gardner MD [address] [place] [id number] PCP - General Family Medicine 07/15/23 Archana Gordon Community Health Worker 05/17/24 Alicia Wright RN [address] [place] [id number] Assessor 05/17/24 documented as of this encounter
--- OUTSIDE RECORDS SUMMARY | 2024-11-28 14:40 | XMS_ITS | Encounter Summary ---
Author Organization [employer] Address [address] [place] [address] [address] [place] [address] Care Team Providers Care Ivory Polisher Name Role Phone Alejandra Gardner MD Primary Care Provider [phone] Archana Gordon Unavailable Unavailable Alicia Wright RN Unavailable [phone] Reason for Visit * Reason Onset Date Comments New PAtient Appt 06/03/2023 Encounter Details Date Type Department Care Team (Late st Contact Info) Description 06/03/2023 Telephone [facility] MEDICINE [address] [place] [address] Alejandra Gardner MD [address] [place] [address] New PAtient Appt Social History Tobacco Use [...] PAR Abraham Quiroz called pt to Offer PRIOR AUTHORIZATION NURSE appt. Pt demographics and insurance information were [...] to return to medical records prior to PRIOR AUTHORIZATION NURSE appt. documented in this encounter Plan of Treatment Not on file documented as of this encounter Visit Diagnoses Not on filedocumented in this encounter Care Teams Ivory Polisher Relationship Specialty Start Date End Date Alejandra Gardner MD [address] [place] [id number] PCP - General Family Medicine 07/15/23 Archana Gordon Community Health Worker 05/17/24 Alicia Wright RN [address] [place] [phone] Car Salesperson 05/17/24 documented as of this encounter
--- OUTSIDE RECORDS SUMMARY | 2024-11-28 14:40 | XMS_ITS | Encounter Summary ---
Author Organization [employer] Address [address] [place] [address] 7 [place] [address] Care Team Providers Care Senior Investment Analyst Name Role Phone Alejandra Gardner MD Primary Care Provider [phone] Archana Gordon Unavailable Unavailable Alicia Wright RN Unavailable Reason for Visit * Reason Onset Date Comments Hospital Follow-up 07/21/2024 Encounter Details Date Type Department Care Team (Late st Contact Info) Description 07/21/2024 Telephone [facility] MEDICINE [address] [place] [address] Alejandra Gardner MD [address] [place], [place] [phone] Hospital Follow-up Social History Tobacco Use Types [...] Please feel free to message back through [employer] or call us at [phone] with any questions. Thanks, Yessica ROACH Tc [...] documented as of this encounter Care Teams Senior Investment Analyst Relationship Specialty Start Date End Date Alejandra Gardner MD [address] [place] [address] PCP - General Family Medicine 07/15/23 Archana Gordon Community Health Worker 05/17/24 Alicia Wright RN [address] [place] [phone] Curtain Cleaner 05/17/24 documented as of this encounter
[2024-11-28 15:01] LABS: Alanine Aminotransferase 56 U/L (0-40); Albumin Level 4.2 g/dL (3.5-5.0); Anion Gap 12 (12-20); Aspartate Amino Transferase 29 U/L (5-37); Bilirubin Direct 0.1 mg/dL (0.0-0.5); Bilirubin Total 0.4 mg/dL (0.0-1.0); Blood Urea Nitrogen 18 mg/dL (9-16); Calcium 9.7 mg/dL (8.4-10.2); Carbon Dioxide 26 mmol/L (22-29); Chloride 105 mmol/L (96-108); Creatinine Clr Calc Pharmacy 108.7; Estimated Glomerular Filt Rate > 60; Ethanol < 10 mg/dL; Glucose Random 133 mg/dL (60-115); Potassium 4.3 mmol/L (3.3-5.1); Sodium 139 mmol/L (135-145); Total Protein 7.8 g/dL (6.5-8.0)
[2024-11-28 15:15] LABS: Alkaline Phosphatase 69 U/L (39-117)
[2024-11-28 16:00] VITALS: BP 111/72; PULSE 115; RESP 18; TEMP 36.6; O2SAT 96
--- NOTE | 2024-11-28 17:03 | PC.NURSE ---
Patient received methdone at [facility] clinic in [place]. {[phone]} Methadone verified with MÓNICA ROACH at facility was last given 11/24/24 95mg dosing. Patient then had ER visit here on 11/25/24 and there is no documentation of dose per [facility]. Pt did recieve dosing at 1010am on 11/26/24 @ 1010am and 11/27/24 @ 857am then was discharged and came back today. pt reports has NOT taken dosing today 11/28/24. made aware.
--- NOTE | 2024-11-28 19:28 | PC.NURSE ---
patient presents to nursing stationg complaining of not feeling well. States he is teary eyed, has the shakes, and hot and cold flashes. All vitals are within normal limits at this time. Waiting on evening medication to be ordered. Spoke to md harvinder JUDGE.
[2024-11-28 19:30] VITALS: BP 110/76; PULSE 89; RESP 16; TEMP 36.8; O2SAT 98
[2024-11-28] MEDS: Mirtazapine 15 MG TABLET 45 MG PO (21:10)
[2024-11-28] MEDS: Divalproex Sodium 500 MG TABLET.DR 1000 MG PO (21:10)
[2024-11-28] MEDS: Gabapentin 300 MG CAPSULE PO (21:10)
[2024-11-28] MEDS: Famotidine 20 MG TABLET PO (21:10)
[2024-11-28] MEDS: LORazepam 1 MG TABLET PO (21:23)
[2024-11-28 21:27] VITALS: BP 111/71
[2024-11-28] MEDS: Prazosin HCL 5 MG CAPSULE PO (21:27)
[2024-11-28] MEDS: Cyproheptadine HCl 4 MG TABLET PO (21:27)
[2024-11-28] MEDS: levETIRAcetam 250 MG TABLET 750 MG PO (21:27)
[2024-11-28] MEDS: Baclofen 10 MG TABLET PO (21:27)
--- NOTE | 2024-11-29 05:34 | PC.NURSE ---
Attempted to call [facility] to verify dosing, no answer at clinic at this time
[2024-11-29 06:27] VITALS: BP 88/57; PULSE 80; RESP 17; TEMP 36.6; O2SAT 95
--- NOTE | 2024-11-29 07:40 | PHA.MEDREC ---
Addendum entered by Keily Bowers RPh 11/29/24 07:57: reviewed by [facility]. Original Note: Pharmacy Consult ? Medication Reconciliation Pharmacy reviewed med rec done by nursing. Utilized discharge packet from 11/27 to confirm med rec.
[2024-11-29] MEDS: methADONE HCl 20 MG/2 ML ORAL.CONC 95 MG PO (07:58)
[2024-11-29] MEDS: Famotidine 20 MG TABLET PO (08:10)
[2024-11-29] MEDS: Sertraline HCL 100 MG TABLET 200 MG PO (08:10)
[2024-11-29] MEDS: Gabapentin 300 MG CAPSULE PO ×2 (08:10→14:19)
[2024-11-29] MEDS: Baclofen 10 MG TABLET PO (08:10)
[2024-11-29] MEDS: levETIRAcetam 250 MG TABLET 750 MG PO (08:10)
[2024-11-29] MEDS: QUEtiapine Fumarate 50 MG TABLET PO (08:10)
--- NOTE | 2024-11-29 10:59 | MHC.CARE ---
Pt was accepted to [facility] by [facility] for today 11/29/24. ETA is 2pm and the accepting provider is Dr. Nixon. The address is [facility] [place] [address]. No nurse to nurse is required by the accepting facility. Pod RN and CARE Team have been notified of placement.
--- NOTE | 2024-11-29 12:55 | PC.NURSE ---
patient has been calm and cooperative, offering no complaints to this RN. patient verbalizes understanding of plan of care for transfer to [facility]
[2024-11-29 14:10] VITALS: BP 117/70; PULSE 89; RESP 16; TEMP 36.7; O2SAT 99
[2024-11-29] MEDS: LORazepam 1 MG TABLET PO (14:19)
[2024-11-29 15:23] VITALS: BP 109/77; PULSE 81; RESP 16; TEMP 37.1; O2SAT 97
== END 2024-11-29 15:25 | disposition short-term general hospital (02) ==
PROVIDERS: Physician Assistant Medical; Emergency Provider Emergency Medicine Emergency Medical Services; PCP Family Medicine
DX: R45.851 Suicidal ideations (principal); F39 Unspecified mood [affective] disorder; F19.20 Other psychoactive substance dependence, uncomplicated; F14.10 Cocaine abuse, uncomplicated; F11.20 Opioid dependence, uncomplicated; J45.909 Unspecified asthma, uncomplicated; F17.210 Nicotine dependence, cigarettes, uncomplicated; Z59.00 Homelessness unspecified
CPT/HCPCS: 36415; 80048; 80076; 80307; 81003; 85025; 93005; 99285; S9485

== ENCOUNTER → 2024-11-28 18:38 | Outpatient (BNV) | payer MEDICAID, SELFPAY | PROVIDERS: Emergency Provider Emergency Medicine Emergency Medical Services; PCP Family Medicine; Visit Provider Internal Medicine | DX: I45.81 Long QT syndrome (principal) | CPT/HCPCS: 93010 ==

== ENCOUNTER 2025-03-05 13:12 | Inpatient (IN) | payer OTHER, SELFPAY ==
[2025-03-05 13:26] VITALS: BP 124/64; PULSE 86; O2SAT 98
[2025-03-05 13:33] VITALS: BP 110/70; PULSE 75; RESP 20; TEMP 36.8; O2SAT 100; BMI 29.3
--- NOTE | 2025-03-05 13:36 | ECG_ITS ---
Test Reason : check qtc Blood Pressure : */* mmHG Vent. Rate : 75 BPM Atrial Rate : 75 BPM P-R Int : 152 ms QRS Dur : 96 ms QT Int : 356 ms P-R-T Axes : 56 12 3 degrees QTcB Int : 397 ms Normal sinus rhythm Nonspecific T wave abnormality Abnormal ECG When compared with ECG of 28-Nov-2024 18:38, No significant changes seen Referred By: Jennifer Lopez Electronically Signed By: NIKKI MILLER
--- NOTE | 2025-03-05 13:39 | ED_ITS ---
HPI - Alcohol General Chief Complaint: ETOH/Substance Use Stated Complaint: ETOH w withdrawal symptoms Time Seen by Provider: 03/05/25 13:31 Source: patient, EMS and old records reviewed Mode of arrival: EMS Limitations: no limitations History of Present Illness ED Provider: GURMEET BOLDEN narrative: 34 yo male with PMH of cocaine abuse, opiate abuse states he is on methadone 90mg a day missed his dose today, seizure d/o on keppra and depakote did keep his dose down this AM, he reports he did not take his methadone this AM and drank about 2 nips earlier. He then took a friends 50mg naltrexone Rx is from 2021 and suddenly became ill with chills, sweats, abdominal cramps and n/v/d. He has never taken this before. He denies SI/HI. MD complaint: alcohol intoxication (opiate withdrawal) Last drink: Just prior to admission Chronic alcohol use: Yes Previous visits for alcohol intoxication: Yes Recent trauma: No Associated symptoms: nausea, vomiting, diaphoresis, tremors and abdominal pain Treatments prior to arrival: none Related Data Home Medications ?Medication ?Instructions ?Recorded ?Confirmed methadone 10 mg/mL oral 90 mg PO DAILY 11/10/24 03/06/25 concentrate (Methadone Intensol) baclofen 10 mg tablet 10 mg PO BEDTIME 03/06/25 03/06/25 divalproex 500 mg tablet,delayed 1,000 mg PO BEDTIME 03/06/25 03/06/25 release gabapentin 300 mg capsule 300 mg PO TID neuropathic pain 03/06/25 03/06/25 hydroxyzine pamoate 50 mg capsule 50 mg PO Q6H PRN Anxiety 03/06/25 03/06/25 levetiracetam 750 mg tablet 750 mg PO BID 03/06/25 03/06/25 melatonin 3 mg tablet 9 mg PO BEDTIME PRN insomnia 03/06/25 03/06/25 nicotine 21 mg/24 hr daily 1 patch transdermal DAILY 03/06/25 03/06/25 transdermal patch sertraline 100 mg tablet 200 mg PO DAILY 03/06/25 03/06/25 Allergies Allergy/AdvReac Type Severity Reaction Status Date / Time No Known Allergies Allergy Verified 03/05/25 13:36 Review of Systems 2 Review of Systems: Constitutional : No Weight loss, No Fever, pos Chills ENT/Mouth : No sore throat, No Rhinorrhea Eyes: No Swelling, No Redness Cardiovascular : No Chest Pain, No SOB, No Edema Respiratory : No Cough, No Sputum, No Wheezing Gastrointestinal : Positive Nausea, Positive Vomiting, positive Diarrhea, positive abdominal Pain, No Hematochezia, No Melena Genitourinary : No Dysuria, No Urinary Frequency, No Hematuria, No Urgency Musculoskeletal : No joint pain, pos Myalgias, No Joint Swelling Skin : No Skin Lesions, No rash Neuro : pos Weakness, No Numbness, No Dizziness, No Headache Psych : No Anxiety/Panic, No Depression All other systems reviewed and are negative. [facility] Past Medical History Attestation statement: The following information was validated with the patient. Source: old records reviewed Medical History Depression Suicidal ideation Seizure disorder Polysubstance (including opioids) dependence with physiol dependence Active substance abuse Epilepsy Asthma Social History Social History Household Members: None Housing: Homeless Do you presently have visiting nurse or other home services: No Unable to assess alcohol history related to: Refusing to respond Alcohol intake: current Alcohol intake frequency: 0-2 drinks per day Alcohol type: hard liquor Comment: does not like to wear yellow socks. wears his own. Patient Tobacco Use Status: Current everyday Tobacco user Tobacco use type: Cigarette Cigarette Packs Per Day: 1 Cigarettes Per Day: 20.0 Smoked in Last 30 Days: Yes e-Cigarette/Vaping Use: Currently Using Patient Given Instructions on How to Stop Smoking: Yes Date Education Initiated: 03/06/25 Second Hand Smoke Exposure: No Use of substances other than those prescribed or required for medical reasons: Refusing to respond Substance Use Type: Crack/Cocaine Substance Use Frequency: Chronic Longstanding Last Used Substance: Just Prior to Admission Currently Displaying Signs/Symptoms of Drug Intoxication Withdrawal: No Any prior treatment program specific to substance use: Yes (per care team assessment) Spiritual Healthcare Practices: refusing to respond [facility] Practices: refusing to respond Cultural Healthcare Practices: refusing to respond Advance Directives: No Advance Directives Information Provided: No Do you have thoughts of harming others: None Do you have a plan to hurt others: No Plan Recently lost weight without trying: Unsure Nutrition Risks: No Nutritional Risk service: No Sexual orientation: Straight/Heterosexual Physical Exam ED Vital Signs: Vital Signs - 24 hr 03/06/25 11:33 Temperature 98.6 F Pulse Rate 75 Respiratory Rate 14 Blood Pressure 103/63 Pulse Oximetry 98 Oxygen Delivery Method Room Air BMI result Body Mass Index 29.3 Appearance: Alert. Oriented X3. Mild acute distress. incontinent of yellow stool, active vomiting Eyes: Pupils equal, round and reactive to light. ENT: Pharynx normal. Neck: Normal inspection. Neck supple. CVS: tachcyardia heart rate and rhythm. Pulses normal. Respiratory: No respiratory distress. Breath sounds normal. Abdomen: Soft and nontender. Skin: Skin cool and dry. pale skin color. Normal skin turgor. piloerection Extremities: No lower extremity edema. No calf ttp Neuro: Oriented X 3. No motor deficit. No sensory deficit. CN2-12 intact Course Course Course Narrative: getting up to 80mg total of his methadone Reevaluation(s) Reevaluation #1: signed out to Lydia FRY pending repeat assessment and chemistry. Reevaluation #2: patient markedly improved 415pm Reevaluation #3: Patient was given to me via sign-out from Dr Lopez. I went to go reassess patient, patient mumbling, appears to be reaching for things that are not there, also reporting that he wants to be admitted on M5. He is alert and oriented however does appear to be speaking with flight of ideas. At this time, I think it is more appropriate for patient to be seen by the care team for further evaluation. When asked if he has suicidal or homicidal, I had as this multiple times, does not report any homicidal or suicidal ideation however patient stating that he would like to be seen by crisis. Additional Reevaluation(s): Time: 08:14 Date: 03/06/25 Provider: LISANDRA Brown Patient in physician observation for CARE team evaluation. No acute events reported overnight. No current complaints. VS stable.? Patient has been evaluated by care team and will be inpatient dual diagnosis bed search. Will continue to monitor. Time: 15:00 Date: 03/06/25 Provider: Jennifer Lopez DO Physician observation ended at 1500. Patient to be admitted as inpatient to psychiatry. Medical Decision Making Medical Decision Making MDM Narrative: 34 yo male with PMH of cocaine abuse, opiate abuse states he is on methadone 90mg a day missed his dose today, seizure d/o on keppra and depakote now here with precipitated wtihdrawal after taking someone's naltrexone and missing he methadone dose. Acutely I am going to order labs, fluids, EKG for qtc start on IV valium, IV narcotics given the precipitated withdrawal, IV nausea medications. Will consult addiction as well. Once he is more comfortable I am going to start at a low dose of methadone and increase it to his total dose. Differential Diagnosis Differential Diagnoses: The differential diagnosis associated with the presentation includes ETOH use disorder, precipitated withdrawal Admission/Observation Consideration of admission/observation: Escalation of care including admission/observation considered if he can keep down his methadone I anticipate DC home suspect 40mg total dose and then anticipate DC he looks much better than before and appears well Consult Healthcare Provider Management of the patient was discussed with: [employer] Science Teacher Lab Data [facility] Lab Attestation statement: I reviewed the patient's lab results. 03/05/25 13:46 03/07/25 08:08 Labs: Lab Results 03/05/25 03/05/25 03/05/25 Range/Units 13:46 16:15 19:30 WBC 12.3 H (4.8-10.8) X10*3/uL RBC 5.01 (4.60-5.80) X10*6/uL Hgb 16.1 (14.0-18.0) g/dl Hct 45.6 (42.0-52.0) % MCV 91.0 (80.0-98.0) fL MCH 32.1 (27.0-33.0) pg MCHC 35.3 (31.0-36.0) g/dl RDW 13.2 (11.0-16.0) % Plt Count 222 D (160-400) X10*3/uL MPV 11.4 (9.4-12.4) fL Immature Gran % (Auto) 0.5 H (0.0-0.4) % Neut % (Auto) 68.9 (45-73) % Lymph % (Auto) 21.2 (20-40) % [place] % (Auto) 7.9 (2-11) % Eos % (Auto) 1.1 (0-4) % Baso % (Auto) 0.4 (0-2) % Lymph # (Auto) 2.6 (1.2-4.9) X10*3/uL [place] # (Auto) 1.0 (0.1-1.2) X10*3/uL Eos # (Auto) 0.1 (0.0-0.4) X10*3/uL Baso # (Auto) 0.1 (0.0-0.2) X10*3/uL Abs Immat Gran (auto) 0.06 H (0.00-0.03) X10*3/uL Absolute Neuts (auto) 8.5 H (2.0-8.3) x10*3/uL Absolute Nucleated RBC 0.000 (0.0-0.012) X10*3/uL Nucleated RBC % (auto) 0.0 (0.0-0.2) /100WBC Sodium 139 (135-145) mmol/L Potassium 3.7 (3.3-5.1) mmol/L Chloride 105 (96-108) mmol/L Carbon Dioxide 20 L (22-29) mmol/L Anion Gap 18 (12-20) BUN 17 H (9-16) mg/dL Creatinine 0.89 (0.5-1.4) mg/dL Estim Creat Clear Calc 111.8 Estimated GFR > 60 Random Glucose 137 H (60-115) mg/dL Calcium 9.8 (8.4-10.2) mg/dL Magnesium 2.0 (1.6-2.6) mg/dL Total Bilirubin 0.5 (0.0-1.0) mg/dL Direct Bilirubin 0.1 (0.0-0.5) mg/dL AST 36 (5-37) U/L ALT 12 (0-40) U/L Alkaline Phosphatase 72 (39-117) U/L Ammonia 50 (13-55) umol/L Total Protein 7.9 (6.5-8.0) g/dL Albumin 4.4 (3.5-5.0) g/dL Lipase 55 (8-78) U/L Urine Color Urine Appearance Urine pH (5.0-9.0) Ur Specific Staples (1.005-1.025) Urine Protein (Neg-Trace) mg/dL Urine Glucose (UA) (Negative) mg/dL Urine Ketones (Negative) mg/dL Urine Blood (Negative) Urine Nitrite (Negative) Ur Leukocyte Esterase (Negative) Urine RBC (0-2) /HPF Urine WBC (0-5) /HPF Ur Squamous Epith Cells (0-2) /HPF Urine Bacteria (None Seen) Hyaline Casts (0-2) /LPF Urine Opiates Screen (Not Detect) Ur Buprenorphine Scrn (Not Detect) ng/mL Ur Oxycodone Screen (Not Detect) ng/mL Urine Methadone Screen (Not Detect) ng/mL Urine Fentanyl Screen (Not Detect) Ur Barbiturates Screen (Not Detect) Valproic Acid 71.2 (50.0-100.0) mcg/mL Ur Phencyclidine Scrn (Not Detect) Ur Amphetamines Screen (Not Detect) U Benzodiazepines Scrn (Not Detect) Urine Cocaine Screen (Not Detect) U Marijuana (THC) Screen (Not Detect) Ethyl Alcohol < 10 mg/dL 03/06/25 Range/Units 06:37 WBC (4.8-10.8) X10*3/uL RBC (4.60-5.80) X10*6/uL Hgb (14.0-18.0) g/dl Hct (42.0-52.0) % MCV (80.0-98.0) fL MCH (27.0-33.0) pg MCHC (31.0-36.0) g/dl RDW (11.0-16.0) % Plt Count (160-400) X10*3/uL MPV (9.4-12.4) fL Immature Gran % (Auto) (0.0-0.4) % Neut % (Auto) (45-73) % Lymph % (Auto) (20-40) % [place] % (Auto) (2-11) % Eos % (Auto) (0-4) % Baso % (Auto) (0-2) % Lymph # (Auto) (1.2-4.9) X10*3/uL [place] # (Auto) (0.1-1.2) X10*3/uL Eos # (Auto) (0.0-0.4) X10*3/uL Baso # (Auto) (0.0-0.2) X10*3/uL Abs Immat Gran (auto) (0.00-0.03) X10*3/uL Absolute Neuts (auto) (2.0-8.3) x10*3/uL Absolute Nucleated RBC (0.0-0.012) X10*3/uL Nucleated RBC % (auto) (0.0-0.2) /100WBC Sodium (135-145) mmol/L Potassium (3.3-5.1) mmol/L Chloride (96-108) mmol/L Carbon Dioxide (22-29) mmol/L Anion Gap (12-20) BUN (9-16) mg/dL Creatinine (0.5-1.4) mg/dL Estim Creat Clear Calc Estimated GFR Random Glucose (60-115) mg/dL Calcium (8.4-10.2) mg/dL Magnesium (1.6-2.6) mg/dL Total Bilirubin (0.0-1.0) mg/dL Direct Bilirubin (0.0-0.5) mg/dL AST (5-37) U/L ALT (0-40) U/L Alkaline Phosphatase (39-117) U/L Ammonia (13-55) umol/L Total Protein (6.5-8.0) g/dL Albumin (3.5-5.0) g/dL Lipase (8-78) U/L Urine Color Yellow Urine Appearance Clear Urine pH 8.0 (5.0-9.0) Ur Specific Staples >= 1.030 H (1.005-1.025) Urine Protein 30 (1+) H (Neg-Trace) mg/dL Urine Glucose (UA) Negative (Negative) mg/dL Urine Ketones 40 (Negative) mg/dL Urine Blood Negative (Negative) Urine Nitrite Negative (Negative) Ur Leukocyte Esterase Negative (Negative) Urine RBC 0-2 (0-2) /HPF Urine WBC 0-5 (0-5) /HPF Ur Squamous Epith Cells 0-2 (0-2) /HPF Urine Bacteria None Seen (None Seen) Hyaline Casts 0-2 (0-2) /LPF Urine Opiates Screen Not Detected (Not Detect) Ur Buprenorphine Scrn Not Detected (Not Detect) ng/mL Ur Oxycodone Screen Not Detected (Not Detect) ng/mL Urine Methadone Screen Positive H (Not Detect) ng/mL Urine Fentanyl Screen Not Detected (Not Detect) Ur Barbiturates Screen Not Detected (Not Detect) Valproic Acid (50.0-100.0) mcg/mL Ur Phencyclidine Scrn Not Detected (Not Detect) Ur Amphetamines Screen Not Detected (Not Detect) U Benzodiazepines Scrn POSITIVE H (Not Detect) Urine Cocaine Screen POSITIVE H (Not Detect) U Marijuana (THC) Screen Not Detected (Not Detect) Ethyl Alcohol mg/dL Independent Interpretation I performed an independent interpretation of an: EKG Interpretation: Rate: 75 Rhythm: NSR [place]: normal Normal P waves. Normal SHILO. Normal QRS complex. ST T wave : no COLLETTE, nonspecific ST T wave changes qTC: 397 prior studies: no acute ischemia, artifact noted. The study has been interpreted contemporaneously by me. . Independent Historian Clinical information obtained from an independent historian. History obtained from or confirmed by: EMS External Record Review External record reviewed: Inpatient record and Outpatient record Medications Administered Generic Name Dose Route Start Last Admin Trade Name Freq PRN Reason Stop Dose Admin Baclofen 10 mg 03/06/25 21:00 03/06/25 20:26 Baclofen 10 Mg Tablet PO 10 mg BEDTIME AMADO Administration Divalproex Sodium 1,000 mg 03/06/25 21:00 03/06/25 20:26 Divalproex Sodium 500 Mg Tablet.Dr PO 1,000 mg BEDTIME AMADO Administration Gabapentin 300 mg 03/06/25 09:00 03/07/25 08:18 Gabapentin 300 Mg Capsule PO 300 mg TID AMADO Administration Levetiracetam 250 mg/ 750 mg 03/06/25 09:00 03/07/25 08:50 Levetiracetam 500 mg PO 750 mg BID AMADO Administration Sertraline HCl 200 mg 03/06/25 09:00 03/07/25 08:18 Sertraline Hcl 100 Mg Tablet PO 200 mg DAILY AMADO Administration Discontinued Medications Generic Name Dose Route Start Last Admin Trade Name Freq PRN Reason Stop Dose Admin Diazepam 2.5 mg 03/05/25 13:35 03/05/25 13:42 Diazepam 10 Mg/2 Ml Cartridge IVPUSH 03/05/25 13:36 2.5 mg STAT STA Administration Diazepam 2.5 mg 03/05/25 14:49 03/05/25 15:08 Diazepam 10 Mg/2 Ml Cartridge IVPUSH 03/05/25 14:50 2.5 mg STAT STA Administration Diazepam 5 mg 03/06/25 01:21 03/06/25 01:31 Diazepam 10 Mg/2 Ml Cartridge IM 03/06/25 01:22 5 mg STAT STA Administration Droperidol 1.25 mg 03/06/25 01:21 03/06/25 01:30 Droperidol 5 Mg/2 Ml Vial IM 03/06/25 01:22 1.25 mg ONCE ONE Administration Lactated Ringer's 1,000 mls @ 999 mls/hr 03/05/25 13:35 03/07/25 07:51 Lr IV 03/05/25 14:35 Infused .Q1H1M ONE Infusion Thiamine HCl 200 mg/ Sodium 102 mls @ 204 mls/hr 03/05/25 13:35 03/07/25 07:51 Chloride IV 03/05/25 14:04 Infused ONCE ONE Infusion Methadone HCl 20 mg 03/05/25 15:22 03/05/25 15:31 Methadone Hcl 20 Mg/2 Ml Oral.Conc PO 03/05/25 15:23 20 mg ONCE ONE Administration Methadone HCl 20 mg 03/05/25 16:00 03/05/25 16:48 Methadone Hcl 20 Mg/2 Ml Oral.Conc PO 03/05/25 16:01 20 mg ONCE ONE Administration Methadone HCl 90 mg 03/06/25 10:53 03/06/25 11:57 Methadone Hcl 20 Mg/2 Ml Oral.Conc PO 03/06/25 10:54 90 mg ONCE ONE Administration Methadone HCl 90 mg 03/07/25 08:10 03/07/25 08:15 Methadone Hcl 20 Mg/2 Ml Oral.Conc PO 03/07/25 08:11 90 mg ONCE ONE Administration Prochlorperazine Edisylate 10 mg 03/05/25 13:35 03/05/25 13:45 Prochlorperazine Edisylate 10 Mg/2 Ml Vial IVPUSH 03/05/25 13:36 10 mg ONCE ONE Administration Critical Care Time Critical Care Time Critical Care Time: Yes Total Critical Care Time: 60 Attestation: IVF resuscitations, review or records, stat consult for precipitated withdrawal with addiction medicine, repeat IV valium for agitation/anxiety with improvement in symptoms, admission I attest to this time spent taking care of the patient Discharge Plan Discharge Clinical Impression: Alcohol use disorder, Opiate withdrawal Patient Disposition: Admitted As Inpatient Interventions: Admission Worksheet (ED) Last Done: 03/06/25 14:38 Discharge Date/Time: 03/06/25 15:23
[2025-03-05] MEDS: diazePAM 10 MG/2 ML CARTRIDGE 2.5 MG IVPUSH ×2 (13:42→15:08)
[2025-03-05] MEDS: Thiamine HCL 200 MG in 0.9 % Sodium Chloride 100 ML 204 MG IV (13:42)
[2025-03-05] MEDS: Lactated Ringers 1,000 ML 999 ML IV (13:44)
[2025-03-05] MEDS: Prochlorperazine Edisylate 10 MG/2 ML VIAL IVPUSH (13:45)
[2025-03-05 15:26] LABS: MANUAL DIFF FLAG NO
[2025-03-05 15:27] LABS: Basophils Absolute Auto 0.1 X10*3/uL (0.0-0.2); Basophils Percent Auto 0.4 % (0-2); Eosinophils Absolute Auto 0.1 X10*3/uL (0.0-0.4); Eosinophils Percent Auto 1.1 % (0-4); Hematocrit 45.6 % (42.0-52.0); Hemoglobin 16.1 g/dl (14.0-18.0); Imm Gran Abs Auto 0.06 X10*3/uL (0.00-0.03); Imm Gran Pct Auto 0.5 % (0.0-0.4); Lymphocytes Absolute Auto 2.6 X10*3/uL (1.2-4.9); Lymphocytes Percent Auto 21.2 % (20-40); Mean Corpuscular HGB Conc 35.3 g/dl (31.0-36.0); Mean Corpuscular Hemoglobin 32.1 pg (27.0-33.0); Mean Platelet Volume 11.4 fL (9.4-12.4); Monocytes Percent Auto 7.9 % (2-11); Neutrophils Absolute Auto 8.5 x10*3/uL (2.0-8.3); Neutrophils Percent Auto 68.9 % (45-73); Platelet Count 222 X10*3/uL (160-400); Red Blood Count 5.01 X10*6/uL (4.60-5.80); Red Cell Distribution Width 13.2 % (11.0-16.0); White Blood Count 12.3 X10*3/uL (4.8-10.8)
[2025-03-05] MEDS: methADONE HCl 20 MG/2 ML ORAL.CONC PO ×2 (15:31→16:48)
--- OUTSIDE RECORDS SUMMARY | 2025-03-05 15:41 | XMS_ITS | Clinical Summary ---
Author Organization [employer] Address [address] [facility] 7t [place] [address] Care Team Providers Care Chainstitch Seat Joiner Name Role Phone Alejandra Gardner MD Primary Care Provider [phone] Archana Gordon Unavailable Alicia Wright RN Unavailable Allergies No known active allergies Medications * [...] the same time. 14 patch 024 Active Ventolin HFA 108 (90 Base) MCG/ACT inhalerIndicati ons:Moderate persistent asthma without complication INHALE 2 PUFFS BY MOUTH EVERY 4 HOURS NEEDED FOR WHEEZING 18 g 1 024 Active divalproex (Depakote) 500 MG EC tablet Take 2 tablets (1,000 mg) by mouth at bedtime. 180 tablet 2 025 Active mirtazapine (Remeron) 45 MG tablet Take 45 mg by mouth at bedtime. Active sertraline (Zoloft) 100 MG tablet Take 2 tablets by mouth Once per day. Active baclofen (Lioresal) 10 MG tablet Take 1 tablet by mouth 2 times daily. Active prazosin (Minipress) 5 MG capsule Take 1 capsule by mouth at bedtime. Active famotidine (Pepcid) 20 MG tablet Take 1 tablet by mouth 2 times daily. Active albuterol (2.5 MG/3ML) 0.083% nebulizer solutionIndicat ions:Moderate persistent asthma without complication Take 3 mL by nebulization 1 (one) time for 1 dose. 3 mL 025 Active levETIRAcetam (Keppra) 750 MG tabletIndicatio ns:Seizures (CMS/HCC) Take 1 tablet (750 mg) by mouth 2 times daily. 60 tablet 11 025 Active Nutritional Supplements (Ensure Active High Protein) liquidIndicatio ns:Poor appetite 1 can 2 times a day 49224 mL 025 Active QUEtiapine (SEROquel) 100 MG tablet Take 100 mg by mouth at bedtime. for sleep 025 Active pyridoxine (Vitamin B-6) 50 MG tablet Take 50 mg by mouth Once per day. Active folic acid (Folvite) 1 MG tablet Take 1 tablet by mouth Once per day. Active thiamine (Vitamin B-1) 100 MG tablet Take 1 tablet by mouth Once per day. Active lidocaine (Lidoderm) 5 % patch Apply 2 patches topically Once per day. Remove & discard patch within 12 hours or as directed by MD. Active guanFACINE (Tenex) 1 MG tablet Take 2 tablets by mouth at bedtime. Active Fluticasone-Glen meterol 100-50 MCG/ACT aerosol powder Inhale 1 puff 2 times daily. Active cloNIDine (Catapres) 0.2 MG tabletIndicatio ns:Severe episode of recurrent major depressive disorder, without psychotic features (CMS/HCC) Take 1 tablet (0.2 mg) by mouth Once per day. 30 tablet 11 024 2024 Discontinued(M ed list cleanup (will not trigger notification to Pharmacy)) hydrOXYzine HCl (Atarax) 50 MG tablet Take 1 tablet by mouth every 8 (eight) hours if needed for anxiety. 024 2024 Discontinued(M ed list cleanup (will not trigger notification to Pharmacy)) cyproheptadine (Periactin) 4 MG tablet Take 1 tablet by mouth at bedtime. 2024 Discontinued(M ed list cleanup (will not trigger notification to Pharmacy)) QUEtiapine (SEROquel) 50 MG tablet Take 50 mg by mouth if needed in the morning and at bedtime (anxiety/agitat ion). 2024 Discontinued(M ed list cleanup (will not trigger notification to Pharmacy)) Fluticasone-Glen meterol (Advair Diskus) 250-50 MCG/ACT aerosol powderIndicatio ns:Moderate persistent asthma without complication Inhale 1 puff 2 times daily. 60 each 5 025 2024 Discontinued(M ed list cleanup (will not trigger notification to Pharmacy)) gabapentin (Neurontin) 300 MG capsule Take 1 capsule (300 mg) by mouth 3 times daily. 90 capsule 3 025 2024 Discontinued(M ed list cleanup (will not trigger notification to Pharmacy)) Active Problems Problem Noted Date Diagnosed Date JOHN (generalized anxiety disorder) 04/06/2024 Vision abnormalities 11/24/2023 Seizures 07/15/2023 Overview (07/15/2023): Follows with Dr Ramirez at [facility] Assessment & Plan (07/16/2023 8:11 AM EDT): Patient unable to provide dosing of depakote or keppra, not completely seizure free, questionable compliance. Reports has not seen neurology in a long while, was following with Dr. Ramirez. Will send labs and patient to call/send message through [facility] with meds and dosing. Severe episode of recurrent major depressive disorder, without psychotic features 07/15/2023 Overview (07/15/2023): Inpatient admit for homicidal ideation and auditory hallucinations. Assessment & Plan (04/06/2024 9:51 AM EDT): PROGRESS NOTE: ID: Rogelio is a 33 y.o. White straight-identified cis-malewith previous documented hx of Depression, Substance Use Disorder, Hx of HI and tobacco abuse. services including OP Psychotherapy psychopharmacology who presents [...] coping mechanism to address acute sxs and Rehab Liaison services, who he agreed. I provide him with Eugenie Montero who will be able to support him in his goal to get in to a sober house. Rogelio was receptive and agreeable to services and referrals. PLAN: New/Additional Services needed Off-site services for Behavioral Health Integration Plan Internal Follow up with [facility] External OP therapy referral and OP psychiatry Referral Patient Self Plan Patient to utilize skills provided in intervention , Patient to reach out to [facility] team as needed, Comply with medication , Patient to engage in OP therapy , and Patient to reach out to [facility] as needed Assessment & Plan (07/26/2023 5:03 [...] Moderate episode of recurrent major depressive disorder ([facility]) Patient ready to address current needs Yes Strengths- Rogelio has insight around his symptoms and is involved in his yazdanism PLAN: 1. Follow up with [facility]: Recommended for follow-up: As needed 2. Patient [...] organization. Date Type Department Care Team Description 03/02/2025 Telephone [facility] [address] [place] [address] Alejandra Gardner MD 02/14/2025 Telephone [facility] [address] [place] [address] Melissa Carl MD No Show 02/02/2025 Patient Outreach [facility] [address] [place] [address] Alejandra Gardner MD Transition Of Care (Tcm) (HDF- scheduled ) 01/12/2025 Population Health Risk Score [facility] () Department [address] [place] [id number] Provider, Population Health Generic 12/20/2024 Telephone [facility] [address] [place] [address] Alejandra Gardner MD 12/08/2024 Telephone [facility] [address] [place], [place] [phone] Alejandra Gardner MD Care Coordination ([facility]) 12/06/2024 Patient Outreach [facility] [address] [place] [address] Alejandra Gardner MD Care Coordination (Outreach) from Last 3 Months Immunizations Name Administration [...] with others, in a hotel, in a mcfp, living outside on the street, on a [...] Comments Dental Prophylaxis 1988 Lipid Panel 1988 Family Planning (PISQ) 2003 Hepatitis B Vaccines (1 of 3 - 19+ 3-dose series) 2007 Pneumococcal Vaccine: Pediatrics (0 to 5 Years) and At-Risk Patients (6 to 49) Years) (1 of 2 - PCV) 2007 Dental Oral Exam 02/08/2015 08/09/2014 Dental X-Ray: Bitewings 08/10/2015 08/09/2014 Dental X-Ray: Full Mouth 09/14/2017 09/13/2014, 07/2014 COVID-19 Vaccine ( season) 2024 01/13/2022, 09/26/2021, 04/11/2021, Additional history exists Influenza Vaccine (#1) 2024 , 08/04/2020, 08/21/2011 Alcohol/Substance Use Screening 04/06/2025 04/06/2024 Depression Screening [...] on patient's age to complete this topic Hepatitis A Vaccines Aged Out No long er eligible based on patient's age to complete [...] Procedure Name Priority Date/Time Associated Diagnosis Comments HEPATITIS C AB W/REFL TO HCV RNA, QN, PCR Routine 04/10/2024 4:26 PM EDT Opioid type dependence, continuous (CMS/HCC) HIV 1/2 ANTIGEN/ANTIBODY, FOURTH GENERATION W/RFL Routine 04/10/2024 4:26 PM EDT Opioid type dependence, continuous (CMS/HCC) PANORAMIC RADIOGRAPHIC IMAGE Routine 09/13/2014 12:00 AM EST INTRAORAL - COMPLETE SERIES OF RADIOGRAPHIC IMAGES Routine 08/09/2014 12:00 AM EDT COMPREHENSIVE ORAL EVALUATION - NEW OR ESTABLISHED PATIENT Routine 08/09/2014 12:00 AM EDT from Last 3 Months or Most Recently Relevant to Health Maintenance Results * Hepatitis C Antibody with Reflex to HCV, RNA, Quantitative, Real-Time PCR (04/10/2024 4:26 PM EDT) Hepatitis C Antibody Nonreactive Nonreactive [facility] Comment:Antibodies to HCV no t detected; does not exclude early acuteHCV infection. Blood Venous blood specimen / Unknown 04/10/2024 4:26 PM EDT 04/10/2024 5:18 PM EDT us Enmanuel Billy MD LAB BLOOD ORDERABLES Final Resul t [facility] [address] [place] [address] [phone] * HIV-1/2 Antigen and Antibodies, Fourth Generation, with Reflexes (04/10/2024 4:26 PM EDT) HIV AB/AG Nonreactive Nonreactive [facility] Comment:HIV-1 p24 Ag and/or HIV-1/HIV-2 Ab not detected.A test result that is nonreactive does not exclude thepossibility of exposure to or infection with HIV-1 and/orHIV-2. Nonreactive results in this assay for individualswith prior exposure to HIV-1 and/or HIV-2 may be due toantigen and antibody levels that are below the limit ofdetection of this assay.The [facility] HIV Ag/Ab Combo assay result andsupplemental assay results should be interpreted inconjunction with the patient's clinical presentation,history and other laboratory results. If the results areinconsistent with clinical evidence, additional testing issuggested to confirm the result. Blood Venous blood specimen / Unknown 04/10/2024 4:26 PM EDT 04/10/2024 5:18 PM EDT us Enmanuel Billy MD LAB BLOOD ORDERABLES Final Resul t [facility] [address] [place] [phone] from Last 3 Months or Most Recently Relevant to Health [place] [address] [facility] C[facility] [place] AD[place] Care Teams Chainstitch Seat Joiner Relationship Specialty Start Date End Date Alejandra Gardner MD [address] [place] [address] PCP - General Family Medicine 07/15/23 Archana Gordon Community Health Worker 05/17/24 Alicia Wright RN [address] [place] [phone] Diet Assistant 05/17/24
--- OUTSIDE RECORDS SUMMARY | 2025-03-05 15:41 | XMS_ITS | Encounter Summary ---
Author Organization [employer] Address [address] [place] [address] 7t [place] [address] Care Team Providers Care Salon Receptionist Name Role Phone Alejandra Gardner MD Primary Care Provider [phone] Archana Gordon Unavailable Alicia Wright RN Unavailable [phone] Reason for Visit * Reason Onset Date Comments New PAtient Appt 06/03/2023 Encounter Details Date Type Department Care Team ([facility] st Contact Info) Description 06/03/2023 Telephone [facility] MEDICINE [address] [place] [address] Alejandra Gardner MD [address] [place] [address] New PAtient Appt Social History Tobacco Use [...] PAR Abraham Quiroz called pt to Offer ELECTRO MECHANIC appt. Pt demographics and insurance information were [...] to return to medical records prior to ELECTRO MECHANIC appt. documented in this encounter Plan of Treatment Not on file documented as of this encounter Visit Diagnoses Not on filedocumented in this encounter Care Teams Salon Receptionist Relationship Specialty Start Date End Date Alejandra Gardner MD [address] [place] [address] PCP - General Family Medicine 07/15/23 Archana Gordon Community Health Worker 05/17/24 Alicia Wright, DOC [address] [place] [address] Storage Facility Rental Clerk 05/17/24 documented as of this encounter
--- OUTSIDE RECORDS SUMMARY | 2025-03-05 15:41 | XMS_ITS | Encounter Summary ---
Author Organization [employer] Address [address] [place] [address] [address]t [place] [address] Care Team Providers Care Dock Manager Name Role Phone Alejandra Gardner MD Primary Care Provider Archana Gordon Unavailable Alicia Wright RN Unavailable [phone] Encounter Details Date Type Department Care Team ([facility] st Contact Info) Description 03/02/2025 Telephone [facility] MED & PEDS [address] [place] [address] Alejandra Gardner MD [address] [place] [address] Social History Tobacco Use Types Packs/Day Years [...] documented as of this encounter Care Teams Dock Manager Relationship Specialty Start Date End Date Alejandra Gardner MD [address] [place] [address] PCP - General Family Medicine 07/15/23 Archana Gordon Community Health Worker 05/17/24 Alicia Wright RN [address] [place] [address] Rn Float 05/17/24 documented as of this encounter
--- OUTSIDE RECORDS SUMMARY | 2025-03-05 15:41 | XMS_ITS | Encounter Summary ---
Author Organization [employer] Address [address] [place] [address] 7t [place] [address] Care Team Providers Care Manager Of Data Name Role Phone Alejandra Gardner MD Primary Care Provider [phone] Archana Gordon Unavailable Alicia Wright RN Unavailable [phone] Reason for Visit * Reason Onset Date Comments PT1 07/21/2024 Encounter Details Date Type Department Care Team (Late st Contact Info) Description 07/21/2024 Telephone [facility] MEDICINE [address] [place] [address] Alejandra Gardner MD [address] [place], [place] [phone] PT1 Social History Tobacco Use Types Packs/Day [...] Y/N: Yes Provider name or facility name: [facility] Facility Address: [address] [place] [address] Escort needed: Y/N: Yes Do you have a wheelchair: Y/N: No Visits: All Future appt's documented in this encounter Plan of Treatment Not on file documented as of this encounter Visit Diagnoses Not on filedocumented in this encounter Additional Health Concerns Assessment Noted Time PHQ-9 Depression Total Score: 21 024 8:50 AM EDT documented as of this encounter Care Teams Manager Of Data Relationship Specialty Start Date End Date Alejandra Gardner MD [address] [place] [address] PCP - General Family Medicine 07/15/23 Archana Gordon Community Health Worker 05/17/24 Alicia Wright RN [address] [place] [address] [place] [address] Chief Operator Hydroformer 05/17/24 documented as of this encounter
--- OUTSIDE RECORDS SUMMARY | 2025-03-05 15:41 | XMS_ITS | Encounter Summary ---
Author Organization [employer] Address [address] [place] [address] [address] [place] [address] Care Team Providers Care Dry Cell Assembly Supervisor Name Role Phone Alejandra Gardner MD Primary Care Provider [phone] Archana Gordon Unavailable Alicia Wright RN Unavailable Reason for Visit * Reason Onset Date Comments Appointment Request 07/06/2024 Encounter Details Date Type Department Care Team ([facility] Contact Info) Description 07/06/2024 Telephone [facility] MED & PEDS [address] [place] [address] Alejandra Gardner MD [address] [place] [address] Appointment Request Social History Tobacco Use Types [...] with others, in a hotel, in a jail, living outside on the street, on a [...] the past 12 months, has t he [employer], gas, oil or water Naldo threatened to shut off services in your [...] documented as of this encounter Care Teams Dry Cell Assembly Supervisor Relationship Specialty Start Date End Date Alejandra Gardner MD [address] [place] [address] PCP - General Family Medicine 07/15/23 Archana Gordon Community Health Worker 05/17/24 Alicia Wright RN [address] [place] [address] Passenger Car Cleaning Supervisor 05/17/24 documented as of this encounter
--- OUTSIDE RECORDS SUMMARY | 2025-03-05 15:41 | XMS_ITS | Encounter Summary ---
Author Organization [employer] Address [address] [place] [address] 7t [place] [address] Care Team Providers Care Street Worker Name Role Phone Alejandra Gardner MD Primary Care Provider [phone] Archana Gordon Unavailable Alicia Wright RN Unavailable [phone] Reason for Visit * Reason Onset Date Comments Hospital Follow-up 07/21/2024 Encounter Details Date Type Department Care Team ([facility] st Contact Info) Description 07/21/2024 Telephone [facility] MEDICINE [address] [place] [address] Alejandra Gardner MD [address] [place], [place] [phone] Hospital Follow-up Social History Tobacco Use Types [...] with others, in a hotel, in a fci, living outside on the street, on a [...] Please feel free to message back through [employer] or call us at [phone] with any questions. Thanks, Yessica ROACH Tc [...] documented as of this encounter Care Teams Street Worker Relationship Specialty Start Date End Date Alejandra Gardner MD [address] [place] [address] PCP - General Family Medicine 07/15/23 Archana Gordon Community Health Worker 05/17/24 Alicia Wright RN [address] [place] [phone] Oracle Applications Analyst 05/17/24 documented as of this encounter
--- OUTSIDE RECORDS SUMMARY | 2025-03-05 15:41 | XMS_ITS | Encounter Summary ---
Author Organization [employer] Address [address] [place] [address] 7t [place] [address] Care Team Providers Care Astronomy Teacher Name Role Phone Alejandra Gardner MD Primary Care Provider [phone] Archana Gordon Unavailable Alicia Wright RN Unavailable [phone] Reason for Visit * Reason Onset Date Comments Hospital Follow-up 11/17/2024 Encounter Details Date Type Department Care Team ([facility] st Contact Info) Description 11/17/2024 Telephone [facility] MEDICINE [address] [place] [address] Alejandra Gardner MD [address] [place], [place] [phone] Hospital Follow-up Social History Tobacco Use Types [...] from pt requesting a HDF appt. Hospital: [facility] Date of admission: 11/10 Discharge date: 11/21 Diagnosed: Alcohol disorders, Opiate disorders *Send message to [place] Clinical Care Coordinators documented in this encounter Plan of Treatment Not on file documented as of this encounter Visit Diagnoses Not on filedocumented in this encounter Additional Health Concerns Assessment Noted Time PHQ-9 Depression Total Score: 21 024 8:50 AM EDT documented as of this encounter Care Teams Astronomy Teacher Relationship Specialty Start Date End Date Alejandra Gardner MD [address] [place] [address] PCP - General Family Medicine 07/15/23 Archana Gordon Community Health Worker 05/17/24 Alicia Wright RN [address] [place] [address] Senior It Auditor 05/17/24 documented as of this encounter
[2025-03-05 16:09] LABS: Valproate 71.2 mcg/mL (50.0-100.0)
--- NOTE | 2025-03-05 16:32 | PC.NURSE ---
methadone dose for 1600 not yet verified
[2025-03-05 16:48] LABS: Alanine Aminotransferase 12 U/L (0-40); Albumin Level 4.4 g/dL (3.5-5.0); Alkaline Phosphatase 72 U/L (39-117); Anion Gap 18 (12-20); Aspartate Amino Transferase 36 U/L (5-37); Bilirubin Direct 0.1 mg/dL (0.0-0.5); Bilirubin Total 0.5 mg/dL (0.0-1.0); Blood Urea Nitrogen 17 mg/dL (9-16); Calcium 9.8 mg/dL (8.4-10.2); Carbon Dioxide 20 mmol/L (22-29); Chloride 105 mmol/L (96-108); Creatinine Clr Calc Pharmacy 111.8; Estimated Glomerular Filt Rate > 60; Ethanol < 10 mg/dL; Glucose Random 137 mg/dL (60-115); Lipase 55 U/L (8-78); Potassium 3.7 mmol/L (3.3-5.1); Sodium 139 mmol/L (135-145); Total Protein 7.9 g/dL (6.5-8.0)
[2025-03-05 16:50] VITALS: BP 123/81; PULSE 66; RESP 20; O2SAT 97
[2025-03-05 19:48] LABS: Ammonia 50 umol/L (13-55)
[2025-03-05 20:10] VITALS: BP 133/85; PULSE 60; RESP 16; O2SAT 96
--- NOTE | 2025-03-05 23:01 | PC.NURSE ---
pt self removed iv, telemetry monitoring cords, and all clothes. He has disorganized speech and appears to be confused. he remains incontinent of urine. provider trenton blanton
--- NOTE | 2025-03-05 23:34 | PC.NURSE ---
This parts data writer assumed care of this Pt at 2300.
--- NOTE | 2025-03-06 00:58 | PC.NURSE ---
Pt incontinent of urine, awaken to verbal stimuli, A&Ox3. Ambulated to chair. New pants given.
--- NOTE | 2025-03-06 01:25 | PC.NURSE ---
Pt awake, projectile vomit bile color on wall/floor. Provider Anwer aware. Pending new orders.
[2025-03-06] MEDS: droPERidol 5 MG/2 ML VIAL 1.25 MG IM (01:30)
[2025-03-06] MEDS: diazePAM 10 MG/2 ML CARTRIDGE 5 MG IM (01:31)
[2025-03-06 06:35] VITALS: BP 135/85; PULSE 63; RESP 16; TEMP 37.4; O2SAT 96
[2025-03-06 06:55] LABS: Amphetamine Screen Urine Not Detected (Not Detect); Barbiturates, Urine Not Detected (Not Detect); Benzodiazepines Screen Urine POSITIVE (Not Detect); Buprenorphine Scr Not Detected (Not Detect); Cannabinoid Screen Urine Not Detected (Not Detect); Cocaine Screen Urine POSITIVE (Not Detect); Fentanyl, urine Not Detected (Not Detect); Methadone Screen, Urine Positive (Not Detect); Opiate Screen Urine Not Detected (Not Detect); Oxycodone Screen Urine Not Detected (Not Detect); Phencyclidine Screen Urine Not Detected (Not Detect)
[2025-03-06 08:59] LABS: Appearance Urine Clear; Color Urine Yellow; Glucose Urine UA Negative (Negative); Leukocyte Esterase Urine Negative (Negative); Nitrite Urine Negative (Negative); Specific Gravity - Urine >= 1.030 (1.005-1.025); UMIC TRIGGER UA YES; Urine Blood Negative (Negative); Urine Ketones 40 mg/dL (Negative); Urine Protein 30 (1+) mg/dL (Neg-Trace)
[2025-03-06 09:16] LABS: Bacteria Urine None Seen (None Seen); Hyaline Casts Urine 0-2 /LPF (0-2); RBC Urine 0-2 /HPF (0-2); Squamous Epithelial Cell Urine 0-2 /HPF (0-2); WBC Urine 0-5 /HPF (0-5)
[2025-03-06] MEDS: Sertraline HCL 100 MG TABLET 200 MG PO (09:31)
[2025-03-06] MEDS: Gabapentin 300 MG CAPSULE PO ×3 (09:31→20:26)
--- NOTE | 2025-03-06 09:57 | PC.NURSE ---
This RN assumed care of patient @ 0700. Patient alert and responsive. Denies pain. No SOB. No N/V noted at this time. Verified methadone with [facility], spoke with Linda STEINER. Patient last received 90 mg dose on 03/03 and 1 take home bottle for 03/04. Verification faxed to pharm. Plan of care on going.
--- NOTE | 2025-03-06 10:39 | HE.PHANOTE ---
Addendum entered by Cassidy Gil [facility] 03/06/25 11:40: Patient told nurse Isiah Jordan that he took the take home dose on 03/04/25. Original Note: RE: METHADONE DOSING Last dose of methadone 90 mg was given on 03/03/25 at [facility] [phone] with 1 take home dose per Linda STEINER.
[2025-03-06 11:33] VITALS: BP 103/63; PULSE 75; RESP 14; TEMP 37; O2SAT 98
[2025-03-06] MEDS: methADONE HCl 20 MG/2 ML ORAL.CONC 90 MG PO (11:57)
--- NOTE | 2025-03-06 13:33 | MHC.CARE ---
CARE Team met with Pt, Pt is endorsing current SI. Pt is not able to verbalize safety if discharged from the hospital.Pt is voluntary for mental health treatment. Plan continues for Pt to admitted pyschaitrically.
--- NOTE | 2025-03-06 13:42 | PHA.MEDREC ---
Addendum entered by Evelin Fonseca RPh 03/06/25 13:50: [facility] reviewed Original Note: Pharmacy Consult ? Medication Reconciliation Pharmacy has reviewed the medication reconciliation done by nursing. Claims match med list.
--- NOTE | 2025-03-06 18:49 | PC.ADMIT ---
Rogelio arrived via wheelchair from the [facility] at 1517. He is awake but drowsy, flat affect and dismissive. He was cooperative with skin and safety check, skin check is unremarkable. He signed a CV with Bertha Ruffin MANAGER FILE. He is oriented x4, reports passive SI and will seek staff if this worsens and he wants to act on it. He was attempting to sleep on an exam table in the treatment room during the admission attempt. He was given a quick tour and was settled in his room where he immediately got in bed and fell asleep. ---Per ED note/crisis --He was BIBA after not taking prescribed methadone, drinking two nips, then took a 'friends' naltrexone prescription from 2021 and started to feel ill, sweats, chills, abdominal pain nausea and diarrhea. He reports using crack cocaine and alcohol daily but did not report the amount he used daily. He denied any health problems. He reports he does smoke cigarettes and would like NRT.? He was unable to report why he missed or skipped his methadone dose on that day. His tox screen was positive for cocaine, benzos, methadone. He is currently unhoused. He gets 90mg of methadone at [facility], dose verified while in the ED. He is on 15 minute safety checks.?
[2025-03-06 19:57] VITALS: BP 112/77; PULSE 73; TEMP 36.9; O2SAT 96
[2025-03-06] MEDS: Divalproex Sodium 500 MG TABLET.DR 1000 MG PO (20:26)
[2025-03-06] MEDS: Baclofen 10 MG TABLET PO (20:26)
[2025-03-07 08:00] VITALS: BP 112/68; PULSE 60; RESP 18; TEMP 37.8; O2SAT 96
[2025-03-07] MEDS: methADONE HCl 20 MG/2 ML ORAL.CONC 90 MG PO (08:15)
[2025-03-07] MEDS: Gabapentin 300 MG CAPSULE PO ×3 (08:18→21:02)
[2025-03-07] MEDS: Sertraline HCL 100 MG TABLET 200 MG PO (08:18)
[2025-03-07 08:34] LABS: Estimated Average Glucose 97 mg/dL; Hemoglobin A1C 131.2272 umol/L; Total Hemoglobin (HGBA1C) 4256.1321 umol/L
[2025-03-07 08:36] LABS: Ammonia 44 umol/L (13-55)
[2025-03-07 08:49] LABS: Alanine Aminotransferase 12 U/L (0-40); Albumin Level 4.2 g/dL (3.5-5.0); Alkaline Phosphatase 68 U/L (39-117); Anion Gap 11 (12-20); Aspartate Amino Transferase 27 U/L (5-37); Bilirubin Total 0.3 mg/dL (0.0-1.0); Blood Urea Nitrogen 20 mg/dL (9-16); Carbon Dioxide 27 mmol/L (22-29); Chloride 104 mmol/L (96-108); Cholesterol 182 mg/dL (<200); Creatinine Clr Calc Pharmacy 89.6; Estimated Glomerular Filt Rate > 60; Glucose Random 99 mg/dL (60-115); HDL Cholesterol 64 mg/dL (>40); LDL Cholesterol Calculated 90 mg/dL (<100); Potassium 4.3 mmol/L (3.3-5.1); Sodium 138 mmol/L (135-145); Total Protein 7.6 g/dL (6.5-8.0); Triglycerides 141 mg/dL (<150)
[2025-03-07 09:16] LABS: TSH reflex Free T4 8.21 uIU/mL (0.32-4.0)
[2025-03-07 10:22] LABS: Free T4 (Free Thyroxine) 0.62 ng/dL (0.71-1.85)
--- NOTE | 2025-03-07 11:36 | PC.NURSE ---
Pt declining participation with Safety Tool x2.
[2025-03-07] MEDS: LORazepam 1 MG TABLET 2 MG PO (12:56)
--- NOTE | 2025-03-07 15:21 | PM.EVENT ---
Event Note Date of Service: 03/07/25 Event Note: Addiction consult placed for patient regarding methadone dosing Discussed with Dr. Francis, will hold on consult for now until he sees patient (he did not place consult) Methadone 90mg QD order already in place. Time Spent With Patient Time: Total time managing care of this patient today ____ minutes.
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
[2025-03-07] MEDS: Magnesium Hydrox/Alum Hydrox 30 ML ORAL.SUSP PO (16:19)
[2025-03-07] MEDS: LORazepam 1 MG TABLET PO (16:20)
[2025-03-07] MEDS: Omeprazole 20 MG CAPSULE.DR PO (17:15)
[2025-03-07] MEDS: Famotidine 20 MG TABLET PO (17:15)
[2025-03-07 19:36] VITALS: BP 92/65; PULSE 71; TEMP 36.8; O2SAT 95
[2025-03-07] MEDS: traZODone HCL 50 MG TABLET PO (20:45)
[2025-03-07] MEDS: Divalproex Sodium 500 MG TABLET.DR 1000 MG PO (20:46)
[2025-03-07] MEDS: Baclofen 10 MG TABLET PO (20:47)
[2025-03-08 07:00] VITALS: BMI 28.4
[2025-03-08] MEDS: methADONE HCl 20 MG/2 ML ORAL.CONC 90 MG PO (07:50)
[2025-03-08 08:00] VITALS: BP 99/59; PULSE 62; RESP 16; TEMP 36.6; O2SAT 98
[2025-03-08] MEDS: Gabapentin 300 MG CAPSULE PO ×3 (08:28→21:21)
[2025-03-08] MEDS: Omeprazole 20 MG CAPSULE.DR PO (08:28)
[2025-03-08] MEDS: Sertraline HCL 100 MG TABLET 200 MG PO (08:28)
[2025-03-08] MEDS: LORazepam 1 MG TABLET PO ×2 (08:37→21:50)
--- NOTE | 2025-03-08 15:03 | P.PNPSI_ITS ---
Subjective Subjective Date of Service: 03/08/25 Reason For Visit: SI Subjective Notes: Conditional Voluntary Healthcare Proxy: No Guardianship: No Medical Problems Affecting Mental Status: No Interim History: Patient notes that he continues to feel better. He states that on 03/05/2025, he was brought in to [facility] ED by ambulance after taking naltrexone from his father's . He drank 2 nips of alcohol shortly after. He took the naltrexone in an attempt to stop drinking alcohol. He started experiencing uncontrolled shaking, anxiety, feeling hot and cold, dizziness, diarrhea, and vomiting shortly after he took the naltrexone. He was in his father's car while his symptoms started. His father stopped the car at a house and had someone called EMS who brought him to the ED. he is on methadone 90 mg daily at [facility] but missed a dose today he was brought to the ED due to his illness. He was admitted at [facility] earlier this year. He notes that he was admitted at [facility] on a CV, for alcohol and cocaine use, shortly after his discharge from [facility]. 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 However, he did complete 90 days and was discharged from section 35 sometime in December. He was clean from alcohol and drugs until a couple of weeks after his discharged from section 35. He started drinking 1 sleeve of alcohol daily and smoking 50 dollar worth of cocaine daily. Patient denies anxiety or depression at this time. He denies SI, HI, or AVH at this time. Medication Compliance: Yes Side effects from medications: No Attending Groups: No Review of Systems Acute medical concerns: No Medical Review of Systems: unchanged Mental Status Exam Mental Status Exam Narrative: Mental Status Exam Narrative: Appearance: Casually dressed Behavior: Calm and cooperative throughout the interview. Intermittent eye contact, and there are no signs of psychomotor agitation or retardation Speech: Normal volume and prosody Thought process logical and goal-directed Thought content: Future oriented no self-harming thoughts Mood: Euthymic Affect: Full, mood-congruent SI:denies HI:denies VH/AH:none Delusions: None Insight/judgment: fair insight and judgment Memory/cog: Alert, oriented x 4. grossly intact to conversational testing Diagnostics Vital Signs (24Hr): Vital Signs - 24 hr 03/07/25 19:36 03/08/25 08:00 Temperature 98.2 F 98 F Pulse Rate 71 62 Respiratory Rate 16 Blood Pressure 92/65 99/59 L Pulse Oximetry 95 98 Oxygen Delivery Method Room Air Room Air BMI result Body Mass Index 28.4 Labs 03/05/25 13:46 03/07/25 08:08 Labs: Laboratory Results - last 48 hr 03/07/25 08:08 Sodium 138 Potassium 4.3 Chloride 104 Carbon Dioxide 27 Anion Gap 11 L BUN 20 H Creatinine 1.11 Estim Creat Clear Calc 89.6 Estimated GFR > 60 Random Glucose 99 Estimat Average Glucose 97 Hemoglobin A1c % 5.0 Calcium 9.0 D Total Bilirubin 0.3 AST 27 ALT 12 Alkaline Phosphatase 68 Ammonia 44 Total Protein 7.6 Albumin 4.2 Triglycerides 141 Cholesterol 182 LDL Cholesterol, Calc 90 HDL Cholesterol 64 TSH 8.21 H Free T4 0.62 L Valproic Acid 65.0 Medications Medications Current Medications Acetaminophen (Acetaminophen 325 Mg Tablet) 650 mg PO Q6H PRN PRN Reason: Headache/Pain, Scale 1-10 Al Hydroxide/Mg Hydroxide (Magnesium Hydrox/Alum Hydrox 30 Ml Oral.Susp) 30 ml PO Q6H PRN PRN Reason: Heartburn/Nausea Last Admin: 03/07/25 16:19 Dose: 30 ml Baclofen (Baclofen 10 Mg Tablet) 10 mg PO BEDTIME [facility] Last Admin: 03/07/25 20:47 Dose: 10 mg Divalproex Sodium (Divalproex Sodium 500 Mg Tablet.Dr) 1,000 mg PO BEDTIME [facility] Last Admin: 03/07/25 20:46 Dose: 1,000 mg Gabapentin (Gabapentin 300 Mg Capsule) 300 mg PO TID [facility] Last Admin: 03/08/25 08:28 Dose: 300 mg Hydroxyzine HCl (Hydroxyzine Hcl 25 Mg Tablet) 25 mg PO Q6H PRN PRN Reason: mild anxiety Levetiracetam 250 mg/ (Levetiracetam 500 mg) 750 mg PO BID [facility] Last Admin: 03/08/25 08:28 Dose: 750 mg Lorazepam (Lorazepam 1 Mg Tablet) 1 mg PO Q2H PRN PRN Reason: CIWA 6-10 Last Admin: 03/08/25 08:37 Dose: 1 mg Lorazepam (Lorazepam 1 Mg Tablet) 2 mg PO Q2H PRN PRN Reason: CIWA 11 and above Last Admin: 03/07/25 12:56 Dose: 2 mg Magnesium Hydroxide (Milk Of Magnesia 30 Ml Oral.Susp) 30 ml PO DAILY PRN PRN Reason: Constipation Melatonin (Melatonin 3 Mg Tablet) 9 mg PO BEDTIME PRN PRN Reason: insomnia Methadone HCl (Methadone Hcl 20 Mg/2 Ml Oral.Conc) 90 mg PO DAILY@0800 [facility] Last Admin: 03/08/25 07:50 Dose: 90 mg Nicotine (Nicotine 21 Mg Patch.Td24) 21 mg TRANSDERMA DAILY PRN PRN Reason: smoking cessation Nicotine Polacrilex (Nicotine Polacrilex 2 Mg Gum) 4 mg BUCCAL Q2H PRN PRN Reason: Nicotine Cravings Olanzapine (Olanzapine 5 Mg Tablet) 5 mg PO TID PRN PRN Reason: agitation Omeprazole (Omeprazole 20 Mg Capsule.Dr) 20 mg PO DAILY@0630 [facility] Last Admin: 03/08/25 08:28 Dose: 20 mg Sertraline HCl (Sertraline Hcl 100 Mg Tablet) 200 mg PO DAILY [facility] Last Admin: 03/08/25 08:28 Dose: 200 mg Trazodone HCl (Trazodone Hcl 50 Mg Tablet) 50 mg PO BEDTIME MRX1 PRN PRN Reason: Insomnia Last Admin: 03/07/25 20:45 Dose: 50 mg Allergies Allergies Allergy/AdvReac Type Severity Reaction Status Date / Time No Known Allergies Allergy Verified 03/05/25 13:36 Assessment & Plan Assessment & Plan (1) Opiate withdrawal: Status: Acute Code(s): F11.93 - Opioid use, unspecified with withdrawal (2) Alcohol use disorder: Status: Acute Code(s): F10.90 - Alcohol use, unspecified, uncomplicated Plan I had a brief encounter with patient this morning who was lying in his bed. He notes that he is tired but continues to improve and feels better than yesterday. He states that he will not be able to participate in a full interview today and feels he will be ready tomorrow. He denies SI, HI, AVH at this time. He has history of depression, polysubstance abuse, epilepsy, and suicide attempt with drug overdose following the of his mother. He is currently homeless. The following is collateral from nursing: Rogelio arrived via wheelchair from the [facility] ED POD at 1517. He is awake but drowsy, flat affect and dismissive. He was cooperative with skin and safety check, skin check is unremarkable. He signed a CV with Bertha Ruffin SALES ORDER COORDINATOR. He is oriented x4, reports passive SI and will seek staff if this worsens and he wants to act on it. He was attempting to sleep on an exam table in the treatment room during the admission attempt. He was given a quick tour and was settled in his room where he immediately got in bed and fell asleep. ---Per ED note/crisis --He was BIBA after not taking prescribed methadone, drinking two nips, then took a 'friends' naltrexone prescription from 2021 and started to feel ill, sweats, chills, abdominal pain nausea and diarrhea. He reports using crack cocaine and alcohol daily but did not report the amount he used daily. He denied any health problems. He reports he does smoke cigarettes and would like NRT.? He was unable to report why he missed or skipped his methadone dose on that day. His tox screen was positive for cocaine, benzos, methadone. He is currently unhoused. He gets 90mg of methadone at [facility], dose verified while in the ED. He is on 15 minute safety checks.? Formulation/Clinical reasoning: Opiate withdrawal; the use of naltrexone and methadone resulted in withdrawal symptoms such as sweats, chills, abdominal pain, and diarrhea. He was restarted on methadone 90 mg daily and currently on CIWA for alcohol withdrawal assessment. Plan: Admit to M5. CV 15 minutes check. Diagnostics as needed. Collateral contact. Continue to take methadone 90 mg daily. Continue remainder of regime. Encouraged full milieu. Discharge planning. 03/08/25: Patient symptoms continue to improve. No anxiety, depression, SI, HI, AVH at this time. Continue current treatment regimen/plan. Patient educated on: therapeutic strategies Guardian/Caregiver educated on: therapeutic strategies Informed Consent: understands Reason for continued inpatient stay Substantial Risk for: rapid decompensation Time Spent With Patient Time: Total time managing care of this patient today ____ minutes.
[2025-03-08 20:00] VITALS: BP 116/71; PULSE 96; RESP 16; TEMP 37.1; O2SAT 96
[2025-03-08] MEDS: Divalproex Sodium 500 MG TABLET.DR 1000 MG PO (21:19)
[2025-03-08] MEDS: Baclofen 10 MG TABLET PO (21:20)
[2025-03-08] MEDS: Melatonin 3 MG TABLET 9 MG PO (21:20)
[2025-03-09] MEDS: Omeprazole 20 MG CAPSULE.DR PO (06:45)
[2025-03-09 08:00] VITALS: BP 90/55; PULSE 73; TEMP 36.4; O2SAT 96
[2025-03-09] MEDS: methADONE HCl 20 MG/2 ML ORAL.CONC 90 MG PO (08:00)
[2025-03-09] MEDS: Gabapentin 300 MG CAPSULE PO ×3 (09:14→21:02)
[2025-03-09] MEDS: hydrOXYzine HCL 25 MG TABLET PO (09:15)
[2025-03-09] MEDS: Sertraline HCL 100 MG TABLET 200 MG PO (09:15)
--- NOTE | 2025-03-09 10:06 | P.PNPSI_ITS ---
Subjective Subjective Date of Service: 03/09/25 Reason For Visit: SI Subjective Notes: Conditional Voluntary Healthcare Proxy: No Guardianship: No Medical Problems Affecting Mental Status: No Interim History: Pt continues to feel withdrawal sx. Discussed use [employer]-cocaine, alcohol, fentanyl. Will increase baclofen to bid in trial to assist with sx mgt Attempting milieu, groups and to begin to engage Medication Compliance: Yes Side effects from medications: No Attending Groups: Intermittent Review of Systems Review of Systems Feeling dope sick he reports Mental Status Exam Mental Status Exam Patient Appearance: Fatigued Patient Orientation: Person, Place, Time and Situation Level of Consciousness: Alert Patient Behavior: Talkative and Good Eye Contact Mood Description: Blunted Affect Description: Blunted Patient Cognition Impaired: No Ability to Follow Directions: Good Speech Pattern: Spontaneous Speech Memory Description: Episodic Impaired Delusions: Not Present Thought Content: positive for Circumstantial and positive for Perseveration Depressive Symptoms: Increased Fatigue and Loss of Energy Judgement: Fair Diagnostics Vital Signs (24Hr): Vital Signs - 24 hr 03/08/25 20:00 03/09/25 08:00 Temperature 98.8 F 97.5 F Pulse Rate 96 73 Respiratory Rate 16 Blood Pressure 116/71 90/55 L Pulse Oximetry 96 96 Oxygen Delivery Method Room Air Room Air BMI result Body Mass Index 28.4 Labs 03/05/25 13:46 03/07/25 08:08 Labs: Laboratory Results - last 48 hr 03/07/25 08:08 Free T4 0.62 L Medications Medications Current Medications Acetaminophen (Acetaminophen 325 Mg Tablet) 650 mg PO Q6H PRN PRN Reason: Headache/Pain, Scale 1-10 Al Hydroxide/Mg Hydroxide (Magnesium Hydrox/Alum Hydrox 30 Ml Oral.Susp) 30 ml PO Q6H PRN PRN Reason: Heartburn/Nausea Last Admin: 03/07/25 16:19 Dose: 30 ml Baclofen (Baclofen 10 Mg Tablet) 10 mg PO BEDTIME [facility] Last Admin: 03/08/25 21:20 Dose: 10 mg Divalproex Sodium (Divalproex Sodium 500 Mg Tablet.Dr) 1,000 mg PO BEDTIME [facility] Last Admin: 03/08/25 21:19 Dose: 1,000 mg Gabapentin (Gabapentin 300 Mg Capsule) 300 mg PO TID [facility] Last Admin: 03/09/25 09:14 Dose: 300 mg Hydroxyzine HCl (Hydroxyzine Hcl 25 Mg Tablet) 25 mg PO Q6H PRN PRN Reason: mild anxiety Last Admin: 03/09/25 09:15 Dose: 25 mg Levetiracetam 250 mg/ (Levetiracetam 500 mg) 750 mg PO BID [facility] Last Admin: 03/09/25 09:14 Dose: 750 mg Lorazepam (Lorazepam 1 Mg Tablet) 1 mg PO Q2H PRN PRN Reason: CIWA 6-10 Last Admin: 03/08/25 21:50 Dose: 1 mg Lorazepam (Lorazepam 1 Mg Tablet) 2 mg PO Q2H PRN PRN Reason: CIWA 11 and above Last Admin: 03/07/25 12:56 Dose: 2 mg Magnesium Hydroxide (Milk Of Magnesia 30 Ml Oral.Susp) 30 ml PO DAILY PRN PRN Reason: Constipation Melatonin (Melatonin 3 Mg Tablet) 9 mg PO BEDTIME PRN PRN Reason: insomnia Last Admin: 03/08/25 21:20 Dose: 9 mg Methadone HCl (Methadone Hcl 20 Mg/2 Ml Oral.Conc) 90 mg PO DAILY@0800 [facility] Last Admin: 03/09/25 08:00 Dose: 90 mg Nicotine (Nicotine 21 Mg Patch.Td24) 21 mg TRANSDERMA DAILY PRN PRN Reason: smoking cessation Nicotine Polacrilex (Nicotine Polacrilex 2 Mg Gum) 4 mg BUCCAL Q2H PRN PRN Reason: Nicotine Cravings Olanzapine (Olanzapine 5 Mg Tablet) 5 mg PO TID PRN PRN Reason: agitation Omeprazole (Omeprazole 20 Mg Capsule.Dr) 20 mg PO DAILY@0630 [facility] Last Admin: 03/09/25 06:45 Dose: 20 mg Sertraline HCl (Sertraline Hcl 100 Mg Tablet) 200 mg PO DAILY [facility] Last Admin: 03/09/25 09:15 Dose: 200 mg Trazodone HCl (Trazodone Hcl 50 Mg Tablet) 50 mg PO BEDTIME MRX1 PRN PRN Reason: Insomnia Last Admin: 03/07/25 20:45 Dose: 50 mg Allergies Allergies Allergy/AdvReac Type Severity Reaction Status Date / Time No Known Allergies Allergy Verified 03/05/25 13:36 Assessment & Plan Assessment & Plan (1) Opiate withdrawal: Status: Acute Code(s): F11.93 - Opioid use, unspecified with withdrawal (2) Alcohol use disorder: Status: Acute Code(s): F10.90 - Alcohol use, unspecified, uncomplicated Plan I had a brief encounter with patient this morning who was lying in his bed. He notes that he is tired but continues to improve and feels better than yesterday. He states that he will not be able to participate in a full interview today and feels he will be ready tomorrow. He denies SI, HI, AVH at this time. He has history of depression, polysubstance abuse, epilepsy, and suicide attempt with drug overdose following the of his mother. He is currently homeless. The following is collateral from nursing: Rogelio arrived via wheelchair from the [facility] at 1517. He is awake but drowsy, flat affect and dismissive. He was cooperative with skin and safety check, skin check is unremarkable. He signed a CV with Bertha Ruffin GLOVE TAGGER. He is oriented x4, reports passive SI and will seek staff if this worsens and he wants to act on it. He was attempting to sleep on an exam table in the treatment room during the admission attempt. He was given a quick tour and was settled in his room where he immediately got in bed and fell asleep. ---Per ED note/crisis --He was BIBA after not taking prescribed methadone, drinking two nips, then took a 'friends' naltrexone prescription from 2021 and started to feel ill, sweats, chills, abdominal pain nausea and diarrhea. He reports using crack cocaine and alcohol daily but did not report the amount he used daily. He denied any health problems. He reports he does smoke cigarettes and would like NRT.? He was unable to report why he missed or skipped his methadone dose on that day. His tox screen was positive for cocaine, benzos, methadone. He is currently unhoused. He gets 90mg of methadone at [facility], dose verified while in the ED. He is on 15 minute safety checks.? Formulation/Clinical reasoning: Opiate withdrawal; the use of naltrexone and methadone resulted in withdrawal symptoms such as sweats, chills, abdominal pain, and diarrhea. He was restarted on methadone 90 mg daily and currently on CIWA for alcohol withdrawal assessment. Plan: Admit to M5. CV 15 minutes check. Diagnostics as needed. Collateral contact. Continue to take methadone 90 mg daily. Continue remainder of regime. Encouraged full milieu. Discharge planning. 03/08/25: Patient symptoms continue to improve. No anxiety, depression, SI, HI, AVH at this time. Continue current treatment regimen/plan. 03/09: Increase Baclofen to bid. Pt reports feeling dope sick today. Reason for continued inpatient stay Substantial Risk for: rapid decompensation Time Spent With Patient Time: Total time managing care of this patient today ____ minutes.
[2025-03-09 12:00] VITALS: BP 105/55; PULSE 81; TEMP 36.9; O2SAT 98
[2025-03-09] MEDS: OLANZapine 5 MG TABLET PO (14:25)
[2025-03-09 20:00] VITALS: BP 116/72; PULSE 76; TEMP 36.9; O2SAT 96
[2025-03-09] MEDS: Baclofen 10 MG TABLET PO (21:02)
[2025-03-09] MEDS: Divalproex Sodium 500 MG TABLET.DR 1000 MG PO (21:02)
[2025-03-09] MEDS: LORazepam 1 MG TABLET 2 MG PO (21:02)
[2025-03-09] MEDS: traZODone HCL 50 MG TABLET PO (23:22)
[2025-03-10 00:05] VITALS: BP 118/79; PULSE 79; TEMP 36.4; O2SAT 94
[2025-03-10] MEDS: Melatonin 3 MG TABLET 9 MG PO (01:07)
--- NOTE | 2025-03-10 04:36 | PC.NURSE ---
Addendum entered by Holly Rebollar RN 03/10/25 04:37: Patient states these medications are prescribed through [facility] in [place], [place] Original Note: Patient reports he is missing medications: Remeron, Risperdal, Prazosin, Periacton.
[2025-03-10] MEDS: Omeprazole 20 MG CAPSULE.DR PO (06:14)
--- NOTE | 2025-03-10 07:32 | HO.PSYCHPN ---
Subjective Subjective Date of Service: 03/10/25 Reason For Visit: SI Interim History: Pt seen, reviewed with the team. Reports depressive, anxious sx. Some behavioral dyscontrol noted by team which is being monitored. Pt was able to find his recent discharge summary with medication list. Changes were made to current regime to reflect that plan, which pt reports was effective. Pt is in agreement. Detox sx continue but appear to be lessening. Medication Compliance: Yes Side effects from medications: No Attending Groups: No Review of Systems Acute medical concerns: No Medical Review of Systems: unchanged Review of Systems Review of Systems Reports detox sx Mental Status Exam Mental Status Exam Patient Appearance: Fatigued Patient Orientation: Person, Place, Time and Situation Level of Consciousness: Alert Patient Behavior: Talkative and Good Eye Contact Mood Description: Blunted Affect Description: Blunted Patient Cognition Impaired: No Ability to Follow Directions: Good Speech Pattern: Spontaneous Speech Memory Description: Episodic Impaired Delusions: Not Present Thought Content: positive for Circumstantial and positive for Perseveration Depressive Symptoms: Increased Fatigue and Loss of Energy Judgement: Fair Diagnostics Vital Signs (24Hr): Vital Signs - 24 hr 03/09/25 08:00 03/09/25 12:00 03/09/25 20:00 Temperature 97.5 F 98.4 F 98.4 F Pulse Rate 73 81 76 Blood Pressure 90/55 L 105/55 L 116/72 Pulse Oximetry 96 98 96 Oxygen Delivery Method Room Air Room Air Room Air 03/10/25 00:05 Temperature 97.5 F Pulse Rate 79 Blood Pressure 118/79 Pulse Oximetry 94 Oxygen Delivery Method Room Air BMI result Body Mass Index 28.4 Labs 03/05/25 13:46 03/07/25 08:08 Medications Medications Current Medications Acetaminophen (Acetaminophen 325 Mg Tablet) 650 mg PO Q6H PRN PRN Reason: Headache/Pain, Scale 1-10 Al Hydroxide/Mg Hydroxide (Magnesium Hydrox/Alum Hydrox 30 Ml Oral.Susp) 30 ml PO Q6H PRN PRN Reason: Heartburn/Nausea Last Admin: 03/07/25 16:19 Dose: 30 ml Baclofen (Baclofen 10 Mg Tablet) 10 mg PO BID [facility] Last Admin: 03/09/25 21:02 Dose: 10 mg Divalproex Sodium (Divalproex Sodium 500 Mg Tablet.) 1,000 mg PO BEDTIME [facility] Last Admin: 03/09/25 21:02 Dose: 1,000 mg Gabapentin (Gabapentin 300 Mg Capsule) 300 mg PO TID [facility] Last Admin: 03/09/25 21:02 Dose: 300 mg Hydroxyzine HCl (Hydroxyzine Hcl 25 Mg Tablet) 25 mg PO Q6H PRN PRN Reason: mild anxiety Last Admin: 03/09/25 09:15 Dose: 25 mg Levetiracetam 250 mg/ (Levetiracetam 500 mg) 750 mg PO BID [facility] Last Admin: 03/09/25 21:02 Dose: 750 mg Lorazepam (Lorazepam 1 Mg Tablet) 1 mg PO Q2H PRN PRN Reason: CIWA 6-10 Last Admin: 03/08/25 21:50 Dose: 1 mg Lorazepam (Lorazepam 1 Mg Tablet) 2 mg PO Q2H PRN PRN Reason: CIWA 11 and above Last Admin: 03/09/25 21:02 Dose: 2 mg Magnesium Hydroxide (Milk Of Magnesia 30 Ml Oral.Susp) 30 ml PO DAILY PRN PRN Reason: Constipation Melatonin (Melatonin 3 Mg Tablet) 9 mg PO BEDTIME PRN PRN Reason: insomnia Last Admin: 03/10/25 01:07 Dose: 9 mg Methadone HCl (Methadone Hcl 20 Mg/2 Ml Oral.Conc) 90 mg PO DAILY@0800 [facility] Last Admin: 03/09/25 08:00 Dose: 90 mg Nicotine (Nicotine 21 Mg Patch.Td24) 21 mg TRANSDERMA DAILY PRN PRN Reason: smoking cessation Nicotine Polacrilex (Nicotine Polacrilex 2 Mg Gum) 4 mg BUCCAL Q2H PRN PRN Reason: Nicotine Cravings Olanzapine (Olanzapine 5 Mg Tablet) 5 mg PO TID PRN PRN Reason: agitation Last Admin: 03/09/25 14:25 Dose: 5 mg Omeprazole (Omeprazole 20 Mg Capsule.Dr) 20 mg PO DAILY@0630 [facility] Last Admin: 03/10/25 06:14 Dose: 20 mg Sertraline HCl (Sertraline Hcl 100 Mg Tablet) 200 mg PO DAILY [facility] Last Admin: 03/09/25 09:15 Dose: 200 mg Trazodone HCl (Trazodone Hcl 50 Mg Tablet) 50 mg PO BEDTIME MRX1 PRN PRN Reason: Insomnia Last Admin: 03/09/25 23:22 Dose: 50 mg Allergies Allergies Allergy/AdvReac Type Severity Reaction Status Date / Time No Known Allergies Allergy Verified 03/05/25 13:36 Assessment & Plan Assessment & Plan (1) Opiate withdrawal: Status: Acute Code(s): F11.93 - Opioid use, unspecified with withdrawal (2) Alcohol use disorder: Status: Acute Code(s): F10.90 - Alcohol use, unspecified, uncomplicated Plan I had a brief encounter with patient this morning who was lying in his bed. He notes that he is tired but continues to improve and feels better than yesterday. He states that he will not be able to participate in a full interview today and feels he will be ready tomorrow. He denies SI, HI, AVH at this time. He has history of depression, polysubstance abuse, epilepsy, and suicide attempt with drug overdose following the of his mother. He is currently homeless. The following is collateral from nursing: Rogelio arrived via wheelchair from the [facility] at 1517. He is awake but drowsy, flat affect and dismissive. He was cooperative with skin and safety check, skin check is unremarkable. He signed a CV with Bertha Ruffin PRESS ASSISTANT. He is oriented x4, reports passive SI and will seek staff if this worsens and he wants to act on it. He was attempting to sleep on an exam table in the treatment room during the admission attempt. He was given a quick tour and was settled in his room where he immediately got in bed and fell asleep. ---Per ED note/crisis --He was BIBA after not taking prescribed methadone, drinking two nips, then took a 'friends' naltrexone prescription from 2021 and started to feel ill, sweats, chills, abdominal pain nausea and diarrhea. He reports using crack cocaine and alcohol daily but did not report the amount he used daily. He denied any health problems. He reports he does smoke cigarettes and would like NRT.? He was unable to report why he missed or skipped his methadone dose on that day. His tox screen was positive for cocaine, benzos, methadone. He is currently unhoused. He gets 90mg of methadone at [facility], dose verified while in the ED. He is on 15 minute safety checks.? Formulation/Clinical reasoning: Opiate withdrawal; the use of naltrexone and methadone resulted in withdrawal symptoms such as sweats, chills, abdominal pain, and diarrhea. He was restarted on methadone 90 mg daily and currently on CITN for alcohol withdrawal assessment. Plan: Admit to M5. CV 15 minutes check. Diagnostics as needed. Collateral contact. Continue to take methadone 90 mg daily. Continue remainder of regime. Encouraged full milieu. Discharge planning. 03/08/25: Patient symptoms continue to improve. No anxiety, depression, SI, HI, AVH at this time. Continue current treatment regimen/plan. 03/09: Increase Baclofen to bid. Pt reports feeling dope sick today. 03/09: Changes made to regime to reflect most recent facility discharge summary. Pt reports this regime ([facility]08/25) was helpful and he achieved stability on this. Patient educated on: medication risk/benefits Reason for continued inpatient stay Substantial Risk for: rapid decompensation Time Spent With Patient Time: Total time managing care of this patient today ____ minutes.
[2025-03-10] MEDS: methADONE HCl 20 MG/2 ML ORAL.CONC 90 MG PO (07:56)
[2025-03-10 08:00] VITALS: BP 109/62; PULSE 81; RESP 18; TEMP 36.6; O2SAT 99
[2025-03-10] MEDS: Baclofen 10 MG TABLET PO ×2 (08:51→21:29)
[2025-03-10] MEDS: Gabapentin 300 MG CAPSULE PO ×3 (08:51→21:30)
[2025-03-10] MEDS: Sertraline HCL 100 MG TABLET 200 MG PO (08:51)
[2025-03-10] MEDS: hydrOXYzine HCL 25 MG TABLET PO (16:44)
[2025-03-10] MEDS: LORazepam 1 MG TABLET PO (18:26)
[2025-03-10 19:39] VITALS: BP 105/77; PULSE 77; TEMP 36.5; O2SAT 98
[2025-03-10 21:29] VITALS: BP 105/77
[2025-03-10] MEDS: Mirtazapine 15 MG TABLET 45 MG PO (21:29)
[2025-03-10] MEDS: QUEtiapine Fumarate 100 MG TABLET PO (21:29)
[2025-03-10] MEDS: Prazosin HCL 1 MG CAPSULE PO (21:29)
[2025-03-10] MEDS: guanFACINE HCl ER 2 MG TAB.ER.24H PO (21:29)
[2025-03-10] MEDS: Famotidine 20 MG TABLET PO (21:30)
[2025-03-10] MEDS: Divalproex Sodium 500 MG TABLET.DR 1000 MG PO (21:30)
[2025-03-10] MEDS: Fluticasone Propionate Nasal 16 GM SPRAY 1 SPRAY NOSTRIL-B (21:30)
--- NOTE | 2025-03-11 05:50 | HO.PSYCHPN ---
Subjective Subjective Date of Service: 03/11/25 Reason For Visit: SI Interim History: Pt seen, reviewed with the team. He is tolerating med changes made 03/10 from his recent discharge from [facility]. He discussed wanting increases. Asked pt to allow changes some time to take effect and reassess. He reports less fatigue, CIWA is decreasing. He does report some nightmares and asks for higher prazosin doses which he is willing to continue to evaluate. Medication Compliance: Yes Side effects from medications: No Attending Groups: No Review of Systems Acute medical concerns: No Medical Review of Systems: unchanged Review of Systems Review of Systems I am getting there Mental Status Exam Mental Status Exam Patient Appearance: Fatigued Patient Orientation: Person, Place, Time and Situation Level of Consciousness: Alert Patient Behavior: Talkative and Good Eye Contact Mood Description: Blunted Affect Description: Blunted Patient Cognition Impaired: No Ability to Follow Directions: Good Speech Pattern: Spontaneous Speech Memory Description: Episodic Impaired Delusions: Not Present Thought Content: positive for Circumstantial and positive for Perseveration Depressive Symptoms: Increased Fatigue and Loss of Energy Judgement: Fair Diagnostics Vital Signs (24Hr): Vital Signs - 24 hr 03/10/25 08:00 03/10/25 19:39 03/10/25 21:29 Temperature 97.8 F 97.7 F Pulse Rate 81 77 Respiratory Rate 18 Blood Pressure 109/62 105/77 105/77 Pulse Oximetry 99 98 Oxygen Delivery Method Room Air Room Air BMI result Body Mass Index 28.4 Labs 03/05/25 13:46 03/07/25 08:08 Medications Medications Current Medications Acetaminophen (Acetaminophen 325 Mg Tablet) 650 mg PO Q6H PRN PRN Reason: Headache/Pain, Scale 1-10 Al Hydroxide/Mg Hydroxide (Magnesium Hydrox/Alum Hydrox 30 Ml Oral.Susp) 30 ml PO Q6H PRN PRN Reason: Heartburn/Nausea Last Admin: 03/07/25 16:19 Dose: 30 ml Albuterol Sulfate (Albuterol Sulfate 90 Mcg 8 Gm Inhaler) 2 puff INHALE RQ4H PRN PRN Reason: sob Baclofen (Baclofen 10 Mg Tablet) 10 mg PO BEDTIME [facility] Last Admin: 03/10/25 21:29 Dose: 10 mg Divalproex Sodium (Divalproex Sodium 500 Mg Tablet.) 1,000 mg PO BEDTIME [facility] Last Admin: 03/10/25 21:30 Dose: 1,000 mg Famotidine (Famotidine 20 Mg Tablet) 20 mg PO BID [facility] Last Admin: 03/10/25 21:30 Dose: 20 mg Fluticasone Propionate (Fluticasone Propionate Nasal 16 Gm [place]) 1 spray NOSTRIL-B BID [facility] Last Admin: 03/10/25 21:30 Dose: 1 spray Folic Acid (Folic Acid 1 Mg Tablet) 1 mg PO DAILY [facility] Gabapentin (Gabapentin 300 Mg Capsule) 300 mg PO TID [facility] Last Admin: 03/10/25 21:30 Dose: 300 mg Guanfacine HCl (Guanfacine Hcl Er 2 Mg Tab.Er.24h) 2 mg PO BEDTIME [facility] Last Admin: 03/10/25 21:29 Dose: 2 mg Hydroxyzine HCl (Hydroxyzine Hcl 25 Mg Tablet) 25 mg PO Q6H PRN PRN Reason: mild anxiety Last Admin: 03/10/25 16:44 Dose: 25 mg Levetiracetam 250 mg/ (Levetiracetam 500 mg) 750 mg PO BID [facility] Last Admin: 03/10/25 21:29 Dose: 750 mg Lidocaine (Lidocaine 4 % Patch Adh..Patch) 2 patch TRANSDERMA DAILY PRN; Protocol PRN Reason: back pain Lorazepam (Lorazepam 1 Mg Tablet) 1 mg PO Q2H PRN PRN Reason: CIWA 6-10 Last Admin: 03/10/25 18:26 Dose: 1 mg Lorazepam (Lorazepam 1 Mg Tablet) 2 mg PO Q2H PRN PRN Reason: CIWA 11 and above Last Admin: 03/09/25 21:02 Dose: 2 mg Magnesium Hydroxide (Milk Of Magnesia 30 Ml Oral.Susp) 30 ml PO DAILY PRN PRN Reason: Constipation Magnesium Oxide (Magnesium Oxide 400 Mg Tablet) 400 mg PO DAILY [facility] Melatonin (Melatonin 3 Mg Tablet) 9 mg PO BEDTIME PRN PRN Reason: insomnia Last Admin: 03/10/25 01:07 Dose: 9 mg Methadone HCl (Methadone Hcl 20 Mg/2 Ml Oral.Conc) 90 mg PO DAILY@0800 [facility] Last Admin: 03/10/25 07:56 Dose: 90 mg Mirtazapine (Mirtazapine 15 Mg Tablet) 45 mg PO BEDTIME [facility] Last Admin: 03/10/25 21:29 Dose: 45 mg Nicotine (Nicotine 21 Mg Patch.Td24) 21 mg TRANSDERMA DAILY PRN PRN Reason: smoking cessation Nicotine Polacrilex (Nicotine Polacrilex 2 Mg Gum) 4 mg BUCCAL Q2H PRN PRN Reason: Nicotine Cravings Olanzapine (Olanzapine 5 Mg Tablet) 5 mg PO TID PRN PRN Reason: agitation Last Admin: 03/09/25 14:25 Dose: 5 mg Polyethylene Glycol (Polyethylene Glycol 3350 17 Gm Powd.Pack) 17 gm PO DAILY [facility] Prazosin HCl (Prazosin Hcl 1 Mg Capsule) 1 mg PO BEDTIME [facility]; Protocol Last Admin: 03/10/25 21:29 Dose: 1 mg Pyridoxine HCl (Pyridoxine Hcl (Vitamin B6) 50 Mg Tablet) 50 mg PO DAILY [facility] Quetiapine Fumarate (Quetiapine Fumarate 100 Mg Tablet) 100 mg PO BEDTIME [facility] Last Admin: 03/10/25 21:29 Dose: 100 mg Sertraline HCl (Sertraline Hcl 100 Mg Tablet) 200 mg PO DAILY [facility] Last Admin: 03/10/25 08:51 Dose: 200 mg Thiamine HCl (Thiamine Hcl 100 Mg Tablet) 100 mg PO DAILY [facility] Trazodone HCl (Trazodone Hcl 50 Mg Tablet) 50 mg PO BEDTIME MRX1 PRN PRN Reason: Insomnia Last Admin: 03/09/25 23:22 Dose: 50 mg Allergies Allergies Allergy/AdvReac Type Severity Reaction Status Date / Time No Known Allergies Allergy Verified 03/05/25 13:36 Assessment & Plan Assessment & Plan (1) Opiate withdrawal: Status: Acute Code(s): F11.93 - Opioid use, unspecified with withdrawal (2) Alcohol use disorder: Status: Acute Code(s): F10.90 - Alcohol use, unspecified, uncomplicated Plan I had a brief encounter with patient this morning who was lying in his bed. He notes that he is tired but continues to improve and feels better than yesterday. He states that he will not be able to participate in a full interview today and feels he will be ready tomorrow. He denies SI, HI, AVH at this time. He has history of depression, polysubstance abuse, epilepsy, and suicide attempt with drug overdose following the of his mother. He is currently homeless. The following is collateral from nursing: Rogelio arrived via wheelchair from the [facility] at 1517. He is awake but drowsy, flat affect and dismissive. He was cooperative with skin and safety check, skin check is unremarkable. He signed a CV with Bertha Ruffin GEOSCIENTIST. He is oriented x4, reports passive SI and will seek staff if this worsens and he wants to act on it. He was attempting to sleep on an exam table in the treatment room during the admission attempt. He was given a quick tour and was settled in his room where he immediately got in bed and fell asleep. ---Per ED note/crisis --He was BIBA after not taking prescribed methadone, drinking two nips, then took a 'friends' naltrexone prescription from 2021 and started to feel ill, sweats, chills, abdominal pain nausea and diarrhea. He reports using crack cocaine and alcohol daily but did not report the amount he used daily. He denied any health problems. He reports he does smoke cigarettes and would like NRT.? He was unable to report why he missed or skipped his methadone dose on that day. His tox screen was positive for cocaine, benzos, methadone. He is currently unhoused. He gets 90mg of methadone at [facility], dose verified while in the ED. He is on 15 minute safety checks.? Formulation/Clinical reasoning: Opiate withdrawal; the use of naltrexone and methadone resulted in withdrawal symptoms such as sweats, chills, abdominal pain, and diarrhea. He was restarted on methadone 90 mg daily and currently on CIWA for alcohol withdrawal assessment. Plan: Admit to M5. CV 15 minutes check. Diagnostics as needed. Collateral contact. Continue to take methadone 90 mg daily. Continue remainder of regime. Encouraged full milieu. Discharge planning. 03/08/25: Patient symptoms continue to improve. No anxiety, depression, SI, HI, AVH at this time. Continue current treatment regimen/plan. 03/09: Increase Baclofen to bid. Pt reports feeling dope sick today. 03/11: Continue changes of 03/10/25. Reason for continued inpatient stay Substantial Risk for: rapid decompensation Time Spent With Patient Time: Total time managing care of this patient today ____ minutes.
[2025-03-11] MEDS: methADONE HCl 20 MG/2 ML ORAL.CONC 90 MG PO (07:30)
[2025-03-11 08:00] VITALS: BP 110/58; PULSE 85; RESP 16; TEMP 36.8; O2SAT 98
[2025-03-11] MEDS: Magnesium Oxide 400 MG TABLET PO (08:35)
[2025-03-11] MEDS: Thiamine HCL 100 MG TABLET PO (08:35)
[2025-03-11] MEDS: Folic Acid 1 MG TABLET PO (08:36)
[2025-03-11] MEDS: Gabapentin 300 MG CAPSULE PO ×3 (08:37→20:31)
[2025-03-11] MEDS: Sertraline HCL 100 MG TABLET 200 MG PO (08:37)
[2025-03-11] MEDS: Pyridoxine HCl (Vitamin B6) 50 MG TABLET PO (08:37)
[2025-03-11] MEDS: Famotidine 20 MG TABLET PO ×2 (08:37→20:32)
[2025-03-11] MEDS: OLANZapine 5 MG TABLET PO (16:14)
[2025-03-11] MEDS: hydrOXYzine HCL 25 MG TABLET PO (18:18)
[2025-03-11 19:39] VITALS: BP 102/58; PULSE 68; TEMP 37.1; O2SAT 97
[2025-03-11] MEDS: Divalproex Sodium 500 MG TABLET.DR 1000 MG PO (20:31)
[2025-03-11] MEDS: Mirtazapine 15 MG TABLET 45 MG PO (20:31)
[2025-03-11] MEDS: Prazosin HCL 1 MG CAPSULE PO (20:32)
[2025-03-11] MEDS: Baclofen 10 MG TABLET PO (20:32)
[2025-03-11] MEDS: traZODone HCL 50 MG TABLET PO (20:33)
[2025-03-11] MEDS: QUEtiapine Fumarate 100 MG TABLET PO (20:33)
[2025-03-12] MEDS: methADONE HCl 20 MG/2 ML ORAL.CONC 90 MG PO (07:51)
[2025-03-12 08:00] VITALS: BP 96/59; PULSE 89; TEMP 36.4; O2SAT 98
[2025-03-12] MEDS: Pyridoxine HCl (Vitamin B6) 50 MG TABLET PO (08:36)
[2025-03-12] MEDS: Magnesium Oxide 400 MG TABLET PO (08:36)
[2025-03-12] MEDS: Sertraline HCL 100 MG TABLET 200 MG PO (08:37)
[2025-03-12] MEDS: Thiamine HCL 100 MG TABLET PO (08:37)
[2025-03-12] MEDS: Folic Acid 1 MG TABLET PO (08:39)
[2025-03-12] MEDS: Famotidine 20 MG TABLET PO ×2 (08:39→20:19)
[2025-03-12] MEDS: Gabapentin 300 MG CAPSULE PO ×3 (08:39→20:18)
--- NOTE | 2025-03-12 10:24 | P.PNPSI_ITS ---
Subjective Subjective Date of Service: 03/12/25 Reason For Visit: SI Interim History: met with patient; discussed with team; reviewed chart Patient reports that he is overall feeling better, saying he is getting back to his regular self and has more clarity. still some nightmares, but BP on low side so hesitant to increase prazosin. Patient describes history of night terrors and parasomnias, sleep walking where he is turned on stoves, jumped off things... Mental Status Exam Mental Status Exam Patient Appearance: Well Grooomed Patient Orientation: Person, Place, Time and Situation Level of Consciousness: Alert Patient Behavior: Talkative and Good Eye Contact Mood Description: Calm ( better ) Affect Description: Calm Patient Cognition Impaired: No Ability to Follow Directions: Fair Speech Pattern: Spontaneous Speech Memory Description: Episodic Impaired Hallucinations: None Delusions: Not Present Thought Content: positive for Circumstantial Judgement and Insight: Impaired but improving Diagnostics Vital Signs (24Hr): Vital Signs - 24 hr 03/11/25 19:39 Temperature 98.7 F Pulse Rate 68 Blood Pressure 102/58 L Pulse Oximetry 97 Oxygen Delivery Method Room Air BMI result Body Mass Index 28.4 Labs 03/05/25 13:46 03/07/25 08:08 Medications Medications Current Medications Acetaminophen (Acetaminophen 325 Mg Tablet) 650 mg PO Q6H PRN PRN Reason: Headache/Pain, Scale 1-10 Al Hydroxide/Mg Hydroxide (Magnesium Hydrox/Alum Hydrox 30 Ml Oral.Susp) 30 ml PO Q6H PRN PRN Reason: Heartburn/Nausea Last Admin: 03/07/25 16:19 Dose: 30 ml Albuterol Sulfate (Albuterol Sulfate 90 Mcg 8 Gm Inhaler) 2 puff INHALE RQ4H PRN PRN Reason: sob Baclofen (Baclofen 10 Mg Tablet) 10 mg PO BEDTIME [facility] Last Admin: 03/11/25 20:32 Dose: 10 mg Divalproex Sodium (Divalproex Sodium 500 Mg Tablet.Dr) 1,000 mg PO BEDTIME [facility] Last Admin: 03/11/25 20:31 Dose: 1,000 mg Famotidine (Famotidine 20 Mg Tablet) 20 mg PO BID [facility] Last Admin: 03/12/25 08:39 Dose: 20 mg Fluticasone Propionate (Fluticasone Propionate Nasal 16 Gm [place]) 1 spray NOSTRIL-B BID [facility] Last Admin: 03/12/25 08:39 Dose: Not Given Folic Acid (Folic Acid 1 Mg Tablet) 1 mg PO DAILY [facility] Last Admin: 03/12/25 08:39 Dose: 1 mg Gabapentin (Gabapentin 300 Mg Capsule) 300 mg PO TID [facility] Last Admin: 03/12/25 08:39 Dose: 300 mg Guanfacine HCl (Guanfacine Hcl Er 2 Mg Tab.Er.24h) 2 mg PO BEDTIME [facility] Last Admin: 03/11/25 20:37 Dose: Not Given Hydroxyzine HCl (Hydroxyzine Hcl 25 Mg Tablet) 25 mg PO Q6H PRN PRN Reason: mild anxiety Last Admin: 03/11/25 18:18 Dose: 25 mg Levetiracetam 250 mg/ (Levetiracetam 500 mg) 750 mg PO BID [facility] Last Admin: 03/12/25 08:37 Dose: 750 mg Lidocaine (Lidocaine 4 % Patch Adh..Patch) 2 patch TRANSDERMA DAILY PRN; Protocol PRN Reason: back pain Magnesium Hydroxide (Milk Of Magnesia 30 Ml Oral.Susp) 30 ml PO DAILY PRN PRN Reason: Constipation Magnesium Oxide (Magnesium Oxide 400 Mg Tablet) 400 mg PO DAILY [facility] Last Admin: 03/12/25 08:36 Dose: 400 mg Melatonin (Melatonin 3 Mg Tablet) 9 mg PO BEDTIME PRN PRN Reason: insomnia Last Admin: 03/10/25 01:07 Dose: 9 mg Methadone HCl (Methadone Hcl 20 Mg/2 Ml Oral.Conc) 90 mg PO DAILY@0800 [facility] Last Admin: 03/12/25 07:51 Dose: 90 mg Mirtazapine (Mirtazapine 15 Mg Tablet) 45 mg PO BEDTIME [facility] Last Admin: 03/11/25 20:31 Dose: 45 mg Nicotine (Nicotine 21 Mg Patch.Td24) 21 mg TRANSDERMA DAILY PRN PRN Reason: smoking cessation Nicotine Polacrilex (Nicotine Polacrilex 2 Mg Gum) 4 mg BUCCAL Q2H PRN PRN Reason: Nicotine Cravings Olanzapine (Olanzapine 5 Mg Tablet) 5 mg PO TID PRN PRN Reason: agitation Last Admin: 03/11/25 16:14 Dose: 5 mg Polyethylene Glycol (Polyethylene Glycol 3350 17 Gm Powd.Pack) 17 gm PO DAILY [facility] Last Admin: 03/12/25 08:40 Dose: Not Given Prazosin HCl (Prazosin Hcl 1 Mg Capsule) 1 mg PO BEDTIME [facility]; Protocol Last Admin: 03/11/25 20:32 Dose: 1 mg Pyridoxine HCl (Pyridoxine Hcl (Vitamin B6) 50 Mg Tablet) 50 mg PO DAILY [facility] Last Admin: 03/12/25 08:36 Dose: 50 mg Quetiapine Fumarate (Quetiapine Fumarate 100 Mg Tablet) 100 mg PO BEDTIME [facility] Last Admin: 03/11/25 20:33 Dose: 100 mg Sertraline HCl (Sertraline Hcl 100 Mg Tablet) 200 mg PO DAILY [facility] Last Admin: 03/12/25 08:37 Dose: 200 mg Thiamine HCl (Thiamine Hcl 100 Mg Tablet) 100 mg PO DAILY [facility] Last Admin: 03/12/25 08:37 Dose: 100 mg Trazodone HCl (Trazodone Hcl 50 Mg Tablet) 50 mg PO BEDTIME MRX1 PRN PRN Reason: Insomnia Last Admin: 03/11/25 20:33 Dose: 50 mg Allergies Allergies Allergy/AdvReac Type Severity Reaction Status Date / Time No Known Allergies Allergy Verified 03/05/25 13:36 Assessment & Plan Assessment & Plan (1) Opiate withdrawal: Status: Acute Code(s): F11.93 - Opioid use, unspecified with withdrawal (2) Alcohol use disorder: Status: Acute Code(s): F10.90 - Alcohol use, unspecified, uncomplicated Plan I had a brief encounter with patient this morning who was lying in his bed. He notes that he is tired but continues to improve and feels better than yesterday. He states that he will not be able to participate in a full interview today and feels he will be ready tomorrow. He denies SI, HI, AVH at this time. He has history of depression, polysubstance abuse, epilepsy, and suicide attempt with drug overdose following the of his mother. He is currently homeless. The following is collateral from nursing: Rogelio arrived via wheelchair from the [facility] ED POD at 1517. He is awake but drowsy, flat affect and dismissive. He was cooperative with skin and safety check, skin check is unremarkable. He signed a CV with Bertha Ruffin NP. He is oriented x4, reports passive SI and will seek staff if this worsens and he wants to act on it. He was attempting to sleep on an exam table in the treatment room during the admission attempt. He was given a quick tour and was settled in his room where he immediately got in bed and fell asleep. ---Per ED note/crisis --He was BIBA after not taking prescribed methadone, drinking two nips, then took a 'friends' naltrexone prescription from 2021 and started to feel ill, sweats, chills, abdominal pain nausea and diarrhea. He reports using crack cocaine and alcohol daily but did not report the amount he used daily. He denied any health problems. He reports he does smoke cigarettes and would like NRT.? He was unable to report why he missed or skipped his methadone dose on that day. His tox screen was positive for cocaine, benzos, methadone. He is currently unhoused. He gets 90mg of methadone at [facility], dose verified while in the ED. He is on 15 minute safety checks.? Formulation/Clinical reasoning: Opiate withdrawal; the use of naltrexone and methadone resulted in withdrawal symptoms such as sweats, chills, abdominal pain, and diarrhea. He was restarted on methadone 90 mg daily and currently on CIWA for alcohol withdrawal assessment. Plan: Admit to M5. CV 15 minutes check. Diagnostics as needed. Collateral contact. Continue to take methadone 90 mg daily. Continue remainder of regime. Encouraged full milieu. Discharge planning. 03/08/25: Patient symptoms continue to improve. No anxiety, depression, SI, HI, AVH at this time. Continue current treatment regimen/plan. 03/09: Increase Baclofen to bid. Pt reports feeling dope sick today. 03/11: Continue changes of 03/10/25. Patient educated on: diagnosis and medication risk/benefits Informed Consent: understands Reason for continued inpatient stay Substantial Risk for: rapid decompensation Time Spent With Patient Time: Total time managing care of this patient today ____ minutes.
--- NOTE | 2025-03-12 16:51 | PC.NURSE ---
Pt was given gabapentin at 15:00
[2025-03-12 19:33] VITALS: BP 108/59; PULSE 68; TEMP 37.1; O2SAT 95
[2025-03-12] MEDS: Prazosin HCL 1 MG CAPSULE PO (20:17)
[2025-03-12] MEDS: Baclofen 10 MG TABLET PO (20:18)
[2025-03-12] MEDS: Mirtazapine 15 MG TABLET 45 MG PO (20:18)
[2025-03-12] MEDS: Divalproex Sodium 500 MG TABLET.DR 1000 MG PO (20:18)
[2025-03-12] MEDS: traZODone HCL 50 MG TABLET PO (20:19)
[2025-03-12] MEDS: Albuterol Sulfate 90 MCG 8 GM INHALER 2 PUFF INHALE (20:48)
[2025-03-12] MEDS: Fluticasone Propionate Nasal 16 GM SPRAY 1 SPRAY NOSTRIL-B (20:52)
[2025-03-12] MEDS: QUEtiapine Fumarate 100 MG TABLET PO (22:02)
[2025-03-13] MEDS: methADONE HCl 20 MG/2 ML ORAL.CONC 90 MG PO (07:51)
[2025-03-13 08:00] VITALS: BP 105/59; PULSE 71; TEMP 36.8; O2SAT 99
[2025-03-13] MEDS: Gabapentin 300 MG CAPSULE PO ×3 (08:22→20:23)
[2025-03-13] MEDS: Folic Acid 1 MG TABLET PO (08:22)
[2025-03-13] MEDS: Pyridoxine HCl (Vitamin B6) 50 MG TABLET PO (08:23)
[2025-03-13] MEDS: Thiamine HCL 100 MG TABLET PO (08:23)
[2025-03-13] MEDS: Magnesium Oxide 400 MG TABLET PO (08:23)
[2025-03-13] MEDS: Famotidine 20 MG TABLET PO ×2 (08:23→20:28)
[2025-03-13] MEDS: Sertraline HCL 100 MG TABLET 200 MG PO (08:40)
--- NOTE | 2025-03-13 10:10 | HO.PSYCHPN ---
Subjective Subjective Date of Service: 03/13/25 Reason For Visit: SI Subjective Notes: Conditional Voluntary Healthcare Proxy: No Guardianship: No Medical Problems Affecting Mental Status: No Interim History: Pt reports tolerating med changes made and denies current SE. Denies SI,HI,AH,VH. Reports withdrawal sx are completed. Planning DC for 03/15. Plans to return to [facility] for out pt therapy/psychiatry Medication Compliance: Yes Side effects from medications: No Attending Groups: Intermittent Review of Systems Acute medical concerns: No Review of Systems Review of Systems Denies. Report resolution of withdrawal sx. Mental Status Exam Mental Status Exam Patient Appearance: Appropriate Patient Orientation: Person, Place, Time and Situation Level of Consciousness: Alert Patient Behavior: Talkative and Good Eye Contact Mood Description: Appropriate Affect Description: Appropriate Patient Cognition Impaired: No Ability to Follow Directions: Good Speech Pattern: Spontaneous Speech Memory Description: Episodic Impaired Delusions: Not Present Thought Content: positive for Circumstantial Judgement: Good Diagnostics Vital Signs (24Hr): Vital Signs - 24 hr 03/12/25 19:33 03/13/25 08:00 Temperature 98.7 F 98.3 F Pulse Rate 68 71 Blood Pressure 108/59 L 105/59 L Pulse Oximetry 95 99 Oxygen Delivery Method Room Air Room Air BMI result Body Mass Index 28.4 Labs 03/05/25 13:46 03/07/25 08:08 Medications Medications Current Medications Acetaminophen (Acetaminophen 325 Mg Tablet) 650 mg PO Q6H PRN PRN Reason: Headache/Pain, Scale 1-10 Al Hydroxide/Mg Hydroxide (Magnesium Hydrox/Alum Hydrox 30 Ml Oral.Susp) 30 ml PO Q6H PRN PRN Reason: Heartburn/Nausea Last Admin: 03/07/25 16:19 Dose: 30 ml Albuterol Sulfate (Albuterol Sulfate 90 Mcg 8 Gm Inhaler) 2 puff INHALE RQ4H PRN PRN Reason: sob Last Admin: 03/12/25 20:48 Dose: 2 puff Baclofen (Baclofen 10 Mg Tablet) 10 mg PO BEDTIME [facility] Last Admin: 03/12/25 20:18 Dose: 10 mg Divalproex Sodium (Divalproex Sodium 500 Mg Tablet.Dr) 1,000 mg PO BEDTIME [facility] Last Admin: 03/12/25 20:18 Dose: 1,000 mg Famotidine (Famotidine 20 Mg Tablet) 20 mg PO BID [facility] Last Admin: 03/13/25 08:23 Dose: 20 mg Fluticasone Propionate (Fluticasone Propionate Nasal 16 Gm [place]) 1 spray NOSTRIL-B BID [facility] Last Admin: 03/13/25 08:25 Dose: Not Given Folic Acid (Folic Acid 1 Mg Tablet) 1 mg PO DAILY [facility] Last Admin: 03/13/25 08:22 Dose: 1 mg Gabapentin (Gabapentin 300 Mg Capsule) 300 mg PO TID [facility] Last Admin: 03/13/25 08:22 Dose: 300 mg Guanfacine HCl (Guanfacine Hcl Er 2 Mg Tab.Er.24h) 2 mg PO BEDTIME [facility] Last Admin: 03/12/25 20:19 Dose: Not Given Hydroxyzine HCl (Hydroxyzine Hcl 25 Mg Tablet) 25 mg PO Q6H PRN PRN Reason: mild anxiety Last Admin: 03/11/25 18:18 Dose: 25 mg Levetiracetam 250 mg/ (Levetiracetam 500 mg) 750 mg PO BID [facility] Last Admin: 03/13/25 08:22 Dose: 750 mg Lidocaine (Lidocaine 4 % Patch Adh..Patch) 2 patch TRANSDERMA DAILY PRN; Protocol PRN Reason: back pain Magnesium Hydroxide (Milk Of Magnesia 30 Ml Oral.Susp) 30 ml PO DAILY PRN PRN Reason: Constipation Magnesium Oxide (Magnesium Oxide 400 Mg Tablet) 400 mg PO DAILY [facility] Last Admin: 03/13/25 08:23 Dose: 400 mg Melatonin (Melatonin 3 Mg Tablet) 9 mg PO BEDTIME PRN PRN Reason: insomnia, trazodone ineffectiv Methadone HCl (Methadone Hcl 20 Mg/2 Ml Oral.Conc) 90 mg PO DAILY@0800 [facility] Last Admin: 03/13/25 07:51 Dose: 90 mg Mirtazapine (Mirtazapine 15 Mg Tablet) 45 mg PO BEDTIME [facility] Last Admin: 03/12/25 20:18 Dose: 45 mg Nicotine (Nicotine 21 Mg Patch.Td24) 21 mg TRANSDERMA DAILY PRN PRN Reason: smoking cessation Nicotine Polacrilex (Nicotine Polacrilex 2 Mg Gum) 4 mg BUCCAL Q2H PRN PRN Reason: Nicotine Cravings Olanzapine (Olanzapine 5 Mg Tablet) 5 mg PO TID PRN PRN Reason: agitation Last Admin: 03/11/25 16:14 Dose: 5 mg Polyethylene Glycol (Polyethylene Glycol 3350 17 Gm Powd.Pack) 17 gm PO DAILY [facility] Last Admin: 03/12/25 08:40 Dose: Not Given Prazosin HCl (Prazosin Hcl 1 Mg Capsule) 1 mg PO BEDTIME [facility]; Protocol Last Admin: 03/12/25 20:17 Dose: 1 mg Pyridoxine HCl (Pyridoxine Hcl (Vitamin B6) 50 Mg Tablet) 50 mg PO DAILY [facility] Last Admin: 03/13/25 08:23 Dose: 50 mg Quetiapine Fumarate (Quetiapine Fumarate 100 Mg Tablet) 100 mg PO BEDTIME [facility] Last Admin: 03/12/25 22:02 Dose: 100 mg Sertraline HCl (Sertraline Hcl 100 Mg Tablet) 200 mg PO DAILY [facility] Last Admin: 03/13/25 08:40 Dose: 200 mg Thiamine HCl (Thiamine Hcl 100 Mg Tablet) 100 mg PO DAILY [facility] Last Admin: 03/13/25 08:23 Dose: 100 mg Trazodone HCl (Trazodone Hcl 50 Mg Tablet) 50 mg PO BEDTIME MRX1 PRN PRN Reason: Insomnia Last Admin: 03/12/25 20:19 Dose: 50 mg Allergies Allergies Allergy/AdvReac Type Severity Reaction Status Date / Time No Known Allergies Allergy Verified 03/05/25 13:36 Assessment & Plan Assessment & Plan (1) Opiate withdrawal: Status: Acute Code(s): F11.93 - Opioid use, unspecified with withdrawal (2) Alcohol use disorder: Status: Acute Code(s): F10.90 - Alcohol use, unspecified, uncomplicated Plan I had a brief encounter with patient this morning who was lying in his bed. He notes that he is tired but continues to improve and feels better than yesterday. He states that he will not be able to participate in a full interview today and feels he will be ready tomorrow. He denies SI, HI, AVH at this time. He has history of depression, polysubstance abuse, epilepsy, and suicide attempt with drug overdose following the of his mother. He is currently homeless. The following is collateral from nursing: Rogelio arrived via wheelchair from the [facility] ED POD at 1517. He is awake but drowsy, flat affect and dismissive. He was cooperative with skin and safety check, skin check is unremarkable. He signed a CV with Celie Hernando Wonkka [employer] COORDINATOR. He is oriented x4, reports passive SI and will seek staff if this worsens and he wants to act on it. He was attempting to sleep on an exam table in the treatment room during the admission attempt. He was given a quick tour and was settled in his room where he immediately got in bed and fell asleep. ---Per ED note/crisis --He was BIBA after not taking prescribed methadone, drinking two nips, then took a 'friends' naltrexone prescription from 2021 and started to feel ill, sweats, chills, abdominal pain nausea and diarrhea. He reports using crack cocaine and alcohol daily but did not report the amount he used daily. He denied any health problems. He reports he does smoke cigarettes and would like NRT.? He was unable to report why he missed or skipped his methadone dose on that day. His tox screen was positive for cocaine, benzos, methadone. He is currently unhoused. He gets 90mg of methadone at [facility], dose verified while in the ED. He is on 15 minute safety checks.? Formulation/Clinical reasoning: Opiate withdrawal; the use of naltrexone and methadone resulted in withdrawal symptoms such as sweats, chills, abdominal pain, and diarrhea. He was restarted on methadone 90 mg daily and currently on CIWA for alcohol withdrawal assessment. Plan: Admit to M5. CV 15 minutes check. Diagnostics as needed. Collateral contact. Continue to take methadone 90 mg daily. Continue remainder of regime. Encouraged full milieu. Discharge planning. 03/08/25: Patient symptoms continue to improve. No anxiety, depression, SI, HI, AVH at this time. Continue current treatment regimen/plan. 03/09: Increase Baclofen to bid. Pt reports feeling dope sick today. 03/11: Continue changes of 03/10/25. 03/13: Discharge 03/15 Continue current plan and regime Reason for continued inpatient stay Substantial Risk for: rapid decompensation Time Spent With Patient Time: Total time managing care of this patient today ____ minutes.
[2025-03-13] MEDS: Albuterol Sulfate 90 MCG 8 GM INHALER 2 PUFF INHALE ×2 (14:15→22:26)
[2025-03-13 19:44] VITALS: PULSE 73; TEMP 36.4; O2SAT 98
[2025-03-13] MEDS: Milk of Magnesia 30 ML ORAL.SUSP PO (20:22)
[2025-03-13] MEDS: Divalproex Sodium 500 MG TABLET.DR 1000 MG PO (20:23)
[2025-03-13] MEDS: Prazosin HCL 1 MG CAPSULE PO (20:23)
[2025-03-13] MEDS: Mirtazapine 15 MG TABLET 45 MG PO (20:23)
[2025-03-13] MEDS: Baclofen 10 MG TABLET PO (20:23)
[2025-03-13] MEDS: traZODone HCL 50 MG TABLET PO ×2 (20:24→23:54)
[2025-03-13] MEDS: QUEtiapine Fumarate 100 MG TABLET PO (20:24)
[2025-03-14] MEDS: methADONE HCl 20 MG/2 ML ORAL.CONC 90 MG PO (07:44)
[2025-03-14] MEDS: Fluticasone Propionate Nasal 16 GM SPRAY 1 SPRAY NOSTRIL-B (09:48)
[2025-03-14] MEDS: Gabapentin 300 MG CAPSULE PO (09:49)
[2025-03-14] MEDS: Famotidine 20 MG TABLET PO (09:49)
[2025-03-14] MEDS: Pyridoxine HCl (Vitamin B6) 50 MG TABLET PO (09:49)
[2025-03-14] MEDS: Folic Acid 1 MG TABLET PO (09:50)
[2025-03-14] MEDS: Thiamine HCL 100 MG TABLET PO (09:50)
[2025-03-14] MEDS: polyethylene glycoL 3350 17 GM POWD.PACK PO (09:50)
[2025-03-14] MEDS: Magnesium Oxide 400 MG TABLET PO (09:50)
[2025-03-14] MEDS: Sertraline HCL 100 MG TABLET 200 MG PO (09:50)
--- NOTE | 2025-03-14 10:06 | HO.PSYCHPN ---
Subjective Subjective Reason For Visit: SI Diagnostics Vital Signs (24Hr): Vital Signs - 24 hr 03/13/25 19:44 Temperature 97.6 F Pulse Rate 73 Pulse Oximetry 98 Oxygen Delivery Method Room Air BMI result Body Mass Index 28.4 Labs 03/05/25 13:46 03/07/25 08:08 Medications Medications Current Medications Acetaminophen (Acetaminophen 325 Mg Tablet) 650 mg PO Q6H PRN PRN Reason: Headache/Pain, Scale 1-10 Al Hydroxide/Mg Hydroxide (Magnesium Hydrox/Alum Hydrox 30 Ml Oral.Susp) 30 ml PO Q6H PRN PRN Reason: Heartburn/Nausea Last Admin: 03/07/25 16:19 Dose: 30 ml Albuterol Sulfate (Albuterol Sulfate 90 Mcg 8 Gm Inhaler) 2 puff INHALE RQ4H PRN PRN Reason: sob Last Admin: 03/13/25 22:26 Dose: 2 puff Baclofen (Baclofen 10 Mg Tablet) 10 mg PO BEDTIME [facility] Last Admin: 03/13/25 20:23 Dose: 10 mg Divalproex Sodium (Divalproex Sodium 500 Mg Tablet.Dr) 1,000 mg PO BEDTIME [facility] Last Admin: 03/13/25 20:23 Dose: 1,000 mg Famotidine (Famotidine 20 Mg Tablet) 20 mg PO BID [facility] Last Admin: 03/14/25 09:49 Dose: 20 mg Fluticasone Propionate (Fluticasone Propionate Nasal 16 Gm [place]) 1 spray NOSTRIL-B BID [facility] Last Admin: 03/14/25 09:48 Dose: 1 spray Folic Acid (Folic Acid 1 Mg Tablet) 1 mg PO DAILY [facility] Last Admin: 03/14/25 09:50 Dose: 1 mg Gabapentin (Gabapentin 300 Mg Capsule) 300 mg PO TID [facility] Last Admin: 03/14/25 09:49 Dose: 300 mg Guanfacine HCl (Guanfacine Hcl Er 2 Mg Tab.Er.24h) 2 mg PO BEDTIME [facility] Last Admin: 03/13/25 20:27 Dose: Not Given Hydroxyzine HCl (Hydroxyzine Hcl 25 Mg Tablet) 25 mg PO Q6H PRN PRN Reason: mild anxiety Last Admin: 03/11/25 18:18 Dose: 25 mg Levetiracetam 250 mg/ (Levetiracetam 500 mg) 750 mg PO BID [facility] Last Admin: 03/14/25 09:49 Dose: 750 mg Lidocaine (Lidocaine 4 % Patch Adh..Patch) 2 patch TRANSDERMA DAILY PRN; Protocol PRN Reason: back pain Magnesium Hydroxide (Milk Of Magnesia 30 Ml Oral.Susp) 30 ml PO DAILY PRN PRN Reason: Constipation Last Admin: 03/13/25 20:22 Dose: 30 ml Magnesium Oxide (Magnesium Oxide 400 Mg Tablet) 400 mg PO DAILY [facility] Last Admin: 03/14/25 09:50 Dose: 400 mg Melatonin (Melatonin 3 Mg Tablet) 9 mg PO BEDTIME PRN PRN Reason: insomnia, trazodone ineffectiv Methadone HCl (Methadone Hcl 20 Mg/2 Ml Oral.Conc) 90 mg PO DAILY@0800 [facility] Last Admin: 03/14/25 07:44 Dose: 90 mg Mirtazapine (Mirtazapine 15 Mg Tablet) 45 mg PO BEDTIME [facility] Last Admin: 03/13/25 20:23 Dose: 45 mg Multi-Ingred Cream/Lotion/Oil/Oint (Mineral Oil/Petrolatum,White 106 Gm [place]) 1 appl TOPICAL BID [facility]; Protocol Last Admin: 03/14/25 09:51 Dose: Not Given Nicotine (Nicotine 21 Mg Patch.Td24) 21 mg TRANSDERMA DAILY PRN PRN Reason: smoking cessation Nicotine Polacrilex (Nicotine Polacrilex 2 Mg Gum) 4 mg BUCCAL Q2H PRN PRN Reason: Nicotine Cravings Olanzapine (Olanzapine 5 Mg Tablet) 5 mg PO TID PRN PRN Reason: agitation Last Admin: 03/11/25 16:14 Dose: 5 mg Polyethylene Glycol (Polyethylene Glycol 3350 17 Gm Powd.Pack) 17 gm PO DAILY [facility] Last Admin: 03/14/25 09:50 Dose: 17 gm Prazosin HCl (Prazosin Hcl 1 Mg Capsule) 1 mg PO BEDTIME [facility]; Protocol Last Admin: 03/13/25 20:23 Dose: 1 mg Pyridoxine HCl (Pyridoxine Hcl (Vitamin B6) 50 Mg Tablet) 50 mg PO DAILY [facility] Last Admin: 03/14/25 09:49 Dose: 50 mg Quetiapine Fumarate (Quetiapine Fumarate 100 Mg Tablet) 100 mg PO BEDTIME [facility] Last Admin: 03/13/25 20:24 Dose: 100 mg Sertraline HCl (Sertraline Hcl 100 Mg Tablet) 200 mg PO DAILY [facility] Last Admin: 03/14/25 09:50 Dose: 200 mg Thiamine HCl (Thiamine Hcl 100 Mg Tablet) 100 mg PO DAILY [facility] Last Admin: 03/14/25 09:50 Dose: 100 mg Trazodone HCl (Trazodone Hcl 50 Mg Tablet) 50 mg PO BEDTIME MRX1 PRN PRN Reason: Insomnia Last Admin: 03/13/25 23:54 Dose: 50 mg Allergies Allergies Allergy/AdvReac Type Severity Reaction Status Date / Time No Known Allergies Allergy Verified 03/05/25 13:36 Assessment & Plan Assessment & Plan (1) Opiate withdrawal: Status: Acute Code(s): F11.93 - Opioid use, unspecified with withdrawal (2) Alcohol use disorder: Status: Acute Code(s): F10.90 - Alcohol use, unspecified, uncomplicated Plan I had a brief encounter with patient this morning who was lying in his bed. He notes that he is tired but continues to improve and feels better than yesterday. He states that he will not be able to participate in a full interview today and feels he will be ready tomorrow. He denies SI, HI, AVH at this time. He has history of depression, polysubstance abuse, epilepsy, and suicide attempt with drug overdose following the of his mother. He is currently homeless. The following is collateral from nursing: Rogelio arrived via wheelchair from the [facility] ED POD at 1517. He is awake but drowsy, flat affect and dismissive. He was cooperative with skin and safety check, skin check is unremarkable. He signed a CV with Bertha Ruffin NP. He is oriented x4, reports passive SI and will seek staff if this worsens and he wants to act on it. He was attempting to sleep on an exam table in the treatment room during the admission attempt. He was given a quick tour and was settled in his room where he immediately got in bed and fell asleep. ---Per ED note/crisis --He was BIBA after not taking prescribed methadone, drinking two nips, then took a 'friends' naltrexone prescription from 2021 and started to feel ill, sweats, chills, abdominal pain nausea and diarrhea. He reports using crack cocaine and alcohol daily but did not report the amount he used daily. He denied any health problems. He reports he does smoke cigarettes and would like NRT.? He was unable to report why he missed or skipped his methadone dose on that day. His tox screen was positive for cocaine, benzos, methadone. He is currently unhoused. He gets 90mg of methadone at [facility], dose verified while in the ED. He is on 15 minute safety checks.? Formulation/Clinical reasoning: Opiate withdrawal; the use of naltrexone and methadone resulted in withdrawal symptoms such as sweats, chills, abdominal pain, and diarrhea. He was restarted on methadone 90 mg daily and currently on CIAZ for alcohol withdrawal assessment. Plan: Admit to M5. CV 15 minutes check. Diagnostics as needed. Collateral contact. Continue to take methadone 90 mg daily. Continue remainder of regime. Encouraged full milieu. Discharge planning. 03/08/25: Patient symptoms continue to improve. No anxiety, depression, SI, HI, AVH at this time. Continue current treatment regimen/plan. 03/09: Increase Baclofen to bid. Pt reports feeling dope sick today. 03/11: Continue changes of 03/10/25. Time Spent With Patient Time: Total time managing care of this patient today ____ minutes.
[2025-03-14 10:33] VITALS: BP 112/63; PULSE 72; TEMP 36.4; O2SAT 98
[2025-03-14] MEDS: Albuterol Sulfate 90 MCG 8 GM INHALER 2 PUFF INHALE (11:09)
--- NOTE | 2025-03-14 12:10 | PM.PSYDC ---
DS: Providers Provider Date of admission: 03/06/25 13:48 Primary care physician: Unknown Physician Consults: 03/06/25 15:38 Addiction Medicine Provider Routine Consulting Provider: Addiction Covering Reason for consultation: Methadone dosing evaluation Has provider been notified: No DS: Diagnosis Discharge Diagnosis (1) Opiate withdrawal: Status: Acute (2) Alcohol use disorder: Status: Acute DS: Medications Discharge Medications Home Medications: Home Medications ?Medication ?Instructions ?Recorded ?Confirmed methadone 10 mg/mL oral 90 mg PO DAILY 11/10/24 03/06/25 concentrate (Methadone Intensol) baclofen 10 mg tablet 10 mg PO BEDTIME 03/06/25 03/06/25 divalproex 500 mg tablet,delayed 1,000 mg PO BEDTIME 03/06/25 03/06/25 release gabapentin 300 mg capsule 300 mg PO TID neuropathic pain 03/06/25 03/06/25 hydroxyzine pamoate 50 mg capsule 50 mg PO Q6H PRN Anxiety 03/06/25 03/06/25 levetiracetam 750 mg tablet 750 mg PO BID 03/06/25 03/06/25 melatonin 3 mg tablet 9 mg PO BEDTIME PRN insomnia 03/06/25 03/06/25 sertraline 100 mg tablet 200 mg PO DAILY 03/06/25 03/06/25 Previous Rx's ?Medication ?Instructions ?Recorded albuterol sulfate 90 mcg/actuation 2 puff inhalation RQ4H PRN sob #0 03/14/25 aerosol inhaler (Ventolin HFA) grams famotidine 20 mg tablet 20 mg PO BID #0 tabs 03/14/25 fluticasone propionate 50 1 spray intranasal BID #0 grams 03/14/25 mcg/actuation nasal spray,suspension folic acid 1 mg tablet 1 mg PO DAILY #0 tabs 03/14/25 guanfacine 2 mg tablet,extended 2 mg PO BEDTIME #0 tabs 03/14/25 release 24 hr mirtazapine 15 mg tablet 45 mg (3 x 15 mg) PO BEDTIME #0 03/14/25 tabs prazosin 1 mg capsule 1 mg PO BEDTIME #0 caps 03/14/25 pyridoxine (vitamin B6) 50 mg 50 mg PO DAILY #0 tabs 03/14/25 tablet quetiapine 100 mg tablet 100 mg PO BEDTIME #0 tabs 03/14/25 thiamine mononitrate (vit B1) 100 100 mg PO DAILY #0 tabs 03/14/25 mg tablet DS: Summary Time Spent with Patient Time attestation: Total time managing care of this patient today ____ minutes. Discharge Plan Discharge Anticipated Discharge Date/Time: 03/14/25 12:00 Patient Disposition: Home, Self-Care Discharge Diagnosis: Mood Disorder Alcohol Use Disorder Opiate Use Disorder Polysubstance Use Disorder Referrals: Physician,Unknown J [Primary Care Provider] - 1 Week Discharge Medications: New prazosin 1 mg Capsule 1 mg PO BEDTIME Qty: 0 0RF Protocol: Hold for SBP< HOLD for SBP < : 90 albuterol sulfate [Ventolin HFA] 90 mcg/actuation Hfa Aerosol Inhaler 2 puff inhalation RQ4H PRN (Reason: sob) Qty: 0 0RF guanfacine 2 mg Tablet Extended Release 24 Hr 2 mg PO BEDTIME Qty: 0 0RF quetiapine 100 mg Tablet 100 mg PO BEDTIME Qty: 0 0RF famotidine 20 mg Tablet 20 mg PO BID Qty: 0 0RF pyridoxine (vitamin B6) 50 mg Tablet 50 mg PO DAILY Qty: 0 0RF folic acid 1 mg Tablet 1 mg PO DAILY Qty: 0 0RF mirtazapine 15 mg Tablet 45 mg PO BEDTIME Qty: 0 0RF fluticasone propionate 50 mcg/actuation [place],Suspension 1 spray intranasal BID Qty: 0 0RF thiamine mononitrate (vit B1) 100 mg Tablet 100 mg PO DAILY Qty: 0 0RF Continued methadone [Methadone Intensol] 10 mg/mL Concentrate 90 mg PO DAILY Patient Comments: [facility] [phone] sertraline 100 mg tablet 200 mg PO DAILY hydroxyzine pamoate 50 mg capsule 50 mg PO Q6H PRN (Reason: Anxiety) melatonin 3 mg tablet 9 mg PO BEDTIME PRN (Reason: insomnia) divalproex 500 mg tablet,delayed release (DR/EC) 1,000 mg PO BEDTIME baclofen 10 mg tablet 10 mg PO BEDTIME gabapentin 300 mg capsule 300 mg PO TID levetiracetam 750 mg tablet 750 mg PO BID Discontinued nicotine 21 mg/24 hr patch 24 hour 1 patch transdermal DAILY Discharge Orders: Discharge Order (Routine); Ordered 03/14/25 Ordered By: Krystin M Hernando-Wonkka Diet: Advance to usual diet Activity on Discharge: As tolerated Stand Alone Forms: Patient Portal Discharge page, Community Support, Work/School Release Print Language: Thai Activity Restrictions/Additional Instructions: labs reassuring given methadone 80mg today do not take naltrexone you put yourself into precipitated withdrawal. return for any worsening symptoms or concerns. rest and stay hydrated Opiate use disorder You were seen in our Emergency Department today for treatment of opiate use disorder. You may have been dosed with medication for opiate use disorder (MOUD) in the form of suboxone or methadone. You may experience feeling some withdrawal symptoms and this is normal. The? dose in the Emergency Department is a starting dose and meant to be titrated up once you follow up with a clinic. Please do not feel discouraged, it is a process. The nurse has reviewed with you where to follow up and what information to bring with you, to continue treatment. You also may have been given naloxone (narcan) to take home with you. This medication is used to potentially treat opiate overdose. If you decide you want to stop or cut down on how much you?re using, you can call or walk into our outpatient Addiction Treatment office: [facility] (M-F 9am-5p) [address] [place] [address], [phone] You may have been provided with safer injection?items, please take time to take care of YOU and your health. Use new supplies whenever possible to lessen the chances of infections and other illnesses.? ?If you need more supplies, please go [facility],? [address] [place] [address] OR you can call or text to coordinate delivery of safer supplies. You were also provided a list of several treatment providers in the area.? If you experience any worsening symptoms you cannot control please return to the ED or call 911. Please follow up at your next appointment. Things to look out for are fevers, chest pain, shortness of breath, severe pain, dizziness, fainting or any other concerns. Care Plan Goals: Abstinence from Substances Mood and Behavioral Stabilization Health Concerns: Mood and Behavioral Stabilization Abstinence from Substances Plan of Treatment: Pt is leaving precipitously today as there is a family emergency. He reports his step mother is missing for over 48 hours. He is needed to assist his family in searching and working with the police. As a result he will need to contact his providers to schedule appointments. He reports he does not need prescriptions as he has them at home. He will call/return as needed and has our contact numbers Assessment: No SI,HI,AH,VH. No sx of psychosis or noah Reports investment in continuation of treatment as an out patient. Patient Instructions: Abuse of Alcohol (ED), Narcotic Withdrawal (ED)
== END 2025-03-14 13:22 | disposition home or self-care (01) | DRG 753 ==
LOC: HO.ED 03-06 14:07 → HO.PM5 03-06 14:37
PROVIDERS: Physician Assistant Medical; Admitting Provider Psychiatry & Neurology Psychiatry; Emergency Provider Emergency Medicine; Visit Provider Clinical Nurse Specialist Psychiatric/Mental Health, Adult
DX: F39 Unspecified mood [affective] disorder (principal); G40.909 Epilepsy, unspecified, not intractable, without status epilepticus; F10.90 Alcohol use, unspecified, uncomplicated; F14.10 Cocaine abuse, uncomplicated; F11.23 Opioid dependence with withdrawal; F17.210 Nicotine dependence, cigarettes, uncomplicated; Z71.6 Tobacco abuse counseling; Z79.899 Other long term (current) drug therapy
CPT/HCPCS: 36415; 80048; 80053; 80061; 80076; 80164; 80307; 81001; 81003; 82140; 83036; 83690; 83735; 84439; 84443; 85025; 93005; 99285; J0737; J1790; J3360; J3411; J7120; S9485

== ENCOUNTER → 2025-03-05 13:36 | Outpatient (BNV) | payer MEDICAID, SELFPAY | PROVIDERS: Emergency Provider Emergency Medicine; Visit Provider Internal Medicine | DX: R94.31 Abnormal electrocardiogram [ECG] [EKG] (principal); Z13.6 Encounter for screening for cardiovascular disorders | CPT/HCPCS: 93010 ==

== ENCOUNTER → 2025-03-06 13:48 | Outpatient (BNV) | payer OTHER, SELFPAY | PROVIDERS: Admitting Provider Psychiatry & Neurology Psychiatry; Emergency Provider Emergency Medicine; Visit Provider Nurse Practitioner Psychiatric/Mental Health | DX: F11.93 Opioid use, unspecified with withdrawal (principal); F10.90 Alcohol use, unspecified, uncomplicated | CPT/HCPCS: 99231; 99232; 99499 ==